=== PATIENT | male | born 1975 | race Caucasian/White ===

== ENCOUNTER 2020-03-30 17:13 | Inpatient (IN) | payer OTHER, SELFPAY ==
[~2020-03-30] VITALS: Ht 180.3 cm; Wt 72.3 kg
--- NOTE | 2020-03-30 18:04 | REPVR ---
PROCEDURE INFORMATION: Exam: XR Right Ribs with PA Chest, 3 Views Exam date and time: 03/30/2020 5:44 PM Age: 44 years old Clinical indication: Other: Right rib pain; Additional info: Pain to right ribcage TECHNIQUE: Imaging protocol: XR Right ribs 3 views with PA chest. COMPARISON: No relevant prior studies available. FINDINGS: Lungs: Opacified right hemithorax. Pleural space: Unremarkable. No pleural effusion. No pneumothorax. Heart/Mediastinum: Unremarkable. No cardiomegaly. Bones/joints: Unremarkable. IMPRESSION: 1. Opacified right hemithorax. 2. No rib abnormalities. Electronically signed by: Maxim Phillips On 03/30/2020 18:04:39 PM
[2020-03-30] MEDS ORDERED: NS 1,000 ML IV SCH (18:06)
[2020-03-30] MEDS ORDERED: IPRATROPIUM 0.5MG/ALBUTEROL 2.5MG INH SOL UD 3ML (DUONEB) NEB PRN (18:15)
[2020-03-30 18:34] LABS: ABG BASE EXCESS -4.5 (-2.0-2.0); ABG HCO3 19.2 MEQ/L (22.0-26.0); ABG PARTIAL PRESSURE CO2 32.1 mmHg (35.0-45.0); ABG PARTIAL PRESSURE O2 91.1 mmHg (75.0-100.0); ABG STANDARD HCO3 20.8 MEQ/L (22.0-26.0); ABG TOTAL CO2 20.2 MEQ/L (22.0-29.0); ABG pH (ARTERIAL) 7.395 UNITS (7.350-7.450)
[2020-03-30 18:44] LABS: BASO # 0.1 10^3/uL (0.0-0.2); BASO % 0.3 % (0.0-1.0); EOS % 0.1 % (0.0-3.0); HEMATOCRIT 46.8 % (42.0-52.0); HEMOGLOBIN 15.4 g/dl (13.5-17.5); LYMPH # 3.5 10^3/uL (1.5-5.0); LYMPH % 15.9 % (24.0-44.0); MEAN CORPUSCULAR HEMOGLOBIN 28.9 pg (27.0-33.0); MEAN CORPUSCULAR HGB CONC 32.9 g/dl (32.0-36.5); MEAN CORPUSCULAR VOLUME 87.8 fl (80.0-96.0); MONO # 1.9 10^3/uL (0.0-0.8); MONO % 8.6 % (0.0-5.0); NEUTROPHILS # 16.2 10^3/uL (1.5-8.5); NEUTROPHILS % 74.6 % (36.0-66.0); PLATELET COUNT, AUTOMATED 578 10^3/uL (150-450); RED BLOOD COUNT 5.33 10^6/uL (4.30-6.10); WHITE BLOOD COUNT 21.7 10^3/uL (4.0-10.0)
[2020-03-30 18:47] LABS: INR 1.05
[2020-03-30 18:57] LABS: ALBUMIN 3.3 GM/DL (3.2-5.2); ALT/SGPT 33 U/L (12-78); BILIRUBIN,DIRECT 0.1 MG/DL (0.0-0.2); BILIRUBIN,TOTAL 0.4 MG/DL (0.2-1.0); BLOOD UREA NITROGEN 15 MG/DL (7-18); CARBON DIOXIDE LEVEL 23 MEQ/L (21-32); CHLORIDE LEVEL 104 MEQ/L (98-107); CPK CREATINE PHOSPHOKINASE 216 U/L (39-308); CREATININE FOR GFR 0.87 MG/DL (0.70-1.30); GLOMERULAR FILTRATION RATE > 60.0 (>60); GLUCOSE, FASTING 120 MG/DL (70-100); MB/CK RELATIVE INDEX 1.39 (< OR =4); POTASSIUM SERUM 4.7 MEQ/L (3.5-5.1); SODIUM LEVEL 136 MEQ/L (136-145); TOTAL PROTEIN 7.2 GM/DL (6.4-8.2); TROPONIN I < 0.02 NG/ML (< 0.10)
[2020-03-30] MEDS ORDERED: ONDANSETRON 4MG/2ML VIAL IV ONE (19:15)
[2020-03-30] MEDS ORDERED: MORPHINE 4 MG/ML 1ML VIAL/SYRINGE (J2270) IV ONE (19:15)
[2020-03-30] MEDS ORDERED: ISOVUE-370 76% 100ML VIAL As Ordered ONE (19:31)
[2020-03-30] MEDS ORDERED: MORPHINE 4 MG/ML 1ML VIAL/SYRINGE (J2270) IV PRN (22:00)
[2020-03-30] MEDS ORDERED: MOM 30ML SUSPENSION UDC PO PRN (23:00)
[2020-03-30] MEDS ORDERED: ACETAMINOPH W/CODEINE #3 TAB UD PO PRN (23:00)
[2020-03-30 23:29] LABS: PH BODY FLUID 7.276 UNITS (NOT ESTABLISHED); SOURCE, BODY FLUID pH PLEURAL
[2020-03-30 23:56] LABS: LDH, BODY FLUID 247 U/L (NOT ESTABLISHED); SOURCE, BODY FLUID GLUCOSE PLEURAL; SOURCE, BODY FLUID LDH PLEURAL; SOURCE, BODY FLUID TOT PROTEIN PLEURAL; TOTAL PROTEIN, BODY FLUID 5.2 G/DL (NOT ESTABLISHED)
[2020-03-31 00:31] LABS: SOURCE, BODY FLUID PLEURAL
[2020-03-31 00:32] LABS: APPEARANCE, BODY FLUID TURBID (CLEAR); PLEURAL FL COLOR RED (COLORLESS)
[2020-03-31 01:00] VITALS: BP 135/83
[2020-03-31 04:00] VITALS: BP 98/57
[2020-03-31 05:31] LABS: HEMATOCRIT 40.1 % (42.0-52.0); MEAN CORPUSCULAR HEMOGLOBIN 29.1 pg (27.0-33.0); MEAN CORPUSCULAR HGB CONC 32.9 g/dl (32.0-36.5); MEAN CORPUSCULAR VOLUME 88.3 fl (80.0-96.0); RED BLOOD COUNT 4.54 10^6/uL (4.30-6.10); WHITE BLOOD COUNT 26.8 10^3/uL (4.0-10.0)
[2020-03-31 05:42] LABS: HEMOGLOBIN 13.2 g/dl (13.5-17.5); PLATELET COUNT, AUTOMATED 458 10^3/uL (150-450)
--- NOTE | 2020-03-31 06:24 | ECGEPIP ---
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
[2020-03-31 08:00] VITALS: BP 132/75
[2020-03-31 12:00] VITALS: BP 137/69
[2020-03-31] MEDS: ACETAMINOPHEN TAB 650MG DOSE (2X325MG) PO PRN ×2 (12:24→22:33)
[2020-03-31 16:00] VITALS: BP 112/58
[2020-03-31 20:00] VITALS: BP 115/65
[2020-04-01] VITALS: BP 110/71
[2020-04-01 04:00] VITALS: BP 105/64
[2020-04-01 08:00] VITALS: BP 111/73
--- NOTE | 2020-04-01 08:03 | IPNPDOC ---
Date Seen The patient was seen on 03/31/20. Progress Note SUBJECTIVE: Patient is a 44-year-old male with no reported medical history who has been admitted to the hospital due to a tension hemothorax. A chest tube was placed by Dr. Villaseñor. This is hospital day 2. Pt is alert, cooperative, and conversational. He states that he is doing well today and does not have any concerns. The nurses report no overnight events. They state that they switched his nasal cannula from 1L to 3L due to his oxygenation being at 91% O2 saturation. The only pain he reports is slight and at the site of the chest tube insertion. OBJECTIVE PHYSICAL EXAMINATION: VITAL SIGNS: Please see below. GENERAL: awake, alert, appears healthy, is in no acute distress. CARDIOVASCULAR: RRR, no murmurs, rubs, gallops. RESPIRATORY: inspiratory crackles and decreased breath sounds in right middle and lower lobes, clear, normal vesicular breath sounds in upper lung lobes bilaterally, normal vesicular breath sounds in left lower lobe. ABDOMINAL: nondistended, soft abdomen, normal bowel sounds. EXTREMITIES: no edema palpated bilaterally in lower extremities PSYCHOLOGICAL: awake, alert, cooperative LABORATORY DATA, IMAGING STUDIES, MICROBIOLOGY: Please see below. Electrocardiogram: Test Date: 2020-03-30 SINUS TACHYCARDIA POOR R WAVE PROGRESSION VOLTAGE CRITERIA FOR LVH NO PRIORS FOR COMPARISON Electronically Signed on 03-31-2020 6:24:27 [address]T [address] Don[address] Cruz. [address] chest 03/30/2020: Official report pending. Verbal findings include right tension hemothorax leading to displacement of the heart into the left half of the rib cage. Chest radiograph: 03/31/20-still shows atelectasis of the lower right lung lobe. The right upper lobe has re-expanded, the right middle lobe has partially re-expanded. Official report is pending. DVT prophylaxis ordered: SCDs ordered. Pt is possibly actively bleeding, therefore, no anti-coagulants are being used at this time. Pt has been advised to walk and nursing staff is encouraged for the same. ASSESSMENT AND PLAN: This is a 44-year-old male with no significant past medical history who presents with a right tension hemothorax. Chest tube was placed without complications by Dr. Villaseñor. Pt is full code. PROBLEMS: 1. Cardiology: Pt's vitals are stable, he is not hypovolemic, he is not curr ently tachycardic. 2. Pulmonology: Pt's chest radiograph show partial re-expansion of the right upp er and middle lobes. Due to atelectatic right lower lobe, PEP therapy, incentive spirometer, and Acapella were ordered with assistance from the respiratory team. Continue to explore etiology for hemothorax. Will monitor with follow-up CT chest. Continue serial chest radiographs. Continue to keep insertion site of chest tube, clean and dry. Continue to monitor volume of drainage from chest tube. 3. Hematology/Oncology: Continue to monitor blood count due to RBC loss in pleural fluid. Pleural fluid drained has been a total of 7.19L of pleural fluid. 4. GI: Continue bowel regimen. DISPOSITION: Continue to monitor chest tube output. Management will change after chest tube no longer drains fluid. Dr. Villaseñor: I participated in the willson components of the evaluation and agree with the content of the above note. The patient has responded well to pleural drainage and his lung is expanding. Fluid results are consistent with traumatic hemothorax but the rate of development is unusual. We will continue drainage and add pulmonary toilet maneuvers. VS, I&O, 24H, Fishbone Vital Signs/I&O Vital Signs Date Time Temp Pulse Resp B/P (MAP) Pulse Ox O2 Delivery O2 Flow Rate FiO2 03/31/20 08:00 98.7 95 20 132/75 (94) 91 Nasal Cannula 1.0 I&O- Last 24 Hours up to 6 AM 03/31/20 05:59 Intake Total 650 ml Output Total 7300 ml Balance -6650 ml Laboratory Data 24H LABS Laboratory Tests 2 03/30/20 18:00: Immature Granulocyte % (Auto) 0.5, Neutrophils (%) (Auto) 74.6H, Lymphocytes (%) (Auto) 15.9L, Monocytes (%) (Auto) 8.6H, Eosinophils (%) (Auto) 0.1, Basophils (%) (Auto) 0.3, Neutrophils # (Auto) 16.2H, Lymphocytes # (Auto) 3.5, Monocytes # (Auto) 1.9H, Eosinophils # (Auto) 0.0, Basophils # (Auto) 0.1, Nucleated Red Blood Cells % (auto) 0.0, Prothrombin Time 14.0, Prothromb Time International Ratio 1.05, Anion Gap 9, Glomerular Filtration Rate > 60.0, Calcium Level 9.0, Total Bilirubin 0.4, Direct Bilirubin 0.1, Aspartate Amino Transf (AST/SGOT) 13, Alanine Aminotransferase (ALT/SGPT) 33, Alkaline Phosphatase 92, Total Creatine Kinase 216, Creatine Kinase MB 3.0, Creatine Kinase MB Relative Index 1.39, Troponin I < 0.02, Total Protein 7.2, Albumin 3.3, Albumin/Globulin Ratio 0.8 03/30/20 18:27: Blood Gas Bicarbonate Standard 20.8L, Arterial Blood pH 7.395, Arterial Blood Partial Pressure CO2 32.1L, Arterial Blood Partial Pressure O2 91.1, Arterial Blood Total CO2 20.2L, Arterial Blood HCO3 19.2L, Arterial Blood Base Excess - 4.5L, Arterial Blood Oxygen Saturation 97.0 03/30/20 23:20: Body Fluid pH 7.276, Body Fluid pH Source PLEURAL, Body Fluid WBC (Auto) 2621H, Body Fluid RBC (Auto) 293, Body Fluid Mononuclear Cells % Auto 47.7H, Fluid Polymorphonuclear Cell % Auto 52.3H, Body Fluid Glucose Source PLEURAL, Body Fluid Glucose 52, Body Fluid Protein Source PLEURAL, Body Fluid Total Protein 5.2, Body Fluid LDH Source PLEURAL, Body Fluid Lactate Dehydrogenase 247, Pleural Fluid Source PLEURAL, Pleural Fluid Color RED, Pleural Fluid Appearance TURBID 03/31/20 04:58: Nucleated Red Blood Cells % (auto) 0.0 CBC/BMP Laboratory Tests 03/30/20 18:00 03/31/20 04:58 Microbiology Microbiology 03/30/20 Gram Stain - Final, Resulted 03/30/20 Body Fluid Culture, Resulted Pending GME ATTESTATION My faculty preceptor for this patient encounter was physically present during the encounter and was fully available. All aspects of the patient interview, examination, medical decision making process, and medical care plan development were reviewed and approved by the faculty preceptor. The faculty preceptor is aware and concurs with the plan as stated in the body of this note and will attest to such by his/her cosignature. Triston Sandoval DO Mar 31, 2020 11:56 Jaspreet Villaseñor DO, [facility] Apr 01, 2020 10:01
[2020-04-01 12:00] VITALS: BP 133/78
[2020-04-01 13:46] LABS: CREATININE BF 0.7 MG/DL (NOT ESTABLISHED); SOURCE, BODY FLUID CREATININE PLEURAL
--- NOTE | 2020-04-01 19:59 | HPE ---
DATE OF ADMISSION: 03/30/2020 HISTORY OF PRESENT ILLNESS: The patient is a 45-year-old male who presents to the emergency department with dyspnea. His dyspnea has been progressive over the past six days. He recalls struggling with a ladder six days ago. He did not fall from the ladder but was handling it in the air and strained himself to some degree. He has had no other chest injuries. He has some minor chest discomfort and is more short of breath with conversation with exertion. PAST MEDICAL HISTORY: Includes remote trauma with remote right rib fractures. He has no other past medical history. He has never had surgery. MEDICATIONS: He takes no medications on a regular basis. He uses nonsteroidal anti-inflammatory medicines [id number] from time to time for physical discomfort. ALLERGIES: He has no medication allergies that he is aware of. FAMILY HISTORY: He is not aware of illness in either of his parents though they are estranged. SOCIAL HISTORY: He smokes a pac of cigarettes per day and has done so for 20 years. He is actively smoking. He does not take alcohol on a regular basis. 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 REVIEW OF SYSTEMS: Constitutional: There are no changes in appetite or weight. HEENT: No history of impairment of vision, smell or hearing. Cardiovascular: No anginal-type chest pain, no orthopnea or paroxysmal nocturnal dyspnea. Pulmonary: There is no history of recurrent bronchitis, emphysema, or pneumonia. He has no asthma. GI: There is no history of recurring nausea, vomiting, constipation, or diarrhea. : No frequency, dysuria, or kidney stones. Endocrine: No history of diabetes or thyroid disease. Hematologic: No history of easy bruising rule out bleeding. He has never received blood transfusions. Neuro: No history of stroke or seizure. Musculoskeletal: He has no significant joint disease or motor weakness. PHYSICAL EXAMINATION: He is awake, alert and oriented. His affect and motor are appropriate. Nutrition and hygiene are good. Vital signs: Temperature 98.6, pulse rate is 129, respirations are 18, blood pressure 124/80, oxygen saturation 93% on room air. HEENT: Oral and nasal mucosa are pink. His posterior pharynx is mildly erythematous consistent with ongoing nicotine exposure. There is stridor over the trach and no adenopathy in the neck. Jugular veins are flat. Carotid upstroke brisk. Heart sounds are regular, somewhat rapid with deviation in the PMI to the left. Lungs: Breath sounds are coarse, clear over the left hemithorax, absent over the right hemithorax. There is no accessory muscle use at rest. Abdomen is soft with intact bowel sounds. There is no mass or organomegaly, no bruit over the large vessels in the abdomen. Extremities are cool. Peripheral pulses easily palpable. Nails are not clubbed. DIAGNOSTIC STUDIES: White cell count is 21, hemoglobin 15, hematocrit 46, platelet count 578,000. Arterial blood gasses showed a pH of 7.39, pCO2 32, pO2 91 on room air. Sodium is 136, potassium 4.7, chloride 104, CO2 is 23, BUN 15, creatinine 0.87, glucose 120. Bilirubin is normal. AST 13, ALT 33, alkaline phosphatase 92, troponin 0.02. Albumin 3.3. Pro time is 14, INR 1.05. His chest CT scan shows opacification of the right hemithorax with mediastinal shift to the left. IMPRESSIONS: Right hemothorax with compressive atelectasis of the right lung and resultant dyspnea. PLAN: Having reviewed the history, physical, and diagnostic studies with the patient, I proposed right thoracostomy. We will proceed with placement of thoracostomy tube and removal of pleural fluid. Thereafter the patient will be admitted to the progressive care unit for close monitoring. MORIAH
--- NOTE | 2020-04-01 20:02 | RO ---
DATE OF OPERATION: 03/30/2020 PREOPERATIVE DIAGNOSIS: Right hemothorax. POSTOPERATIVE DIAGNOSIS: Right hemothorax. PROCEDURE PERFORMED: Right tube thoracostomy. SURGEON: Jaspreet Villaseñor DO INSTRUCTOR [employer]OL[employer] TAXI: ANESTHESIA: PROCEDURE NOTE: The patient was seen and the procedure was explained to the patient as were all of the possible complications pertaining thereto. A written and informed consent were obtained and placed on the chart. The patient was placed in a seated upright position. Inner space between ribs 6 and 7 on the anterior axillary line was prepped with ChloraPrep, draped in a sterile fashion. A 25-gauge needle was used to raise the skin wheal with 1% lidocaine. Thereafter, a 17-gauge introducer needle was placed in through the skin and into the right pleural space. Free return of pleural fluid was appreciated. A vascular-tipped guidewire was advanced. Thereafter, a small incision was made adjacent to the guidewire and a 14 [place] chest tube placed over the guidewire and into the pleural space. The tube was connected to a Pleur-evac evacuation system and 5.7 liters of bloody fluid was returned. A sample was sent to the lab for evaluation. The tube was sewn in place. A sterile dressing was applied. The patient tolerated the procedure well, suffered no apparent complications. A post-procedural chest x-ray is pending. [facility]
--- NOTE | 2020-04-01 20:04 | DSES ---
DATE OF ADMISSION: 03/30/2020 DATE OF DISCHARGE: 04/01/2020 DISCHARGE DIAGNOSIS: Tension hydrothorax. HISTORY: The patient is a 44-year-old gentleman who presented to the emergency department with progressive shortness of breath and right-sided chest pain. He was wrestling with an extension ladder on Tuesday of the week prior to this admission, when he felt pain in his right side. The pain did not preclude him from continuing work; however, on he began to experience some shortness of breath, which progressed over time, and when the pain was intolerable and the shortness of breath progressed, he presented to the emergency department on the evening of 03/30/2020. PAST MEDICAL HISTORY: None. MEDICATIONS: [id number] Tylenol and Motrin. ALLERGIES: None. SOCIAL HISTORY: Smoker of 20 years. He smokes an average of a pack per day. He does not take alcohol. He has a supportive family. Remaining details of the history are outlined in the dictated history and physical. PHYSICAL EXAMINATION ON ADMISSION: He is awake, alert, and oriented. Affect and mood are appropriate. Nutrition and hygiene are good. Oral and nasal mucosa are pink. Neck is supple. No meningismus. Heart sounds are regular with point of maximal impulse (PMI) deviated to the left. Breath sounds were coarse, clear on the left. There were no breath sounds in the right hemithorax. Chest is otherwise symmetric and moves symmetrically. Abdomen is soft. Extremities show no significant edema. Pulse is reasonably palpable. Nails show some clubbing change. DIAGNOSTIC STUDIES: On admission his white cell count was 21.7. On March 31 his white count was 26.8. On admission his hemoglobin was 15.4. On March 31 his hemoglobin was 13.2. On admission his platelet count was 578,000. On March 31 his platelet count was 458,000. His electrolytes were sodium 136, potassium 4.7, chloride 104, CO2 of 23, BUN 15, creatinine 0.87, glucose 120. His liver enzymes were normal. Albumin 3.3. Arterial blood gas on admission shows a pH 7.39, pCO2 of 32, pO2 of 91. Coagulation studies were normal. Pleural fluid studies showed a pH of 7.27, white cell count 2600, red cells 293, mononuclear cells 47, polymorphonuclear cells 52%. Glucose 52, protein 5.2, LDH 247. Chest imaging on admission showed a tension right hydrothorax with significant deviation of the mediastinum and some compression of the left lung. Subsequent chest x-rays showed improvement and re-expansion of the right lung. HOSPITAL COURSE: The patient was seen in the emergency department, and having reviewed his findings, consent was obtained, and right tube thoracostomy was performed. The chest tube drained copious fluid, all total over 6 liters of serosanguineous fluid drained into the Pleur-evac. The patient felt immediate relief. He was treated to the progressive care unit for close monitoring. On the first hospital day, his chest x-ray was noted to be improved with persistent atelectasis of the right lower lobe. Lung expansion therapy was then applied, and on 04/01/2020 his chest x-ray looked much improved. We obtained a CT image of the chest. The report is at this point pending. I reviewed the images. There is minimal air outside the right lung, some persistent atelectasis in the right base, minimal residual pleural fluid. Some ground-glass opacities are appreciated on the left. Given successful re-expansion of the chest, the thoracostomy tube was removed. A sterile dressing was applied, and the patient was discharged. He was encouraged to use [id number]-[id number] medications if needed for pain. He required none while he was in the hospital. Followup will be arranged for him with our office and repeat chest x-ray in about 2 weeks' time. He was counseled regarding smoking cessation. We will continue to follow the abnormal x-ray at his followup visit. MORIAH
[2020-04-02 08:40] LABS: BILIRUBIN,TOTAL BF 0.7 MG/DL (NOT ESTABLISHED); SOURCE, BODY FLUID TOT BILIRU PLEURAL
--- NOTE | 2020-04-07 12:49 | REP ---
PORTABLE CHEST X-RAY: SINGLE VIEW HISTORY: Hemothorax. COMPARISON: 03/30/2020. FINDINGS: Monitoring electrodes are seen. A right pleural drainage catheter is seen in place at the right lung base. There is a small hydropneumothorax noted on the right. Most of the air and the small amount of fluid in the right pleural space is noted at the base. There is partial collapse and consolidation in the right lower lobe and upper lobe distribution adjacent to the pleural fissure. Aeration is slightly improved from the 03/30/2020 study. There is plate-like atelectasis in the left base today. IMPRESSION: Hydropneumothorax persists on the right despite pleural drainage catheter placement. Incomplete expansion of the right lung. MTDD
--- NOTE | 2020-04-07 12:50 | REP ---
PORTABLE CHEST X-RAY: SINGLE VIEW HISTORY: Hemothorax. COMPARISON: Comparison study March 31, 2020. FINDINGS: The right pleural drainage catheter is again noted in place at the right base. On this frontal view of the chest, the catheter may be kinked at the skin entry site laterally. There is increased pleural fluid and decreased pleural air in the right chest. Bibasilar atelectatic changes are noted, right greater than left. Heart size is unchanged. IMPRESSION: Question pleural drainage catheter kinking at the skin entry site laterally. Increased right pleural fluid and decreased amount of right pleural air. Bibasilar atelectatic changes. MTDD
[2020-04-14] MEDS ORDERED: DILA2TAB6 PO (15:22)
[2020-04-25] MEDS ORDERED: KEYT1INJ IV (09:54)
[2020-04-30] MEDS ORDERED: DILA2TAB6 PO (12:31)
== END 2020-04-01 13:50 | disposition home or self-care (01) | DRG 135 ==
LOC: M ED 17:13 → M ED INP 22:56 → ENRESERV 23:24 → M PCU 03-31 00:55
PROVIDERS: ADMIT Internal Medicine Pulmonary Disease; ATTEND Internal Medicine Pulmonary Disease
PROC: 0W9930Z Drainage of Right Pleural Cavity with Drainage Device, Percutaneous Approach (ICD-10-PCS; principal; 2020-03-30)
DX: S27.1XXA Traumatic hemothorax, initial encounter (principal); J98.11 Atelectasis; F17.210 Nicotine dependence, cigarettes, uncomplicated; X50.0XXA Overexertion from strenuous movement or load, initial encounter; Y99.0 Civilian activity done for income or pay; Y92.89 Other specified places as the place of occurrence of the external cause; Z91.030 Bee allergy status; Y93.89 Activity, other specified

== ENCOUNTER → 2020-04-08 | Outpatient (CLI) | payer OTHER, SELFPAY ==
[~2020-04-08] MED LIST: ACET-683 PO; ACET325C5 PO; APAP325T4 PO; AUGM875T28 PO; AZIT-12 PO; DILA2TAB6 PO; GNP80CHW PO; KEYT1INJ IV; METO1TAB7 PO; MIRA3350 PO; MULTCAP PO; NAPR220C14 PO; NYST10006 TOP; OXYC-404 PO; OXYC-517 PO
--- NOTE | 2020-04-11 09:15 | REP ---
CHEST XRAY: 04/08/20 CLINICAL: Follow-up pleural effusion. TECHNIQUE: PA and lateral. COMPARISON: 04/01/20. FINDINGS: Increasing opacities involving the right hemithorax consistent with enlarging hydropneumothorax and underlying air space disease. Small trapped fluid at the right apex is also appreciated. The left hemithorax is clear. Visualized portions of the cardiac silhouette and mediastinum appear normal. Skeletal structures are intact. IMPRESSION: Increasing right sided pleuroparenchymal changes consistent with increasing hydropneumothorax and underlying air space disease. MTDD
== END ==
LOC: M RAD 09:53
PROVIDERS: ATTEND Internal Medicine Pulmonary Disease
DX: J90 Pleural effusion, not elsewhere classified (principal)

== ENCOUNTER → 2020-04-14 | Outpatient (CLI) | payer OTHER, SELFPAY ==
[~2020-04-14] MED LIST changes: +ISOVUE-370 76% 100ML VIAL As Ordered ONE; +PROHANCE 279.3MG/ML 15ML VIAL As Ordered ONE
--- NOTE | 2020-04-14 16:45 | REP ---
INDICATION: PLEURAL EFFUSION, NOT ELSEWHERE CLASSIFIED COMPARISON: 04/08/2020 TECHNIQUE: PA and lateral. FINDINGS: Increasing near complete opacification of the right hemithorax consistent with large pleural effusion left hemithorax appears relatively clear. No obvious cardiomegaly. IMPRESSION: Near complete opacification of the right hemithorax consistent with large pleural effusion increased from prior examination. <Electronically signed by Arsalan Gifford > 04/14/20 [id number]
== END ==
LOC: M RAD 16:03
PROVIDERS: ATTEND Internal Medicine Pulmonary Disease
DX: J90 Pleural effusion, not elsewhere classified (principal)

== ENCOUNTER 2020-04-15 08:34 | Inpatient (IN) | payer OTHER, SELFPAY ==
[2020-04-15] VITALS (27 sets, daily range): BP systolic 104–133; BP diastolic 55–84; O2SAT 84–99
[~2020-04-15] VITALS: Ht 180.3 cm; Wt 71.8 kg
[~2020-04-15 08:34] MED LIST changes: -ACET-683 PO; -ACET325C5 PO; -APAP325T4 PO; -AUGM875T28 PO; -AZIT-12 PO; -GNP80CHW PO; -ISOVUE-370 76% 100ML VIAL As Ordered ONE; -KEYT1INJ IV; -METO1TAB7 PO; -MIRA3350 PO; -MULTCAP PO; -NAPR220C14 PO; -NYST10006 TOP; -OXYC-404 PO; -OXYC-517 PO; -PROHANCE 279.3MG/ML 15ML VIAL As Ordered ONE
[2020-04-15] MEDS ORDERED: KCL 20MEQ IN D5/NS 1000ML 1,000 ML IV SCH (08:36)
[2020-04-15] MEDS ORDERED: BISACODYL 10 MG SUPP PR PRN (08:45)
[2020-04-15] MEDS ORDERED: ceFAZolin SOD 2 GM in IV 1 EA IV ONE (08:45)
[2020-04-15] MEDS ORDERED: PERCOCET 5MG/325MG TAB PO PRN ×2 (08:45)
[2020-04-15] MEDS ORDERED: NORCO, ANEXSIA 5/325MG TABLET (HYDROcodone/ACETAMINOPHEN) PO PRN (08:45)
[2020-04-15] MEDS ORDERED: ONDANSETRON 4MG/2ML VIAL IV PRN (08:45)
[2020-04-15] MEDS ORDERED: ACETAMINOPHEN TAB 650MG DOSE (2X325MG) PO PRN (08:45)
[2020-04-15] MEDS ORDERED: LEVALBUTEROL 1.25 MG/0.5 ML CONCENTRATE NEB NEB PRN (08:45)
[2020-04-15] MEDS: MOM 30ML SUSPENSION UDC PO SCH ×2 (09:00→12:55)
[2020-04-15] MEDS ORDERED: MIDAZOLAM INJ 2MG/2ML VIAL (J2250 PER 1MG) As Ordered ONE (09:32)
[2020-04-15] MEDS ORDERED: flumazeniL 0.5 MG/5 ML VIAL As Ordered ONE (09:32)
[2020-04-15] MEDS ORDERED: LIDOCAINE 1% MDV 20ML VIAL As Ordered ONE (09:32)
[2020-04-15 10:12] LABS: ABG BASE EXCESS -0.3 (-2.0-2.0); ABG HCO3 22.9 MEQ/L (22.0-26.0); ABG O2 SATURATION 94.8 % (95.0-99.0); ABG PARTIAL PRESSURE CO2 32.7 mmHg (35.0-45.0); ABG PARTIAL PRESSURE O2 69.5 mmHg (75.0-100.0); ABG STANDARD HCO3 24.2 MEQ/L (22.0-26.0); ABG TOTAL CO2 23.9 MEQ/L (22.0-29.0); ABG pH (ARTERIAL) 7.464 UNITS (7.350-7.450)
[2020-04-15] MEDS ORDERED: ACET325C5 PO (11:02)
[2020-04-15] MEDS ORDERED: MIRA3350 PO (11:02)
--- NOTE | 2020-04-15 11:07 | REPVR ---
PROCEDURE INFORMATION: Exam: XR Chest, 1 View Exam date and time: 04/15/2020 11:01 AM Age: 44 years old Clinical indication: Device placement; Chest tube TECHNIQUE: Imaging protocol: XR of the chest Views: 1 view. COMPARISON: 1. CT Chest without contrast 04/01/2020 10:18 AM 2. [place] - Chest, 2 view PA, Lat 04/14/2020 4:46:57 PM FINDINGS: Tubes, catheters and devices: A right chest tube has been placed. Lungs: The newly aerated right lung demonstrates multifocal airspace disease. The left lung is relatively clear. Pleural space: The previous right pleural effusion has decreased in size, now moderate to large and partially loculated laterally. The left costophrenic angle is sharp. No pneumothorax is identified. Heart/Mediastinum: Unremarkable. No cardiomegaly. Bones/joints: Unremarkable. IMPRESSION: Right chest tube placed since 1 day prior, with decreased size of right pleural effusion, now moderate to large and partially loculated laterally, with multifocal airspace disease in the right lung. Electronically signed by: Chente Iraheta On 04/15/2020 11:07:08 AM
[2020-04-15] MEDS: HEPARIN SOD (PORCINE) 5000UNITS/ML 1ML VIAL/SYRINGE SC SCH ×2 (11:30→21:09)
[2020-04-15] MEDS: KETOROLAC 30 MG/ML 1ML VIAL IV SCH ×2 (11:31→17:15)
[2020-04-15 12:14] LABS: SOURCE, BODY FLUID pH PLEURAL
[2020-04-15 12:35] LABS: SOURCE, BODY FLUID PLEURAL
[2020-04-15 12:36] LABS: APPEARANCE, BODY FLUID TURBID (CLEAR); PLEURAL FL COLOR RED (COLORLESS)
[2020-04-15] MEDS: DOCUSATE SODIUM 100 MG CAP PO SCH ×2 (12:56→21:09)
[2020-04-15] MEDS: PANTOPRAZOLE 40MG TAB (PROTONIX) PO SCH (12:56)
--- NOTE | 2020-04-15 13:00 | HPE ---
DATE OF ADMISSION: 04/15/2020 Patient is seen at the request of Dr. Schneider of oncology. ADMITTING DIAGNOSIS: Patient is a 44-year-old white male who on January 28 was admitted with a large pleural effusion, which was found to be hemothorax. It was drained with a chest tube catheter over the course of his admission of 7 liters. He had an antecedent history of being up a ladder and stretching, and was thought to be a traumatic hemothorax; however, cytology and cell block came back with adenocarcinoma. It has further been characterized as 90% PDL1 positivity but no other positive markers, including EGFR and ALK. There is no KRAS mutation, and negative for ROS1 rearrangement. Staining was consistent with metastatic lung cancer. TTF-1 and CK7 were evaluated. I do not see where it is reported. He was discharged and was seen by oncology yesterday. Over the course of the last few days he has become more short of breath, such that he cannot lie flat. He does complain of having a fever once with a temperature of 101. He is breaking out in sweats. He also has some vague chills but not rigor. He complains of chest pain in the anterior-inferior portion of his chest when he takes a deep breath and coughs. There is no dysphagia, and so until yesterday he was eating all right. There has been a slight cough but without sputum production. MEDICAL HISTORY: Prior to beginning of March he had no past medical illnesses. ALLERGIES: None. HOME MEDICATIONS: Only include Dilaudid 2 mg four times a day as needed for pain, MiraLax for constipation, and Tylenol 325 as needed for pain. HABITS: Smokes one pack per day of Marlboros. Only drinks occasionally. No illicit drugs. TRAVEL HISTORY: His father was in the [employer], and he has been to the [facility] and [place] in his younger days. EXPOSURES: No exposures to tuberculosis. Has three dogs at home, albanian higginbotham and pit bull mixes. No cats or birds. OCCUPATIONAL HISTORY: Works in [employer]. He denies having a lot of exposure to dust or asbestos. 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 SOCIAL HISTORY: He has a and three children. FAMILY HISTORY: No cancer in the family. REVIEW OF SYSTEMS: CONSTITUTIONAL: See history of present illness (HPI). Denies weight loss. On discharge he weighed 72.3 kg on April 01, and today he weighs 74.1 kg. EYES: Without diplopia. Without amaurosis fugax. Without prior jaundice. Does not wear glasses. NOSE: Without epistaxis. MOUTH: Has upper dentures. RESPIRATORY: See HPI. CARDIAC: Without prior myocardial infarctions, leg edema, or intermittent claudication. Does have the above orthopnea relative to a large pleural effusion. GASTROINTESTINAL: Without nausea, vomiting, diarrhea, constipation, melena, hematochezia, hematemesis, or abdominal pain. GENITOURINARY; Without dysuria or hematuria. History of renal stones. ENDOCRINE: Without diabetes or thyroid disease. NEUROLOGIC: Without paresthesias, paralyses, or prior seizures. PSYCHIATRIC: Without pathological anxieties, depression, or psychoses. INVESTIGATIONS: His hematology shows white count of 18.0 with a hemoglobin and hematocrit of 10.7 and 33.5. It is down from a hemoglobin and hematocrit of 13.2 and 40.1 on March 31. Platelet count is 751. Differential shows 71% neutrophils, 18% lymphocytes, 7% monocytes. There are no immature forms of toxic granulations. His electrolytes yesterday were normal except for a marginal low sodium of 134. BUN and creatinine are 7 and 0.62. Glucose of 90 with a calcium of 9.1 and an albumin of 2.9. AST and ALT are normal with a total bilirubin of 0.3. TSH was 1.9, within normal limits. PT/INR are 14.0 and 1.05, respectively. His chest x-ray shows a tension hydrothorax with a left shift with complete opacification of the right side. The left costophrenic angle is sharp. IMPRESSION: 1. Adenocarcinoma, metastatic with presumed primary from lung. 2. Recurrent pleural effusion. 3. Tension hydrothorax. 4. Shortness of breath. 5. History of tobacco abuse. 6. Anemia secondary to blood loss from pleural effusion. PLAN AND DISCUSSION: As this is now recurrent within 10 days, I will place a PleurX catheter. I am a bit concerned about his history of fever and sweats. Before committing to a PleurX catheter, I will place a needle into the fluid. If it is pus, I will change from a PleurX catheter to a chest tube. It was hemorrhagic last time. I expect that this could be hemorrhagic this time. He has become more anemic since his discharge. He does not need transfusion at this point in time. As his tumor shows a 90% PDL1 positivity, hopefully he will respond to immunotherapy, i.e., Keytruda, plus or minus chemotherapy. The newest recommendation for this situation is can use immunotherapy as a single agent. I will certainly leave that to the oncologists. During his hospitalization, I will also obtain staging studies, including an MRI of the brain and a bone scan. He will be scheduled for a PET scan after discharge. MTDD
--- NOTE | 2020-04-15 13:04 | RO ---
DATE OF OPERATION: 04/15/2020 PREOPERATIVE DIAGNOSIS: Recurrent malignant pleural effusion. POSTOPERATIVE DIAGNOSIS: Recurrent malignant pleural effusion. SURGEON: Lance Boland MD DESIGN ENGINEERING TECHNICIAN: PROCEDURE: Insertion of right PleurX tunneled catheter. ANESTHESIA: DESCRIPTION OF PROCEDURE: Under satisfactory moderate sedate achieved with 4 mg of Versed the patient was prepped and draped in usual sterile fashion. Entry and exit sites were marked. These were then infiltrated with 1% Lidocaine along with proposed tunnel site. The pleural effusion was found with explorer needle which was found to be bloody. Wire was placed. Incisions were made at the entry and exit sites. Tunnel was created with tunneler after spreading the subcutaneous tissue with hemostat. PleurX catheter was pulled from the exit site to the entry site and positioned appropriately. Tract was then dilated over the wire and peel-away introducer was placed. The PleurX catheter was then placed without difficulty. Peel-away introducer was removed. The patient was drained of 2 liters of bloody fluid which was sent for all the requisite chemistries, cultures, hematologies and cytologies. Entry site was closed with running 4-0 Monocryl subcuticular suture and catheter was secured to the abdominal wall with 2-0 silk suture. The patient tolerated the procedure well. Chest x-ray is pending. [facility]
[2020-04-15 13:41] LABS: AMYLASE, BODY FLUID 15 U/L (NOT ESTABLISHED); CHOLESTEROL, BODY FLUID 126 MG/DL (NOT ESTABLISHED); LDH, BODY FLUID 1562 U/L (NOT ESTABLISHED); SOURCE, BODY FLUID ALBUMIN PLEURAL; SOURCE, BODY FLUID AMYLASE PLEURAL; SOURCE, BODY FLUID CHOL PLEURAL; SOURCE, BODY FLUID GLUCOSE PLEURAL; SOURCE, BODY FLUID LDH PLEURAL; SOURCE, BODY FLUID TOT PROTEIN PLEURAL; SOURCE, BODY FLUID TRIG PLEURAL; TRIGLYCERIDE, BODY FLUID 109 MG/DL (NOT ESTABLISHED)
[2020-04-15] MEDS: LEVALBUTEROL 1.25 MG/0.5 ML CONCENTRATE NEB NEB SCH ×2 (14:31→19:34)
--- NOTE | 2020-04-15 18:36 | CR.PDOC ---
General Date of Consultation: Apr 15, 2020 Referring Provider: Lance Boland M.D. Attending Physician: Lance Boland M.D. Consultation REASON FOR CONSULTATION: Evaluation of adenocarcinoma complicated by malignant pleural effusion. IDENTIFICATION AND CHIEF COMPLAINTS: Felipe Harrell is a very pleasant 44 year old gentleman with recently diagnosed adenocarcinoma, presumably but not definitively of lung primary, noted to have high PD-L1 expression, who is seen at the request of Lance Boland MD of Thoracic Surgery,for the purpose of expediting systemic antineoplastic therapy. The patient reports "I have pain in my right shoulder and my right rib cage; it's about a 7 out of 10 in intensity. Also, I think that the fluid around my lung is re-accumulating because I'm having less trouble breathing since Dr. Boland drained the fluid today and put in the drainage catheter." HISTORY OF PRESENT ILLNESS: The patient is a 44-year-old male who presented to the emergency department at [facility] with dyspnea and right sided rib cage pain on March 30, 2020. His dyspnea had been progressive over the priorsix days. He recalls struggling with a ladder six days prior to admission, and had thought that while handling it in the air he strained himself to some degree. In addition, he developed shortness of breath with conversation and with exertion, prompting presentation to the Emergency Department. He was found to have a large right pleural effusion, and underwent thoracentesis during his hospital admission, under the care of the Pulmonary Medicine practice. Cytology documented adenocarcinoma in a hemorrhagic effusion, and tumor analysis at [facility] reported no actionable mutations in cellular signal transduction molecules; however PD-L1 expression for Pembrolizumab was > 90%. The patient was therefore referred to Medical Oncology. He has not yet undergone staging studies. He was seen as an outpatient in Medical Oncology Clinic on April 14, 2020, at which time he reported pain in his right shoulder, rated 7 out of 10 intensity, constant in nature, and non-radiating, as well as pain and tenderness in the right anterior rib cage at the level of approximately T6. He also reports a constant generalized headache of 3 days duration, not worsened by either cough or sneeze. In addition, he reported some degree of dyspnea, although oxygen saturation at that time was 100% on room air. The patient's case was discussed with Dr. Boland on April 14, 2020, and Dr. Boland kindly agreed to evaluation the patient earlier today. Chest radiogram, however, showed evidence of a tension hemothorax once again, and Dr. Boland admitted Mr. Harrell, and performed repeat thoracentesis with placement of a PleurX catheter. The patient reports feeling much better following today's procedure. His overall Karnofsky performance status is estimated at 70% at this time. ALLERGIES: no known medication allergies CURRENT MEDICATIONS: Medications (Trade) Dose Ordered Sig/Angela Route PRN Reason Acetaminophen (Tylenol Tab) 650 mg Q6HP PRN PO T > 101.5 or MALIK Acetaminophen/ Hydrocodone Bitart ([place], [place] 5/325) 1 tab Q3H PRN PO MILD PAIN (PS 1-4) Bisacodyl (Dulcolax Suppository) 10 mg Q4HP PRN [place] CONSTIPATION Docusate Sodium (Colace) 100 mg BID PO Heparin Sodium (Porcine) (Heparin) 5,000 units Q12H SC Home Med (Med Rec Complete!) ASDIRECTED XX Ketorolac Tromethamine (ToRADol) 30 mg Q6H IV Levalbuterol HCl (Xopenex Neb) 1.25 mg Q2HP PRN NEB WHEEZING Levalbuterol HCl (Xopenex Neb) 1.25 mg RQ6H NEB Magnesium Hydroxide (Milk Of Magnesia) 30 ml DAILY PO Ondansetron HCl (ZOFRAN INJection) 4 mg Q4HP PRN IV NAUSEA Oxycodone/ Acetaminophen (Percocet 5mg/ 325mg Tablet) 1 tab Q4H PRN PO MODERATE PAIN (PS 5-7) Oxycodone/ Acetaminophen (Percocet 5mg/ 325mg Tablet) 2 tab Q4H PRN PO SEVERE PAIN (PS 8-10) Pantoprazole Sodium (Protonix) 40 mg DAILY PO Potassium Chloride/Dextrose/ Sod Cl 1,000 ml @ 75 mls/hr [id number] IV PAST MEDICAL HISTORY: The patient has adenocarcinoma of the lung, with a maligant right pleural effusion as noted. There is a remote history of trauma with remote right rib fractures. He has no other past medical history. He has never had surgery. FAMILY HISTORY: The patient's father at age 45 from motor vehicle trauma The patient's mother is alive at age 63. He has a brother from whom he is estr anged, and is unaware of the brother's medical history SOCIAL HISTORY: Tobacco: He smokes a pack of cigarettes per day and has done so for 20 years. He is actively smoking; he was advised to attempt to discontinue at this encounter. Alcohol: He does not take alcohol on a regular basis. Illicit Drugs: None. 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 REVIEW OF SYSTEMS: Constitutional: There are no changes in appetite or weight. HEENT: No history of impairment of vision, smell or hearing. Cardiovascular: No anginal-type chest pain, no orthopnea or paroxysmal nocturnal dyspnea. As noted he does report exertional dyspnea and musculoskeletal type chest pain Pulmonary: There is no history of recurrent bronchitis, emphysema, or pneumonia; no cough at this time. He has no asthma. He does report exertional dyspnea GI: There is no history of recurring nausea, vomiting, constipation, or diarrhea. : No frequency, dysuria, or kidney stones. Endocrine: No history of diabetes or thyroid disease. Hematologic: No history of easy bruising rule out bleeding. He has never received blood transfusions. Neuro: No history of stroke or seizure. The patient does report headache as noted Musculoskeletal: He has no significant joint disease or motor weakness. PHYSICAL EXAMINATION: The patient is a thin, well developed, well nourished gentleman, awake, alert and oriented. His affect and motor are appropriate. Nutrition and hygiene are good. Vital Signs Date Time Temp Pulse Resp B/P (MAP) Pulse Ox O2 Delivery O2 Flow Rate FiO2 04/15/20 09:58 98.3 113 18 133/84 (100) 94 Room Air 04/15/20 10:20 4.0 HEENT: Normocephalic, atraumatic; PERRLA, EOMI; Oral and nasal mucosa are pink. His posterior pharynx is mildly erythematous consistent with ongoing nicotine exposure. Neck: Jugular veins are flat. Carotid upstroke brisk. No thyromegaly, supple Cardiac: Heart sounds are regular, tachycardic; S1, S2, no gallop, rub, nor murmur noted. Lungs: Breath sounds are coarse, clear over the left hemithorax, decreased in the lower 2/3 of the right hemithorax. There is no accessory muscle use at rest but he is tachypneic at this time. There is dullness in the right lower lung field on percussion Abdomen: soft with active bowel sounds. There is no mass or organomegaly, no bruit over the large vessels in the abdomen. Extremities: without cyanosis or edema; however, this is mild clubbing present. Peripheral pulses easily palpable. DIAGNOSTIC STUDIES: From hospital admission in early March,: White cell count was 21,000 per microliter, hemoglobin 15 gm/dL, hematocrit 46%, platelet count 578,000. Arterial blood gasses showed a pH of 7.39, pCO2 32, pO2 91 on room air. Sodium was 136, potassium 4.7, chloride 104, CO2 is 23, BUN 15, creatinine 0.87, glucose 120. Bilirubin is normal. AST 13, ALT 33, alkaline phosphatase 92, troponin 0.02. Albumin 3.3. Pro time is 14, INR 1.05. In hospital, chest CT scan showed opacification of the right hemithorax with mediastinal shift to the left. Cytology identified adenocarcinoma; PD-L1 expression (for Kaytruda) > 90%. IMPRESSION: Adenocarcinoma of the lung, complicated by right hemothorax with compressive atelectasis of the right lung and resultant dyspnea, as well as right sided chest pain suggestive of bone involvement by lung cancer, either by extension or by metastases. The patient has Stage IV disease by virtue of the malignant pleural effusion, but he does require staging for optimal treatment planning. He may benefit from palliative external beam radiation therapy, given the severity of his pain at this time. In view of the very high expression of PD-L1, he would be very likely to respond favorably to Pembrolizumab, with, or without, cytotoxic anti-neoplastic therapy. Single agent Pembrolizumab is a Category 1 treatment recommendation for patients with adenocarcinoma of the lung, Stage IV, with PD-L1 expression, and given his symptomatic state, initiating therapy using Pembrolizumab as soon as feasible after staging may result in a fairly prompt, and durable, response, even without Carboplatin-based chemotherapy doublet. These treatment options were reviewed with the patient and his , and it was noted that Pembrolizumab, either as a single agent, or in combination with a Carboplatin-based doublet, is a Category 1 treatment recommendation in the NCCN guidelines for Stage IV adenocarcinoma of the lung with PD-L1 expression, and no other actionable mutations. PLAN: The patient's case was again discussed with Lance Boland MD of Thoracic Surgery. In order to expedite therapy, a discussion was undertaken with the patient and his regarding the potential benefits and toxicities of Pembrolizumab as a single agent. The patient signed consent for Pembrolizumab, and treatment orders were written. It is hoped that the patient can begin therapy promptly following hospital discharge. If single agent Pembrolizumab fails to result in an improvement in disease status, then cytotoxic anti- neoplastic therapy would be added, most likely using a Carboplatin-based doublet. The Pathology Department will be contacted in an effort to expedite reporting of the TTF-1 expression in the tumor cells, in order to confirm a diagnosis of lung primary. Outpatient PET/CT will also be important in staging the patient, and helpful to determine if this is, indeed, a lung cancer primary, as suspected. The patient should follow up in Medical Oncology, ideally to start Pembrolizumab, on April 18, 2020. Vital Signs/I&O Vital Signs Date Time Temp Pulse Resp B/P (MAP) Pulse Ox O2 Delivery O2 Flow Rate FiO2 04/15/20 15:36 99.6 114 20 104/55 (71) 90 Nasal Cannula 2.0 Laboratory Data Labs 24H Laboratory Tests 2 04/15/20 10:03: Blood Gas Bicarbonate Standard 24.2, Arterial Blood pH 7.464H, Arterial Blood Partial Pressure CO2 32.7L, Arterial Blood Partial Pressure O2 69.5L, Arterial Blood Total CO2 23.9, Arterial Blood HCO3 22.9, Arterial Blood Base Excess -0.3, Arterial Blood Oxygen Saturation 94.8L 04/15/20 11:03: Lactate Dehydrogenase 170 04/15/20 11:15: Body Fluid pH 7.100, Body Fluid pH Source PLEURAL, Body Fluid WBC (Auto) 4148H, Body Fluid RBC (Auto) 2328, Body Fluid Mononuclear Cells % Auto 38.9H, Fluid Polymorphonuclear Cell % Auto 61.1H, Body Fluid Glucose Source PLEURAL, Body Fluid Glucose < 1, Body Fluid Protein Source PLEURAL, Body Fluid Total Protein 6.0, Body Fluid Albumin Source PLEURAL, Body Fluid Albumin 2.2, Body Fluid LDH Source PLEURAL, Body Fluid Lactate Dehydrogenase 1562, Body Fluid Amylase Source PLEURAL, Body Fluid Amylase 15, Body Fluid Cholesterol 126, Body Fluid Cholesterol Source PLEURAL, Body Fluid Triglyceride Source PLEURAL, Body Fluid Triglycerides 109, Pleural Fluid Source PLEURAL, Pleural Fluid Color RED, Pleural Fluid Appearance TURBID Microbiology Microbiology 04/15/20 Acid Fast Stain, Received Pending 04/15/20 Mycobacterial Culture, Received Pending 04/15/20 Fungal Smear, Received Pending 04/15/20 Fungal Culture, Received Pending 04/15/20 Gram Stain - Final, Resulted 04/15/20 Anaerobic Culture, Resulted Pending 04/15/20 Body Fluid Culture, Received Pending Allergies Coded Allergies: bee venom protein (honey bee) (Verified Allergy, Intermediate, anaphlaytic, 03/30/20) Home Medications Scheduled Polyethylene Glycol 3350 (Miralax) 119 Gm Powder, 17 GM PO DAILY, (Reported) Scheduled PRN Acetaminophen (Tylenol) 325 Mg Capsule, 650 MG PO Q6H PRN for PAIN, (Reported) Hydromorphone HCl (Dilaudid) 2 Mg Tablet, 2 MG PO QIDP PRN for pain for 30 Days, #60 Take 1 to 2 tablets po q 6 hours prn pain from lung cancer ROSEY LLOYD MD Apr 15, 2020 18:10
[2020-04-16] VITALS (20 sets, daily range): BP systolic 97–128; BP diastolic 56–73; O2SAT 83–100
[2020-04-16] MEDS: KETOROLAC 30 MG/ML 1ML VIAL IV SCH ×5 (00:14→23:42)
[2020-04-16] MEDS: LEVALBUTEROL 1.25 MG/0.5 ML CONCENTRATE NEB NEB SCH ×4 (01:43→18:12)
[2020-04-16 05:26] LABS: BASO % 0.3 % (0.0-1.0); EOS # 0.1 10^3/uL (0.0-0.5); EOS % 0.7 % (0.0-3.0); HEMATOCRIT 29.3 % (42.0-52.0); HEMOGLOBIN 9.5 g/dl (13.5-17.5); LYMPH # 2.3 10^3/uL (1.5-5.0); LYMPH % 18.7 % (24.0-44.0); MEAN CORPUSCULAR HEMOGLOBIN 27.9 pg (27.0-33.0); MEAN CORPUSCULAR HGB CONC 32.4 g/dl (32.0-36.5); MEAN CORPUSCULAR VOLUME 86.2 fl (80.0-96.0); MONO # 1.2 10^3/uL (0.0-0.8); MONO % 9.7 % (0.0-5.0); NEUTROPHILS # 8.6 10^3/uL (1.5-8.5); NEUTROPHILS % 70.2 % (36.0-66.0); PLATELET COUNT, AUTOMATED 604 10^3/uL (150-450); WHITE BLOOD COUNT 12.2 10^3/uL (4.0-10.0)
[2020-04-16 06:01] LABS: BLOOD UREA NITROGEN 12 MG/DL (7-18); CALCIUM LEVEL 7.9 MG/DL (8.5-10.1); CARBON DIOXIDE LEVEL 27 MEQ/L (21-32); CHLORIDE LEVEL 100 MEQ/L (98-107); CREATININE FOR GFR 0.64 MG/DL (0.70-1.30); GLOMERULAR FILTRATION RATE > 60.0 (>60); GLUCOSE, FASTING 104 MG/DL (70-100); POTASSIUM SERUM 4.6 MEQ/L (3.5-5.1); SODIUM LEVEL 134 MEQ/L (136-145)
[2020-04-16 06:16] LABS: ABG BASE EXCESS 1.2 (-2.0-2.0); ABG HCO3 24.9 MEQ/L (22.0-26.0); ABG O2 SATURATION 87.3 % (95.0-99.0); ABG PARTIAL PRESSURE CO2 35.8 mmHg (35.0-45.0); ABG PARTIAL PRESSURE O2 51.9 mmHg (75.0-100.0); ABG STANDARD HCO3 25.4 MEQ/L (22.0-26.0)
[2020-04-16] MEDS: MOM 30ML SUSPENSION UDC PO SCH (09:00)
[2020-04-16] MEDS: DOCUSATE SODIUM 100 MG CAP PO SCH ×2 (09:00→21:00)
[2020-04-16] MEDS: PANTOPRAZOLE 40MG TAB (PROTONIX) PO SCH (09:42)
[2020-04-16] MEDS: HEPARIN SOD (PORCINE) 5000UNITS/ML 1ML VIAL/SYRINGE SC SCH ×2 (09:43→21:20)
--- NOTE | 2020-04-16 10:56 | REP ---
INDICATION: pleuarl effusion COMPARISON: 04/14/2020, 04/08/2020 TECHNIQUE: PA and lateral. FINDINGS: Right chest tube with its tip extending towards the right apex is in stable position compared to portable examination dated 04/15/2020. Right-sided pleural effusion is progressively decreasing compared with 04/14/2020 although partially loculated components are suspected. Underlying areas of ill-defined parenchymal disease are essentially unchanged and nonspecific. The left hemithorax is relatively clear and stable. Visualized portions of the cardiac silhouette are normal. Skeletal structures are intact. IMPRESSION: 1. Progressively decreasing right pleural effusion as compared to 04/14/2020. Chest tube in stable position. 2. Right-sided ill-defined parenchymal disease similar to prior examination. <Electronically signed by Arsalan Gifford > 04/16/20 [id number]
[2020-04-16] MEDS ORDERED: PROHANCE 279.3MG/ML 15ML VIAL ONE (14:14)
--- NOTE | 2020-04-16 15:09 | REPVR ---
PROCEDURE INFORMATION: Exam: MR Head Without and With Contrast Exam date and time: 04/16/2020 2:51 PM Age: 44 years old Clinical indication: Other: ? Metastasis, from lung primary TECHNIQUE: Imaging protocol: MR of the head without and with intravenous contrast. Contrast material: PROHANCE; Contrast volume: 15 ml; Contrast route: INTRAVENOUS (IV); COMPARISON: No relevant prior studies available. FINDINGS: Brain: No acute infarct identified on the diffusion-weighted imaging. No significant white matter disease. No enhancing lesions identified on the postcontrast imaging. Cerebral ventricles: Normal. No ventriculomegaly. Bones/joints: Unremarkable. Paranasal sinuses: Retention cyst or polyp in the right maxillary sinus. Mastoid air cells: Normal as visualized. No mastoid effusion. Orbits: Unremarkable. Soft tissues: Unremarkable. IMPRESSION: No evidence of metastatic disease. Electronically signed by: Raven Spears On 04/16/2020 15:08:59 PM
[2020-04-17] VITALS: BP 106/61
[2020-04-17] MEDS: LEVALBUTEROL 1.25 MG/0.5 ML CONCENTRATE NEB NEB SCH ×3 (01:54→14:00)
[2020-04-17 04:00] VITALS: BP 127/64
[2020-04-17] MEDS: KETOROLAC 30 MG/ML 1ML VIAL IV SCH ×2 (05:32→12:26)
[2020-04-17 05:38] LABS: BASO % 0.2 % (0.0-1.0); EOS # 0.2 10^3/uL (0.0-0.5); EOS % 1.8 % (0.0-3.0); HEMATOCRIT 26.8 % (42.0-52.0); HEMOGLOBIN 8.7 g/dl (13.5-17.5); LYMPH # 2.1 10^3/uL (1.5-5.0); LYMPH % 23.2 % (24.0-44.0); MEAN CORPUSCULAR HEMOGLOBIN 27.8 pg (27.0-33.0); MEAN CORPUSCULAR HGB CONC 32.5 g/dl (32.0-36.5); MEAN CORPUSCULAR VOLUME 85.6 fl (80.0-96.0); MONO # 0.9 10^3/uL (0.0-0.8); MONO % 9.5 % (0.0-5.0); NEUTROPHILS # 5.8 10^3/uL (1.5-8.5); PLATELET COUNT, AUTOMATED 608 10^3/uL (150-450); RED BLOOD COUNT 3.13 10^6/uL (4.30-6.10)
[2020-04-17 05:55] LABS: BLOOD UREA NITROGEN 8 MG/DL (7-18); CALCIUM LEVEL 8.3 MG/DL (8.5-10.1); CARBON DIOXIDE LEVEL 29 MEQ/L (21-32); CHLORIDE LEVEL 102 MEQ/L (98-107); CREATININE FOR GFR 0.56 MG/DL (0.70-1.30); GLOMERULAR FILTRATION RATE > 60.0 (>60); GLUCOSE, FASTING 95 MG/DL (70-100); POTASSIUM SERUM 4.4 MEQ/L (3.5-5.1); SODIUM LEVEL 134 MEQ/L (136-145)
[2020-04-17] MEDS ORDERED: ISOVUE-370 76% 100ML VIAL ONE (07:54)
[2020-04-17 08:00] VITALS: BP 113/66
[2020-04-17] MEDS: MOM 30ML SUSPENSION UDC PO SCH (09:00)
[2020-04-17] MEDS: DOCUSATE SODIUM 100 MG CAP PO SCH (09:00)
[2020-04-17] MEDS: PANTOPRAZOLE 40MG TAB (PROTONIX) PO SCH (09:55)
[2020-04-17] MEDS: HEPARIN SOD (PORCINE) 5000UNITS/ML 1ML VIAL/SYRINGE SC SCH (09:55)
--- NOTE | 2020-04-17 10:05 | REPVR ---
PROCEDURE INFORMATION: Exam: CT Chest With Contrast Exam date and time: 04/17/2020 9:27 AM Age: 44 years old Clinical indication: Other: Lung mass? ; Additional info: Underlying lung mass? TECHNIQUE: Imaging protocol: Computed tomography of the chest with intravenous contrast. 3D rendering (Not supervised by radiologist): MIP and/or 3D reconstructed images were created by the technologist. Radiation optimization: All CT scans at this facility use at least one of these dose optimization techniques: automated exposure control; mA and/or kV adjustment per patient size (includes targeted exams where dose is matched to clinical indication); or iterative reconstruction. Contrast material: ISOVUE 370; Contrast volume: 75 ml; Contrast route: INTRAVENOUS (IV); COMPARISON: CT Chest without contrast 04/01/2020 10:18 AM FINDINGS: Tubes, catheters and devices: The previous right lateral 6th intercostal space pleural drain has been removed. Interval placement of a lateral right extending into the loculated right pleural effusion which has increased in size. The tube extends cranially in the posterior collection to the level of the posterior 5th rib. A catheter side port is in the parietal subpleural space (series 202, image 80). Thyroid: The partially imaged bilateral thyroid lobes are unremarkable. Lungs: Increased right lung partial atelectasis. Ground-glass opacity left upper lobe anterior and posterior segments, superior segment of lingula. Pleural space: See "Tubes, catheters and devices" finding. Heart: Norm. No pericardial effusion. Aorta: Unremarkable. No aortic aneurysm. Lymph nodes: Right pulmonary hilar lymph node measuring 8 mm short axis. Left pulmonary hilar lymph nodes, largest measuring 8 mm short axis. Subcarinal lymph node measuring 13.8 mm short axis. Gallbladder and bile ducts: The gallbladder is partially contracted. Bones/joints: No acute abnormality. No acute fracture. Soft tissues: Unremarkable. IMPRESSION: 1. Interval significant increase in right sided loculated pleural effusion/empyema. Consider assessment of pleural drain function. 2. Increased right lung partial atelectasis. 3. Ground-glass opacity left upper lobe/lingula. Pneumonitis is difficult to exclude. Clinical correlation is recommended. Electronically signed by: Ej Schwartz On 04/17/2020 10:05:38 AM
--- NOTE | 2020-04-17 10:09 | REPVR ---
PROCEDURE INFORMATION: Exam: XR Chest, 2 Views Exam date and time: 04/17/2020 6:00 AM Age: 44 years old Clinical indication: Condition or disease; Other: Pleural effusion; Additional info: Pleuarl effusion TECHNIQUE: Imaging protocol: XR of the chest Views: Frontal and lateral upright views. COMPARISON: CR - Chest, 2 view PA, Lat 04/16/2020 10:38:48 AM FINDINGS: Lungs: Increased right lung partial atelectasis. The pulmonary vasculature is normal. The left lung is radiographically clear (please see CT report of the same day). Pleural space: Stable right chest pleural drain position. Significant interval increase in peripherally loculated right pleural effusion, now large. Heart/Mediastinum: The heart is normal in size and contour. Bones/joints: Stable. IMPRESSION: 1. Significant interval increase in peripherally loculated right pleural effusion, now large. 2. Increased right lung partial atelectasis. Electronically signed by: Ej Schwartz On 04/17/2020 10:09:41 AM
[2020-04-17 12:00] VITALS: BP 108/67
--- NOTE | 2020-04-17 14:35 | IPN ---
DATE: 04/16/2020 SUBJECTIVE: Mr. Harrell is in good spirits today. He is breathing well. He is feeling much better then he did when he first came in prior to his drainage. He was drained of 900 cc from his PleurX catheter today and chest x-ray afterwards showed improvement in his pleural effusion from yesterday. His vital signs showed T-max of 99.2 with a heart rate that ranges between 85 and 111 with sinus rhythm, respiratory rate of 18 to 20 without the use of accessory muscles, who is 91 to 94% saturating on room air. Blood pressure ranges between 97/57 to 107/60. His intake and output for past 24 hours has been recorded at 1360 in and 2050 out with a negative 690 cc. He was drained of 2050 cc of fluid from the PleurX catheter yesterday and 900 today. Weight today is 72.5 kg, 74.1 kg yesterday. PHYSICAL EXAMINATION: He has scattered rhonchi throughout with E to A egophony and bronchophony on the right mid lung field. Percussion is dull at the base on the right side, full throughout the diaphragm on the left. Cardiac examination without murmurs, clicks, gallops or rubs. I cannot feel his PMI. S1, S2 normal. Abdomen is soft, nontender. Bowel sounds are positive. There is no hepatomegaly. No costovertebral angle (CVA) tenderness. Extremities show no pretibial edema, no calf tenderness. No differential swelling of the upper extremities. Skin is warm, dry and perfuse without cyanosis or mottling including that of nailbeds and knees. Neck is supple without jugular venous distention. There is no subcutaneous emphysema . Trachea is midline. Mouth shows mucous membranes pink and moist. Lips and commissures without thrush. Eyes shows pupils equal and reactive. Extraocular movements are intact. Sclera nonicteric. Neuro shows cranial nerves II-XII intact with gross motor and gross sensation intact. Gait is not tested. Psychiatric: Awake, alert oriented x3 with approximately mood and affect and conversational. His white count today is 12.2 with hemoglobin and hematocrit of 9.5 and 29.3. Platelet count is 604 with a differential that shows 70% neutrophils, 18% lymphocytes and 9% monocytes. There are no immature forms and no toxic granulations. Chemistries show marginally low sodium 134 with a BUN and creatinine of 12 and 0.64. Glucose of 104 and calcium of 7.9 His pleural fluid has come back with a pH of 7.1 with a LDH of 1562 with a serum LDH of 170. Glucose is less than 1 with a total protein of 6.0. He has 4148 white cells, 38% which are mononuclear and lymphocytes and 61 are PMNs. Pathology came back with a few highly atypical cells and positive for malignancy. Microbiology shows many white cells and red cells, but no organisms. Cultures are pending. All in all this looks like a malignant pleural effusion with viable malignant cells, metabolizing glucose. His chest x-ray has improved today with some small residual pleural effusion in the right lower hemithorax. The chest x-ray was taken after drainage and my physical examination was taken before drainage. There is a lot of post expansion pulmonary edema and atelectasis in the right lower hemithorax. I do not see the costophrenic angle on the right. There also looks to be a loculation at the apex. PleurX catheter is in good place and the lateral chest x-ray shows some fluid at the base of the hemithorax on the right. IMPRESSOIN: 1. Linear pleural effusion. 2. 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 3. Recurrent pleural effusion. 4. Tension hydrothorax resolved. 5. Shortness of breath 6. History of tobacco abuse. 7. Anemia secondary to blood loss from pleural effusion. PLAN: He is going to undergo an MRI of his brain today. I am concern the appearance of the x-ray. I do not think I need to do a TPA pleurolysis. Will plan to send him home tomorrow. His tumor shows a 90% PDL1 expression. The tumor markers including CK7 and TTF-1 which were supposed to have been drawn, have not been reported yet. I will repeat a chest CT tomorrow to see if there are any other underlying masses that can be seen to definitely point us in the direction of primary being from the lung. MORIAH
--- NOTE | 2020-04-18 11:20 | DS ---
DATE OF ADMISSION: 04/15/2020 DATE OF DISCHARGE: 04/17/2020 DISCHARGE DIAGNOSES: 1. Malignant pleural effusion. 2. Metastatic adenocarcinoma, lung. 3. Tension hydrothorax. 4. Shortness of breath. 5. History of tobacco abuse. 6. Anemia secondary to blood loss and pleural effusion. HOSPITAL COURSE: Patient is a 44-year-old white male who on January 28 was admitted for a large pleural effusion, which was found to be hemothorax. Subsequently was found to be malignant, consistent with adenocarcinoma from the lung. TTF-1 and CK7 were positive. They are not, however, documented in the medical record. The tumor was also EGFR ALK, and ROS1 negative. It did show 90% PDL-1 positivity. The pleural effusion had reaccumulated, and a PleurX catheter was then placed, as it had accumulated over a period of less than 2 weeks. Initially 1000 mL were removed, and over the subsequent 2 days 900 and 650 mL were removed. Chest x-ray on hospital day #1 after drainage showed the effusion to be for the most part resolved; however, the chest x-ray on hospital day #2 prior to drainage showed the pleural fluid reaccumulating. This was then drained. He is being discharged today on his home medications, which include: - atenolol 600 mg every 6 hours as needed for pain - Dilaudid 2 mg every 6 hours as needed for pain - MiraLax 17 grams by mouth daily He will see me in followup in 10 days with a chest x-ray. He will also be seen by oncology tomorrow. Plans are to treat him with single-agent Keytruda. His discharge hemoglobin and hematocrit are 8.7 and 26.8 with a platelet count of 608. Discharge electrolytes are essentially normal with a BUN and creatinine of 8 and 0.56. Calcium is 8.3. MTDD
[2020-04-25] MEDS ORDERED: KEYT1INJ IV (09:54)
[2020-04-30] MEDS ORDERED: DILA2TAB6 PO (12:31)
== END 2020-04-17 15:57 | disposition home or self-care (01) | DRG 136 ==
LOC: M PCU 08:34
PROVIDERS: ADMIT Thoracic Surgery (Cardiothoracic Vascular Surgery); ATTEND Thoracic Surgery (Cardiothoracic Vascular Surgery)
PROC: 0W9900Z Drainage of Right Pleural Cavity with Drainage Device, Open Approach (ICD-10-PCS; principal; 2020-04-15)
DX: C34.90 Malignant neoplasm of unspecified part of unspecified bronchus or lung (principal); J91.0 Malignant pleural effusion; F17.210 Nicotine dependence, cigarettes, uncomplicated; D50.0 Iron deficiency anemia secondary to blood loss (chronic); J98.11 Atelectasis; K59.00 Constipation, unspecified; J94.8 Other specified pleural conditions; Z91.030 Bee allergy status; Z79.899 Other long term (current) drug therapy

== ENCOUNTER → 2020-04-28 | Outpatient (CLI) | payer OTHER, SELFPAY ==
[~2020-04-28] MED LIST changes: +ACET-683 PO; +ACET325C5 PO; +APAP325T4 PO; +AUGM875T28 PO; +AZIT-12 PO; +GNP80CHW PO; +KEYT1INJ IV; +METO1TAB7 PO; +MIRA3350 PO; +MULTCAP PO; +NAPR220C14 PO; +NYST10006 TOP; +OXYC-404 PO; +OXYC-517 PO
--- NOTE | 2020-04-28 09:51 | REPPI ---
INDICATION: C34.90 MALIGNANT NEOPLASM OF UNSP PART OF BRONCHUS OR LUNG. COMPARISON: Comparison chest x-ray April 17, 2020. TECHNIQUE: Two views.. FINDINGS: There is a PleurX catheter noted again in position unchanged posteriorly at the superior portion of the right hemithorax. There is a large pleural opacity consistent with a loculated pleural effusion present despite the PleurX catheter. This has increased in size since the April 17, 2020 prior study. The left lung is clear. The left pleural angle is sharp. There is soft tissue opacity again noted in the paratracheal region and some loculated pleural thickening is seen at the apex on the right. These are unchanged. Is IMPRESSION: Increasing pleural opacity opacifying much of the right hemithorax despite the presence of a PleurX catheter.. <Electronically signed by Cecil Little > 04/28/20 0948
== END ==
LOC: M PLAIMG 09:12
PROVIDERS: ATTEND Thoracic Surgery (Cardiothoracic Vascular Surgery)
DX: C34.90 Malignant neoplasm of unspecified part of unspecified bronchus or lung (principal); J91.0 Malignant pleural effusion

== ENCOUNTER → 2020-04-29 | Outpatient (CLI) | payer OTHER, SELFPAY ==
--- NOTE | 2020-04-29 08:32 | REPPI ---
INDICATION: J94.2 HEMOTHORAX. COMPARISON: Comparison chest x-ray April 28, 2020. TECHNIQUE: Two views.. FINDINGS: A Czyear-A-Tvyk catheter is again seen in place on the right. There is improvement noted in the loculated right pleural effusion compared with yesterday's radiograph. There is still considerable pleural thickening in the apex and along the right lateral chest wall. In some improvement in aeration is achieved on the right. The left lung remains clear. IMPRESSION: Some improvement in the aeration on the right with decrease in the amount of loculated pleural fluid.. <Electronically signed by Cecil Little > 04/29/20 0846
== END ==
LOC: M PLAIMG 07:55
PROVIDERS: ATTEND Thoracic Surgery (Cardiothoracic Vascular Surgery)
DX: J94.2 Hemothorax (principal); J90 Pleural effusion, not elsewhere classified

== ENCOUNTER → 2020-05-01 | Outpatient (CLI) | payer OTHER, SELFPAY ==
--- NOTE | 2020-05-01 08:40 | REPPI ---
INDICATION: J91.0 MALIGNANT PLEURAL EFFUSION. COMPARISON: Comparison chest x-ray April 29, 2020. TECHNIQUE: Two views.. FINDINGS: There is a right-sided PleurX catheter again noted in place. Extensive pleural thickening is seen along the right lateral and apical regions of the chest. There is volume loss the right hemithorax as before. Increased parenchymal markings are seen in the right base. Left lung is clear. Findings are unchanged from the April 29, 2020 study. IMPRESSION: Negative chest x-ray. Extensive pleural thickening on the right with volume loss right hemithorax. Right pleural drainage occurred, PleurX catheter in place. No change from April 29, 2020. <Electronically signed by Cecil Little > 05/01/20 0814
== END ==
LOC: M PLAIMG 07:52
PROVIDERS: ATTEND Thoracic Surgery (Cardiothoracic Vascular Surgery)
DX: J90 Pleural effusion, not elsewhere classified (principal)

== ENCOUNTER → 2020-05-05 | Outpatient (CLI) | payer OTHER ==
[~2020-05-05] MED LIST changes: -ACET-683 PO; -APAP325T4 PO; -AUGM875T28 PO; -AZIT-12 PO; -GNP80CHW PO; -METO1TAB7 PO; -MULTCAP PO; -NAPR220C14 PO; -NYST10006 TOP; -OXYC-404 PO; -OXYC-517 PO
--- NOTE | 2020-05-05 17:16 | REP ---
INDICATION: STAGING LUNG CANCER C34.90. History of malignant right pleural effusion. Status post PleurX catheter drainage. COMPARISON: Comparison chest x-ray May 01, 2020. Comparison chest CT study April 17, 2020. TECHNIQUE: Forty-nine minutes following the intravenous injection of a 8.80 mCi dose of F-18 FDG, three-dimensional PET scintigraphy is acquired from the skull base to the proximal thighs. Triplanar noncontrast CT scanning is acquired through the same anatomic range for attenuation correction, and image registration with scan parameters optimized to minimize radiation exposure to the patient. PET scintigraphy and CT datasets were fused and displayed on a workstation with multiplanar and projection display capability. FINDINGS: Head and neck soft tissues are unremarkable. There is symmetric physiologic uptake in the tonsillar soft tissues. There is extensive slightly nodular appearing hypermetabolic uptake encasing the right lung noted in the pleural space. Maximum standard uptake value in this hypermetabolic pleural pattern of increased uptake ranges to 9.37 from 5.78. There is hypermetabolic uptake along the PleurX catheter. There is hypermetabolic mediastinal lymph node uptake in the precarinal lymph node measuring maximum standard uptake value of 6.35. No other abnormal hypermetabolic uptake is seen in the mediastinum. And there is a small area of hypermetabolic uptake in the right superior hilus maximum standard uptake value of 3.32. No other abnormal hypermetabolic uptake is seen in the chest. In the abdomen and pelvis there is normal hepatic, splenic, gastrointestinal, and genitourinary FDG accumulation. Normal adrenal glands are seen. No abnormal hypermetabolic uptake is seen in the abdomen or pelvis. No abnormal skeletal focus is seen. IMPRESSION: A hypermetabolic pleural encasement pattern is seen throughout the right thorax and along the course of the PleurX catheter on the right. Hypermetabolic uptake is also noted in a precarinal lymph node and an equivocal area of hypermetabolic uptake is seen in the right superior hilar region. No other abnormal hypermetabolic uptake is seen. <Electronically signed by Cecil Little > 05/05/20 [id number]
== END ==
LOC: M PLARAD 09:10
PROVIDERS: ATTEND Internal Medicine Hematology
DX: C34.90 Malignant neoplasm of unspecified part of unspecified bronchus or lung (principal)

== ENCOUNTER 2020-05-15 09:15 | Emergency (ER) | payer OTHER ==
[~2020-05-15] VITALS: Ht 180.3 cm; Wt 74.4 kg
[~2020-05-15 09:15] MED LIST changes: -ACET-683 PO; -APAP325T4 PO; -GNP80CHW PO; -METO1TAB7 PO; -MULTCAP PO; -NAPR220C14 PO
[2020-05-15] MEDS ORDERED: NAPR220C14 PO (09:38)
[2020-05-15] MEDS ORDERED: APAP325T4 PO (09:38)
[2020-05-15 11:00] VITALS: BP 120/75
--- NOTE | 2020-05-15 14:30 | ECGEPIP ---
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
[2020-05-16] MEDS ORDERED: METO1TAB7 PO (19:01)
[2020-05-16] MEDS ORDERED: GNP80CHW PO (21:03)
[2020-05-16] MEDS ORDERED: MULTCAP PO (21:03)
[2020-05-16] MEDS ORDERED: ACET-683 PO (21:03)
--- NOTE | 2020-05-19 10:41 | ECHO ---
DATE OF PROCEDURE: 05/15/2020 Age: 44 Gender: Male Height: 71 inches Weight: 163 pounds Body surface area: 1.93 m2 PATIENT LOCATION: Inpatient in the emergency room. REFERRING PHYSICIAN: Donnell Cruz MD INDICATION: Pericardial effusion. MEASUREMENTS: 2D Measurements: RV 3.7 cm LV 5.0 cm Septum 1.0 cm Posterior wall 1.0 cm Aortic Root 3.2 cm LA 3.6 cm LVEF 65-70% Doppler Measurements: AV 1.06 msec LVOT 1.05 msec LVOT diameter 1.8 cm MV-E 84, A 104, E/A ratio 0.8 E prime medial 6.5, A prime medial 9.9, E prime lateral 16 Average E/E prime ratio 7.5/PCWP 11.2 mmHg PV 0.9 msec Pulmonary artery acceleration time 129 msec RVSP 24 mmHg IVC 1.6 cm COMMENTS: Sinus tachycardia without intraventricular conduction disturbance. M-mode and two-dimensional echocardiography was performed with pulse, continuous wave, color flow, and tissue Doppler studies. Normal left ventricular size, wall thickness, and normal to hyperkinetic wall motion. Normal left atrial size with current grade 1 left ventricular (LV) diastolic dysfunction, but normal estimated mean left atrial pressure. Normal right heart chamber sizes and motion with normal pulmonary arterial pressure. Normal inferior vena cava (IVC) size and collapse against an elevated central venous pressure. Normal aortic dimensions. Normal appearing and functioning valvular structures. No apparent intracardiac mass. Miniscule pericardial effusion without sign of cardiac compression (normal posterior wall motion against a constrictive process). At least small sized left pleural effusion. A preliminary report of this study has been relayed directly to Dr. Cruz once the study was completed in the emergency room. MORIAH
== END 2020-05-15 11:03 | disposition home or self-care (01) ==
LOC: M ED 09:15
DX: J90 Pleural effusion, not elsewhere classified (principal); C34.90 Malignant neoplasm of unspecified part of unspecified bronchus or lung; R00.0 Tachycardia, unspecified; Z79.899 Other long term (current) drug therapy; Z91.030 Bee allergy status; Z87.891 Personal history of nicotine dependence

== ENCOUNTER → 2020-05-15 | Outpatient (CLI) | payer OTHER ==
[~2020-05-15] MED LIST changes: +ACET-683 PO; +APAP325T4 PO; +GNP80CHW PO; +METO1TAB7 PO; +MULTCAP PO; +NAPR220C14 PO
--- NOTE | 2020-05-15 08:28 | REPPI ---
INDICATION: MALIGNANT PLEURAL EFFUSION COMPARISON: 05/01/2020 TECHNIQUE: PA and lateral. FINDINGS: Moderate to large partially loculated right pleural effusion and underlying right-sided parenchymal changes may be slightly increased as compared to prior examination. The right-sided chest tube is in stable position. No cardiomegaly. Left hemithorax appears clear. Skeletal structures are intact. IMPRESSION: Partially loculated moderate to large right pleural effusion and associated parenchymal opacities may be slightly increased from prior examination. <Electronically signed by Arsalan Gifford > 05/15/20 0829
== END ==
LOC: M PLAIMG 08:03
PROVIDERS: ATTEND Thoracic Surgery (Cardiothoracic Vascular Surgery)
DX: C34.90 Malignant neoplasm of unspecified part of unspecified bronchus or lung (principal); J91.0 Malignant pleural effusion

== ENCOUNTER 2020-05-16 18:14 | Inpatient (IN) | payer OTHER ==
[~2020-05-16] VITALS: Ht 180.3 cm; Wt 72.5 kg
[2020-05-16] VITALS (20 sets, daily range): BP systolic 78–95; BP diastolic 48–55
[~2020-05-16 18:14] MED LIST changes: +APAP325T4 PO; +NAPR220C14 PO
[2020-05-16] MEDS ORDERED: METO1TAB7 PO (19:01)
[2020-05-16 19:04] LABS: BASO # 0.1 10^3/uL (0.0-0.2); BASO % 0.3 % (0.0-1.0); HEMATOCRIT 21.9 % (42.0-52.0); LYMPH # 2.6 10^3/uL (1.5-5.0); LYMPH % 5.7 % (24.0-44.0); MEAN CORPUSCULAR HGB CONC 30.1 g/dl (32.0-36.5); MEAN CORPUSCULAR VOLUME 79.6 fl (80.0-96.0); MONO # 3.3 10^3/uL (0.0-0.8); MONO % 7.1 % (0.0-5.0); NEUTROPHILS # 38.7 10^3/uL (1.5-8.5); NEUTROPHILS % 84.5 % (36.0-66.0); PLATELET COUNT, AUTOMATED 736 10^3/uL (150-450); RED BLOOD COUNT 2.75 10^6/uL (4.30-6.10)
[2020-05-16 19:13] LABS: INR 0.99; PROTHROMBIN TIME 13.3 SECONDS (12.5-14.3)
[2020-05-16 19:14] LABS: PARTIAL THROMBOPLASTIN TIME 27.7 SECONDS (24.2-38.5)
[2020-05-16 19:17] LABS: HEMOGLOBIN 6.6 g/dl (13.5-17.5); WHITE BLOOD COUNT 45.8 10^3/uL (4.0-10.0)
[2020-05-16 19:33] LABS: ALBUMIN 2.8 GM/DL (3.2-5.2); ALT/SGPT 18 U/L (12-78); AMYLASE 22 U/L (25-115); BILIRUBIN,DIRECT < 0.1 MG/DL (0.0-0.2); BILIRUBIN,TOTAL 0.3 MG/DL (0.2-1.0); BLOOD UREA NITROGEN 10 MG/DL (7-18); CALCIUM LEVEL 8.2 MG/DL (8.5-10.1); CARBON DIOXIDE LEVEL 25 MEQ/L (21-32); CHLORIDE LEVEL 102 MEQ/L (98-107); CK-MB VALUE MASS < 1.0 NG/ML (<3.6); CPK CREATINE PHOSPHOKINASE 33 U/L (39-308); CREATININE FOR GFR 0.89 MG/DL (0.70-1.30); GLOMERULAR FILTRATION RATE > 60.0 (>60); GLUCOSE, FASTING 106 MG/DL (70-100); MB/CK RELATIVE INDEX 3.03 (< OR =4); POTASSIUM SERUM 4.1 MEQ/L (3.5-5.1); SODIUM LEVEL 132 MEQ/L (136-145); TOTAL PROTEIN 6.8 GM/DL (6.4-8.2); TROPONIN I < 0.02 NG/ML (< 0.10)
[2020-05-16] MEDS ORDERED: PIPERACILLIN/TAZOBACTAM SOD 3.375 GM in D5W MINI-BAG PLUS 50 ML IV ONE (20:00)
[2020-05-16] MEDS ORDERED: NS 1,000 ML IV ONE (20:00)
--- NOTE | 2020-05-16 20:04 | REP ---
INDICATION: SEPSIS/SHOCK COMPARISON: 05/15/2020 TECHNIQUE: Portable AP view of the chest FINDINGS: Partially loculated moderate to large right pleural effusion with associated parenchymal opacities appears increased from prior examination. Right chest tube in stable position. Left hemithorax is relatively clear. No cardiomegaly. Skeletal structures intact. IMPRESSION: Moderate to large right pleural effusion and parenchymal opacities appear increased. <Electronically signed by Arsalan Gifford > 05/16/202000
[2020-05-16] MEDS ORDERED: ISOVUE-370 76% 100ML VIAL As Ordered ONE (20:06)
[2020-05-16] MEDS: DOCUSATE SODIUM 100 MG CAP PO SCH (21:00)
[2020-05-16] MEDS ORDERED: MULTCAP PO (21:03)
[2020-05-16] MEDS ORDERED: GNP80CHW PO (21:03)
[2020-05-16] MEDS ORDERED: ACET-683 PO (21:03)
--- NOTE | 2020-05-16 21:24 | REPVR ---
PROCEDURE INFORMATION: Exam: CT Angiography Chest With Contrast Exam date and time: 05/16/2020 8:25 PM Age: 44 years old Clinical indication: Shortness of breath; Additional info: SOB, febrile TECHNIQUE: Imaging protocol: Computed tomographic angiography of the chest with intravenous contrast. 3D rendering (Not supervised by radiologist): MIP and/or 3D reconstructed images were created by the technologist. Radiation optimization: All CT scans at this facility use at least one of these dose optimization techniques: automated exposure control; mA and/or kV adjustment per patient size (includes targeted exams where dose is matched to clinical indication); or iterative reconstruction. Contrast material: ISOVUE 370; Contrast volume: 75 ml; Contrast route: INTRAVENOUS (IV); COMPARISON: CT Chest with contrast 04/17/2020 9:30 AM FINDINGS: Pulmonary arteries: Normal. No pulmonary emboli. Aorta: Unremarkable. No aortic aneurysm. No aortic dissection. Lungs: Atelectasis at the right lung base. Pleural space: There is heterogenous lesion in the right apex measuring 4.8 by 4.9 cm, likely loculated pleural effusion. A right-sided chest tube is seen. Moderate-sized right pleural effusion. Heart: Unremarkable. No cardiomegaly. No pericardial effusion. Lymph nodes: Unremarkable. No enlarged lymph nodes. Bones/joints: Unremarkable. No acute fracture. Soft tissues: Unremarkable. IMPRESSION: 1. No pulmonary embolism. 2. Moderate-sized right pleural effusion with atelectasis at the right lung base. Right-sided chest tube with its tip in the right apical region. Electronically signed by: Heriberto Baird On 05/16/2020 21:23:50 PM
[2020-05-16] MEDS ORDERED: ACETAMINOPHEN TAB 650MG DOSE (2X325MG) PO ONE (21:30)
[2020-05-16] MEDS ORDERED: HYDROMORPHONE HCL 0.5 MG/ 0.5 ML SYRINGE (J1170 PER 1) IV PRN (21:30)
[2020-05-16] MEDS ORDERED: ONDANSETRON 4MG/2ML VIAL IV ONE (21:30)
--- NOTE | 2020-05-16 21:46 | ECGEPIP ---
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
[2020-05-16] MEDS ORDERED: NS 2,230 ML in IV 1 EA IV ONE (22:00)
[2020-05-16] MEDS ORDERED: VANCOMYCIN HCL 1,500 MG in D5W 250 ML IV ONE (22:00)
[2020-05-16] MEDS ORDERED: VANCOMYCIN HCL 750 MG, VIAL MATE ADAPTER 1 EACH in D5W 250 ML IV ONE ×2 (22:00→23:00)
[2020-05-16] MEDS ORDERED: LEVALBUTEROL 1.25 MG/0.5 ML CONCENTRATE NEB NEB PRN (22:45)
[2020-05-16] MEDS ORDERED: ACETAMINOPHEN TAB 650MG DOSE (2X325MG) PO PRN (22:45)
[2020-05-16] MEDS ORDERED: ONDANSETRON 4MG/2ML VIAL IV PRN (22:45)
[2020-05-16] MEDS ORDERED: BISACODYL 10 MG SUPP PR PRN (22:45)
[2020-05-16] MEDS ORDERED: MIDAZOLAM INJ 2MG/2ML VIAL (J2250 PER 1MG) As Ordered ONE ×2 (22:59→23:51)
[2020-05-16] MEDS ORDERED: flumazeniL 0.5 MG/5 ML VIAL As Ordered ONE (22:59)
[2020-05-16] MEDS ORDERED: LIDOCAINE 1% MDV 20ML VIAL As Ordered ONE ×3 (23:00→23:54)
--- NOTE | 2020-05-16 23:06 | HPEPDOC ---
[facility] Medical History & Physical Date of Admission May 16, 2020 Date of Service: May 16, 2020 Attending Physician: LUCAS DURAN MD History and Physical CHIEF COMPLAINT: Weakness, right-sided chest pain. HISTORY OF PRESENT ILLNESS: Patient is a 44-year-old male, recent diagnosis of adenocarcinoma of the lung started on single therapy with Keytruda, patient is status post recurrent right- sided pleural effusion and pleurex catheter placement. Patient follows with thoracic surgery. Patient was recently seen in the office and started on metoprolol for tachycardia. Patient reports earlier on the day of presentation, he took the medication in approximately 20 minutes thereafter began feeling extremely weak and lethargic. Reported that his heart at that time was racing a did experience some mild chest pain. Patient contacted the office of thoracic surgery who indicated the patient needed to present to the emergency department for further evaluation and management. Unfortunately, patient was in [place] working and was unable to secure a ride back home to the hospital until just earlier this evening. In the emergency department, patient was found to be febrile, tachycardic and hypotensive. EBC shows a WBC of 45.8, Lactic 1.9H/H of 6.6/21.9, MCV of 79.6 with an RDW of 15.2. Thrombocytosis of 736. Sodium of 132, potassium 4.1. Bilirubin, AST ALT and alkaline phosphatase within normal limits. Slight hypoalbuminemia of 2.8. Clean UA. PH of 7.49, pCO2 of 26.8. CT demonstrated a recurrent right-sided pleural effusion. The patient was started on sepsis protocol including broad-spectrum antibiotics and aggressive IV hydration. He was consented for blood and transfusion of pRBCs initiated. Thoracic surgery was consulted through the emergency department is agreeable to see the patient this evening for epidural removal and placement of a chest tube. Hospitalist team was contacted to admit the patient to the ICU for management of his sepsis and his anemia. PAST MEDICAL HISTORY: Remote history of fractures, secondary to trauma Adenocarcinoma, metastatic lung primary Recurrent pleural effusion, likely malignant Tension hydrothorax History of nicotine dependence PAST SURGICAL HISTORY: Catheter placement SOCIAL HISTORY: Patient is and lives at home locally with his and daughter He smokes one pack of cigarettes per day and has done so for the last 20 years. He denies any alcohol use on a regular basis. Patient works in [employer]. FAMILY HISTORY: Father: at age 45, MVC Mother, 63, unaware of medical history Brother, estranged, unaware of medical history ALLERGIES: Bee venom REVIEW OF SYSTEMS: CONSTITUTIONAL: Reports subjective fevers and chills beginning earlier this morning at approximately 0900, about 20 minutes after he took his first dose of metoprolol. Denies any history of night sweats or fatigue. Ports that his appetite remains ample though, he has not had anything to eat his breakfast this morning. Denies any significant changes in weight. HEENT: Reports being slightly "lightheaded" no headaches, changes in vision/eye pain, earache or ear fullness, rhinorrhea, nasal congestion, sore throat or difficulty swallowing. CARDIOVASCULAR: Right-sided chest pain at the site of his catheter earlier in the day, resolved with pain medication in the ED. Also reports that his heart was racing quite quickly day. Denies any pleurisy, or substernal chest pain. Denies any palpitations. RESPIRATORY: Reports experiencing shortness of breath at baseline, stable throat today. Does not have shortness of breath at baseline. Denies orthopnea or par oxysmal nocturnal dyspnea. GASTROINTESTINAL: Denies nausea or vomiting, abdominal pain or distention, changes in bowel habits including black tarry stools or hematochezia. GENITOURINARY: Denies any difficulty urinating, no hematuria, dysuria. SKIN: Denies any new or changing skin lesions, no history of rashes. MUSCULOSKELETAL: Denies any muscle or joint aches and pains NEUROLOGICAL: As mentioned above, patient reports an episode of generalized weakness following administration of metoprolol, continued weakness on presentation. PSYCHIATRIC: Patient is understandably anxious regarding his medical condition HOME MEDICATIONS: Please see below. PHYSICAL EXAMINATION: VITAL SIGNS: Temperature 101 temp orally, pulse of 116, respiratory rate of 20, blood pressure of 94/52 (66), oxygen saturation 100% on 2 L via nasal cannula. GENERAL APPEARANCE: Patient is interviewed and examined once he arrived in the ICU. Patient was found to be resting on the hospital stretcher. He did appear pale, diaphoretic. He was alert and oriented, able to answer questions regarding his medical history events leading to his hospitalization. HEENT: No scleral icterus, conjunctival pallor, Trachea midline without evidence of JVD CARDIOVASCULAR: Tachycardic, normal S1 and S2 without appreciable murmur. LUNGS: Fair air movement, lung sounds diminished bases bilaterally, right greater than the left. R-sided Pleurex catheter, covered in clean dressing. No conversational dyspnea. ABDOMEN: Soft, nontender, nondistended EXTREMITIES: No lower extremity edema bilaterally, no calf pain/tenderness NEUROLOGICAL: Alert and oriented, no dysarthria or dysphasia. Sensorium is grossly intact. PSYCHIATRIC: Mood and affect are appropriate given current medical condition LABORATORY DATA: See below. IMAGING: EKG (05/16/20): Sinus tachycardia, right ventricular conduction delay Chest x-ray (05/16/20): Moderate to large right sided pleural effusion and parenchymal opacities appear increased. CT angiogram chest (05/16/20): No pulmonary embolism, moderate size right pleural effusion with atelectasis at the right lung base. A right-sided chest tube with its tip in the right apical region. MICROBIOLOGY: Blood cultures (05/16/20): Pending BLOOD BANK: Blood type: B+, antibody screen negative. ASSESSMENT: Patient is a 44-year-old male, recent diagnosis of adenocarcinoma of the lung started on single therapy with Keytruda, patient is status post recurrent right- sided pleural effusion and pleurex catheter placement. Patient follows with thoracic surgery. Patient was recently seen in the office and started on metoprolol for tachycardia. Patient reports earlier on the day of presentation, he took the medication in approximately 20 minutes thereafter began feeling extremely weak and lethargic. Reported that his heart at that time was racing a did experience some mild chest pain. Patient contacted the office of thoracic surgery who indicated the patient needed to present to the emergency department for further evaluation and management. Initial workup indicate sepsis in the setting of significant anemia and right-sided pleural effusion. The patient was started on sepsis protocol including broad-spectrum antibiotics and aggressive IV hydration. Thoracic surgery was consulted through the emergency department is agreeable to see the patient this evening for epidural removal and placement of a chest tube. Patient to be admitted to the ICU for continuing treatment of his sepsis, suspected source of his indwelling Pleurx catheter. PLAN: Sepsis 2/2 empyema -febrile, tachycardic, hypotensive, WBC of 45.8 with neutrophil predominance. Maintaining saturation with 2L NC. Complicated by patient's significant normocytic anemia. -ICU admission, telemetry, remote pulse oximietry. Oxygen titration. -ST. CROIX II Score of 15, 25% est. nonoperative mortality. -Dr. Boland to remove pleurex catheter and place a chest tube. Fluid analysis. -Broad spectrum antibiotic therapy, Vanc/Zosyn. BC pending. -Aggressive IVF hydration, appropriately started in ED, monitor BP and lactic. Significant normocytic anemia. -H/H of 6.6/21.9. Unknown source at this time. -Possible malignant hemothorax, unlikely hemolytic 2/2 to Keytruda, Bili WNL and last infusion ~3 weeks ago. -Denies S/S of GI bleed, will check stool for occult blood. -Type/Screen, Transfuse 3 units pRBCs, monitor H/H -Pleurex catheter removal and chest tube placement as above. -Iron studies Adenocarcinoma, Lung Primary -Single agent treatment with Keytruda -Consider case discussion with oncology. DVT PROPHYLAXIS: Heparin SC, Q12H DISPOSITION: Anticipate >2 night stay Vital Signs Vital Signs Date Time Temp Pulse Resp B/P (MAP) Pulse Ox O2 Delivery O2 Flow Rate FiO2 05/16/20 22:37 118 18 99 Nasal Cannula 2.0 05/16/20 22:36 94/52 (66) 05/16/20 22:36 101.0 Laboratory Data Labs 24H Laboratory Tests 2 05/16/20 18:51: Immature Granulocyte % (Auto) 2.4, Neutrophils (%) (Auto) 84.5H, Lymphocytes (%) (Auto) 5.7L, Monocytes (%) (Auto) 7.1H, Eosinophils (%) (Auto) 0.0, Basophils (%) (Auto) 0.3, Neutrophils # (Auto) 38.7H, Lymphocytes # (Auto) 2.6, Monocytes # (Auto) 3.3H, Eosinophils # (Auto) 0.0, Basophils # (Auto) 0.1, Nucleated Red Blood Cells % (auto) 0.0, Prothrombin Time 13.3, Prothromb Time International Ratio 0.99, Activated Partial Thromboplast Time 27.7, Anion Gap 5L, Glomerular Filtration Rate > 60.0, Lactic Acid Level 1.9, Calcium Level 8.2L, Total Bilirubin 0.3, Direct Bilirubin < 0.1, Aspartate Amino Transf (AST/SGOT) 12, Alanine Aminotransferase (ALT/SGPT) 18, Alkaline Phosphatase 106, Total Creatine Kinase 33L, Creatine Kinase MB < 1.0, Creatine Kinase MB Relative Index 3.03, Troponin I < 0.02, C-Reactive Protein, Quantitative 4.70H, Total Protein 6.8, Albumin 2.8L, Albumin/Globulin Ratio 0.7, Amylase Level 22L, Coronavirus (COVID- 19)(PCR) NEGATIVE 05/16/20 20:27: POC pH (Misc Panel) 7.492H, POC Base Excess (Misc Panel) -3.0L, POC Saturated Percent O2 (Misc) 98, POC pO2 (Misc Panel) 88.0, POC pCO2 (Misc Panel) 26.8L, POC HCO3 (Misc Panel) 20.5L, POC Total CO2 (Misc Panel) 21.0L 05/16/20 21:03: Urine Color YELLOW, Urine Appearance CLEAR, Urine pH 6.0, Urine Specific [place] 1.018, Urine Protein NEGATIVE, Urine Glucose (UA) NEGATIVE, Urine Ketones NEGATIVE, Urine Blood NEGATIVE, Urine Nitrite NEGATIVE, Urine Bilirubin N EGATIVE, Urine Urobilinogen 0.2, Urine Leukocyte Esterase NEGATIVE, Urine WBC (Auto) 0, Urine RBC (Auto) 0, Urine Hyaline Casts (Auto) 0, Urine Bacteria (Auto) NEGATIVE, Urine Squamous Epithelial Cells 0, Urine Sperm (Auto) CBC/BMP Laboratory Tests 05/16/20 18:51 Microbiology Microbiology 05/16/20 Blood Culture, Received Pending 05/16/20 Blood Culture, Received Pending Home Medications Scheduled Metoprolol Succinate (Metoprolol Succinate) 50 Mg Tab.er.24h, 25 MG PO BID patient states takes 25mg bid due to light headedness Multivitamin (Multivitamins) 1 Each Capsule, 1 CAP PO DAILY Pembrolizumab (Keytruda) 100 Mg/4 Ml Vial, 200 MG IV Q3WK Polyethylene Glycol 3350 (Miralax) 119 Gm Powder, 17 GM PO DAILY Simethicone (Gas Relief 80) 80 Mg Tab.chew, 160 MG PO DAILY Scheduled PRN Acetaminophen (Acetaminophen) 500 Mg Tablet, 1,000 MG PO Q6H PRN for PAIN / FEVER Hydromorphone HCl (Dilaudid) 2 Mg Tablet, 2 MG PO QIDP PRN for pain Take 1 to 2 tablets po q 6 hours prn pain from lung cancer Allergies Coded Allergies: bee venom protein (honey bee) (Verified Allergy, Intermediate, anaphlaytic, 03/30/20) A-FIB/CHADSVASC A-FIB History Current/History of A-Fib/PAF?: No GME ATTESTATION GME ATTESTATION My faculty preceptor for this patient encounter was physically present during the encounter and was fully available. All aspects of the patient interview, examination, medical decision making process, and medical care plan development were reviewed and approved by the faculty preceptor. The faculty preceptor is aware and concurs with the plan as stated in the body of this note and will attest to such by his/her cosignature. ATTENDING NOTE TIME OF SERVICE 1045PM Mr. Harrell is a 44 yr old w a hx of PDL1+, TTF-1 + & CK7 + metastatic lung adenocarcinoma with malignant pleural effusion who will be admitted for management of sepsis 2/2 empyema and acute anemia. Plan: f/u w / f/u hg post transfusion, iron studies and stool occult / c/w abx and IVF Rest per 's H&P GOMEZ HOFF DO May 16, 2020 23:06 LUCAS DURAN MD May 17, 2020 03:59
[2020-05-16 23:08] LABS: FERRITIN 44 NG/ML (26-388); IRON (FE) 9 UG/DL (65-175); LDH LACTATE DEHYDROGENASE 180 U/L (87-241); PERCENT SATURATION 2.1 % (19.7-50.0); TOTAL IRON BINDING CAPACITY 432 UG/DL (250-450)
[2020-05-17] VITALS (51 sets, daily range): BP systolic 79–155; BP diastolic 50–80
[2020-05-17 00:35] LABS: PH BODY FLUID 7.389 UNITS (NOT ESTABLISHED); SOURCE, BODY FLUID pH PLEURAL
[2020-05-17 00:36] LABS: ABG BASE EXCESS -2.5 (-2.0-2.0); ABG O2 SATURATION 53.4 % (95.0-99.0); ABG PARTIAL PRESSURE CO2 43.1 mmHg (35.0-45.0); ABG STANDARD HCO3 21.8 MEQ/L (22.0-26.0); ABG TOTAL CO2 24.4 MEQ/L (22.0-29.0); ABG pH (ARTERIAL) 7.346 UNITS (7.350-7.450)
[2020-05-17 00:38] LABS: ABG PARTIAL PRESSURE O2 29.6 mmHg (75.0-100.0)
[2020-05-17 01:01] LABS: APPEARANCE, BODY FLUID CLOUDY (CLEAR); PLEURAL FL COLOR RED (COLORLESS); SOURCE, BODY FLUID PLEURAL
[2020-05-17] MEDS: KCL 20MEQ IN D5/NS 1000ML 1,000 ML IV SCH ×2 (01:17→11:59)
[2020-05-17] MEDS: KETOROLAC 30 MG/ML 1ML VIAL IV SCH ×5 (01:18→22:23)
[2020-05-17 01:21] LABS: VITAMIN B12 LEVEL 1436 PG/ML
[2020-05-17] MEDS ORDERED: MIDAZOLAM INJ 2MG/2ML VIAL (J2250 PER 1MG) IV STA ×2 (01:32)
--- NOTE | 2020-05-17 01:37 | REPVR ---
PROCEDURE INFORMATION: Exam: XR Chest, 1 View Exam date and time: 05/17/2020 12:45 AM Age: 44 years old Clinical indication: Post chest tube TECHNIQUE: Imaging protocol: XR of the chest Views: 1 view. COMPARISON: 1. CR PORTABLE CHEST X-RAY 05/16/2020 7:[address] ANGIO CHEST 05/16/2020 8:21:04 PM FINDINGS: Tubes, catheters and devices: There are 2 right-sided chest tubes in place. Lungs: There are persistent airspace opacities in the right lung. There is volume loss in the right hemithorax. Pleural space: There is a moderate loculated right pleural effusion that has decreased in size compared to the prior chest x-ray on 05/16/2020 and there is probable gas in the right pleural space. Heart/Mediastinum: Unremarkable. No cardiomegaly. Bones/joints: Unremarkable. IMPRESSION: 1. Moderate loculated right pleural effusion that has decreased in size compared to the prior chest x-ray on 05/16/2020 and there is probable gas in the right pleural space with 2 right-sided chest tubes in place. 2. Persistent airspace opacities in the right lung, which may represent atelectasis and/or consolidation. Electronically signed by: David Monsivais On 05/17/2020 01:37:26 AM
[2020-05-17] MEDS: LEVALBUTEROL 1.25 MG/0.5 ML CONCENTRATE NEB NEB SCH ×4 (01:43→19:33)
[2020-05-17 01:45] LABS: URIC ACID 5.8 MG/DL (3.5-7.2)
[2020-05-17] MEDS ORDERED: MIDAZOLAM INJ 2MG/2ML VIAL (J2250 PER 1MG) IV ONE (01:45)
[2020-05-17] MEDS ORDERED: LIDOCAINE 1% MDV 20ML VIAL SC ONE (01:45)
[2020-05-17] MEDS: PIPERACILLIN/TAZOBACTAM SOD 4.5 GM in D5W MINI-BAG PLUS 50 ML IV SCH ×4 (02:09→20:15)
[2020-05-17 02:26] LABS: AMYLASE, BODY FLUID 34 U/L (NOT ESTABLISHED); CHOLESTEROL, BODY FLUID < 50 MG/DL (NOT ESTABLISHED); LDH, BODY FLUID 1328 U/L (NOT ESTABLISHED); SOURCE, BODY FLUID ALBUMIN PLEURAL; SOURCE, BODY FLUID AMYLASE PLEURAL; SOURCE, BODY FLUID CHOL PLEURAL; SOURCE, BODY FLUID GLUCOSE PLEURAL; SOURCE, BODY FLUID LDH PLEURAL; SOURCE, BODY FLUID TOT PROTEIN PLEURAL; SOURCE, BODY FLUID TRIG PLEURAL; TOTAL PROTEIN, BODY FLUID 3.1 G/DL (NOT ESTABLISHED); TRIGLYCERIDE, BODY FLUID 33 MG/DL (NOT ESTABLISHED)
[2020-05-17 02:43] LABS: HEMATOCRIT 25.7 % (42.0-52.0); HEMOGLOBIN 7.7 g/dl (13.5-17.5)
[2020-05-17] MEDS: VANCOMYCIN HCL 1,000 MG, VIAL MATE ADAPTER 1 EACH in D5W 250 ML IV SCH ×3 (03:42→18:48)
[2020-05-17] MEDS ORDERED: NS 1,000 ML IV SCH (04:00)
[2020-05-17 05:53] LABS: ABG BASE EXCESS -2.7 (-2.0-2.0); ABG HCO3 21.6 MEQ/L (22.0-26.0); ABG O2 SATURATION 99.4 % (95.0-99.0); ABG PARTIAL PRESSURE CO2 35.4 mmHg (35.0-45.0); ABG PARTIAL PRESSURE O2 133.5 mmHg (75.0-100.0); ABG STANDARD HCO3 22.2 MEQ/L (22.0-26.0); ABG TOTAL CO2 22.7 MEQ/L (22.0-29.0); ABG pH (ARTERIAL) 7.404 UNITS (7.350-7.450)
[2020-05-17 06:02] LABS: BASO # 0.1 10^3/uL (0.0-0.2); BASO % 0.2 % (0.0-1.0); EOS # 0.2 10^3/uL (0.0-0.5); EOS % 0.7 % (0.0-3.0); HEMATOCRIT 25.1 % (42.0-52.0); HEMOGLOBIN 7.8 g/dl (13.5-17.5); LYMPH # 2.4 10^3/uL (1.5-5.0); LYMPH % 9.1 % (24.0-44.0); MEAN CORPUSCULAR HEMOGLOBIN 25.7 pg (27.0-33.0); MEAN CORPUSCULAR HGB CONC 31.1 g/dl (32.0-36.5); MEAN CORPUSCULAR VOLUME 82.6 fl (80.0-96.0); MONO # 2.5 10^3/uL (0.0-0.8); MONO % 9.3 % (0.0-5.0); NEUTROPHILS # 21.1 10^3/uL (1.5-8.5); PLATELET COUNT, AUTOMATED 545 10^3/uL (150-450); RED BLOOD COUNT 3.04 10^6/uL (4.30-6.10); WHITE BLOOD COUNT 26.3 10^3/uL (4.0-10.0)
[2020-05-17 06:13] LABS: BLOOD UREA NITROGEN 11 MG/DL (7-18); CARBON DIOXIDE LEVEL 25 MEQ/L (21-32); CHLORIDE LEVEL 107 MEQ/L (98-107); CREATININE FOR GFR 0.76 MG/DL (0.70-1.30); GLOMERULAR FILTRATION RATE > 60.0 (>60); GLUCOSE, FASTING 98 MG/DL (70-100); POTASSIUM SERUM 3.9 MEQ/L (3.5-5.1); SODIUM LEVEL 137 MEQ/L (136-145)
[2020-05-17 06:14] LABS: CALCIUM LEVEL 7.6 MG/DL (8.5-10.1)
--- NOTE | 2020-05-17 08:20 | REP ---
INDICATION: empyema COMPARISON: 05/16/2020 TECHNIQUE: PA and lateral. FINDINGS: Two right-sided chest tubes are now identified and the exam now demonstrates hydropneumothorax with air-fluid level and presumed decreased pleural fluid compared with prior examination. There is a residual stable loculated collection at the right apex which may represent a separate collection. Significant underlying right-sided pulmonary parenchymal opacities remain present. Left hemithorax is relatively clear. Visualized cardiac silhouette is normal. IMPRESSION: 1. Second right-sided chest tube placed with right-sided hydropneumothorax demonstrating air-fluid level and presumed decreased fluid. 2. Possible separate stable loculated right apical collection. 3. Right-sided airspace disease unchanged. <Electronically signed by Arsalan Gifford > 05/17/20 0842
[2020-05-17] MEDS: PANTOPRAZOLE 40MG TAB (PROTONIX) PO SCH (08:38)
[2020-05-17] MEDS: PERCOCET 5MG/325MG TAB PO PRN ×2 (08:38→20:16)
[2020-05-17] MEDS: DOCUSATE SODIUM 100 MG CAP PO SCH ×2 (08:38→20:16)
[2020-05-17] MEDS: MOM 30ML SUSPENSION UDC PO SCH (09:00)
[2020-05-17] MEDS: HEPARIN SOD (PORCINE) 5000UNITS/ML 1ML VIAL/SYRINGE SC SCH ×2 (09:25→20:16)
--- NOTE | 2020-05-17 11:51 | IPNPDOC ---
Text Note Date of Service The patient was seen on 05/17/20. NOTE SUBJECTIVE: Patient had a chest tube placed after admission last night on the right with drainage of pleural effusion. He also has a pleurx cath in place. He is feeling better this morning with less SOB and less chest pain. PHYSICAL EXAMINATION: VITAL SIGNS: As below GENERAL APPEARANCE: Sitting up in chair, appears comfortable HEENT: No scleral icterus, conjunctival pallor, Trachea midline without evidence NECK : No JVD, no lymphadenopathy, no thyromegaly. CARDIOVASCULAR: Normal rate, regular, normal S1 and S2 without appreciable murmur. LUNGS: Fair air movement, lung sounds diminished bases bilaterally, right greater than the left. R-sided Pleurex catheter, covered in clean dressing. No conversational dyspnea. ABDOMEN: Soft, nontender, nondistended, Bowl sounds normal EXTREMITIES: No lower extremity edema bilaterally, no calf pain/tenderness NEUROLOGICAL: Alert and oriented, no dysarthria or dysphasia. Sensorium is grossly intact. PSYCHIATRIC: Mood and affect are appropriate given current medical condition LABORATORY AND RADIOLOGICAL DATA: Reviewed. See below. ASSESSMENT AND PLAN: Patient is a 44-year-old male, recent diagnosis of metastatic adenocarcinoma of the lung started on single therapy with Keytruda, h/o recurrent right-sided pleural effusion and pleurex catheter placement. Patient follows with thoracic surgery. Patient was recently seen in the office and started on metoprolol for tachycardia. Patient reports earlier on the day of presentation, he took the medication in approximately 20 minutes thereafter began feeling extremely weak and lethargic. Reported that his heart at that time was racing a did experience some mild chest pain. Patient contacted the office of thoracic surgery who indicated the patient needed to present to the emergency department for further evaluation and management. Initial workup indicate sepsis in the setting of significant anemia and right-sided pleural effusion. The patient was started on sepsis protocol including broad-spectrum antibiotics and aggressive IV hydration. Thoracic surgery was consulted through the emergency department is agreeable to see the patient for placement of a chest tube. Patient to be admitted to the ICU for continuing treatment of his sepsis, suspected source of his indwelling Pleurx catheter. Sepsis due to Empyema ? pleurex catheter as primary source It seems like there is a loculated effusion with the pleurx in place and an empyema Dr. Boland placed a chest tube , plerx cath remains in place into the loculated effusion for now. Fluid analysis. Vanc/Zosyn. pending. IVF. Right sided Empyema ? from infected pleurx catheter. 1 chest tube and a pleurx cath in place. Vanco and zosyn Normocytic anemia. H/H of 6.6/21.9. Unknown source at this time. iron studies, B12 and folate possibly anemia of chronic disease. STAGE IV Adenocarcinoma, Lung with malignant right effusion and hemothorax Single agent treatment with Keytruda started in mar 2020. PET shows the whole lung in encased in the cancer. follow oncology upon discharge DVT PROPHYLAXIS: Heparin SC, Q12H VS,Fishbone, I+O VS, Fishbone, I+O Laboratory Tests 05/16/20 18:51 05/17/20 02:36 05/17/20 05:27 Vital Signs Date Time Temp Pulse Resp B/P (MAP) Pulse Ox O2 Delivery O2 Flow Rate FiO2 05/17/20 06:30 106 102/58 (73) 99 Nasal Cannula 2.0 05/17/20 06:00 98.6 22 I&O- Last 24 Hours up to 6 AM 05/17/20 06:00 Intake Total 3435 ml Output Total 2490 ml Balance 945 ml IDALIA WALKER MD May 17, 2020 08:03
[2020-05-17] MEDS: NYSTATIN 100,000 UNITS/GM TOPICAL PWD 15 GM TOP SCH (22:23)
[2020-05-18] VITALS (12 sets, daily range): BP systolic 96–116; BP diastolic 59–77
[2020-05-18] MEDS: LEVALBUTEROL 1.25 MG/0.5 ML CONCENTRATE NEB NEB SCH ×4 (01:36→19:58)
[2020-05-18] MEDS: PIPERACILLIN/TAZOBACTAM SOD 4.5 GM in D5W MINI-BAG PLUS 50 ML IV SCH ×4 (02:53→19:49)
[2020-05-18] MEDS: VANCOMYCIN HCL 1,000 MG, VIAL MATE ADAPTER 1 EACH in D5W 250 ML IV SCH ×3 (03:03→18:00)
[2020-05-18] MEDS: PERCOCET 5MG/325MG TAB PO PRN ×4 (03:03→22:33)
[2020-05-18] MEDS: KETOROLAC 30 MG/ML 1ML VIAL IV SCH ×4 (04:58→22:33)
[2020-05-18 05:57] LABS: BASO % 0.1 % (0.0-1.0); EOS # 0.6 10^3/uL (0.0-0.5); EOS % 2.7 % (0.0-3.0); HEMATOCRIT 24.8 % (42.0-52.0); HEMOGLOBIN 7.5 g/dl (13.5-17.5); LYMPH # 2.1 10^3/uL (1.5-5.0); LYMPH % 10.1 % (24.0-44.0); MEAN CORPUSCULAR HEMOGLOBIN 25.5 pg (27.0-33.0); MEAN CORPUSCULAR HGB CONC 30.2 g/dl (32.0-36.5); MEAN CORPUSCULAR VOLUME 84.4 fl (80.0-96.0); MONO # 0.9 10^3/uL (0.0-0.8); MONO % 4.4 % (0.0-5.0); NEUTROPHILS # 16.9 10^3/uL (1.5-8.5); NEUTROPHILS % 82.3 % (36.0-66.0); PLATELET COUNT, AUTOMATED 573 10^3/uL (150-450); RED BLOOD COUNT 2.94 10^6/uL (4.30-6.10); WHITE BLOOD COUNT 20.5 10^3/uL (4.0-10.0)
[2020-05-18 06:19] LABS: BLOOD UREA NITROGEN 7 MG/DL (7-18); CALCIUM LEVEL 7.7 MG/DL (8.5-10.1); CARBON DIOXIDE LEVEL 26 MEQ/L (21-32); CHLORIDE LEVEL 107 MEQ/L (98-107); CREATININE FOR GFR 0.73 MG/DL (0.70-1.30); GLOMERULAR FILTRATION RATE > 60.0 (>60); GLUCOSE, FASTING 137 MG/DL (70-100); POTASSIUM SERUM 3.6 MEQ/L (3.5-5.1); SODIUM LEVEL 137 MEQ/L (136-145)
[2020-05-18] MEDS: MOM 30ML SUSPENSION UDC PO SCH (08:00)
--- NOTE | 2020-05-18 08:13 | REP ---
INDICATION: empyema COMPARISON: 05/17/2020, 05/16/2020 TECHNIQUE: PA and lateral. FINDINGS: Two right-sided chest tubes in stable position. Right-sided pleuroparenchymal changes including partially loculated pleural effusion and diffuse pulmonary infiltrates are again noted and relatively unchanged. The previously noted air-fluid level in the mid pleural cavity has decreased. The left hemithorax is clear. IMPRESSION: With the exception of the decreased air-fluid level in the right hemithorax, right-sided pleuroparenchymal changes including multiloculated effusion and infiltrates remain essentially unchanged. <Electronically signed by Arsalan Gifford > 05/18/20 0802
[2020-05-18] MEDS: NYSTATIN 100,000 UNITS/GM TOPICAL PWD 15 GM TOP SCH ×2 (08:24→19:49)
[2020-05-18] MEDS: HEPARIN SOD (PORCINE) 5000UNITS/ML 1ML VIAL/SYRINGE SC SCH ×2 (08:24→19:48)
[2020-05-18] MEDS: PANTOPRAZOLE 40MG TAB (PROTONIX) PO SCH (08:24)
[2020-05-18] MEDS: DOCUSATE SODIUM 100 MG CAP PO SCH ×2 (08:24→19:48)
[2020-05-18] MEDS: NORCO, ANEXSIA 5/325MG TABLET (HYDROcodone/ACETAMINOPHEN) PO PRN ×2 (08:58→14:14)
--- NOTE | 2020-05-18 09:01 | REP ---
INDICATION: status of pleural effusion COMPARISON: 05/16/2020 TECHNIQUE: Axial noncontrast images from the thoracic inlet to the upper abdomen with coronal and sagittal reformations. This CT examination was performed using the following dose reduction techniques: Automated exposure control, adjustment of mA and/or kv according to the patient's size, and use of iterative reconstruction technique. FINDINGS: Current examination now demonstrates a 2nd chest tube within the pleural collection along the right lateral chest wall which is decreased as compared to prior CT examination. A rounded loculated collection in the right apex appears unchanged in size and may be completely separate from the larger collection. Underlying right-sided parenchymal opacities and consolidations are relatively unchanged. Left hemithorax is relatively well aerated although very subtle early alveolar infiltrates in the right upper lobe and trace post dural basilar pleural reaction are identified. Reactive mediastinal and hilar adenopathy remains relatively stable. Thoracic aorta, pulmonary vasculature, and heart/pericardium appear normal. Musculoskeletal structures are intact. IMPRESSION: 1. Right-sided pleural collection is decreased from prior examination. 2. Separate loculated collection at the right apex remains unchanged. 3. Underlying right-sided infiltrate/atelectasis and consolidation along with reactive adenopathy again noted and relatively status quo. 4. Very subtle airspace disease to the left upper lobe and miniscule left posterior basilar pleural reaction. <Electronically signed by Arsalan Gifford > 05/18/20 0851
[2020-05-18] MEDS ORDERED: ALTEPLASE 2MG/2ML VIAL XX ONE (10:00)
--- NOTE | 2020-05-18 10:48 | IPNPDOC ---
Text Note Date of Service The patient was seen on 05/18/20. NOTE SUBJECTIVE: No acute events overnight. No complaints this morning except for right chest pain. CXR shows decrease in air fluid level on the right but the loculated effusion and infiltrates remain unchanged. After the CXR some fluid was drained from the pleurx catheter which is in his loculated effusion. PHYSICAL EXAMINATION: VITAL SIGNS: As below GENERAL APPEARANCE: Sitting up in chair, appears comfortable HEENT: No scleral icterus, conjunctival pallor, Trachea midline without evidence NECK : No JVD, no lymphadenopathy, no thyromegaly. CARDIOVASCULAR: Normal rate, regular, normal S1 and S2 without appreciable murmur. LUNGS: Fair air movement, lung sounds diminished bases bilaterally, right greater than the left. R-sided chest tubes covered in dressing. No conver sational dyspnea. ABDOMEN: Soft, nontender, nondistended, Bowel sounds normal EXTREMITIES: No lower extremity edema bilaterally, no calf pain/tenderness NEUROLOGICAL: Alert and oriented, no dysarthria or dysphasia. Sensorium is grossly intact. PSYCHIATRIC: Mood and affect are appropriate given current medical condition LABORATORY AND RADIOLOGICAL DATA: Reviewed. See below. ASSESSMENT AND PLAN: Patient is a 44-year-old male, recent diagnosis of metastatic adenocarcinoma of the lung started on single therapy with Keytruda, h/o recurrent right-sided pleural effusion and pleurex catheter placement. Patient follows with thoracic surgery. Patient was recently seen in the office and started on metoprolol for tachycardia. Patient reports earlier on the day of presentation, he took the medication in approximately 20 minutes thereafter began feeling extremely weak and lethargic. Reported that his heart at that time was racing a did experience some mild chest pain. Patient contacted the office of thoracic surgery who indicated the patient needed to present to the emergency department for further evaluation and management. Initial workup indicate sepsis in the setting of significant anemia and right-sided pleural effusion. The patient was started on sepsis protocol including broad-spectrum antibiotics and aggressive IV hydration. Patient to be admitted to the ICU for continuing treatment of his sepsis, suspected source of his indwelling Pleurx catheter. Sepsis due to Empyema Pleurx catheter as primary source Dr. Boland placed 1 chest tubes . Patient now has 1 chest tube (new) and a Pleurx cath. Vanc/Zosyn. BC negative till date. Fluid culture pending. Right sided Empyema Possibly from infected pleurx catheter. Vanco and zosyn Normocytic anemia. H/H of 6.6/21.9. Unknown source at this time. iron studies, B12 and folate possibly anemia of chronic disease. STAGE IV Adenocarcinoma, Lung with malignant right effusion and hemothorax Single agent treatment with Keytruda started in mar 2020. follow oncology upon discharge DVT PROPHYLAXIS: Heparin SC, Q12H VS,Fishbone, I+O VS, Fishbone, I+O Laboratory Tests 05/18/20 05:36 Vital Signs Date Time Temp Pulse Resp B/P (MAP) Pulse Ox O2 Delivery O2 Flow Rate FiO2 05/18/20 08:00 106 18 110/67 (81) 95 Room Air 05/18/20 04:00 2.0 05/18/20 04:00 98.9 I&O- Last 24 Hours up to 6 AM 05/18/20 06:00 Intake Total 4000 ml Output Total 3500 ml Balance 500 ml IDALIA WALKER MD May 18, 2020 08:29
[2020-05-19] VITALS: BP 110/70
[2020-05-19] MEDS: LEVALBUTEROL 1.25 MG/0.5 ML CONCENTRATE NEB NEB SCH ×4 (01:40→19:35)
[2020-05-19] MEDS: PIPERACILLIN/TAZOBACTAM SOD 4.5 GM in D5W MINI-BAG PLUS 50 ML IV SCH ×4 (02:49→21:03)
[2020-05-19] MEDS: VANCOMYCIN HCL 1,000 MG, VIAL MATE ADAPTER 1 EACH in D5W 250 ML IV SCH ×3 (02:49→18:11)
[2020-05-19 04:00] VITALS: BP 118/76
[2020-05-19] MEDS: KETOROLAC 30 MG/ML 1ML VIAL IV SCH ×4 (05:10→23:59)
[2020-05-19 05:45] LABS: BASO % 0.2 % (0.0-1.0); EOS # 0.6 10^3/uL (0.0-0.5); EOS % 3.5 % (0.0-3.0); HEMATOCRIT 25.4 % (42.0-52.0); HEMOGLOBIN 7.6 g/dl (13.5-17.5); LYMPH # 1.7 10^3/uL (1.5-5.0); LYMPH % 9.9 % (24.0-44.0); MEAN CORPUSCULAR HEMOGLOBIN 24.8 pg (27.0-33.0); MEAN CORPUSCULAR HGB CONC 29.9 g/dl (32.0-36.5); MONO # 0.8 10^3/uL (0.0-0.8); MONO % 4.9 % (0.0-5.0); NEUTROPHILS # 13.8 10^3/uL (1.5-8.5); PLATELET COUNT, AUTOMATED 609 10^3/uL (150-450); RED BLOOD COUNT 3.06 10^6/uL (4.30-6.10); WHITE BLOOD COUNT 17.1 10^3/uL (4.0-10.0)
[2020-05-19 06:10] LABS: BLOOD UREA NITROGEN 5 MG/DL (7-18); CALCIUM LEVEL 8.1 MG/DL (8.5-10.1); CARBON DIOXIDE LEVEL 25 MEQ/L (21-32); CHLORIDE LEVEL 107 MEQ/L (98-107); CREATININE FOR GFR 0.81 MG/DL (0.70-1.30); GLOMERULAR FILTRATION RATE > 60.0 (>60); GLUCOSE, FASTING 94 MG/DL (70-100); POTASSIUM SERUM 4.3 MEQ/L (3.5-5.1); SODIUM LEVEL 138 MEQ/L (136-145)
[2020-05-19] MEDS ORDERED: SLF 3 ML SYR IV PRN (06:30)
[2020-05-19 08:00] VITALS: BP 117/77
--- NOTE | 2020-05-19 08:55 | REP ---
INDICATION: empyema COMPARISON: 05/18/2020 TECHNIQUE: PA and lateral. FINDINGS: Two right-sided chest tubes in stable position. Right-sided hydropneumothorax with decreased fluid volume is suggested. Rounded right apical collection is unchanged. Underlying right-sided parenchymal opacities appear relatively unchanged. Left hemithorax is well aerated and without focal consolidation, pneumothorax or obvious effusion. Skeletal structures are intact. IMPRESSION: 1. Right hydropneumothorax with decreased fluid volume suggested. 2. Stable right apical collection. 3. Right-sided parenchymal opacities essentially unchanged. <Electronically signed by Arsalan Gifford > 05/19/20 [id number]
[2020-05-19] MEDS: MOM 30ML SUSPENSION UDC PO SCH (09:00)
[2020-05-19] MEDS: HEPARIN SOD (PORCINE) 5000UNITS/ML 1ML VIAL/SYRINGE SC SCH ×2 (09:08→21:35)
[2020-05-19] MEDS: NYSTATIN 100,000 UNITS/GM TOPICAL PWD 15 GM TOP SCH ×2 (09:08→21:36)
[2020-05-19] MEDS: PANTOPRAZOLE 40MG TAB (PROTONIX) PO SCH (09:08)
[2020-05-19] MEDS: DOCUSATE SODIUM 100 MG CAP PO SCH ×2 (09:08→21:00)
[2020-05-19 10:12] LABS: FOLATE 17.7 NG/ML
--- NOTE | 2020-05-19 10:49 | CR ---
DATE OF CONSULTATION: 05/16/2020 Patient seen at the request of the emergency room and the hospitalist service for fever, chills, sweats, and a pleural effusion. HISTORY OF PRESENT ILLNESS: Patient is a 44-year-old white male who on January 28 was admitted with a large pleural effusion, which was thought to be hemothorax. It was drained with a chest tube catheter over a course of a few days of 7 liters. The cytology, however, came back malignant with adenocarcinoma with a 90% PD-L1 positivity. It was also TTF-1 positive. There was no overt lung lesion seen, but it was assumed that because of the marker pattern this was metastatic adenocarcinoma from the lung. He eventually had a PleurX catheter placed, which has been draining every day. I saw him yesterday in the office, 05/15/2020, where he was found to be slightly tachycardic with a heart rate of around 120 but with a regular rhythm. He was evaluated in the emergency room, where an EKG showed a sinus tachycardia, and echocardiogram did not show a pericardial effusion. He was therefore discharged from the emergency room (ER) and went back to work. He works in [employer]. Today he went to [place] to go to work, and this morning he felt fever, chills, sweats, and severe weakness. He called our office, and we advised him to go to the emergency room in [place]; however, he came back here and presented to the emergency room tonight. He has not had much of a cough and no sputum production. His fever was 102 in the emergency room. He complains of shortness of breath secondary to pain from his chest wall tumor. It should be noted that his PET scan done on 05/05/2020 shows his chest wall completely encased in tumor with hypermetabolic activity throughout the chest wall. Again, no specific lung lesion is found. MEDICAL HISTORY: Prior to March, no past medical illnesses. ALLERGIES: None. HOME MEDICATIONS: - Tylenol 500 mg every 6 hours as needed for pain - Dilaudid 2 mg every 6 hours as needed for pain from his lung cancer - metoprolol 25 mg by mouth twice a day - multivitamin one every day - Keytruda every 21 days given at the cancer intravenous (IV) HABITS: Smokes one pack per day of Marlboros. Drinks occasionally. No illicit drugs. TRAVEL HISTORY: His father worked in the [employer], and he has been to the [facility] and [place] is his younger days. EXPOSURES: No exposures to tuberculosis. He has three dogs at home, a Jordanian higginbotham and pit bull mixes. No cats or birds. OCCUPATIONAL HISTORY: Works in [employer]. Denies having a lot of exposure to dust or asbestos. 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 SOCIAL HISTORY: He has a and three children. FAMILY HISTORY: There is no cancer in the family. REVIEW OF SYSTEMS: CONSTITUTIONAL: See history of present illness (HPI). Denies weight loss. EYES: Without diplopia, without amaurosis fugax, without prior jaundice. Does to wear glasses. NOSE: Without epistaxis. MOUTH: Has upper dentures. RESPIRATORY: See HPI. CARDIAC: Without primary myocardial infarctions, leg edema, intermittent claudication. Without orthopnea or paroxysmal nocturnal dyspnea. GASTROINTESTINAL: Without nausea, vomiting, diarrhea, constipation. No hematochezia, hematemesis, or abdominal pain. GENITOURINARY: Without dysuria or hematuria. He does have a history of renal stones. ENDOCRINE: Without diabetes. Without thyroid disease. NEUROLOGIC: Without paresthesias, paralysis, or prior seizures. PSYCHIATRIC: Without pathological anxieties, depression, or psychoses. PHYSICAL EXAMINATION: A well-developed, well-nourished white male in moderate respiratory distress. He is able to speak in full sentences. VITAL SIGNS: Show a temperature of 101.0 with a heart rate 116 in a sinus rhythm, respiratory rate of 20 without the use of accessory muscles, who is 100% saturated on 2 liters nasal cannula, and his blood pressure is 94/52. HEAD: Normocephalic. EYES: Pupils equal, round, and reactive to light. Extraocular movements intact. Sclerae anicteric. NOSE: Without deformity. MOUTH: Mucous membranes pink and moist. Lips and commissures without lesions. No thrush. He has upper dentures in place. NECK: Supple. There is no jugular venous distention. No subcutaneous emphysema. Trachea is midline. There is no lymphadenopathy. He has 2+ carotid upstrokes without bruits. There is no thyromegaly. CARDIAC: Shows regular tachycardia without murmurs, clicks, gallops, or rubs. I cannot feel his point of maximal impulse (PMI). S1 and S2 are normal. LUNGS: Show decreased breath sounds on the right side with a dull percussion note in the mid lung field and lower lung field on the right side. ABDOMEN: Soft, nontender. Bowel sounds are positive. There is no hepatomegaly. No costovertebral angle (CVA) tenderness. EXTREMITIES: Show no pretibial edema. No calf tenderness. No differential swelling of the upper extremities. SKIN: Warm, dry, and perfused without cyanosis or mottling, including that of the nailbeds and knees. NEUROLOGIC: Shows II-XII intact. Normal gross motor, gross sensation intact. Gait is not tested. PSYCHIATRIC: Shows him to be awake, alert, and oriented times three with appropriate mood and affect and conversational. INVESTIGATIONS: His white count today is 45.8 thousand with a hemoglobin and hematocrit of 6.6 and 21.9. This is compared to his white count on 05/06/2020 of 16.1 with a hemoglobin and hematocrit of 8.4 and 26.8. Platelet count is 736 and differential shows 84% neutrophils, 5% lymphocytes, 7% monocytes. There are no immature forms or toxic granulations. His electrolytes are essentially normal with a BUN and creatinine of 12 and 0.64, glucose 104 and a calcium 7.9. PT/INR are 13.3 and 99, respectively, with a PTT of 27 seconds. Liver functions on 04/14/2020 show a normal AST and ALT of 16 and 32, respectively. His albumin was 2.9. TSH is 1.94, within normal limits. He is COVID negative today. His blood gases show a pH of 7.46, a pCO2 of 32, a pO2 of 69 with a base excess of - 0.3. His lactate is 1.9. IMPRESSION: 1. 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 2. Pleural effusion. 3. Sepsis picture with fever, chills, sweats, and severe leukocytosis. 4. Possible empyema. 5. Possible pneumonia. 6. Severe anemia. 7. History of tobacco abuse. PLAN AND DISCUSSION: He was originally found to have a hemothorax in his January admission, and we attributed his anemia at that time to blood loss from his pleural fluid. This is a marked change, and I really cannot explain his hemoglobin and hematocrit at this point in time. My suspicion is he may have bled into his pleural space and/or has an empyema. Because of his severe septic picture, I will place a chest tube to completely drain the fluid. I do not think this represents tumor lysis syndrome, as he is only on Keytruda, and he does not have the renal insufficiency, hypocalcemia, or hypophosphatemia. Uric acid has not been measured, and I will order that. He has already been started on antibiotics, consisting of vancomycin and Zosyn. Blood cultures have been drawn, and I will send the pleural fluid over for culture additionally. I am hoping this is an empyema, as it would be a mechanical fix rather than an underlying pneumonia. There is no evidence that he has neurologic sepsis, as there is no neurologic symptomatology, and there is no abdominal symptomatology. His urinalysis today shows a negative leukocyte esterase and negative white cells. I do not think this represents a urinary tract infection (UTI). MORIAH
--- NOTE | 2020-05-19 10:50 | RO ---
DATE OF OPERATION: 05/16/2020 PREOPERATIVE DIAGNOSIS: Empyema versus malignant pleural effusion. POSTOPERATIVE DIAGNOSIS: Empyema versus malignant pleural effusion. SURGEON: Dr. Lance Boland PROCEDURE: Insertion of a right lateral chest tube. FINDINGS: Chest tube finally delivered 500 mL of cloudy fluid. The first incision was made in and around the 6th intercostal space. Very little fluid was obtained when entering the chest. Therefore, the incision was changed to a higher interspace, and a #24 chest tube was placed with production of fluid. The first incision was closed with running 4-0 Monocryl subcuticular suture. PROCEDURE DESCRIPTION: Under satisfactory moderate sedation achieved with 6 mg of Versed, patient was prepped and draped in the usual sterile fashion. The first incision in and around the 6th intercostal space was made, and a tunnel was created into the chest. While I could get into the chest, there was very little, if any fluid when I got into the chest. Therefore, I went one level higher, made an incision, and tunneled it into the chest again. A #24 chest tube was placed with the above results. Specimens were sent for the requisite studies including bacteriology, cytologies, hematologies, and chemistries. The chest tube was secured to the chest wall with a #2 Tevdek suture. Specimens were collected. The first incision was closed with a running 4-0 Monocryl subcuticular suture and covered with Dermabond. Patient tolerated the procedure well. A chest x-ray is pending. [facility]
--- NOTE | 2020-05-19 10:51 | IPN ---
DATE: 05/17/2020 This is Mr. Harrell's first hospital day after drainage of what we think is going to be an empyema. He is doing much better today. His pain is well controlled, and he is breathing all right. His laboratories have improved markedly. See below. His vital signs show a maximum temperature now of 100.1 since midnight last night. His heart rate is now down into the low 100s, 104-111. His respiratory rate is 18-20 without the use of accessory muscles, and he is 95%-100% saturated on 2 liters nasal cannula. His blood pressure is now ranging between 94/59 to 155/77. His intake and output since 12 o'clock has been recorded as 1885 in and 2715 out, for a negativity of 830 mL. He has put out 590 mL from the chest tube. His weight today is 71.6 kg, which is the same as yesterday. PHYSICAL EXAMINATION: His right lung shows E-to-A egophony in the right lower hemithorax. He has dull percussion note in the right lower hemithorax. Left lung shows normal vesicular sound without wheezes, rhonchi, or rales. Percussion note is full to the diaphragm on the left. Cardiac exam is without murmur, clicks, gallops, or rubs. I cannot feel his point of maximal impulse (PMI). S1 and S2 are normal. Abdomen is soft, nontender. Bowel sounds are positive. There is no hepatomegaly, no costovertebral angle (CVA) tenderness. Extremities show no pretibial edema. No calf tenderness. No differential swelling of the upper extremities. Skin is warm, dry, and perfused without cyanosis or mottling, including that of the nailbeds and knees. Neck is supple. There is no jugular venous distention. No subcutaneous emphysema. Trachea is midline. Mouth shows the mucous membranes to be pink and moist. Lips and commissures without lesions. No thrush. Eyes show his pupils to be equal and reactive. Extraocular muscles intact. Sclerae anicteric. Neurologic shows II-XII intact. Normal gross motor, gross sensation intact. Gait is not tested. His white count today is down to 26.3 from 45.8 on admission yesterday. Hemoglobin and hematocrit are 7.8 and 25.1, up from 6.6 and 21.9 after a transfusion of 2 units. Platelet count is 545, down from 736. Differential shows 80% neutrophils, 9% lymphocytes, and 9% monocytes. There are no immature forms. No toxic granulations. His chemistry shows normal electrolytes with a BUN and creatinine of 11 and 0.76, a calcium of 7.6 with a corresponding albumin yesterday of 2.8. Glucose is 98. His pleural fluid has been returned with a pH of 7.38 with a glucose less than 1, LDH of 1328. He has 33,548 white cells, which 96% are neutrophils and 3% are mononuclears. This looks to be an exudative hypoglycemic pleural effusion, consistent with a parapneumonic effusion or an empyema. His chest x-ray today still shows an air/fluid level in the right hemithorax. It is markedly improved over yesterday's admission chest x-ray. I am not sure if the lung is fully expanded to the chest wall. I will keep him on 40 cm of suction. Lateral chest x-ray shows the chest tube and the PleurX catheter in good position. PleurX catheter is traversing what looks to be like an anterior fluid level, and I will drain that. His microbiology is yet to be reported back. I have made a call, and it should be back in the next 5 minutes regarding his Gram stain. He continues on vancomycin and Zosyn. IMPRESSION: 1. Sepsis. 2. Probably empyema. 3. Possible underlying pneumonia. 4. Metastatic lung adenocarcinoma to the pleura and chest wall. 5. Sinus tachycardia, improved. 6. Prior tobacco abuse. 7. Anemia, right now of unknown origin. PLAN AND DISCUSSION: I am gratified that his white count has markedly come down, both with the drainage and with the antibiotics. The pleural fluid looks as if it is neutrophilic, hypoglycemic, and exudative, consistent with an empyema or least a parapneumonic effusion. I am awaiting the Gram stain report from microbiology. He is on the appropriate antibiotics. He still has an anterior fluid level on the chest x-ray today, and I will try and drain that with his PleurX catheter. I will continue to follow chest x-rays. I may very well send him down for a CT scan in the next 24-48 hours without contrast. I had initially entertained this might also have been a tumor necrosis syndrome, but it does not at all fit the pattern for that. Furthermore, he is only on Keytruda and not on any cytotoxic chemotherapy. MTDD
--- NOTE | 2020-05-19 10:54 | IPN ---
DATE: 05/18/2020 SUBJECTIVE: Mr. Harrell is feeling fairly well today. His pain is well controlled and he is breathing well. I did obtain a CT scan on him today as his chest x-ray looked worse today and it looks as though he has a loculated collection at the apex. His vital signs show a maximum temperature of 98.8 with a heart rate that ranges now between 96 and 104 in sinus rhythm, respiratory rate of constant 18 who is 98% saturated now on room air, and his blood pressure is ranging between 115/77 to 110/67. His intake and output over the past 24hours has been recorded as 4695 in and 5120 out for a negativity of 425 mL. He has put out 945 mL in the chest tube and there is no air leak. His weight today is 73 kg compared to 73.8 kg yesterday. PHYSICAL EXAMINATION: On physical examination, his lungs have slightly diminished breath sounds at the right base with partial egophony of the right base. He has a dull percussion note further at the right base. Left side shows normal vesicular sounds without wheezes, rhonchi or rales. Percussion is full to the diaphragm on the left. Cardiac exam is without murmurs, clicks, gallops or rubs. I cannot feel his point of maximum impulse (PMI). S1 and S2 are normal. Abdomen is soft, nontender; bowel sounds are positive. There is no hepatomegaly and no CVA tenderness. Extremities show no pretibial edema, no calf tenderness, no differential swelling of the upper extremities. Skin is warm, dry and perfused without cyanosis or mottling including that of nailbeds and knees. Neck is supple. There is no jugular venous distention, no subcutaneous emphysema. Trachea is midline. Mouth shows his mucous membranes to be pink and moist. Lips, gums, tongue show no thrush. Eyes show pupils to be equal and reactive. Extraocular motions are intact. Sclerae nonicteric. Neurologically shows cranial nerves II-XII intact with gross motor, gross sensation intact. Gait is not tested. Psychiatric shows him to be awake, alert and oriented x3 with appropriate mood and affect, and conversational. His white count to day is down to 20.5 with hemoglobin and hematocrit of 7.5 and 24.8, down from 7.8 and 25.1 yesterday. Platelet count is 573 and differential shows 68% neutrophils, 10% lymphocytes and 4% monocytes. There are no mature forms of toxic granulations. His electrolytes are normal. The BUN and creatinine are 7 and 0.73 with a glucose of 136 and a calcium of 7.7. His blood gases yesterday showed a pH of 7.40 with a pCO2 of 35 and a pO2 of 133, and a base excess of -2.7. Microbiology showed a moderate amount of white cells on the Gram stain but no organisms. Cultures are pending. Blood culture showed no growth at 24 hours. His chest x-ray today shows increasing opacity in the right hemithorax. Chest tube looks to be in good place as is the PleurX catheter. He PleurX catheter was treated yesterday for a minimal amount. Today's CT scan is as noted above and still shows a loculated collection at the apex and a further collection along the chest tube tract. I suspect his lung is completely encased in tumor and is not expanding to the chest wall. His lower lobe shows diffuse consolidation on the right side. There is infiltrative process in the upper lobe additionally. IMPRESSION: 1. Stage IV adenocarcinoma, 90% PD-L positivity with primary thought to be lung. 2. Empyema. 3. Underlying pneumonia. 4. Anemia, still unexplained. 5. Sepsis, resolving. PLAN AND DISCUSSION: I will to a TPA pleurolysis to see if I can break up the rest of the loculations via the chest tube. I have ordered a stool for blood. The anemia could be a potential leftover from his hemothorax three weeks ago when he was first admitted. He has now been transfused two units of blood. He continues on vancomycin and Zosyn. We have no positive cultures yet to narrow our antibiotic coverage. MTDD
[2020-05-19] MEDS: PERCOCET 5MG/325MG TAB PO PRN ×3 (10:55→21:34)
[2020-05-19 12:06] VITALS: BP 118/67
--- NOTE | 2020-05-19 13:06 | IPNPDOC ---
Text Note Date of Service The patient was seen on 05/19/20. NOTE SUBJECTIVE: No acute events overnight. No complaints this morning except for right chest pain. Denies any SOB. He had TPA through his chest tube yesterday. CXR with reduced Right hydropneumothorax , has stable apical loculated effusion with unchanged right sided parenchymal opacities. PHYSICAL EXAMINATION: VITAL SIGNS: As below GENERAL APPEARANCE: Sitting up in chair, appears comfortable HEENT: No scleral icterus, conjunctival pallor, Trachea midline without evidence NECK : No JVD, no lymphadenopathy, no thyromegaly. CARDIOVASCULAR: Normal rate, regular, normal S1 and S2 without appreciable murmur. LUNGS: Fair air movement, lung sounds diminished bases bilaterally, right greater than the left. R-sided chest tubes covered in dressing. No conversational dyspnea. ABDOMEN: Soft, nontender, nondistended, Bowel sounds normal EXTREMITIES: No lower extremity edema bilaterally, no calf pain/tenderness NEUROLOGICAL: Alert and oriented, no dysarthria or dysphasia. Sensorium is grossly intact. PSYCHIATRIC: Mood and affect are appropriate given current medical condition LABORATORY AND RADIOLOGICAL DATA: Reviewed. See below. ASSESSMENT AND PLAN: Patient is a 44-year-old male, recent diagnosis of metastatic adenocarcinoma of the lung started on single therapy with Keytruda, h/o recurrent right-sided pleural effusion and pleurex catheter placement. Patient follows with thoracic surgery. Patient was recently seen in the office and started on metoprolol for tachycardia. Patient reports earlier on the day of presentation, he took the medication in approximately 20 minutes thereafter began feeling extremely weak and lethargic. Reported that his heart at that time was racing a did experience some mild chest pain. Patient contacted the office of thoracic surgery who indicated the patient needed to present to the emergency department for further evaluation and management. Initial workup indicate sepsis in the setting of significant anemia and right-sided pleural effusion. The patient was started on sepsis protocol including broad-spectrum antibiotics and aggressive IV hydration. Patient to be admitted to the ICU for continuing treatment of his sepsis, suspected source of his indwelling Pleurx catheter. Sepsis due to Empyema Pleurx catheter may be the primary source Dr. Boland placed 1 chest tubes . Patient now has 1 chest tube (new) and a Pleurx cath. Vanc/Zosyn. BC negative till date. Fluid culture no growth in areobic and anareobic. Right sided Empyema Possibly from infected pleurx catheter. Vanco and zosyn Normocytic anemia. H/H of 6.6/21.9. Unknown source at this time. iron studies, B12 and folate not low. possibly anemia of chronic disease. STAGE IV Adenocarcinoma, Lung with malignant right effusion and hemothorax Single agent treatment with Keytruda started in mar 2020. follow oncology upon discharge DVT PROPHYLAXIS: Heparin SC, Q12H VS,Fishbone, I+O VS, Fishbone, I+O Laboratory Tests 05/19/20 05:31 Vital Signs Date Time Temp Pulse Resp B/P (MAP) Pulse Ox O2 Delivery O2 Flow Rate FiO2 05/19/20 11:25 16 05/19/20 08:00 98.6 121 117/77 (90) 96 Room Air 05/18/20 18:32 2.0 I&O- Last 24 Hours up to 6 AM 05/19/20 07:00 Intake Total 5200 ml Output Total 5835 ml Balance -635 ml IDALIA WALKER MD May 19, 2020 13:06
[2020-05-19] MEDS: SLF 3 ML SYR IV SCH ×2 (14:58→21:35)
[2020-05-19 16:00] VITALS: BP 108/68
[2020-05-19 20:00] VITALS: BP 119/72
[2020-05-20] VITALS (7 sets, daily range): BP systolic 103–130; BP diastolic 66–85
[2020-05-20] MEDS: LEVALBUTEROL 1.25 MG/0.5 ML CONCENTRATE NEB NEB SCH ×4 (01:07→19:03)
[2020-05-20] MEDS: VANCOMYCIN HCL 1,000 MG, VIAL MATE ADAPTER 1 EACH in D5W 250 ML IV SCH (03:30)
[2020-05-20] MEDS: PERCOCET 5MG/325MG TAB PO PRN ×4 (03:30→21:53)
[2020-05-20] MEDS: PIPERACILLIN/TAZOBACTAM SOD 4.5 GM in D5W MINI-BAG PLUS 50 ML IV SCH ×2 (04:50→09:04)
[2020-05-20 05:01] LABS: BASO # 0.1 10^3/uL (0.0-0.2); BASO % 0.5 % (0.0-1.0); EOS # 0.5 10^3/uL (0.0-0.5); EOS % 3.5 % (0.0-3.0); HEMATOCRIT 23.8 % (42.0-52.0); HEMOGLOBIN 7.5 g/dl (13.5-17.5); LYMPH # 2.1 10^3/uL (1.5-5.0); LYMPH % 15.4 % (24.0-44.0); MEAN CORPUSCULAR HEMOGLOBIN 25.5 pg (27.0-33.0); MEAN CORPUSCULAR HGB CONC 31.5 g/dl (32.0-36.5); MONO # 1.1 10^3/uL (0.0-0.8); MONO % 8.2 % (0.0-5.0); NEUTROPHILS % 72.1 % (36.0-66.0); PLATELET COUNT, AUTOMATED 685 10^3/uL (150-450); RED BLOOD COUNT 2.94 10^6/uL (4.30-6.10); WHITE BLOOD COUNT 13.9 10^3/uL (4.0-10.0)
[2020-05-20 05:20] LABS: BLOOD UREA NITROGEN 6 MG/DL (7-18); CALCIUM LEVEL 8.3 MG/DL (8.5-10.1); CARBON DIOXIDE LEVEL 24 MEQ/L (21-32); CHLORIDE LEVEL 108 MEQ/L (98-107); CREATININE FOR GFR 0.96 MG/DL (0.70-1.30); GLOMERULAR FILTRATION RATE > 60.0 (>60); GLUCOSE, FASTING 101 MG/DL (70-100); POTASSIUM SERUM 4.1 MEQ/L (3.5-5.1); SODIUM LEVEL 139 MEQ/L (136-145)
[2020-05-20] MEDS: SLF 3 ML SYR IV SCH ×3 (05:33→20:22)
[2020-05-20] MEDS: KETOROLAC 30 MG/ML 1ML VIAL IV SCH ×4 (05:33→23:57)
--- NOTE | 2020-05-20 07:32 | IPN ---
DATE: 05/19/2020 SUBJECTIVE: Mr. Harrell had an uneventful 24 hours. The TPA pleurolysis resulted in 1100 mL of pleural fluid. He still has an air fluid level on chest x-ray and the lung has not expanded, the chest wall being encased in tumor. He is breathing well and was able to ambulate to x-ray without difficulty. His vital signs show a T-max of 99.3 with a heart rate that ranges between 121 and 109, sinus rhythm, respiratory rate of 16-18 without any accessory muscles. He was 96% saturated on room air and his blood pressure is ranging between 110/70 to 118/75. Intake and output for the past 24 hours is recorded as 5260 in and 5865 out for a negativity of 600 mL. He has put out 1100 mL from the chest tube and 4700 mL of urine. I have discontinued his IV. His weight today is 70 kilos, he measured 73 kilos yesterday. PHYSICAL EXAMINATION: LUNGS: His lungs still show decreased breath sounds in the right lower hemithorax with a dull percussion note. He has E to A egophony in the right lower hemithorax. Left side shows normal vesicular sounds without wheezes, rhonchi or rales. Percussion was full to diaphragm on the left. Cardiac exam is without murmurs, clicks, gallops or rubs. I cannot feel his point of maximum impulse (PMI). S1 and S2 are normal. Abdomen is soft, nontender; bowel sounds are positive. There is no hepatomegaly and no CVA tenderness. Extremities show no pretibial edema, no calf tenderness, no differential swelling of the upper extremities. Skin is warm, dry and perfused without cyanosis or mottling including that of nailbeds and knees. Neck is supple. There is no jugular venous distention, no subcutaneous emphysema. Trachea is midline. Mouth shows his mucous membranes to be pink and moist. Lips, gums, tongue show no thrush. Eyes show pupils to be equal and reactive. Extraocular motions are intact. Sclerae nonicteric. Neurologically shows cranial nerves II-XII intact with gross motor, gross sensation intact. Gait is not tested. Psychiatric shows him to be awake, alert and oriented x3 with appropriate mood and affect, and conversational. LABORATORY DATA: His white today is 17.1 with a hemoglobin and hematocrit of 7.6 and 25.4, slightly improved from 7.5 and 24.8 yesterday. Platelet count is 609,000. Differential showed 81% neutrophils, 9% lymphocytes and 5% monocytes. No mature forms of toxic granulations. Chemistries today showed normal electrolytes with BUN and creatinine of 5 and 0.81, a glucose of 94 and a calcium of 8 .1. There are no blood gases on him today. His chest x-ray today shows an air fluid level as noted above. The lung is still not expanding to the chest wall being encased in tumor. There is an infiltrative process in the right middle and lower lobes. ASSESSMENT: 1. 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 2. Empyema. 3. Underlying pneumonia. 4. Anemia. 5. Sepsis, resolving. PLAN/DISCUSSION: I do think that the empyema came from his underlying pneumonia rather than from the PleurX catheter. The lung is not coming back to the chest wall and he is always going to have a fluid level. The question in mind is to whether to remove the PleurX catheter and replace it or just to remove the chest tube and continue the PleurX catheter. I think that the pneumonia became before the empyema and I am reticent to remove the PleurX catheter at this point in time if we need to replace it. He is on appropriate antibiotics for his pneumonia. Pleural cultures have come back negative although on chemistries and cell count they were highly neutrophilic. Final pathology is pending. All of his blood cultures were negative. There is no growth aerobically or anaerobically. I will therefore probably discontinue his chest tube tomorrow and then will return to draining his PleurX with bottles. MORIAH
--- NOTE | 2020-05-20 08:15 | REP ---
INDICATION: empyema COMPARISON: 05/19/2020 TECHNIQUE: PA and lateral. FINDINGS: Two right-sided chest tubes are in stable position. Right hydropneumothorax and underlying pleuroparenchymal changes remain essentially stable. Left hemithorax is relatively well aerated and clear. Visualized portions of the cardiac silhouette and mediastinum are within normal limits and stable. Skeletal structures are intact. IMPRESSION: No significant change from prior examination. <Electronically signed by Arsalan Gifford > 05/20/20 [id number]
[2020-05-20] MEDS: MOM 30ML SUSPENSION UDC PO SCH (09:00)
[2020-05-20] MEDS: HEPARIN SOD (PORCINE) 5000UNITS/ML 1ML VIAL/SYRINGE SC SCH ×2 (09:00→20:22)
[2020-05-20] MEDS: NYSTATIN 100,000 UNITS/GM TOPICAL PWD 15 GM TOP SCH ×2 (09:00→20:23)
[2020-05-20] MEDS: DOCUSATE SODIUM 100 MG CAP PO SCH ×2 (09:00→20:22)
[2020-05-20] MEDS: PANTOPRAZOLE 40MG TAB (PROTONIX) PO SCH (09:03)
--- NOTE | 2020-05-20 11:41 | IPNPDOC ---
Text Note Date of Service The patient was seen on 05/20/20. NOTE Subjective: Patient stated that he feels better today. Patient denied fever, chills, nausea, vomiting, diarrhea or dysuria Objective: GENERAL APPEARANCE: NAD HEENT: no scleral icterus, no JVD, EOMI CARDIOVASCULAR: S1S2 LUNGS: R-sided chest tubes covered in dressing. Mild bilateral rhonchi ABDOMEN: soft & not tender w palpitation MUSCULOSKELETAL: no cyanosis, no swelling INTEGUMENT: no generalized palor NEUROLOGICAL: cranial nerve function from 2-12 intact intact, follows commands, speech not dysarthric A/P Patient is a 44-year-old male with past medical history of metastatic adenocarcinoma of the lung started on single therapy with Keytruda, h/o recurrent right-sided pleural effusion and Pleurx catheter placement. Patient was admitted with sepsis in the setting of significant anemia and right-sided pleural effusion. The patient was started on sepsis protocol including broad- spectrum antibiotics and aggressive IV hydration Sepsis due to Empyema/ pneumonia Most likely due to postobstructive pneumonia secondary to lung malignancy cvc Dr. Boland removed chest tube today Discontinue Vanc/Zosyn. BC negative till date. Started ceftriaxone and azithromycin. Leukocytosis improved Fluid culture no growth in aerobic and anaerobic. Right sided Empyema Most likely combined secondary to malignancy and infection Drained with chest tube. Normocytic anemia. possibly anemia of chronic disease secondary to advanced malignancy Hemoglobin stable STAGE IV Adenocarcinoma, Lung with malignant right effusion and hemothorax Single agent treatment with Keytruda started in mar 2020. follow oncology upon discharge DVT PROPHYLAXIS: Heparin SC, Q12H VS,Fishbone, I+O VS, Fishbone, I+O Laboratory Tests 05/20/20 04:35 Vital Signs Date Time Temp Pulse Resp B/P (MAP) Pulse Ox O2 Delivery O2 Flow Rate FiO2 05/20/20 10:00 19 05/20/20 09:03 Room Air 05/20/20 04:00 97.3 88 103/66 (78) 94 05/18/20 18:32 2.0 I&O- Last 24 Hours up to 6 AM 05/20/20 05:59 Intake Total 2990 ml Output Total 5295 ml Balance -2305 ml PORTER AYERS DO May 20, 2020 11:41
[2020-05-20] MEDS ORDERED: AZITHROMYCIN 250MG TABLET PO ONE (11:45)
[2020-05-20] MEDS ORDERED: cefTRIAXone SOD 2 GM in D5W MINI-BAG PLUS 50 ML IV SCH (13:00)
[2020-05-21 00:01] VITALS: BP 120/74
[2020-05-21] MEDS: LEVALBUTEROL 1.25 MG/0.5 ML CONCENTRATE NEB NEB SCH ×2 (01:17→07:05)
[2020-05-21 04:00] VITALS: BP 124/82
[2020-05-21] MEDS: PERCOCET 5MG/325MG TAB PO PRN (04:01)
[2020-05-21 06:06] LABS: BASO # 0.1 10^3/uL (0.0-0.2); BASO % 0.6 % (0.0-1.0); EOS # 0.6 10^3/uL (0.0-0.5); EOS % 5.2 % (0.0-3.0); HEMATOCRIT 25.1 % (42.0-52.0); HEMOGLOBIN 7.5 g/dl (13.5-17.5); LYMPH # 2.1 10^3/uL (1.5-5.0); LYMPH % 17.5 % (24.0-44.0); MEAN CORPUSCULAR HEMOGLOBIN 24.1 pg (27.0-33.0); MEAN CORPUSCULAR HGB CONC 29.9 g/dl (32.0-36.5); MEAN CORPUSCULAR VOLUME 80.7 fl (80.0-96.0); MONO # 1.2 10^3/uL (0.0-0.8); MONO % 9.8 % (0.0-5.0); NEUTROPHILS % 66.6 % (36.0-66.0); PLATELET COUNT, AUTOMATED 709 10^3/uL (150-450); RED BLOOD COUNT 3.11 10^6/uL (4.30-6.10); WHITE BLOOD COUNT 12.1 10^3/uL (4.0-10.0)
[2020-05-21] MEDS: KETOROLAC 30 MG/ML 1ML VIAL IV SCH (06:23)
[2020-05-21] MEDS: SLF 3 ML SYR IV SCH (06:23)
[2020-05-21 06:38] LABS: CALCIUM LEVEL 8.3 MG/DL (8.5-10.1); CREATININE FOR GFR 1.69 MG/DL (0.70-1.30); GLOMERULAR FILTRATION RATE 47.6 (>60); POTASSIUM SERUM 4.4 MEQ/L (3.5-5.1)
[2020-05-21 08:07] VITALS: BP 121/78
[2020-05-21] MEDS: DOCUSATE SODIUM 100 MG CAP PO SCH (08:28)
[2020-05-21] MEDS: MOM 30ML SUSPENSION UDC PO SCH (08:28)
[2020-05-21] MEDS: NYSTATIN 100,000 UNITS/GM TOPICAL PWD 15 GM TOP SCH (08:29)
[2020-05-21] MEDS: HEPARIN SOD (PORCINE) 5000UNITS/ML 1ML VIAL/SYRINGE SC SCH (08:29)
--- NOTE | 2020-05-21 08:37 | REP ---
INDICATION: empyema COMPARISON: 05/20/2020 TECHNIQUE: PA and lateral. FINDINGS: Current examination demonstrates a single right-sided chest tube (previous examination demonstrated to chest tubes). Underlying right-sided pleuroparenchymal changes including moderate hydropneumothorax and parenchymal infiltrates as well as a suspected stable loculated collection at the right apex all remain unchanged. Left hemithorax is clear. IMPRESSION: 1. Single chest tube now identified in the right hemithorax. 2. Stable examination. <Electronically signed by Arsalan Gifford > 05/21/20 0865
[2020-05-21 08:40] VITALS: BP 121/78
[2020-05-21 08:55] VITALS: BP 122/72
[2020-05-21] MEDS ORDERED: PANTOPRAZOLE 20 MG TAB PO SCH (09:00)
[2020-05-21] MEDS ORDERED: AZITHROMYCIN 250MG TABLET PO SCH (09:00)
[2020-05-21 09:40] VITALS: BP 125/77
[2020-05-21] MEDS ORDERED: AZIT-12 PO (10:29)
[2020-05-21] MEDS ORDERED: NYST10006 TOP (10:29)
[2020-05-21] MEDS ORDERED: AUGM875T28 PO (10:29)
--- NOTE | 2020-05-21 11:37 | IPN ---
DATE: 05/20/2020 Mr. Harrell has had a fairly comfortable night. He still has some pain at the chest tube site. All in all, he is in good spirits. He would like to go home fairly soon. His vital signs showed T-max of 98.9 with a heart rate that ranges between 82 and 104 in sinus rhythm, respiratory rate of 16-20 without the use of accessory muscles, who is 94% to 97% saturated on room air. His blood pressure is ranging between 130/85 to 103/66. His intake and output over the past 24 hours has been recorded as 3360 in and 5035 out, for negativity of 1675 cc. He has taken in 2250 cc in p.o. intake and 1110 cc IV. He has put out 4400 cc in urine and his chest tube has put out 635 and there was no air leak. Weight today is 73.3 kg as compared to 70 kg yesterday. PHYSICAL EXAMINATION: Respiratory: His lungs sound more clear today, although he still has dull percussion at the very base of the right lower hemithorax with some faint E:A egophony, but much better than it has been. Breath sounds are slightly decreased in the left lower hemithorax. The left side shows normal vesicular sounds. Cardiac: Without murmurs, clicks, gallops, or rubs. I cannot feel his PMI. S1, S2 are normal. Abdomen: Soft, nontender, bowel sounds are positive. There is no hepatomegaly and no CVA tenderness. Extremities: No pretibial edema, no calf tenderness, no differential swelling of the upper extremities. Skin: Warm, dry, and perfuse without cyanosis or mottling including that of the nail beds and knees. Neck: The neck is supple. There is no jugular venous distention, no subcutaneous emphysema. Trachea is midline. HEENT: Mouth shows mucous membranes to be pink and moist, lips and commissures with no thrush. Eyes show his pupils to be equal and reactive, extraocular muscles intact, sclerae nonicteric. Neuro: Neurological shows II-XII intact with motor gross, gross sensation intact. Gait is not tested. Psych: Psychiatric shows him to be awake, alert, and oriented x3 with appropriate mood and affect and conversational. LABORATORY DATA: White count today is down to 13.9 with hemoglobin and hematocrit of 7.5 and 23.8. This is essentially unchanged from yesterday. Platelet count is 685. His differential shows 72% neutrophils, 15% leukocytes, and 8% monocytes. There are no immature forms or toxic granulations. His electrolytes are essentially normal with a BUN and creatinine of 6 and 0.96, glucose 101, and calcium 8.3. There is no new microbiology on him with negative aerobic and anaerobic growth in the pleural fluid. Blood cultures are no growth, additionally. Pathology cell block shows atypical cells, suspicious for malignancy, which we already know that he has exhibited before. Cytology is also suspicious for malignancy. IMAGING STUDIES: His chest x-ray today still shows an air-fluid level. The lung is still encased and not expanded to the chest wall on the right. He is always going to have fluid secondary to lung not expanding to the chest wall and being encased in tumor. Chest tube and PleurX catheter are in good place. IMPRESSION: 1. Metastatic adenocarcinoma stage IV to the pleura and to the parietal and visceral pleura. 2. Entrapped lung, right side. 3. Sepsis, resolved. 4. Right lower lobe pneumonia. 5. Anemia. 6. Empyema and/or parapneumonic effusion. PLAN AND DISCUSSION: I will remove his chest tube today. We will start training him with his PleurX catheter. I am going to assign his parapneumonic effusion to his underlying pneumonia and consolidation rather than the PleurX catheter. We will follow his PleurX catheter carefully as an outpatient and if it exhibits signs of infection, I will have to remove it and replace it. I see no reason why he cannot go home tomorrow to continue using his PleurX catheter and bottles each day. He should be sent home on appropriate oral antibiotics. He is presently on Vancomycin and Zosyn, although he had no cultures to guide us. MORIAH
[2020-05-21 11:41] LABS: HEMATOCRIT 29.2 % (42.0-52.0); HEMOGLOBIN 9.1 g/dl (13.5-17.5)
--- NOTE | 2020-05-21 11:44 | RO ---
DATE OF OPERATION: 05/18/2020 PREOPERATIVE DIAGNOSIS: Loculated pleural effusion. POSTOPERATIVE DIAGNOSIS: Loculated pleural effusion. SURGEON: Lance Boland MD PER ASSESSMENT NURSE: PROCEDURE: Tissue plasminogen activator pleural lysis. ANESTHESIA: PROCEDURE IN DETAIL: The patient's chest tube was disconnected from the Pleur- evac and clamped and prepped and draped in the usual sterile fashion. Then, 6 mg of tPA in 100 cc of normal saline was then instilled in the chest tube. The chest tube was closed and the patient was then turned from [id number] in order to distribute the tPA. The chest tube will be unclamped in four hours. The patient tolerated the procedure well. MORIAH
--- NOTE | 2020-05-21 16:35 | DS.PDOC ---
Discharge Summary General Date of Admission May 16, 2020 at 22:37 Date of Discharge 05/21/20 Discharge Summary PROCEDURES PERFORMED DURING STAY: [None]. ADMITTING DIAGNOSES: Sepsis due to Empyema/ pneumonia Right sided Empyema Normocytic anemia. STAGE IV Adenocarcinoma, Lung with malignant right effusion and hemothorax DISCHARGE DIAGNOSES: Sepsis due to Empyema/ pneumonia Right sided Empyema Normocytic anemia. STAGE IV Adenocarcinoma, Lung with malignant right effusion and hemothorax COMPLICATIONS/CHIEF COMPLAINT: Sepsis. HISTORY OF PRESENT ILLNESS: Patient is a 44-year-old male with past medical history of metastatic adenocarcinoma of the lung started on single therapy with Keytruda, h/o recurrent right-sided pleural effusion and Pleurx catheter placement. Patient was admitted with sepsis in the setting of significant anemia and right-sided pleural effusion. The patient was started on sepsis protocol including broad-spectrum antibiotics and aggressive IV hydration HOSPITAL COURSE: During hospital stay following issue addressed Sepsis due to Empyema/ pneumonia Most likely due to postobstructive pneumonia secondary to lung malignancy cvc Dr. Boland removed chest tube on 05/20/20 Patient received antibiotic therapy Fluid culture no growth in aerobic and anaerobic. Right sided Empyema Most likely combined secondary to malignancy and infection Drained with chest tube. Normocytic anemia. possibly anemia of chronic disease secondary to advanced malignancy Hemoglobin stable STAGE IV Adenocarcinoma, Lung with malignant right effusion and hemothorax Single agent treatment with Keytruda started in mar 2020. follow oncology upon discharge DISCHARGE MEDICATIONS: Please see below. ALLERGIES: Please see below. PHYSICAL EXAMINATION ON DISCHARGE: VITAL SIGNS: Please see below. GENERAL APPEARANCE: NAD HEENT: no scleral icterus, no JVD, EOMI CARDIOVASCULAR: S1S2 LUNGS: Mild bilateral rhonchi ABDOMEN: soft & not tender w palpitation MUSCULOSKELETAL: no cyanosis, no swelling INTEGUMENT: no generalized palor NEUROLOGICAL: cranial nerve function from 2-12 intact intact, follows commands, speech not dysarthric LABORATORY DATA: Please see below. IMAGING: [facility] NAME: RITO NESS DATE OF : 1975 BUSINESS NUMBER: [id number] AGE: 44 SEX: M REPORT #: [id number] ROOM: ED TECHNOLOGIST: [facility] [place] DOCTOR: MADISON BRADFORD DO Ordered for Date&Time: 05/16/201949 cc: [~ rep ct ivnm] Service Date&Time: 05/16/202024 This report is in Signed status. Interpretation performed by [facility]. Thank you for having your radiology procedures performed at [facility] RADIOLOGY REPORT Date&Time printed: [~ rep prt dt last] [~ rep prt tm last] Page [address] of [address] [id number] RADIOLOGY REPORT This report is in Signed status. Interpretation performed by [facility]. Thank you for having your radiology procedures performed at [facility] RADIOLOGY REPORT Date&Time printed: [~ rep prt dt last] [~ rep prt tm last] Page 1 of 1 PROCEDURE INFORMATION: Exam: CT Angiography Chest With Contrast Exam date and time: 05/16/2020 8:25 PM Age: 44 years old Clinical indication: Shortness of breath; Additional info: SOB, febrile TECHNIQUE: Imaging protocol: Computed tomographic angiography of the chest with intravenous contrast. 3D rendering (Not supervised by radiologist): MIP and/or 3D reconstructed images were created by the technologist. Radiation optimization: All CT scans at this facility use at least one of these dose optimization techniques: automated exposure control; mA and/or kV adjustment per patient size (includes targeted exams where dose is matched to clinical indication); or iterative reconstruction. Contrast material: ISOVUE 370; Contrast volume: 75 ml; Contrast route: INTRAVENOUS (IV); COMPARISON: CT Chest with contrast 04/17/2020 9:30 AM FINDINGS: Pulmonary arteries: Normal. No pulmonary emboli. Aorta: Unremarkable. No aortic aneurysm. No aortic dissection. Lungs: Atelectasis at the right lung base. Pleural space: There is heterogenous lesion in the right apex measuring 4.8 by 4.9 cm, likely loculated pleural effusion. A right-sided chest tube is seen. Moderate-sized right pleural effusion. Heart: Unremarkable. No cardiomegaly. No pericardial effusion. Lymph nodes: Unremarkable. No enlarged lymph nodes. Bones/joints: Unremarkable. No acute fracture. Soft tissues: Unremarkable. IMPRESSION: 1. No pulmonary embolism. 2. Moderate-sized right pleural effusion with atelectasis at the right lung base. Right-sided chest tube with its tip in the right apical region. Electronically signed by: Heriberto Baird On 05/16/2020 21:23:50 PM DD: HERIBERTO Victor RAI DO 05/16/202024 DT: VR 05/16/202122 DS: AZRA 05/16/202122 [~ rep ct labl] PROGNOSIS: Poor ACTIVITY: [As tolerated]. DIET: Regular DISPOSITION: 01 Home, Self-Care. ITEMS TO FOLLOWUP ON ON OUTPATIENT: With oncologist. DISCHARGE CONDITION: [Stable]. TIME SPENT ON DISCHARGE: Greater than 40 minutes. Vital Signs/I&Os Vital Signs Date Time Temp Pulse Resp B/P (MAP) Pulse Ox O2 Delivery O2 Flow Rate FiO2 05/21/20 09:40 97.2 86 18 125/77 96 Room Air 05/18/20 18:32 2.0 I&O- Last 24 Hours up to 6 AM 05/21/20 06:00 Intake Total 1415 ml Output Total 1450 ml Balance -35 ml Laboratory Data Labs 24H Laboratory Tests 2 05/21/20 05:42: Immature Granulocyte % (Auto) 0.3, Neutrophils (%) (Auto) 66.6H, Lymphocytes (%) (Auto) 17.5L, Monocytes (%) (Auto) 9.8H, Eosinophils (%) (Auto) 5.2H, Basophils (%) (Auto) 0.6, Neutrophils # (Auto) 8.0, Lymphocytes # (Auto) 2.1, Monocytes # (Auto) 1.2H, Eosinophils # (Auto) 0.6H, Basophils # (Auto) 0.1, Nucleated Red Blood Cells % (auto) 0.0, Anion Gap 7L, Glomerular Filtration Rate 47.6L, Calcium Level 8.3L CBC/BMP Laboratory Tests 05/21/20 05:42 05/21/20 10:48 Microbiology Microbiology 05/17/20 Acid Fast Stain, Received Pending 05/17/20 Mycobacterial Culture, Received Pending 05/17/20 Fungal Smear, Received Pending 05/17/20 Fungal Culture, Received Pending 05/17/20 Gram Stain - Final, Complete 05/17/20 Anaerobic Culture - Final, Complete 05/17/20 Body Fluid Culture - Final, Complete 05/16/20 Blood Culture - Preliminary, Resulted No Growth after 72 hours. All specime... 05/16/20 Blood Culture - Preliminary, Resulted No Growth after 72 hours. All specime... Discharge Medications Scheduled Amoxicillin/Potassium Clav (Augmentin 875-125 Tablet) 1 Each Tablet, 1 TAB PO BID Azithromycin (Azithromycin) 250 Mg Tablet, 500 MG PO DAILY Metoprolol Succinate (Metoprolol Succinate) 50 Mg Tab.er.24h, 25 MG PO BID, (Reported) patient states takes 25mg bid due to light headedness Multivitamin (Multivitamins) 1 Each Capsule, 1 CAP PO DAILY, (Reported) Nystatin (Nystop) 60 Gm Powder, 0 DOSE TOP BID Pembrolizumab (Keytruda) 100 Mg/4 Ml Vial, 200 MG IV Q3WK Polyethylene Glycol 3350 (Miralax) 119 Gm Powder, 17 GM PO DAILY, (Reported) Simethicone (Gas Relief 80) 80 Mg Tab.chew, 160 MG PO DAILY, (Reported) Scheduled PRN Acetaminophen (Acetaminophen) 500 Mg Tablet, 1,000 MG PO Q6H PRN for PAIN / FEVER, (Reported) Hydromorphone HCl (Dilaudid) 2 Mg Tablet, 2 MG PO QIDP PRN for pain Take 1 to 2 tablets po q 6 hours prn pain from lung cancer Allergies Coded Allergies: bee venom protein (honey bee) (Verified Allergy, Intermediate, anaphlaytic, 03/30/20) PORTER AYERS DO May 21, 2020 16:35
[2020-05-27] MEDS ORDERED: OXYC-404 PO ×2 (13:30→13:34)
== END 2020-05-21 13:36 | disposition home or self-care (01) | DRG 720 ==
LOC: M ED 18:14 → M ED INP 22:37 → M ICU 23:05 → M PCU 05-20 16:39
PROVIDERS: ADMIT Internal Medicine; ATTEND Internal Medicine
PROC: 0W9930Z Drainage of Right Pleural Cavity with Drainage Device, Percutaneous Approach (ICD-10-PCS; principal; 2020-05-16)
PROC: 3E0L3GC Introduction of Other Therapeutic Substance into Pleural Cavity, Percutaneous Approach (ICD-10-PCS; 2020-05-18)
DX: A41.9 Sepsis, unspecified organism (principal); J86.9 Pyothorax without fistula; J91.0 Malignant pleural effusion; J18.9 Pneumonia, unspecified organism; C34.91 Malignant neoplasm of unspecified part of right bronchus or lung; D64.9 Anemia, unspecified; C78.2 Secondary malignant neoplasm of pleura; F17.210 Nicotine dependence, cigarettes, uncomplicated; Z79.899 Other long term (current) drug therapy; Z91.030 Bee allergy status; Z20.828 Contact with and (suspected) exposure to other viral communicable diseases

== ENCOUNTER → 2020-05-29 | Outpatient (CLI) | payer MEDICAID, OTHER ==
[~2020-05-29] MED LIST changes: +ACET-683 PO; +AUGM875T28 PO; +AZIT-12 PO; +GNP80CHW PO; +METO1TAB7 PO; +MULTCAP PO; +NYST10006 TOP; +OXYC-404 PO; +OXYC-517 PO
--- NOTE | 2020-05-29 08:45 | REPPI ---
INDICATION: J91.0 C34.90 MALIGNANT PLEURAL EFFUSIOM COMPARISON: 05/21/2020 TECHNIQUE: PA and lateral. FINDINGS: Right-sided pleuroparenchymal changes including moderate partially loculated hydropneumothorax with underlying airspace disease and stable right apical pleural cap again noted. Right-sided chest tube is unchanged in position. The left hemithorax is clear. IMPRESSION: Right-sided pleuroparenchymal changes including moderate loculated right hydropneumothorax again noted which are similar to prior examination. <Electronically signed by Arsalan Gifford > 05/29/20 0841
== END ==
LOC: M PLAIMG 08:08
PROVIDERS: ATTEND Thoracic Surgery (Cardiothoracic Vascular Surgery)
DX: C34.90 Malignant neoplasm of unspecified part of unspecified bronchus or lung (principal); J91.0 Malignant pleural effusion; J94.8 Other specified pleural conditions

== ENCOUNTER → 2020-06-12 | Outpatient (CLI) | payer MEDICAID ==
[~2020-06-12] MED LIST changes: +MORP30TASA PO; +MULT-40 PO
--- NOTE | 2020-06-12 08:55 | REPPI ---
INDICATION: MALIGNANT PLEURAL EFFUSION. COMPARISON: Comparison chest x-ray May 29, 2020. TECHNIQUE: Two views.. FINDINGS: There is a right-sided PleurX drainage catheter in place. Considerable pleural thickening persists along the lateral and superior aspect of the right lung which is partially collapsed. Interstitial lung disease is seen in the remaining aerated lung parenchyma. There is a small air bubble in the pleural space on the right. This has decreased in volume although the pleural thickening is about the same when compared with the May 29, 2020 study. Left lung remains clear. Heart is not enlarged. No bony abnormality is seen. IMPRESSION: PleurX catheter in place on the right with moderate amount of residual pleural thickening and/or fluid. Volume loss right hemithorax the interstitial changes as before.. <Electronically signed by Cecil Little > 06/12/20 0899
== END ==
LOC: M PLAIMG 08:08
PROVIDERS: ATTEND Thoracic Surgery (Cardiothoracic Vascular Surgery)
DX: J90 Pleural effusion, not elsewhere classified (principal)

== ENCOUNTER 2020-06-23 10:37 | Inpatient (IN) | payer MEDICAID ==
[~2020-06-23] VITALS: Ht 177.8 cm; Wt 67.6 kg
[~2020-06-23 10:37] MED LIST changes: -MULT-40 PO
[2020-06-23 11:59] LABS: BASO # 0.1 10^3/uL (0.0-0.2); BASO % 0.5 % (0.0-1.0); EOS # 0.2 10^3/uL (0.0-0.5); EOS % 1.1 % (0.0-3.0); HEMATOCRIT 33.5 % (42.0-52.0); HEMOGLOBIN 9.9 g/dl (13.5-17.5); LYMPH # 2.6 10^3/uL (1.5-5.0); MEAN CORPUSCULAR HEMOGLOBIN 21.9 pg (27.0-33.0); MEAN CORPUSCULAR HGB CONC 29.6 g/dl (32.0-36.5); MEAN CORPUSCULAR VOLUME 74.1 fl (80.0-96.0); MONO # 1.2 10^3/uL (0.0-0.8); MONO % 7.3 % (0.0-5.0); NEUTROPHILS # 12.2 10^3/uL (1.5-8.5); NEUTROPHILS % 74.5 % (36.0-66.0); PLATELET COUNT, AUTOMATED 459 10^3/uL (150-450); RED BLOOD COUNT 4.52 10^6/uL (4.30-6.10); WHITE BLOOD COUNT 16.3 10^3/uL (4.0-10.0)
[2020-06-23 12:16] LABS: INR 1.12; PROTHROMBIN TIME 14.6 SECONDS (12.5-14.3)
--- NOTE | 2020-06-23 12:18 | REP ---
INDICATION: pain R/O DVT COMPARISON: None. TECHNIQUE: Linda scale and color Doppler evaluation in the bilateral lower extremities using linear high frequency transducer. FINDINGS: Right lower extremity demonstrates focal area of nonocclusive thrombus in the proximal saphenous vein. Left lower extremity demonstrates focal occlusive thrombus in the left popliteal vein. IMPRESSION: Focal areas of occlusive and nonocclusive thrombus as noted above. <Electronically signed by Arsalan Gifford > 06/23/20 [id number]
[2020-06-23 12:28] LABS: ERYTHROCYTE SEDIMENTATION RATE 67 mm/hr (0-15)
[2020-06-23] MEDS ORDERED: NS 500 ML IV ONE (12:45)
[2020-06-23 13:01] LABS: ALBUMIN 2.7 GM/DL (3.2-5.2); ALT/SGPT 20 U/L (12-78); BILIRUBIN,DIRECT 0.1 MG/DL (0.0-0.2); BILIRUBIN,TOTAL 0.3 MG/DL (0.2-1.0); BLOOD UREA NITROGEN 8 MG/DL (7-18); C REACTIVE PROTEIN QUANTITATIV 8.64 MG/DL (0.00-0.30); CALCIUM LEVEL 8.7 MG/DL (8.5-10.1); CARBON DIOXIDE LEVEL 24 MEQ/L (21-32); CHLORIDE LEVEL 98 MEQ/L (98-107); CK-MB VALUE MASS < 1.0 NG/ML (<3.6); CPK CREATINE PHOSPHOKINASE 27 U/L (39-308); CREATININE FOR GFR 0.73 MG/DL (0.70-1.30); GLOMERULAR FILTRATION RATE > 60.0 (>60); GLUCOSE, FASTING 100 MG/DL (70-100); MAGNESIUM LEVEL 2.2 MG/DL (1.8-2.4); POTASSIUM SERUM 4.4 MEQ/L (3.5-5.1); SODIUM LEVEL 131 MEQ/L (136-145); TOTAL PROTEIN 7.5 GM/DL (6.4-8.2); TROPONIN I < 0.02 NG/ML (< 0.10)
[2020-06-23] MEDS ORDERED: ISOVUE-370 76% 100ML VIAL As Ordered ONE (13:08)
--- NOTE | 2020-06-23 13:48 | REP ---
INDICATION: leg pain, sob, lung ca r/o PE COMPARISON: None. TECHNIQUE: Axial contrast enhanced images from the thoracic inlet to the upper abdomen using pulmonary embolus technique with multiplanar re-formations. 75 ml Isovue 370 intravenous contrast material administered without complication. This CT examination was performed using the following dose reduction techniques: Automated exposure control, adjustment of mA and/or kv according to the patient's size, and use of iterative reconstruction technique. FINDINGS: Satisfactory enhancement of the pulmonary vasculature is achieved and no filling defects are identified to suggest pulmonary embolus. Diffuse mediastinal and bilateral hilar adenopathy along with significant right-sided pleuroparenchymal changes including loculated apical pleural fluid, moderate right basilar pleural effusion with single chest tube in place, and ill-defined areas of parenchymal consolidation and/or mass again identified and essentially unchanged. Right hemithorax demonstrates new 8 mm subpleural nodule in the deep posterolateral sulcus (image 98) and few scattered smaller noncalcified nodules up to 6 mm. IMPRESSION: 1. No pulmonary embolus identified. 2. Right-sided pleuroparenchymal changes as described above including pleural effusions, parenchymal disease, and mediastinal/bilateral hilar adenopathy. 3. Small new 8 mm right basilar nodule. <Electronically signed by Arsalan Gifford > 06/23/20 2303
[2020-06-23] MEDS ORDERED: HYDROMORPHONE HCL 0.5 MG/ 0.5 ML SYRINGE (J1170 PER 1) IV ONE (14:15)
[2020-06-23] MEDS ORDERED: MULT-40 PO (14:53)
--- NOTE | 2020-06-23 15:06 | HPEPDOC ---
[facility] Medical History & Physical Date of Admission Jun 23, 2020 Date of Service: Jun 23, 2020 History and Physical CHIEF COMPLAINT: Bilateral Leg Pain HISTORY OF PRESENT ILLNESS: 44 yo M hx of adenocarcinoma of the lung on keytruda [id number], history of recurrent right sided pleural effusion with pleurex placement presenting with 3 day history of bilateral leg pain. On the left side, both located on calves. On the left leg this pain is localized higher up. No radiation, about 7/10 pain, non-progressive. 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 He notes he normally drains 50-100 cc of fluid, but yesterday drained almost 250 cc. Fluid color varies between serosanguinous and serous but never looks like pus. Endorses subjective fevers, last on , denies chills, nausea, vomiting, diarrhea, cough, dysuria or abdominal pain. No sick contacts. Of note, patient was recently admitted in Apr for sepsis 2/2 empyema and treated with ABX and chest tube drainage. In the ED, patient with CT scan showing 8mm lung nodule on right base, loculated apical pleural fluid, hilar and mediastinal lymphadenopathy. US bilateral legs showing superficial and DVTs, on the right this was in the superficial saphenous, and on the left this was in the popliteal vein. Furthermore, patient found to be febrile to 100.9F, hypoxic to 82% without O2 (not recorded), as well as tachycardic to 115s, with leukocytosis of 16.3 in the ED PMHx: Stage 4 adenocarcinoma of the lung PSHx: pleurex catheter placement Medications: Keytruda Allergies: NKDA Family history: none as per patient. No family hx of cancer Social: Ex smoker 1 PPD for 20 years. Denies alcohol or drug usage. 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 PHYSICAL EXAMINATION: GENERAL APPEARANCE: alert and oriented. In no acute distress HEENT: MARITZA. EOMI CARDIOVASCULAR: HS 1+ 2 present, no added sounds. Tachycardic LUNGS: Clear to asucultation bilaterally. No wheezing/crackles. Right pleurex drain in place ABDOMEN: soft, non-distended, non-tender to palpation. BS + MUSCULOSKELETAL: FROM EXTREMITIES: No pitting edema NEUROLOGICAL: No obvious CN abnormalities. No focal neurological deficits LABORATORY DATA: See below. IMAGING: CT chest: 1. No pulmonary embolus identified. 2. Right-sided pleuroparenchymal changes as described above including pleural effusions, parenchymal disease, and mediastinal/bilateral hilar adenopathy. 3. Small new 8 mm right basilar nodule. US lower extremities : 1) Right lower extremity demonstrates focal area of nonocclusive thrombus in the proximal saphenous vein. 2) Left lower extremity demonstrates focal occlusive thrombus in the left popliteal vein. MICROBIOLOGY: Please see below. Assessment/Plan: 44 yo M hx of stage 4 adenocarcinoma of the lung on keytruda [id number], history of recurrent right sided pleural effusion with pleurex placement presenting with 3 day history of bilateral leg pain. In the ED diagnosed to have superficial venous thrombosis and DVTs in his legs as well as a loculated pleural fluid in apex and 8mm nodule in right lung base. Patient found to be tachycardic, hypoxic, febrile and with leukocytosis in ED. Patient admitted for treatment of DVTs and to rule out sepsis. #Rule out Sepsis -In ED, Tmax 100.9F, tachycardic to 115s, hypoxic to 82% without O2 (not recorded) and with leukocytosis of 16.3 -Source likely pleurex drain vs loculated apical pleural fluid -Blood cultures, UA, Strict I/Os ordered. -RVP and COVID test ordered -ABX vanc and zosyn ordered -S/P 500 ml fluid bolus. Currently on NS 100 ml/hr x 2 bags -Dr. Boland consulted. Will see patient tomorrow re: ruling out infected pleurex drain #Bilateral DVT -As per US findings. -Provoked DVT given hx of cancer -Hem onc Dr. Carmona consulted: -Start heparin drip and transition to eliquis on discharge #Respiratory failure -in the setting of lung cancer, ?sepsis -Saturating 82% on RA while in ED, but not recorded -Dr. Carmona recommending starting steroids to rule out pneumonitis. He will see patient tomorrow #Hx of Tachycardia -Unclear origin -As per patient, PCP started metoprolol 50 qhs in late April this year. Continue #Adenocarcinoma of the lung -As per previous note, stage 4 -As per 11/[address] Carmona, patient had PET scan done May 05 showing chest wall completely encased in tumor. ?mesothelioma -S/P 2 doses Keytruda as of 05/29 -Follows with Dr. Billings in clinic. As Dr. Billings is off for the week, Dr. Carmona consulted instead #Microcytic anemia -On last admission, this was normocytic -Hb currently 9.9, higher than last admission (baseline at last admission was around 7) -on 04/2020, folate, b12 WNL> Iron low at 11 with low normal ferritin levels (75). Avoid iron supplementation at this time due to likely active infection Diet: Regular DVT PPX: Heparin Drip Dispo: Home Case discussed with Dr. Godfrey Alvarado MD Hospitalist Resident Vital Signs Vital Signs Date Time Temp Pulse Resp B/P (MAP) Pulse Ox O2 Delivery O2 Flow Rate FiO2 06/23/20 14:19 18 95 Nasal Cannula 4.0 06/23/20 14:15 117 111/65 (80) 06/23/20 12:44 100.9 Laboratory Data Labs 24H Laboratory Tests 2 06/23/20 11:21: Prothrombin Time 14.6H, Prothromb Time International Ratio 1.12, Activated Partial Thromboplast Time 31.0, Anion Gap 9, Glomerular Filtration Rate > 60.0, Lactic Acid Level 1.3, Calcium Level 8.7, Magnesium Level 2.2, Total Bilirubin 0.3, Direct Bilirubin 0.1, Aspartate Amino Transf (AST/SGOT) 20, Alanine Aminotransferase (ALT/SGPT) 20, Alkaline Phosphatase 136H, Total Creatine Kinase 27L, Creatine Kinase MB < 1.0, Creatine Kinase MB Relative Index 3.70, Troponin I < 0.02, C-Reactive Protein, Quantitative 8.64H, Total Protein 7.5, Albumin 2.7L, Albumin/Globulin Ratio 0.6 06/23/20 11:44: Immature Granulocyte % (Auto) 0.6, Neutrophils (%) (Auto) 74.5H, Lymphocytes (%) (Auto) 16.0L, Monocytes (%) (Auto) 7.3H, Eosinophils (%) (Auto) 1.1, Basophils (%) (Auto) 0.5, Neutrophils # (Auto) 12.2H, Lymphocytes # (Auto) 2.6, Monocytes # (Auto) 1.2H, Eosinophils # (Auto) 0.2, Basophils # (Auto) 0.1, Nucleated Red Blood Cells % (auto) 0.0, Erythrocyte Sedimentation Rate 67H CBC/BMP Laboratory Tests 06/23/20 11:21 06/23/20 11:44 Home Medications Scheduled Metoprolol Succinate (Metoprolol Succinate) 50 Mg Tab.er.24h, 50 MG PO QHS Multivitamin (Multivitamins) 1 Each Tablet, 1 TAB PO DAILY Pembrolizumab (Keytruda) 100 Mg/4 Ml Vial, 200 MG IV Q3WK Scheduled PRN Morphine Sulfate (Morphine Sulfate ER) 30 Mg Tablet.er, 30 MG PO BIDP PRN for pain Polyethylene Glycol 3350 (Miralax) 119 Gm Powder, 17 GM PO DAILY PRN for CONSTIPATION Allergies Coded Allergies: bee venom protein (honey bee) (Verified Allergy, Intermediate, anaphlaytic, 03/30/20) A-FIB/CHADSVASC A-FIB History Current/History of A-Fib/PAF?: No GME ATTESTATION GME ATTESTATION My faculty preceptor for this patient encounter was physically present during the encounter and was fully available. All aspects of the patient interview, examination, medical decision making process, and medical care plan development were reviewed and approved by the faculty preceptor. The faculty preceptor is aware and concurs with the plan as stated in the body of this note and will attest to such by his/her cosignature. ATTENDING NOTE IJosefina, have independently examined this patient and performed my own physical exam, as well as reviewed the documentation and edited where necessary. I have discussed in detail with the resident / student the findings and plan of treatment as documented by the resident / student and edited their note. I agree with their findings and treatment plan and have edited their documentation. I will continue to follow the patient during this hospital stay. ANANYA ALVARADO M.D.,PGY-2 Jun 23, 2020 15:06 RAYMUNDO TEJEDA MD Jun 24, 2020 19:29
[2020-06-23] MEDS ORDERED: MOM 30ML SUSPENSION UDC PO PRN (15:15)
[2020-06-23] MEDS ORDERED: MAALOX 30 ML SUSP *UDC PO PRN (15:15)
[2020-06-23] MEDS: PIPERACILLIN/TAZOBACTAM SOD 4.5 GM in D5W MINI-BAG PLUS 50 ML IV SCH ×2 (15:30→21:37)
[2020-06-23] MEDS: NS 1,000 ML IV SCH (15:30)
[2020-06-23] MEDS: methylPREDNISolone 125MG 2ML VIAL IV SCH ×2 (16:30→21:36)
[2020-06-23] MEDS: VANCOMYCIN HCL 1,000 MG, VIAL MATE ADAPTER 1 EACH in D5W 250 ML IV SCH (16:30)
[2020-06-23] MEDS ORDERED: HEPARIN SOD (PORCINE) 5000UNITS/ML 1ML VIAL/SYRINGE IV ONE (16:45)
[2020-06-23] MEDS ORDERED: MIRALAX *UNIT DOSE* 17GM PACKET PO PRN (16:45)
[2020-06-23] MEDS: HEPARIN DRIP 25,000 UNITS in IV 1 EA IV SCH (18:29)
[2020-06-23] MEDS: MORPHINE 30 MG SA TAB PO PRN (19:06)
[2020-06-23] MEDS ORDERED: predniSONE 20 MG TAB PO SCH (21:00)
[2020-06-23 21:25] VITALS: BP 116/72
[2020-06-23] MEDS: DOCUSATE SODIUM 100MG CAPSULE PO SCH (21:37)
[2020-06-23] MEDS: METOPROLOL SUCC (TopROL XL) 50MG **XL** TAB PO SCH (21:37)
[2020-06-24] VITALS: BP 102/68
[2020-06-24] MEDS: ACETAMINOPHEN TAB 650MG DOSE (2X325MG) PO PRN (00:05)
[2020-06-24 01:15] LABS: INR 1.12; PROTHROMBIN TIME 14.6 SECONDS (12.5-14.3)
[2020-06-24 01:17] LABS: PARTIAL THROMBOPLASTIN TIME 37.3 SECONDS (24.2-38.5)
[2020-06-24] MEDS: HEPARIN SOD (PORCINE) 5000UNITS/ML 1ML VIAL/SYRINGE IV PRN ×2 (01:37→10:17)
[2020-06-24] MEDS: NS 1,000 ML IV SCH (03:02)
[2020-06-24] MEDS: PIPERACILLIN/TAZOBACTAM SOD 4.5 GM in D5W MINI-BAG PLUS 50 ML IV SCH ×4 (03:47→21:30)
[2020-06-24 04:00] VITALS: BP 94/60
[2020-06-24] MEDS: methylPREDNISolone 125MG 2ML VIAL IV SCH ×3 (04:51→21:30)
[2020-06-24] MEDS: VANCOMYCIN HCL 1,000 MG, VIAL MATE ADAPTER 1 EACH in D5W 250 ML IV SCH ×2 (04:51→16:51)
--- NOTE | 2020-06-24 06:38 | ECGEPIP ---
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
--- NOTE | 2020-06-24 07:46 | REP ---
INDICATION: Interval comparison COMPARISON: 06/12/2020 TECHNIQUE: Portable AP view of the chest FINDINGS: Right-sided chest tube in stable position. Moderate to large partially loculated right pleural effusion and underlying right-sided pulmonary opacities are essentially unchanged. Left hemithorax is clear. Visualized portions of the mediastinum and cardiac silhouette are grossly normal/stable. IMPRESSION: No significant change from prior examination. <Electronically signed by Arsalan Gifford > 06/24/20 [id number]
[2020-06-24 08:00] VITALS: BP 106/68
--- NOTE | 2020-06-24 08:02 | CR.PDOC ---
General Date of Consultation: Jun 24, 2020 Consultation REASON FOR CONSULTATION/CHIEF COMPLAINT: new DVT . HISTORY OF PRESENT ILLNESS: [This is a 44 year old man. He has a known history of adenocarcinoma PDL positive . He has a recurrent right pleural effusion he has a pleurex catheter and he has been draining at home. He is now admitted with leg pain. Venous Doppler studies show right leg saphenous vein thrombus and a left leg popliteal vein occlusive thrombus. Reportedly he had a low O2 saturation. CAT scan confirmed his right side pleural effusion and consolidation and showed no pulmonary embolus. He had a temp 100.9. ALLERGIES: Please see below. HOME MEDICATIONS: Please see below. PAST MEDICAL HISTORY: 1. .lung cancer 2. . malignant pleural effusion PAST SURGICAL HISTORY: 1. placement of pleurex catheter 2. FAMILY HISTORY: Father: Mother: Siblings: Children: Hereditary Diseases: Unexpected deaths due to medical reasons: SOCIAL HISTORY: Marital status and/or living arrangements: Children: Employment: [ Tobacco use:[positive smoking history ] ETOH: Illicit drug use: IV drug use: Other relevant social factors: REVIEW OF SYSTEMS: CONSTITUTIONAL: [ complained about leg pain ]. HEENT: denies . CARDIOVASCULAR: [denies heart problems ]. RESPIRATORY: .known lung cancer malignanat pleural effusion . He has been drain 50-ml to 250 ml daily GENITOURINARY: . MUSCULOSKELETAL: . GASTROINTESTINAL: . SKIN: . NEUROLOGICAL: . PSYCHIATRIC: . ENDOCRINE: . HEMATOLOGIC/LYMPHATIC: . ALLERGIC/IMMUNOLOGIC: . PHYSICAL EXAMINATION: VITAL SIGNS: Please see below. GENERAL APPEARANCE: [awake and alert ]. HEENT: .normal RESPIRATORY: .no wheezing no rhonchi catheter in place right side CARDIOVASCULAR: [regular rhythm ]. ABDOMEN: . EXTREMITIES: . NEUROLOGICAL: . PSYCHIATRIC: . LABORATORY DATA: Please see below. ASSESSMENT/PLAN: 1. .saphenous vein thrombus right leg 2. popliteal DVT left leg . 3. Fever with abnormal Chest Xray We suggested heparin to start . get directions from his loan specialist regarding management of his right side effusion agree with culture and antibiotics. At the time of my exam he had a good oxygen saturation on room air. Start to wean off steroids. At the time of discharge Eliquis would be acceptable for anticoagulation or subcutaneous Lovenox. Vital Signs/I&O Vital Signs Date Time Temp Pulse Resp B/P (MAP) Pulse Ox O2 Delivery O2 Flow Rate FiO2 06/24/20 04:00 95.4 88 18 94/60 (71) 95 Nasal Cannula 2.0 I&O- Last 24 Hours up to 6 AM 06/24/20 06:00 Intake Total 1395 ml Output Total 1850 ml Balance -455 ml Laboratory Data Labs 24H Laboratory Tests 2 06/23/20 11:21: Prothrombin Time 14.6H, Prothromb Time International Ratio 1.12, Activated Partial Thromboplast Time 31.0, Anion Gap 9, Glomerular Filtration Rate > 60.0, Lactic Acid Level 1.3, Calcium Level 8.7, Magnesium Level 2.2, Total Bilirubin 0.3, Direct Bilirubin 0.1, Aspartate Amino Transf (AST/SGOT) 20, Alanine Aminotransferase (ALT/SGPT) 20, Alkaline Phosphatase 136H, Total Creatine Kinase 27L, Creatine Kinase MB < 1.0, Creatine Kinase MB Relative Index 3.70, Troponin I < 0.02, C-Reactive Protein, Quantitative 8.64H, Total Protein 7.5, Albumin 2.7L, Albumin/Globulin Ratio 0.6 06/23/20 11:44: Immature Granulocyte % (Auto) 0.6, Neutrophils (%) (Auto) 74.5H, Lymphocytes (%) (Auto) 16.0L, Monocytes (%) (Auto) 7.3H, Eosinophils (%) (Auto) 1.1, Basophils (%) (Auto) 0.5, Neutrophils # (Auto) 12.2H, Lymphocytes # (Auto) 2.6, Monocytes # (Auto) 1.2H, Eosinophils # (Auto) 0.2, Basophils # (Auto) 0.1, Nucleated Red Blood Cells % (auto) 0.0, Erythrocyte Sedimentation Rate 67H 06/23/20 15:26: Urine Color YELLOW, Urine Appearance CLEAR, Urine pH 6.0, Urine Specific [place] 1.035, Urine Protein NEGATIVE, Urine Glucose (UA) NEGATIVE, Urine Ketones NEGATIVE, Urine Blood NEGATIVE, Urine Nitrite NEGATIVE, Urine Bilirubin NEGATIVE, Urine Urobilinogen 0.2, Urine Leukocyte Esterase NEGATIVE, Urine WBC (Auto) 0, Urine RBC (Auto) 0, Urine Hyaline Casts (Auto) 0, Urine Bacteria (Aut o) NEGATIVE, Urine Squamous Epithelial Cells 0, Urine Sperm (Auto) 06/23/20 16:41: Coronavirus (COVID-19)(PCR) NEGATIVE 06/24/20 00:37: Prothrombin Time 14.6H, Prothromb Time International Ratio 1.12, Activated Partial Thromboplast Time 37.3 CBC/BMP Laboratory Tests 06/23/20 11:21 06/23/20 11:44 Microbiology Microbiology 06/23/20 Blood Culture, Received Pending 06/23/20 Blood Culture, Received Pending Allergies Coded Allergies: bee venom protein (honey bee) (Verified Allergy, Intermediate, anaphlaytic, 03/30/20) Home Medications Scheduled Metoprolol Succinate (Metoprolol Succinate) 50 Mg Tab.er.24h, 50 MG PO QHS, (Reported) Multivitamin (Multivitamins) 1 Each Tablet, 1 TAB PO DAILY, (Reported) Pembrolizumab (Keytruda) 100 Mg/4 Ml Vial, 200 MG IV Q3WK for 21 Days, #14 Scheduled PRN Morphine Sulfate (Morphine Sulfate ER) 30 Mg Tablet.er, 30 MG PO BIDP PRN for pain for 30 Days, #60 Polyethylene Glycol 3350 (Miralax) 119 Gm Powder, 17 GM PO DAILY PRN for CONSTIPATION, (Reported) BRADLEY AGUILAR MD Jun 24, 2020 08:02
[2020-06-24 08:43] LABS: BASO % 0.2 % (0.0-1.0); HEMATOCRIT 30.7 % (42.0-52.0); HEMOGLOBIN 8.8 g/dl (13.5-17.5); LYMPH # 1.4 10^3/uL (1.5-5.0); LYMPH % 9.8 % (24.0-44.0); MEAN CORPUSCULAR HEMOGLOBIN 21.5 pg (27.0-33.0); MEAN CORPUSCULAR HGB CONC 28.7 g/dl (32.0-36.5); MEAN CORPUSCULAR VOLUME 75.1 fl (80.0-96.0); MONO # 0.2 10^3/uL (0.0-0.8); MONO % 1.2 % (0.0-5.0); NEUTROPHILS % 88.2 % (36.0-66.0); PLATELET COUNT, AUTOMATED 531 10^3/uL (150-450); RED BLOOD COUNT 4.09 10^6/uL (4.30-6.10); WHITE BLOOD COUNT 14.7 10^3/uL (4.0-10.0)
[2020-06-24 09:09] LABS: ALBUMIN 2.4 GM/DL (3.2-5.2); ALT/SGPT 25 U/L (12-78); BILIRUBIN,TOTAL 0.3 MG/DL (0.2-1.0); BLOOD UREA NITROGEN 11 MG/DL (7-18); CALCIUM LEVEL 8.5 MG/DL (8.5-10.1); CARBON DIOXIDE LEVEL 25 MEQ/L (21-32); CHLORIDE LEVEL 101 MEQ/L (98-107); GLOMERULAR FILTRATION RATE > 60.0 (>60); GLUCOSE, FASTING 162 MG/DL (70-100); POTASSIUM SERUM 3.7 MEQ/L (3.5-5.1); SODIUM LEVEL 135 MEQ/L (136-145); TOTAL PROTEIN 7.7 GM/DL (6.4-8.2)
[2020-06-24 09:19] LABS: PARTIAL THROMBOPLASTIN TIME 41.1 SECONDS (24.2-38.5)
[2020-06-24 09:36] LABS: INR 1.18; PROTHROMBIN TIME 15.3 SECONDS (12.5-14.3)
[2020-06-24] MEDS: DOCUSATE SODIUM 100MG CAPSULE PO SCH ×2 (09:41→21:30)
[2020-06-24] MEDS: MORPHINE 30 MG SA TAB PO PRN (09:42)
[2020-06-24] MEDS: HEPARIN DRIP 25,000 UNITS in IV 1 EA IV SCH (10:18)
[2020-06-24 10:45] LABS: LDH LACTATE DEHYDROGENASE 158 U/L (87-241)
[2020-06-24 11:23] LABS: PH BODY FLUID 7.273 UNITS (NOT ESTABLISHED); SOURCE, BODY FLUID pH PLEURAL
[2020-06-24 11:38] LABS: APPEARANCE, BODY FLUID CLOUDY (CLEAR); PLEURAL FL COLOR RED (COLORLESS); SOURCE, BODY FLUID PLEURAL
[2020-06-24 12:00] VITALS: BP 118/66
[2020-06-24 12:07] LABS: AMYLASE, BODY FLUID 22 U/L (NOT ESTABLISHED); CHOLESTEROL, BODY FLUID 60 MG/DL (NOT ESTABLISHED); LDH, BODY FLUID 1548 U/L (NOT ESTABLISHED); SOURCE, BODY FLUID ALBUMIN PLEURAL; SOURCE, BODY FLUID AMYLASE PLEURAL; SOURCE, BODY FLUID CHOL PLEURAL; SOURCE, BODY FLUID GLUCOSE PLEURAL; SOURCE, BODY FLUID LDH PLEURAL; SOURCE, BODY FLUID TOT PROTEIN PLEURAL; SOURCE, BODY FLUID TRIG PLEURAL; TOTAL PROTEIN, BODY FLUID 4.3 G/DL (NOT ESTABLISHED); TRIGLYCERIDE, BODY FLUID 42 MG/DL (NOT ESTABLISHED)
--- NOTE | 2020-06-24 13:04 | IPNPDOC ---
Date Seen The patient was seen on 06/24/20. Progress Note SUBJECTIVE: No acute complaints. Pleural fluid studies sent, GS and cultures sent. WBC slightly improved. Afebrile overnight. OBJECTIVE: PHYSICAL EXAMINATION GENERAL APPEARANCE: alert and oriented. In no acute distress HEENT: MARITZA. EOMI CARDIOVASCULAR: HS 1+ 2 present, no added sounds. Tachycardic LUNGS: Clear to auscultation bilaterally. No wheezing/crackles. Right pleurex drain in place ABDOMEN: soft, non-distended, non-tender to palpation. BS + MUSCULOSKELETAL: FROM EXTREMITIES: No pitting edema NEUROLOGICAL: No obvious CN abnormalities. No focal neurological deficits LABORATORY DATA: See below. MICROBIOLOGY: Pleural fluid studies sent for GS and culture BCx pending IMAGING: CXR 06/24/20: No significant change from prior examination. CT chest: 1. No pulmonary embolus identified. 2. Right-sided pleuroparenchymal changes as described above including pleural effusions, parenchymal disease, and mediastinal/bilateral hilar adenopathy. 3. Small new 8 mm right basilar nodule. US lower extremities : 1) Right lower extremity demonstrates focal area of nonocclusive thrombus in the proximal saphenous vein. 2) Left lower extremity demonstrates focal occlusive thrombus in the left popliteal vein. MICROBIOLOGY: Please see below. Assessment/Plan: 44 yo M hx of stage 4 adenocarcinoma of the lung on keytruda [id number], history of recurrent right sided pleural effusion with pleurex placement presenting with 3 day history of bilateral leg pain. In the ED diagnosed to have superficial venous thrombosis and DVTs in his legs as well as a loculated pleural fluid in apex and 8mm nodule in right lung base. Patient found to be tachycardic, hypoxic, febrile and with leukocytosis in ED. Patient admitted for treatment of DVTs and to rule out sepsis. #Fever r/o 2/2 to empyema with PleureX cath, Sepsis -Afebrile overnight, tachycardia, mild hypotension, resolved hypoxia -CXR above -Pleural fluid sent today for analysis -BCx pending -CT surgery (Dr. Boland)to follow up results -C/w vanc and zosyn for now -Daily CBC, tylenol #Bilateral DVT, provoked DVT given hx of cancer -Hem onc Dr. Carmona consulted -C/w heparin gtt for now as PleurX may need to come out if empyema -Can transition to eliquis on discharge #Hx of Tachycardia, with sepsis above -Unclear origin -As per patient, PCP started metoprolol 50 qhs in late April this year. Continue -Monitor for worsening s/s of sepsis #Adenocarcinoma of the lung, Stage 4 -As per 05/[address] Carmona, patient had PET scan done May 05 showing chest wall completely encased in tumor. ?mesothelioma -S/P 2 doses Keytruda as of 05/29 -Follows with Dr. Billings in clinic. As Dr. Billings is off for the week, Dr. Carmona consulted instead #Microcytic anemia -On last admission, this was normocytic -Hb currently 9.9, higher than last admission (baseline at last admission was around 7) -on 04/2020, folate, b12 WNL> Iron low at 11 with low normal ferritin levels (75). Avoid iron supplementation at this time due to likely active infection #DVT PPX Heparin Drip DISPOSITION: F/u recommendations of Dr. Boland. Plan is discharge home when medically improved. VS, I&O, 24H[facility] Vital Signs/I&O Vital Signs Date Time Temp Pulse Resp B/P (MAP) Pulse Ox O2 Delivery O2 Flow Rate FiO2 06/24/20 09:42 20 06/24/20 08:09 97.5 06/24/20 08:00 92 106/68 (81) 92 Nasal Cannula 2.0 I&O- Last 24 Hours up to 6 AM 06/24/20 06:00 Intake Total 1395 ml Output Total 1850 ml Balance -455 ml Laboratory Data 24H LABS Laboratory Tests 2 06/23/20 15:26: Urine Color YELLOW, Urine Appearance CLEAR, Urine pH 6.0, Urine Specific [place] 1.035, Urine Protein NEGATIVE, Urine Glucose (UA) NEGATIVE, Urine Ketones NEGATIVE, Urine Blood NEGATIVE, Urine Nitrite NEGATIVE, Urine Bilirubin NEGATIVE, Urine Urobilinogen 0.2, Urine Leukocyte Esterase NEGATIVE, Urine WBC (Auto) 0, Urine RBC (Auto) 0, Urine Hyaline Casts (Auto) 0, Urine Bacteria (Auto) NEGATIVE, Urine Squamous Epithelial Cells 0, Urine Sperm (Auto) 06/23/20 16:41: Coronavirus (COVID-19)(PCR) NEGATIVE 06/24/20 00:37: Prothrombin Time 14.6H, Prothromb Time International Ratio 1.12, Activated Partial Thromboplast Time 37.3 06/24/20 07:54: Prothrombin Time 15.3H, Prothromb Time International Ratio 1.18, Activated Partial Thromboplast Time 41.1H, Immature Granulocyte % (Auto) 0.6, Neutrophils (%) (Auto) 88.2H, Lymphocytes (%) (Auto) 9.8L, Monocytes (%) (Auto) 1.2, Eosinophils (%) (Auto) 0.0, Basophils (%) (Auto) 0.2, Neutrophils # (Auto) 13.0H, Lymphocytes # (Auto) 1.4L, Monocytes # (Auto) 0.2, Eosinophils # (Auto) 0.0, Basophils # (Auto) 0.0, Nucleated Red Blood Cells % (auto) 0.0, Anion Gap 9, Glomerular Filtration Rate > 60.0, Calcium Level 8.5, Magnesium Level 2.3, Total Bilirubin 0.3, Aspartate Amino Transf (AST/SGOT) 21, Alanine Aminotransferase (ALT/SGPT) 25, Alkaline Phosphatase 139H, Lactate Dehydrogenase 158, Total Protein 7.7, Albumin 2.4L, Albumin/Globulin Ratio 0.5 06/24/20 10:35: Body Fluid pH 7.273, Body Fluid pH Source PLEURAL, Body Fluid WBC (Auto) [id number], Body Fluid RBC (Auto) 100, Body Fluid Mononuclear Cells % Auto 24.6H, Fluid Polymorphonuclear Cell % Auto 75.4H, Body Fluid Glucose Source PLEURAL, Body Fluid Glucose 19, Body Fluid Protein Source PLEURAL, Body Fluid Total Protein 4.3, Body Fluid Albumin Source PLEURAL, Body Fluid Albumin 1.6, Body Fluid LDH Source PLEURAL, Body Fluid Lactate Dehydrogenase 1548, Body Fluid Amylase Source PLEURAL, Body Fluid Amylase 22, Body Fluid Cholesterol 60, Body Fluid Cholesterol Source PLEURAL, Body Fluid Triglyceride Source PLEURAL, Body Fluid Triglycerides 42, Pleural Fluid Source PLEURAL, Pleural Fluid Color RED, Pleural Fluid Appearance CLOUDY CBC/BMP Laboratory Tests 06/24/20 07:54 Microbiology Microbiology 06/24/20 Acid Fast Stain, Received Pending 06/24/20 Mycobacterial Culture, Received Pending 06/24/20 Fungal Smear, Received Pending 06/24/20 Fungal Culture, Received Pending 06/24/20 Gram Stain, Received Pending 06/24/20 Anaerobic Culture, Received Pending 06/24/20 Body Fluid Culture, Received Pending 06/23/20 Blood Culture, Received Pending 06/23/20 Blood Culture, Received Pending Current Medications Current Medications Medications (Trade) Dose Ordered Sig/Angela Route PRN Reason Start Time Stop Time Status Last Admin Dose Admin Acetaminophen (Tylenol Tab) 650 mg Q4H PRN PO PAIN OR FEVER 06/23/20 15:15 06/24/20 00:05 Al Hydrox/Mg Hydrox/Simethicone (Mylanta) 30 ml DAILY PRN PO DYSPEPSIA 06/23/20 15:15 Docusate Sodium (Colace) 100 mg BID PO 06/23/20 21:00 06/24/20 09:41 Heparin Sodium (Porcine) (Heparin) ASDIRECTED PRN IV SEE LABEL COMMENTS 06/23/20 16:45 06/24/20 10:17 Heparin Sodium (Porcine) 36813 units/IV Miscellaneous Supplies 250 ml @ 10 mls/hr Q24H IV 06/23/20 16:36 06/24/20 10:18 Home Med (Med Rec Complete!) ASDIRECTED XX 06/23/20 15:00 06/23/20 14:56 DC Magnesium Hydroxide (Milk Of Magnesia) 30 ml DAILY PRN PO CONSTIPATION 06/23/20 15:15 Methylprednisolone (SOLUmedrol) 125 mg Q6H IV 06/23/20 16:30 06/24/20 09:41 Metoprolol Succinate (TopROL XL) 50 mg QHS PO 06/23/20 21:00 06/23/20 21:37 Morphine Sulfate (Ms Contin) 30 mg BIDP PRN PO pain 06/23/20 16:45 06/24/20 09:42 Non-Formulary Medication (Heparin Iv Rate Change Documentation ml/ Hr) ASDIRECTED XX 06/23/20 16:45 06/28/20 16:44 06/24/20 10:19 Piperacillin Sod/ Tazobactam Sod 4.5 gm/Dextrose 50 ml @ 50 mls/hr Q6H IV 06/23/20 15:30 06/24/20 09:41 Polyethylene Glycol (Miralax) 1 pkt DAILY PRN PO CONSTIPATION 06/23/20 16:45 Prednisone (Deltasone) 20 mg BID PO 06/23/20 21:00 06/23/20 16:59 DC Sodium Chloride 1,000 ml @ 100 mls/hr Q10H IV 06/23/20 15:30 06/24/20 11:29 DC 06/24/20 03:02 Vancomycin HCl 1000 mg/IV Miscellaneous Supplies 1 each/ Dextrose 270 ml @ 270 mls/hr Q12H IV 06/23/20 16:30 06/24/20 04:51 Allergies Coded Allergies: bee venom protein (honey bee) (Verified Allergy, Intermediate, anaphlaytic, 03/30/20) Lulu Caceres MD Jun 24, 2020 13:04
[2020-06-24] MEDS ORDERED: LIDOCAINE 1% MDV 20ML VIAL As Ordered ONE ×2 (13:57→14:18)
[2020-06-24] MEDS: D5W/0.9% SODIUM CHLORIDE 1,000 ML IV SCH (14:00)
[2020-06-24] MEDS ORDERED: MIDAZOLAM INJ 2MG/2ML VIAL (J2250 PER 1MG) As Ordered ONE (14:17)
[2020-06-24] MEDS ORDERED: KETOROLAC 30 MG/ML 1ML VIAL As Ordered ONE (14:27)
[2020-06-24 16:00] VITALS: BP 111/65
--- NOTE | 2020-06-24 17:06 | CR ---
CONSULTATION DATE: 06/24/2020 Patient seen at the request of the hospitalist service by Dr. Caceres for fever and leukocytosis with an indwelling PleurX catheter. HISTORY OF PRESENT ILLNESS: Patient is a 44-year-old white male who in early January was admitted with a large pleural effusion, which was found to be hemothorax. It was drained with a chest tube catheter and over the course of admission drained 7 liters. He had an antecedent history of being up a ladder and stretching, and it was thought to be a traumatic hemothorax; however, cytology and cell block came back with adenocarcinoma. On further characterizing, having a 90% PD-L1 positive, but no other positive markers, including epidermal growth factor receptor (EGFR) and anaplastic large-cell lymphoma kinase (ALK). There is no KRAS mutation, and he is negative for ROS1 rearrangement with a TTF-1 being positive. His pleural effusion accumulated, and a PleurX catheter was placed. He was again admitted in late April, where he was found to have tachycardia but no pericardial effusion. The next day after being seen in the emergency room, he felt quite faint and fatigued and had developed fever, chills, and sweats. At that time he did not have a cough or sputum production, but his fever was 102 in the emergency room. He was thought to have a pneumonia and was placed on antibiotics, Zosyn. His PleurX catheter was drained and was found to have a predominance of neutrophils. He never experienced chest pain. Over the course of his hospital stay then, he got better, and his white count diminished to 12,000. Starting this past Tuesday, 3 days prior to admission, he started to develop heaviness and pain in his legs with his left leg more painful than his right leg. He did not notice any swelling. When the pain become so severe, he sought attention in the emergency room, where he was found to have bilateral deep venous thromboses (DVTs). No pulmonary embolism was seen. A DVT on the left was found to be present in the popliteal vein and on the right was found to be in the saphenous vein. His white count, as noted below, was elevated. His chest CT did not show any change in his pleural effusion, as his lung is trapped. This morning we drained him of 100 mL of cloudy fluid, and it has come back positive from the lab with gram-positive cocci in pairs, chains, and clusters with moderate white cells. His fluid analysis has been returned with a pH of 7.27, WBC 16,700, 75% of which are neutrophils, and 24% are monocytes on lymphocytes. Glucose is 19 with an LDH of 1548. it therefore looks like an acidotic neutrophilic hypoglycemic exudative pleural effusion, consistent with infection/empyema. PAST MEDICAL HISTORY: Prior to March no past medical illnesses. ALLERGIES: None. HOME MEDICATIONS: - metoprolol 50 mg every night - morphine sulfate ER 30 mg by mouth twice a day as needed for pain - multivitamin one daily - Keytruda 200 mg intravenous (IV) every 3 weeks with his last dose being this past Tuesday. HABITS: Smoked one pack per day of Marlboros, now quit. Alcohol: Drinks only occasionally. No illicit drugs. TRAVEL HISTORY: His father was in the [employer], and he has been to the [facility] and [place] in his younger days. EXPOSURES: No exposure to tuberculosis. He has three dogs at home, a turkish higginbotham and pit bull mixes. No cats or birds. OCCUPATIONAL HISTORY: He works in [employer] but denies having a lot of exposure to dust or asbestos. 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 SOCIAL HISTORY: He is with a and three children. FAMILY HISTORY: No cancer in the family. REVIEW OF SYSTEMS: CONSTITUTIONAL: See history of present illness (HPI). EYES: Without diplopia. Without amaurosis fugax. Without prior jaundice. Does not wear glasses. NOSE: Without epistaxis. MOUTH: Has upper dentures. RESPIRATORY: See history of present illness (HPI). CARDIAC: Without prior myocardial infarctions or intermittent claudication. Without paroxysmal nocturnal dyspnea or orthopnea. GASTROINTESTINAL: Without nausea, vomiting, diarrhea, constipation, melena, hematochezia, hematemesis, or abdominal pain. GENITOURINARY: Without dysuria or hematuria. No history of renal stones. ENDOCRINE: Without diabetes or thyroid disease. NEUROLOGIC: Without paresthesias, paralysis, or prior seizures. Without neck pain. PSYCHIATRIC: Without pathologic anxiety, depression, or psychosis. INVESTIGATIONS: His white count was 16.3 in the emergency room yesterday and 14.7 today. Hemoglobin and hematocrit are 8.8 and 30.7, down from 9.9 and 33.5 yesterday. Platelet count is 531, and his differential shows 82% neutrophils, 95 lymphocytes, and 1% monocytes. There are no immature forms. No toxic granulations. Chemistries show essentially normal electrolytes with a BUN and creatinine of 11 and 0.8, a glucose of 162, and a calcium of 8.5 with an albumin of 2.4. AST and ALT are normal. PT/INR of 15.3 and 1.18, respectively. His pleural fluid results are discussed above. His chest x-ray is unchanged with an opacity on the lateral right hemithorax. Chest CT is discussed above. IMPRESSION: 1. Bilateral deep venous thromboses (DVTs) secondary to hypercoagulability secondary to metastatic adenocarcinoma. 2. Probable empyema with indwelling PleurX catheter. 3. Right lung entrapment. 4. Anemia. 5. Metastatic adenocarcinoma, stage IV, to the pleura and to both parietal and visceral surfaces. PLAN AND DISCUSSION: It will be incumbent now to remove his PleurX catheter now that we have overwhelming evidence that he has an empyema. The question is going to be what to do with the remainder of the fluid that is already there. He will probably need a pigtail catheter, which we will arrange under ultrasonic control. [facility] MEDICAL CENTERLorin
[2020-06-24 20:00] VITALS: BP 102/56
[2020-06-24] MEDS: METOPROLOL SUCC (TopROL XL) 50MG **XL** TAB PO SCH (21:30)
[2020-06-25] VITALS (8 sets, daily range): BP systolic 108–131; BP diastolic 58–74
[2020-06-25] MEDS: HEPARIN SOD (PORCINE) 5000UNITS/ML 1ML VIAL/SYRINGE IV PRN (01:29)
[2020-06-25] MEDS: PIPERACILLIN/TAZOBACTAM SOD 4.5 GM in D5W MINI-BAG PLUS 50 ML IV SCH ×4 (03:30→21:20)
[2020-06-25] MEDS: VANCOMYCIN HCL 1,000 MG, VIAL MATE ADAPTER 1 EACH in D5W 250 ML IV SCH ×2 (04:40→17:38)
[2020-06-25] MEDS: D5W/0.9% SODIUM CHLORIDE 1,000 ML IV SCH (04:41)
[2020-06-25] MEDS: HEPARIN DRIP 25,000 UNITS in IV 1 EA IV SCH ×2 (04:42→16:42)
[2020-06-25] MEDS: KETOROLAC 30 MG/ML 1ML VIAL IV PRN (04:49)
[2020-06-25 07:42] LABS: HEMATOCRIT 26.3 % (42.0-52.0); HEMOGLOBIN 7.9 g/dl (13.5-17.5); MEAN CORPUSCULAR HEMOGLOBIN 22.4 pg (27.0-33.0); MEAN CORPUSCULAR VOLUME 74.7 fl (80.0-96.0); PLATELET COUNT, AUTOMATED 535 10^3/uL (150-450); RED BLOOD COUNT 3.52 10^6/uL (4.30-6.10); WHITE BLOOD COUNT 28.3 10^3/uL (4.0-10.0)
--- NOTE | 2020-06-25 08:03 | REP ---
INDICATION: pleural effusion, empyema COMPARISON: 06/24/2020 TECHNIQUE: PA and lateral. FINDINGS: Chest tube has been removed. Right-sided pleuroparenchymal changes including hydropneumothorax, chronic stable right apical fluid collection, and mid to lower lobe airspace disease remain relatively similar to prior examination. Left hemithorax is well aerated and clear. No evidence for cardiomegaly. IMPRESSION: Chest tube removed. Right-sided pleuroparenchymal changes again noted and without significant change. <Electronically signed by Arsalan Gifford > 06/25/20 0754
[2020-06-25] MEDS: methylPREDNISolone 125MG 2ML VIAL IV SCH (08:10)
[2020-06-25] MEDS: DOCUSATE SODIUM 100MG CAPSULE PO SCH ×2 (08:10→20:02)
[2020-06-25] MEDS: ACETAMINOPHEN TAB 650MG DOSE (2X325MG) PO PRN (08:11)
[2020-06-25 08:32] LABS: ALBUMIN 2.2 GM/DL (3.2-5.2); ALT/SGPT 176 U/L (12-78); BILIRUBIN,TOTAL 0.2 MG/DL (0.2-1.0); BLOOD UREA NITROGEN 10 MG/DL (7-18); CALCIUM LEVEL 8.1 MG/DL (8.5-10.1); CARBON DIOXIDE LEVEL 25 MEQ/L (21-32); CHLORIDE LEVEL 108 MEQ/L (98-107); GLOMERULAR FILTRATION RATE > 60.0 (>60); GLUCOSE, FASTING 138 MG/DL (70-100); SODIUM LEVEL 140 MEQ/L (136-145); TOTAL PROTEIN 6.4 GM/DL (6.4-8.2)
[2020-06-25] MEDS: MORPHINE 30 MG SA TAB PO PRN ×2 (09:40→19:46)
--- NOTE | 2020-06-25 14:23 | IPNPDOC ---
Date Seen The patient was seen on 06/25/20. Progress Note SUBJECTIVE: No acute complaints overnight. Right PleurX cath removed 06/24/20. WBC much increased to 28.3, H/H dropped. GS showed gram + cocci in pairs, chains and clusters. Pleural fluid cx pending. Going for pigtail catheter placement today, Afebrile overnight. OBJECTIVE: PHYSICAL EXAMINATION: VS: Please see below GENERAL APPEARANCE: alert and oriented. In no acute distress HEENT: MARITZA. EOMI CARDIOVASCULAR: HS 1+ 2 present, no added sounds. Tachycardic LUNGS: Clear to auscultation bilaterally. No wheezing/crackles. Area where right pleurX drain was appears clean, nonsuppurative ABDOMEN: soft, non-distended, non-tender to palpation. BS + MUSCULOSKELETAL: FROM EXTREMITIES: No pitting edema NEUROLOGICAL: No obvious CN abnormalities. No focal neurological deficits LABORATORY DATA: See below. MICROBIOLOGY: Pleural fluid GS: Gram + cocci in pairs, clusters, chains Pleural fluid Cx pending BCx: NG at 24 hrs IMAGING: CXR 06/25/20: Chest tube removed. Right-sided pleuroparenchymal changes again noted and without significant change. CXR 06/24/20: No significant change from prior examination. CT chest: 1. No pulmonary embolus identified. 2. Right-sided pleuroparenchymal changes as described above including pleural effusions, parenchymal disease, and mediastinal/bilateral hilar adenopathy. 3. Small new 8 mm right basilar nodule. US lower extremities : 1) Right lower extremity demonstrates focal area of nonocclusive thrombus in the proximal saphenous vein. 2) Left lower extremity demonstrates focal occlusive thrombus in the left popliteal vein. MICROBIOLOGY: Please see below. Assessment/Plan: 44 yo M hx of stage 4 adenocarcinoma of the lung on keytruda [id number], history of recurrent right sided pleural effusion with pleurex placement presenting with 3 day history of bilateral leg pain. In the ED diagnosed to have superficial venous thrombosis and DVTs in his legs as well as a loculated pleural fluid in apex and 8mm nodule in right lung base. Patient found to be tachycardic, hypoxic, febrile and with leukocytosis in ED. Patient admitted for treatment of DVTs and to rule out sepsis. #Right lung empyema, sepsis s/p removal of right PleurX catheter -Afebrile overnight, tachycardia resolved only today -WBC much increased to 28K without worsening s/s of infection- likely steroid induced -CXR above -Pleural fluid GS: Gram pos chains, clusters and pairs; cx pending -BCx NG -Pigtail catheter being placed today -CT surgery (Dr. Boland) following and will f/u repeat CXR tomorrow. Will decide on whether a TPA pleurolysis is needed. -C/w vanc and zosyn for now -Daily CBC #Leukocytosis likely steroid induced -Per heme/onc wished to continue for additional 1 day, stopping today -F/u CBC daily #Microcytic anemia -H/H dropping daily, likely dilutional -On last admission, this was normocytic -Hb currently 9.9, higher than last admission (baseline at last admission was around 7) -O 04/2020, folate, b12 WNL> Iron low at 11 with low normal ferritin levels (75). Avoid iron supplementation at this time due to likely active infection -Will order occult blood as patient is on heparin gtt, stopped fluids -F/u CBC #Bilateral DVT, provoked given hx of cancer -Hem onc Dr. Carmona consulted -C/w heparin gtt for PleurX catheter placement -Can transition to eliquis when patient requires no more invasive procedures #Hx of Tachycardia, with sepsis above -Unclear origin -As per patient, PCP started metoprolol 50 qhs in late April this year. Continue -Monitor for worsening s/s of sepsis #Adenocarcinoma of the lung, Stage 4 -As per 05/[address] Carmona, patient had PET scan done May 05 showing chest wall completely encased in tumor. ?mesothelioma -S/P 2 doses Keytruda as of 05/29 -Follows with Dr. Billings in clinic. As Dr. Billings is off for the week, Dr. Carmona consulted instead #DVT PPX Heparin Drip DISPOSITION: F/u recommendations of Dr. Boland. Plan is discharge home when medically improved. VS, I&O, 24H, Fishbone Vital Signs/I&O Vital Signs Date Time Temp Pulse Resp B/P (MAP) Pulse Ox O2 Delivery O2 Flow Rate FiO2 06/25/20 12:00 97.7 69 18 111/70 (84) 95 Nasal Cannula 2.0 I&O- Last 24 Hours up to 6 AM0 06/25/20 06:00 Intake Total 2565 ml Output Total 2350 ml Balance 215 ml Laboratory Data 24H LABS Laboratory Tests 2 06/24/20 16:17: Activated Partial Thromboplast Time 28.9 06/24/20 18:53: Methicillin-Resist S.aureus DNA PCR NOT DETECTED 06/24/20 23:51: Activated Partial Thromboplast Time 37.1 06/25/20 07:24: Activated Partial Thromboplast Time 57.2H, Nucleated Red Blood Cells % (auto) 0.0, Anion Gap 7L, Glomerular Filtration Rate > 60.0, Calcium Level 8.1L, Total Bilirubin 0.2, Aspartate Amino Transf (AST/SGOT) 154H, Alanine Aminotransferase (ALT/SGPT) 176H, Alkaline Phosphatase 132H, Total Protein 6.4, Albumin 2.2L, Albumin/Globulin Ratio 0.5 CBC/BMP Laboratory Tests 06/25/20 07:24 Microbiology Microbiology 06/24/20 Respiratory Virus Panel (PCR) (NOLAN) - Final, Complete 06/24/20 Acid Fast Stain, Received Pending 06/24/20 Mycobacterial Culture, Received Pending 06/24/20 Fungal Smear, Received Pending 06/24/20 Fungal Culture, Received Pending 06/24/20 Gram Stain - Final, Resulted 06/24/20 Anaerobic Culture, Resulted Pending 06/24/20 Body Fluid Culture, Received Pending 06/23/20 Blood Culture - Preliminary, Resulted No growth after 24 hours . All specim... 06/23/20 Blood Culture - Preliminary, Resulted No growth after 24 hours . All specim... Current Medications Current Medications Medications (Trade) Dose Ordered Sig/Angela Route PRN Reason Start Time Stop Time Status Last Admin Dose Admin Acetaminophen (Tylenol Tab) 650 mg Q4H PRN PO PAIN OR FEVER 06/23/20 15:15 06/25/20 08:11 Al Hydrox/Mg Hydrox/Simethicone (Mylanta) 30 ml DAILY PRN PO DYSPEPSIA 06/23/20 15:15 Dextrose/Sodium Chloride 1,000 ml @ 75 mls/hr [id number] IV 06/24/20 13:09 06/25/20 04:41 Docusate Sodium (Colace) 100 mg BID PO 06/23/20 21:00 06/25/20 08:10 Heparin Sodium (Porcine) (Heparin) ASDIRECTED PRN IV SEE LABEL COMMENTS 06/23/20 16:45 06/25/20 01:29 Heparin Sodium (Porcine) 81862 units/IV Miscellaneous Supplies 250 ml @ 10 mls/hr Q24H IV 06/23/20 16:36 06/25/20 04:42 Home Med (Med Rec Complete!) ASDIRECTED XX 06/23/20 15:00 06/23/20 14:56 DC Ketorolac Tromethamine (ToRADol) 30 mg Q6HP PRN IV PAIN / FEVER 06/24/20 14:45 06/29/20 14:44 06/25/20 04:49 Magnesium Hydroxide (Milk Of Magnesia) 30 ml DAILY PRN PO CONSTIPATION 06/23/20 15:15 Methylprednisolone (SOLUmedrol) 60 mg BID IV 06/24/20 21:00 06/25/20 08:10 Methylprednisolone (SOLUmedrol) 125 mg Q6H IV 06/23/20 16:30 06/24/20 13:04 DC 06/24/20 09:41 Metoprolol Succinate (TopROL XL) 50 mg QHS PO 06/23/20 21:00 06/24/20 21:30 Morphine Sulfate (Ms Contin) 30 mg BIDP PRN PO pain 06/23/20 16:45 06/25/20 09:40 Non-Formulary Medication (Heparin Iv Rate Change Documentation ml/ Hr) ASDIRECTED XX 06/23/20 16:45 06/28/20 16:44 06/25/20 01:30 Piperacillin Sod/ Tazobactam Sod 4.5 gm/Dextrose 50 ml @ 50 mls/hr Q6H IV 06/23/20 15:30 06/25/20 09:37 Polyethylene Glycol (Miralax) 1 pkt DAILY PRN PO CONSTIPATION 06/23/20 16:45 Prednisone (Deltasone) 20 mg BID PO 06/23/20 21:00 06/23/20 16:59 DC Sodium Chloride 1,000 ml @ 100 mls/hr Q10H IV 06/23/20 15:30 06/24/20 11:29 DC 06/24/20 03:02 Vancomycin HCl 1000 mg/IV Miscellaneous Supplies 1 each/ Dextrose 270 ml @ 270 mls/hr Q12H IV 06/23/20 16:30 06/25/20 04:40 Allergies Coded Allergies: bee venom protein (honey bee) (Verified Allergy, Intermediate, anaphlaytic, 03/30/20) Lulu Caceres MD Jun 25, 2020 14:23
--- NOTE | 2020-06-25 15:04 | REP ---
INDICATION: POST THORA. Left pleural drainage catheter placement. COMPARISON: Pre placement film from 7:42 a.m. on 06/25/2020. TECHNIQUE: Two views.. FINDINGS: A percutaneously placed pigtail catheter is noted in the right posterior pleural space. There is some adjacent pleural air and moderate residual pleural thickening persists. The amount of overall pleural disease is similar although there is more air compared to the earlier film. There is no evidence of complication. Left lung remains clear. There is soft tissue fullness in the right chest wall laterally. IMPRESSION: Pigtail catheter in good position in the right posterolateral pleural space with some adjacent pleural air. Soft tissue swelling right lateral chest wall unchanged from the film earlier today. No evidence of complication... <Electronically signed by Cecil Little > 06/25/20 1500
[2020-06-25] MEDS ORDERED: ALTEPLASE 2MG/2ML VIAL XX ONE (15:30)
--- NOTE | 2020-06-25 15:54 | RO ---
OPERATIVE NOTE DATE OF OPERATION: 06/24/2020 PREOPERATIVE DIAGNOSIS: Infected PleurX catheter. POSTOPERATIVE DIAGNOSIS: Infected PleurX catheter. SURGEON: Dr. Boland PROCEDURE: Removal of PleurX catheter. Patient's dressing was taken, and catheter set was prepped and draped in the usual sterile fashion. I gave a steady pull on the catheter, and to my surprise it pulled out without having to make an incision. Bleeding was controlled by using direct pressure, as the patient recently came off heparin. Patient tolerated the procedure well.
--- NOTE | 2020-06-25 19:27 | IPNPDOC ---
Date Seen The patient was seen on 06/25/20. Progress Note SUBJECTIVE: Patient is a 44 year old man lung cancer SVT and DVT legs aware of removal of pleurex catheter and placement of chest tube 'falling hemoglobin OBJECTIVE PHYSICAL EXAMINATION: VITAL SIGNS: Please see below. GENERAL: [awake nad alert HEENT: CARDIOVASCULAR: . RESPIRATORY: . new chets tube in place ABDOMINAL: EXTREMITIES: NEUROLOGICAL: PSYCHOLOGICAL: LABORATORY DATA, IMAGING STUDIES, MICROBIOLOGY: Please see below. Echocardiogram: . DVT prophylaxis ordered?: ASSESSMENT AND PLAN: This is a -year-old [RACE] [GENDER] with . PROBLEMS: 1. : .lung cancer 2. : .SVT/DVT legs 3. : .falling hemoglobin DISPOSITION: .serial monitor CBC give Iron therapy VS, I&O, 24H, Fishbone Vital Signs/I&O Vital Signs Date Time Temp Pulse Resp B/P (MAP) Pulse Ox O2 Delivery O2 Flow Rate FiO2 06/25/20 16:00 97.7 95 22 118/71 (87) 94 Nasal Cannula 2.0 I&O- Last 24 Hours up to 6 AM 06/25/20 06:00 Intake Total 2565 ml Output Total 2350 ml Balance 215 ml Laboratory Data 24H LABS Laboratory Tests 2 06/24/20 23:51: Activated Partial Thromboplast Time 37.1 06/25/20 07:24: Activated Partial Thromboplast Time 57.2H, Nucleated Red Blood Cells % (auto) 0.0, Anion Gap 7L, Glomerular Filtration Rate > 60.0, Calcium Level 8.1L, Total Bilirubin 0.2, Aspartate Amino Transf (AST/SGOT) 154H, Alanine Aminotransferase (ALT/SGPT) 176H, Alkaline Phosphatase 132H, Total Protein 6.4, Albumin 2.2L, Albumin/Globulin Ratio 0.5 CBC/BMP Laboratory Tests 06/25/20 07:24 Microbiology Microbiology 06/24/20 Respiratory Virus Panel (PCR) (NOLAN) - Final, Complete 06/24/20 Acid Fast Stain, Received Pending 06/24/20 Mycobacterial Culture, Received Pending 06/24/20 Fungal Smear, Received Pending 06/24/20 Fungal Culture, Received Pending 06/24/20 Gram Stain - Final, Resulted 06/24/20 Anaerobic Culture, Resulted Pending 06/24/20 Body Fluid Culture, Received Pending 06/23/20 Blood Culture - Preliminary, Resulted No Growth after 48 hours. All Specime... 06/23/20 Blood Culture - Preliminary, Resulted No Growth after 48 hours. All Specime... BRADLEY AGUILAR MD Jun 25, 2020 19:27
[2020-06-25] MEDS: METOPROLOL SUCC (TopROL XL) 50MG **XL** TAB PO SCH (20:02)
[2020-06-25] MEDS ORDERED: FERRIC CARBOXYMALTOSE INJ 750 MG in NS 250 ML IV ONE (21:00)
[2020-06-26] VITALS: BP 92/50
[2020-06-26] MEDS: HEPARIN SOD (PORCINE) 5000UNITS/ML 1ML VIAL/SYRINGE IV PRN ×2 (01:41→10:50)
[2020-06-26] MEDS: PIPERACILLIN/TAZOBACTAM SOD 4.5 GM in D5W MINI-BAG PLUS 50 ML IV SCH (03:59)
[2020-06-26 04:00] VITALS: BP 104/64
[2020-06-26] MEDS: KETOROLAC 30 MG/ML 1ML VIAL IV PRN ×2 (04:06→14:23)
[2020-06-26] MEDS: VANCOMYCIN HCL 1,000 MG, VIAL MATE ADAPTER 1 EACH in D5W 250 ML IV SCH (05:14)
[2020-06-26 05:41] LABS: BASO # 0.1 10^3/uL (0.0-0.2); BASO % 0.3 % (0.0-1.0); EOS % 0.1 % (0.0-3.0); HEMATOCRIT 29.8 % (42.0-52.0); LYMPH % 17.5 % (24.0-44.0); MEAN CORPUSCULAR HEMOGLOBIN 22.4 pg (27.0-33.0); MEAN CORPUSCULAR HGB CONC 30.2 g/dl (32.0-36.5); MEAN CORPUSCULAR VOLUME 74.3 fl (80.0-96.0); MONO # 1.6 10^3/uL (0.0-0.8); MONO % 7.2 % (0.0-5.0); NEUTROPHILS # 16.8 10^3/uL (1.5-8.5); NEUTROPHILS % 73.9 % (36.0-66.0); RED BLOOD COUNT 4.01 10^6/uL (4.30-6.10); WHITE BLOOD COUNT 22.7 10^3/uL (4.0-10.0)
[2020-06-26 05:47] LABS: PLATELET COUNT, AUTOMATED 710 10^3/uL (150-450)
[2020-06-26 06:09] LABS: ALBUMIN 2.3 GM/DL (3.2-5.2); ALT/SGPT 138 U/L (12-78); BILIRUBIN,TOTAL 0.1 MG/DL (0.2-1.0); BLOOD UREA NITROGEN 9 MG/DL (7-18); CALCIUM LEVEL 7.8 MG/DL (8.5-10.1); CARBON DIOXIDE LEVEL 25 MEQ/L (21-32); CHLORIDE LEVEL 107 MEQ/L (98-107); CREATININE FOR GFR 0.71 MG/DL (0.70-1.30); FERRITIN 86 NG/ML (26-388); GLOMERULAR FILTRATION RATE > 60.0 (>60); GLUCOSE, FASTING 106 MG/DL (70-100); IRON (FE) 264 UG/DL (65-175); PERCENT SATURATION 67.3 % (19.7-50.0); POTASSIUM SERUM 3.9 MEQ/L (3.5-5.1); SODIUM LEVEL 138 MEQ/L (136-145); TOTAL IRON BINDING CAPACITY 392 UG/DL (250-450); TOTAL PROTEIN 6.3 GM/DL (6.4-8.2)
[2020-06-26] MEDS: HEPARIN DRIP 25,000 UNITS in IV 1 EA IV SCH (06:13)
[2020-06-26 07:36] VITALS: BP 112/70
--- NOTE | 2020-06-26 08:43 | REP ---
INDICATION: pleural effusion, empyema COMPARISON: 06/25/2020 TECHNIQUE: PA and lateral. FINDINGS: Pigtail catheter at the base of the right chest cavity is appreciated and there is decreased fluid in the hydropneumothorax. Underlying parenchymal opacities are again identified. Loculated right apical fluid collection appears essentially unchanged. Left hemithorax cannot exclude subtle superimposed perihilar airspace disease. No left effusion or pneumothorax. Visualized portions of the cardiac silhouette are within normal limits and stable. Skeletal structures are stable. IMPRESSION: 1. Decreased fluid in the right hydropneumothorax with underlying right-sided pleuroparenchymal changes and stable right apical fluid collection. 2. Subtle left perihilar airspace disease cannot be excluded. <Electronically signed by Arsalan Gifford > 06/26/20 0889
[2020-06-26] MEDS: DOCUSATE SODIUM 100MG CAPSULE PO SCH ×2 (09:00→20:03)
--- NOTE | 2020-06-26 11:14 | IPN ---
PROGRESS NOTE DATE: 06/25/2020 SUBJECTIVE: Mr. Harrell is feeling slightly better today. He is no complaints of shortness of breath. He has some vague leg discomfort in the left calf. There is no cough to speak of. OBJECTIVE: VITAL SIGNS: Show a T-max of 99.6 with a heart rate that ranges between 69 and 98 in a sinus rhythm, respiratory rate of 17 to 22 without the use of accessory muscles. He was 92% to 98% saturated on 2 liters nasal cannula and his blood pressure is ranging between 108/69 to 131/64. INTAKE AND OUTPUT: Over the past 24 hours has been recorded as 2885 in and 2050 out for a positivity of 835 mL. He was drained of 100 mL yesterday through his PleurX catheter and that has been sent off for cultures. He weighed 67.8 kg today compared to 66.5 kg yesterday. RESPIRATORY: He has a dull percussion note at the base of the right lower hemithorax. There is only a slight decrease in breath sounds in the right lower base. The remainder of the exam showing equal breath sounds on either side without wheezes, rhonchi, or rales. CARDIAC: Without murmurs, clicks, gallops, or rubs. I cannot feel his PMI. S1 and S2 are normal. ABDOMEN: Soft and nontender. Bowel sounds are positive. There is no hepatomegaly. No CVA tenderness. EXTREMITIES: Show no pretibial edema. There is slight calf tenderness to deep squeezing of the left calf with none on the right side. There is no differential swelling of the upper extremities. SKIN: Warm, dry, and perfused without cyanosis or mottling, including that of the nail beds and knees. NECK: Supple. There is no jugular venous distention. No subcutaneous emphysema. Trachea is midline. MOUTH: Shows the mucous membranes to be pink and moist. Lips and gums without lesions and no thrush. EYES: Show his pupils equal and reactive. Extraocular movements are intact. Sclerae nonicteric. NEUROLOGIC: Shows II through XII intact. Normal gross motor, gross sensation intact. Gait is not tested. PSYCHIATRIC: Shows him to be awake, alert, and oriented x3 with appropriate mood and affect and conversational. LABORATORY DATA: His white count today is up to 28.3 with hemoglobin and hematocrit of 7.9 and 26.3 respectively and a platelet count of 535,000. Chemistries today show essentially normal electrolytes with a BUN and creatinine of 10 and 0.7, glucose of 138, and calcium 8.1. AST and ALT are increasing to 154 and 176 respectively from 21 and 25 yesterday. Total bilirubin is 0.2. Albumin is 2.2. I discussed his pleural fluid yesterday being hypoglycemic, exudative, and acidotic consistent with an empyema. IMAGING: Chest x-ray today shows an opacity in the right lower hemithorax consistent with the fluid seen on his chest CT yesterday. At my request, x-ray has placed a pigtail catheter and it only drained 45 mL. After the pigtail catheter placement there is no change in the chest x-ray. I will therefore, undertake a TPA pleurolysis. IMPRESSION: 1. Bilateral deep thromboses secondary to hypercoagulability secondary to metastatic adenocarcinoma. 2. Probable empyema with indwelling PleurX catheter now removed. 3. Right lung entrapment. 4. Anemia. 5. Metastatic adenocarcinoma stage IV of the pleura and both parietal visceral surfaces. PLAN AND DISCUSSION: I will undertake a TPA pleurolysis today. We will continue the heparin for the time being. The goal of the TPA pleurolysis is to remove whatever fluid is left, which is infected. I have no fantasies of his lung re-expanding to the chest wall as it is entrapped in tumor. When the pigtail catheter comes out, the fluid will reaccumulate, but hopefully not infected. We will await culture.
--- NOTE | 2020-06-26 11:43 | IPNPDOC ---
Date Seen The patient was seen on 06/26/20. Progress Note SUBJECTIVE: No acute complaints overnight. Pigtail catheter placed in R lung, 690 of serosanguinous fluid in bedside chest tube container. WBC further improved, d/c vancomycin and started on nafcillin IV as pleural fluid growing MSSA. Stopped heparin gtt and started on eliquis. Afebrile overnight. OBJECTIVE: PHYSICAL EXAMINATION: VS: Please see below GENERAL APPEARANCE: alert and oriented. In no acute distress HEENT: MARITZA. EOMI CARDIOVASCULAR: HS 1+ 2 present, no added sounds. Tachycardic LUNGS: Clear to auscultation bilaterally. No wheezing/crackles. Area where right pleurX drain was appears clean, nonsuppurative. Post right lung has new pigtail catheter secured to skin, draining well, no erythema or tenderness. ABDOMEN: soft, non-distended, non-tender to palpation. BS + MUSCULOSKELETAL: FROM EXTREMITIES: No pitting edema NEUROLOGICAL: No obvious CN abnormalities. No focal neurological deficits LABORATORY DATA: See below. MICROBIOLOGY: Pleural fluid Cx : Staph aureus BCx: NG IMAGING: CXR 06/26/20: 1. Decreased fluid in the right hydropneumothorax with underlying right-sided pleuroparenchymal changes and stable right apical fluid collection. 2. Subtle left perihilar airspace disease cannot be excluded. CXR 06/25/20: Chest tube removed. Right-sided pleuroparenchymal changes again noted and without significant change. CXR 06/24/20: No significant change from prior examination. CT chest: 1. No pulmonary embolus identified. 2. Right-sided pleuroparenchymal changes as described above including pleural effusions, parenchymal disease, and mediastinal/bilateral hilar adenopathy. 3. Small new 8 mm right basilar nodule. US lower extremities : 1) Right lower extremity demonstrates focal area of nonocclusive thrombus in the proximal saphenous vein. 2) Left lower extremity demonstrates focal occlusive thrombus in the left popliteal vein. MICROBIOLOGY: Please see below. Assessment/Plan: 44 yo M hx of stage 4 adenocarcinoma of the lung on keytruda [id number], history of recurrent right sided pleural effusion with pleurex placement presenting with 3 day history of bilateral leg pain. In the ED diagnosed to have superficial venous thrombosis and DVTs in his legs as well as a loculated pleural fluid in apex and 8mm nodule in right lung base. Patient found to be tachycardic, hypoxic, febrile and with leukocytosis in ED. Patient admitted for treatment of DVTs and to rule out sepsis. #Right lung empyema 2/2 to staph aureus, sepsis s/p removal of right PleurX catheter -Afebrile overnight, WBC further improved (likely mostly steroid induced) -CXR above -Pleural fluid Cx: Staph aureus -BCx NG -Pigtail catheter in place -CT surgery (Dr. Boland) following. At this time due to improved CXR, will not need additional procedures. -D/c vancomycin and zosyn, started on IV nafcillin -Daily CBC, f/u fungal and anaerobic cx #Leukocytosis likely steroid induced- improving slowly -Stopped steroids 06/25/20 -C/w treatment above #ARETHA -H/H slightly improved today to 9.0/30.1 -On last admission, this was normocytic -Hb currently 9.9, higher than last admission (baseline at last admission was around 7) -On 04/2020, folate, b12 WNL> Iron low at 11 with low normal ferritin levels (75). -Received iron infusion 06/25/20 -Heme/onc following -F/u CBC #Bilateral DVT, provoked given hx of cancer -Hem onc Dr. Carmona consulted -Stopped heparin gtt, started on PO eliquis today #Hx of Tachycardia, with sepsis above- resolved -Unclear origin -As per patient, PCP started metoprolol 50 qhs in late April this year. Continue #Adenocarcinoma of the lung, Stage 4 -As per 05/[address] Carmona, patient had PET scan done May 05 showing chest wall completely encased in tumor. ?mesothelioma -S/P 2 doses Keytruda as of 05/29 -Follows with Dr. Billings in clinic. As Dr. Billings is off for the week, Dr. Carmona consulted instead #DVT PPX -eliquis DISPOSITION: Plan is discharge home when medically improved. VS, I&O, 24H, Fishbone Vital Signs/I&O Vital Signs Date Time Temp Pulse Resp B/P (MAP) Pulse Ox O2 Delivery O2 Flow Rate FiO2 06/26/20 07:36 98.3 88 18 112/70 (84) 92 Nasal Cannula 2.0 I&O- Last 24 Hours up to 6 AM 06/26/20 06:00 Intake Total 2294 ml Output Total 2195 ml Balance 99 ml Laboratory Data 24H LABS Laboratory Tests 2 06/25/20 22:57: Activated Partial Thromboplast Time 32.8 06/26/20 04:50: Immature Granulocyte % (Auto) 1.0, Neutrophils (%) (Auto) 73.9H, Lymphocytes (%) (Auto) 17.5L, Monocytes (%) (Auto) 7.2H, Eosinophils (%) (Auto) 0.1, Basophils (%) (Auto) 0.3, Neutrophils # (Auto) 16.8H, Lymphocytes # (Auto) 4.0, Monocytes # (Auto) 1.6H, Eosinophils # (Auto) 0.0, Basophils # (Auto) 0.1, Nucleated Red Blood Cells % (auto) 0.0, Anion Gap 6L, Glomerular Filtration Rate > 60.0, Calcium Level 7.8L, Iron Level 264H, Total Iron Binding Capacity 392, Transferrin % Saturation 67.3H, Ferritin 86, Total Bilirubin 0.1L, Aspartate Amino Transf (AST/SGOT) 58H, Alanine Aminotransferase (ALT/SGPT) 138H, Alkaline Phosphatase 119H, Total Protein 6.3L, Albumin 2.3L, Albumin/Globulin Ratio 0.6 06/26/20 08:19: Activated Partial Thromboplast Time 48.6H CBC/BMP Laboratory Tests 06/26/20 04:50 Microbiology Microbiology 06/24/20 Respiratory Virus Panel (PCR) (NOLAN) - Final, Complete 06/24/20 Acid Fast Stain, Received Pending 06/24/20 Mycobacterial Culture, Received Pending 06/24/20 Fungal Smear, Received Pending 06/24/20 Fungal Culture, Received Pending 06/24/20 Gram Stain - Final, Complete 06/24/20 Anaerobic Culture - Final, Complete 06/24/20 Body Fluid Culture - Final, Complete Staphylococcus Aureus 06/23/20 Blood Culture - Preliminary, Resulted No Growth after 48 hours. All Specime... 06/23/20 Blood Culture - Preliminary, Resulted No Growth after 48 hours. All Specime... Current Medications Current Medications Medications (Trade) Dose Ordered Sig/Angela Route PRN Reason Start Time Stop Time Status Last Admin Dose Admin Acetaminophen (Tylenol Tab) 650 mg Q4H PRN PO PAIN OR FEVER 06/23/20 15:15 06/25/20 08:11 Al Hydrox/Mg Hydrox/Simethicone (Mylanta) 30 ml DAILY PRN PO DYSPEPSIA 06/23/20 15:15 Apixaban (Eliquis) 5 mg BID PO 06/26/20 21:00 UNV Dextrose/Sodium Chloride 1,000 ml @ 75 mls/hr [id number] IV 06/24/20 13:09 06/25/20 14:36 DC 06/25/20 04:41 Docusate Sodium (Colace) 100 mg BID PO 06/23/20 21:00 06/25/20 20:02 Heparin Sodium (Porcine) (Heparin) ASDIRECTED PRN IV SEE LABEL COMMENTS 06/23/20 16:45 06/26/20 11:23 DC 06/26/20 10:50 Heparin Sodium (Porcine) 11322 units/IV Miscellaneous Supplies 250 ml @ 0 mls/hr Q0M IV 06/23/20 16:36 06/26/20 11:23 DC 06/26/20 06:13 Home Med (Med Rec Complete!) ASDIRECTED XX 06/23/20 15:00 06/23/20 14:56 DC Ketorolac Tromethamine (ToRADol) 30 mg Q6HP PRN IV PAIN / FEVER 06/24/20 14:45 06/29/20 14:44 06/26/20 04:06 Magnesium Hydroxide (Milk Of Magnesia) 30 ml DAILY PRN PO CONSTIPATION 06/23/20 15:15 Methylprednisolone (SOLUmedrol) 60 mg BID IV 06/24/20 21:00 06/25/20 14:32 DC 06/25/20 08:10 Methylprednisolone (SOLUmedrol) 125 mg Q6H IV 06/23/20 16:30 06/24/20 13:04 DC 06/24/20 09:41 Metoprolol Succinate (TopROL XL) 50 mg QHS PO 06/23/20 21:00 06/25/20 20:02 Morphine Sulfate (Ms Contin) 30 mg BIDP PRN PO pain 06/23/20 16:45 06/25/20 19:46 Nafcillin Sodium 2 gm/Dextrose 50 ml @ 50 mls/hr Q6H IV 06/26/20 11:30 UNV Non-Formulary Medication (Heparin Iv Rate Change Documentation ml/ Hr) ASDIRECTED XX 06/23/20 16:45 06/26/20 11:23 DC 06/26/20 10:50 Piperacillin Sod/ Tazobactam Sod 4.5 gm/Dextrose 50 ml @ 50 mls/hr Q6H IV 06/23/20 15:30 06/26/20 07:45 DC 06/26/20 03:59 Polyethylene Glycol (Miralax) 1 pkt DAILY PRN PO CONSTIPATION 06/23/20 16:45 Prednisone (Deltasone) 20 mg BID PO 06/23/20 21:00 06/23/20 16:59 DC Sodium Chloride 1,000 ml @ 100 mls/hr Q10H IV 06/23/20 15:30 06/24/20 11:29 DC 06/24/20 03:02 Vancomycin HCl 1000 mg/IV Miscellaneous Supplies 1 each/ Dextrose 270 ml @ 270 mls/hr Q12H IV 06/23/20 16:30 06/26/20 11:23 DC 06/26/20 05:14 Allergies Coded Allergies: bee venom protein (honey bee) (Verified Allergy, Intermediate, an aphlaytic, 03/30/20) Lulu Caceres MD Jun 26, 2020 11:43
[2020-06-26 11:44] VITALS: BP 110/67
[2020-06-26] MEDS: APIXABAN 5 MG TAB (ELIQUIS) PO SCH ×2 (11:57→20:03)
[2020-06-26] MEDS: NAFCILLIN SOD 2 GM in D5W MINI-BAG PLUS 50 ML IV SCH ×2 (13:00→18:11)
[2020-06-26] MEDS: MORPHINE 30 MG SA TAB PO PRN (14:23)
[2020-06-26 15:55] VITALS: BP 120/74
--- NOTE | 2020-06-26 16:47 | IPN ---
PROGRESS NOTE DATE: 06/26/2020 SUBJECTIVE: Mr. Harrell has had 500 mL out his chest tube after tPA pleurolysis. His chest x-ray shows the fluid to be evacuated from the pleura, except for a loculated portion at the upper portion of right hemithorax. He, of course, is wanting to go home. OBJECTIVE: VITAL SIGNS: Show a T-max of 100.9 with a heart rate that ranges between 88 and 105 in a sinus rhythm, respiratory rate that is constant 18 who is 92% to 94% saturated now on room air, and his blood pressure is ranging between 92/50 to 120/74 INTAKE AND OUTPUT: Over the past 24 hours has been recorded as 2244 in and 1595 out for a positivity of 649 mL. He put out 500 mL in the chest tube. His weight today is 67.8 kg today, which is the same as yesterday. RESPIRATORY: He has decreased breath sounds on the right side, but I hear no wheezes, rhonchi, or rales. The left lung shows normal vesicular sounds with percussion notes full to the diaphragm. CARDIAC: Without murmurs, clicks, gallops, or rubs. I cannot feel his PMI. S1 and S2 are normal. ABDOMEN: Soft and nontender. Bowel sounds are positive. There is no hepatomegaly. No CVA tenderness. EXTREMITIES: Show no pretibial edema. No calf tenderness. No differential swelling of the upper extremities. SKIN: Warm, dry, and perfused without cyanosis or mottling, including that of the nail beds and knees. NECK: Supple. There is no jugular venous distention. No subcutaneous emphysema. Trachea is midline. MOUTH: Shows the mucous membranes to be pink and moist. Lips and gums without lesions and no thrush. EYES: Show his pupils equal and reactive. Extraocular movements are intact. Sclerae nonicteric. NEUROLOGIC: Shows II through XII intact. Normal gross motor, gross sensation intact. Gait is not tested. PSYCHIATRIC: Shows him to be awake, alert, and oriented x3 with appropriate mood and affect and conversational. PROCEDURE SITE: Inspection of his wound today from his PleurX catheter removal shows hopefully what is granulation tissue at the exit site. However, down by the entry site there is a hard mass. Correlating that with the CT, it looks like the tumor has eroded through the chest wall to the muscle and subcutaneous tissue. LABORATORY DATA: His white count is down to 22.7 today from 28.3 yesterday. Hemoglobin and hematocrit of 9.0 and 29.8 up from 7.9 and 26.3 yesterday. He has not been transfused. Platelet count is 710,000. Differential shows 73% neutrophils,17% lymphocytes, and 7% monocytes. There are no immature forms and no toxic granulations. His electrolytes are normal with a BUN and creatinine of 9 and 0.71, calcium of 7.8 with a corresponding albumin of 2.3. Glucose is 106. His AST and ALT are slightly improved to 58 and 138 respectively down from 154 and 176 respectively. His PTT is 48.6 seconds and he continues on heparin. Microbiology is now growing Staph aureus in a heavy growth from the pleural fluid. It is sensitive to everything except penicillin G and erythromycin. It is sensitive to oxacillin. IMAGING: As noted above, his chest x-ray shows the fluid cleared from the right hemithorax with the lung entrapped and a space between the chest wall and the entrapped lung. There is still a fluid collection at the right apex in the cubital of the right hemithorax. I have gone over this chest CT with Dr. Little and he has pointed out the 3 cm mass outside the chest along what looks to be the PleurX tract as it enters the chest. Otherwise, there are no new changes. IMPRESSION: 1. Metastatic adenocarcinoma stage IV to the pleura and now to the chest wall. 2. Bilateral deep venous thrombosis secondary to hypercoagulability secondary to metastatic adenocarcinoma. 3. Empyema with indwelling PleurX catheter now removed. 4. Right lung entrapment. 5. Anemia, improving. PLAN AND DISCUSSION: We can certainly now deescalate his antibiotics to oxacillin or nafcillin to cover his Staph aureus. I would give one of these two IV for the next 24-48 hours and then, convert him over to p.o. antibiotics. We can also stop his heparin and start him on a 10a inhibitor for his bilateral DVTs. Eventually the pigtail catheter will have to come out and the fluid will reaccumulate between the entrapped lung and the chest wall. The reason for prolonging his IV antibiotics is to clear the pleura so that when the fluid does return, it will hopefully not become re-infected. MORIAH
[2020-06-26 20:00] VITALS: BP 106/61
[2020-06-26] MEDS: METOPROLOL SUCC (TopROL XL) 50MG **XL** TAB PO SCH (20:03)
[2020-06-27] VITALS (7 sets, daily range): BP systolic 108–125; BP diastolic 63–77
[2020-06-27] MEDS: NAFCILLIN SOD 2 GM in D5W MINI-BAG PLUS 50 ML IV SCH ×4 (00:53→17:13)
[2020-06-27] MEDS: KETOROLAC 30 MG/ML 1ML VIAL IV PRN ×2 (03:10→17:13)
[2020-06-27 05:21] LABS: HEMATOCRIT 28.7 % (42.0-52.0); HEMOGLOBIN 8.3 g/dl (13.5-17.5); MEAN CORPUSCULAR HEMOGLOBIN 21.5 pg (27.0-33.0); MEAN CORPUSCULAR HGB CONC 28.9 g/dl (32.0-36.5); MEAN CORPUSCULAR VOLUME 74.4 fl (80.0-96.0); PLATELET COUNT, AUTOMATED 705 10^3/uL (150-450); RED BLOOD COUNT 3.86 10^6/uL (4.30-6.10)
[2020-06-27 06:02] LABS: ALBUMIN 2.1 GM/DL (3.2-5.2); ALT/SGPT 84 U/L (12-78); BILIRUBIN,TOTAL 0.2 MG/DL (0.2-1.0); BLOOD UREA NITROGEN 9 MG/DL (7-18); CARBON DIOXIDE LEVEL 27 MEQ/L (21-32); CHLORIDE LEVEL 109 MEQ/L (98-107); CREATININE FOR GFR 0.62 MG/DL (0.70-1.30); GLOMERULAR FILTRATION RATE > 60.0 (>60); GLUCOSE, FASTING 99 MG/DL (70-100); POTASSIUM SERUM 3.4 MEQ/L (3.5-5.1); SODIUM LEVEL 139 MEQ/L (136-145); TOTAL PROTEIN 6.3 GM/DL (6.4-8.2)
[2020-06-27] MEDS ORDERED: POTASSIUM CHLORIDE 10 MEQ SR TABLET PO ONE (08:00)
[2020-06-27] MEDS: APIXABAN 5 MG TAB (ELIQUIS) PO SCH ×2 (08:07→20:42)
[2020-06-27] MEDS: MORPHINE 30 MG SA TAB PO PRN (08:09)
[2020-06-27] MEDS: DOCUSATE SODIUM 100MG CAPSULE PO SCH ×2 (08:09→20:42)
--- NOTE | 2020-06-27 08:37 | REP ---
INDICATION: pleural effusion, empyema COMPARISON: 06/26/2020 TECHNIQUE: PA and lateral. FINDINGS: Pigtail catheter is again identified at the right base. While the pleuroparenchymal changes appear relatively stable, the air-fluid level within the right pleural cavity appears elevated suggesting possible reaccumulation of fluid. Left hemithorax is relatively stable and without effusion. IMPRESSION: 1. Air-fluid level in the right pleural cavity appears slightly elevated as compared to prior examination suggesting the possibility of fluid reaccumulation. 2. Remainder of the examination is unchanged. <Electronically signed by Arsalan Gifford > 06/27/20 0833
--- NOTE | 2020-06-27 10:47 | IPNPDOC ---
Date Seen The patient was seen on 06/27/20. Progress Note SUBJECTIVE: Repeat CXR: poss fluid reaccumulation. Pigtail catheter placed in R lung, 835 mL of serosanguinous fluid in bedside chest tube container. WBC further improved, on nafcillin IV. Afebrile overnight. No acute complaints overnight. OBJECTIVE: PHYSICAL EXAMINATION: VS: Please see below GENERAL APPEARANCE: alert and oriented. In no acute distress HEENT: MARITZA. EOMI CARDIOVASCULAR: HS 1+ 2 present, no added sounds. Tachycardic LUNGS: Clear to auscultation bilaterally. No wheezing/crackles. Area where right pleurX drain was appears slightly suppurative, serosanguinous drainage. Post right lung has new pigtail catheter secured to skin, draining well, no erythema or tenderness. ABDOMEN: soft, non-distended, non-tender to palpation. BS + MUSCULOSKELETAL: FROM EXTREMITIES: No pitting edema NEUROLOGICAL: No obvious CN abnormalities. No focal neurological deficits LABORATORY DATA: See below. MICROBIOLOGY: Pleural fluid aerobic Cx : Staph aureus Pleural fluid anaerobic cx: NG Pleural fluid fungal studies: pending BCx: NG IMAGING: CXR 06/27/20: 1. Air-fluid level in the right pleural cavity appears slightly elevated as compared to prior examination suggesting the possibility of fluid reaccumulation. 2. Remainder of the examination is unchanged. CXR 06/26/20: 1. Decreased fluid in the right hydropneumothorax with underlying right-sided pleuroparenchymal changes and stable right apical fluid collection. 2. Subtle left perihilar airspace disease cannot be excluded. CXR 06/25/20: Chest tube removed. Right-sided pleuroparenchymal changes again noted and without significant change. CXR 06/24/20: No significant change from prior examination. CT chest: 1. No pulmonary embolus identified. 2. Right-sided pleuroparenchymal changes as described above including pleural effusions, parenchymal disease, and mediastinal/bilateral hilar adenopathy. 3. Small new 8 mm right basilar nodule. US lower extremities : 1) Right lower extremity demonstrates focal area of nonocclusive thrombus in the proximal saphenous vein. 2) Left lower extremity demonstrates focal occlusive thrombus in the left popliteal vein. MICROBIOLOGY: Please see below. Assessment/Plan: 44 yo M hx of stage 4 adenocarcinoma of the lung on keytruda [id number], history of recurrent right sided pleural effusion with pleurex placement presenting with 3 day history of bilateral leg pain. In the ED diagnosed to have superficial venous thrombosis and DVTs in his legs as well as a loculated pleural fluid in apex and 8mm nodule in right lung base. Patient found to be tachycardic, hypoxic, febrile and with leukocytosis in ED. Patient admitted for treatment of DVTs and to rule out sepsis. #Right lung empyema 2/2 to MSSA s/p removal of right PleurX catheter. Resolved sepsis -Afebrile overnight, WBC improved to 14K -CXR above -Pleural fluid Cx: MSSA -See micro above -Pigtail catheter in place, plan is to likely take that out prior to discharge. CT surgery (Dr. Boland) consulted, f/u recommendations -C/w IV nafcillin (Day 2) -Daily CBC, f/u fungal and anaerobic cx #Leukocytosis likely steroid induced- improving slowly -Stopped steroids 06/25/20 -C/w treatment above #ARETHA -H/H 8.3/28.7 -On last admission, this was normocytic -On 04/2020, folate, b12 WNL> Iron low at 11 with low normal ferritin levels (75). -Received iron infusion 06/25/20 -Heme/onc following -F/u CBC #Bilateral DVT, provoked given hx of cancer -Hem onc Dr. Carmona consulted -C/w PO eliquis #Hx of Tachycardia, with sepsis resolved -Unclear origin -As per patient, PCP started metoprolol 50 qhs in late April this year. Continue #Adenocarcinoma of the lung, Stage 4 -As per 05/[address] Carmona, patient had PET scan done May 05 showing chest wall completely encased in tumor. ?mesothelioma -S/P 2 doses Keytruda as of 05/29 -Follows with Dr. Billings in clinic. As Dr. Billings is off for the week, Dr. Carmona consulted instead #DVT PPX -eliquis DISPOSITION: F/u CT surgery recommendations, plan is discharge home when medically improved. VS, I&O, 24H, Fishbone Vital Signs/I&O Vital Signs Date Time Temp Pulse Resp B/P (MAP) Pulse Ox O2 Delivery O2 Flow Rate FiO2 06/27/20 08:09 16 06/27/20 08:00 97.6 84 113/72 (86) 96 Room Air 06/26/20 11:44 I&O- Last 24 Hours up to 6 AM 06/27/20 06:00 Intake Total 1888 ml Output Total 2235 ml Balance -347 ml Laboratory Data 24H LABS Laboratory Tests 2 06/27/20 04:41: Nucleated Red Blood Cells % (auto) 0.0, Anion Gap 3L, Glomerular Filtration Rate > 60.0, Calcium Level 8.0L, Total Bilirubin 0.2#, Aspartate Amino Transf (AST/SGOT) 17, Alanine Aminotransferase (ALT/SGPT) 84H, Alkaline Phosphatase 99, Total Protein 6.3L, Albumin 2.1L, Albumin/Globulin Ratio 0.5 CBC/BMP Laboratory Tests 06/27/20 04:41 Microbiology Microbiology 06/24/20 Respiratory Virus Panel (PCR) (NOLAN) - Final, Complete 06/24/20 Acid Fast Stain, Received Pending 06/24/20 Mycobacterial Culture, Received Pending 06/24/20 Fungal Smear, Received Pending 06/24/20 Fungal Culture, Received Pending 06/24/20 Gram Stain - Final, Complete 06/24/20 Anaerobic Culture - Final, Complete 06/24/20 Body Fluid Culture - Final, Complete Staphylococcus Aureus 06/23/20 Blood Culture - Preliminary, Resulted No Growth after 72 hours. All specime... 06/23/20 Blood Culture - Preliminary, Resulted No Growth after 72 hours. All specime... Current Medications Current Medications Medications (Trade) Dose Ordered Sig/Angela Route PRN Reason Start Time Stop Time Status Last Admin Dose Admin Acetaminophen (Tylenol Tab) 650 mg Q4H PRN PO PAIN OR FEVER 06/23/20 15:15 06/25/20 08:11 Al Hydrox/Mg Hydrox/Simethicone (Mylanta) 30 ml DAILY PRN PO DYSPEPSIA 06/23/20 15:15 Apixaban (Eliquis) 5 mg BID PO 06/26/20 09:00 06/27/20 08:07 Dextrose/Sodium Chloride 1,000 ml @ 75 mls/hr [id number] IV 06/24/20 13:09 06/25/20 14:36 DC 06/25/20 04:41 Docusate Sodium (Colace) 100 mg BID PO 06/23/20 21:00 06/27/20 08:09 Heparin Sodium (Porcine) (Heparin) ASDIRECTED PRN IV SEE LABEL COMMENTS 06/23/20 16:45 06/26/20 11:23 DC 06/26/20 10:50 Heparin Sodium (Porcine) 51959 units/IV Miscellaneous Supplies 250 ml @ 0 mls/hr Q0M IV 06/23/20 16:36 06/26/20 11:23 DC 06/26/20 06:13 Home Med (Med Rec Complete!) ASDIRECTED XX 06/23/20 15:00 06/23/20 14:56 DC Ketorolac Tromethamine (ToRADol) 30 mg Q6HP PRN IV PAIN / FEVER 06/24/20 14:45 06/29/20 14:44 06/27/20 03:10 Magnesium Hydroxide (Milk Of Magnesia) 30 ml DAILY PRN PO CONSTIPATION 06/23/20 15:15 Methylprednisolone (SOLUmedrol) 60 mg BID IV 06/24/20 21:00 06/25/20 14:32 DC 06/25/20 08:10 Methylprednisolone (SOLUmedrol) 125 mg Q6H IV 06/23/20 16:30 06/24/20 13:04 DC 06/24/20 09:41 Metoprolol Succinate (TopROL XL) 50 mg QHS PO 06/23/20 21:00 06/26/20 20:03 Morphine Sulfate (Ms Contin) 30 mg BIDP PRN PO pain 06/23/20 16:45 06/27/20 08:09 Nafcillin Sodium 2 gm/Dextrose 50 ml @ 50 mls/hr Q6H IV 06/26/20 12:00 06/27/20 06:13 Non-Formulary Medication (Heparin Iv Rate Change Documentation ml/ Hr) ASDIRECTED XX 06/23/20 16:45 06/26/20 11:23 DC 06/26/20 10:50 Piperacillin Sod/ Tazobactam Sod 4.5 gm/Dextrose 50 ml @ 50 mls/hr Q6H IV 06/23/20 15:30 06/26/20 07:45 DC 06/26/20 03:59 Polyethylene Glycol (Miralax) 1 pkt DAILY PRN PO CONSTIPATION 06/23/20 16:45 Prednisone (Deltasone) 20 mg BID PO 06/23/20 21:00 06/23/20 16:59 DC Sodium Chloride 1,000 ml @ 100 mls/hr Q10H IV 06/23/20 15:30 06/24/20 11:29 DC 06/24/20 03:02 Vancomycin HCl 1000 mg/IV Miscellaneous Supplies 1 each/ Dextrose 270 ml @ 270 mls/hr Q12H IV 06/23/20 16:30 06/26/20 11:23 DC 06/26/20 05:14 Allergies Coded Allergies: bee venom protein (honey bee) (Verified Allergy, Intermediate, anaphlaytic, 03/30/20) Lulu Caceres MD Jun 27, 2020 10:47
--- NOTE | 2020-06-27 15:49 | IPN ---
PROGRESS NOTE DATE: 06/27/2020 Mr. Harrell is a bit despondent about having to spend time in the hospital. Physiologically, however, he is doing much better. He has drained a considerable amount out the chest catheter, and I am at this point compelled to keep it in. His vital signs show a maximum temperature of 98.8 with a heart rate that ranges between 75-96 in a sinus rhythm, respiratory rate of 16-18 without the use of accessory muscles, who is 93%-96% saturated on room air, and his blood pressure is ranging between 125/76 to 108/77. His intake and output for the past 24 hours has been recorded as 1938 in and 3125 out for a negative of nearly 1200 mL. He has put out 725 mL from the chest tube and 2400 mL in urine. He weighs 67.6 kg today and 67.8 kg yesterday. PHYSICAL EXAMINATION: He still has decreased breath sounds in the right lower hemithorax with a dull percussion note in the right lower hemithorax. I hear no wheezes, rhonchi, or rales. Percussion note is full to the diaphragm on the left, and he has normal vesicular sounds on the left. Inspection of his wounds show what is probably tumor, which is now eroding from both incisions sites, where the PleurX catheter was placed. It is noted that he had tumor outside the chest wall into the external thoracic muscles and subcutaneously. Cardiac exam is without murmurs, clicks, gallops, or rubs. I cannot feel his point of maximal impulse (PMI). S1 and S2 are normal. Abdomen is soft and nontender. Bowel sounds are positive. There is no hepatomegaly. No costovertebral angle (CVA) tenderness. Extremities show no pretibial edema, and slight calf tenderness to deep palpation on the left and none on the right. No differential swelling of the upper extremities. Skin is warm, dry, and perfused without cyanosis or mottling, including that of the nailbeds and knee. Neck is supple. There is no jugular venous distention. No subcutaneous emphysema. Trachea is midline. Mouth shows the mucous membranes to be pink and moist. Lips and commissures without lesions. No thrush. Eyes show his pupils to be equal and reactive. Extraocular motions are intact. Sclerae anicteric. Neurologic shows II-XII intact. Normal gross motor, gross sensation intact. Gait is not tested. His white count today is down to 14.0 from 28.3 two days ago. Hemoglobin and hematocrit are 8.3 and 28.7, essentially unchanged from yesterday with a platelet count of 705 and stable. His electrolytes show a potassium of 3.4. BUN and creatinine are 9 and 0.62. Calcium 8.0 with an albumin of 2.1. AST and ALT are vastly improved to 17 and 84, respectively, from a high of 154 and 176 two days ago. He is no longer on heparin but rather on Eliquis. His chest x-ray today shows some reaccumulation of fluid anteriorly with an air-fluid level. This is not surprising. I expect the fluid to reaccumulate, again hopefully only fill the space between the chest wall and the entrapped lung. IMPRESSION: 1. Metastatic adenocarcinoma, stage IV to the pleura and now to the chest wall and eroding to the skin. 2. Bilateral deep venous thromboses secondary to hypercoagulability secondary to metastatic adenocarcinoma. 3. Empyema with indwelling PleurX catheter, now removed. 4. Right lung entrapment. 5. Anemia. PLAN AND DISCUSSION: I am gratified that his leukocytosis is now resolving. He is now on nafcillin, as he is growing Staphylococcus aureus sensitive to oxacillin but resistant to penicillin G. I will continue his pigtail catheter for the present. Hopefully I will be able to remove it tomorrow and send him home, in fact, tomorrow. I am concerned about the eroding tumor, and he may need radiation therapy to control that. We will ask Dr. Gotti of radiation therapy to see him as an outpatient for consideration of such. I expect that he will be able to be discharged on oral antibiotics tomorrow.
[2020-06-27] MEDS: METOPROLOL SUCC (TopROL XL) 50MG **XL** TAB PO SCH (20:42)
[2020-06-28] VITALS: BP 122/77
[2020-06-28] MEDS: KETOROLAC 30 MG/ML 1ML VIAL IV PRN ×2 (00:02→09:03)
[2020-06-28] MEDS: NAFCILLIN SOD 2 GM in D5W MINI-BAG PLUS 50 ML IV SCH ×3 (00:02→12:00)
[2020-06-28 04:00] VITALS: BP 121/74
[2020-06-28 05:36] LABS: HEMATOCRIT 29.5 % (42.0-52.0); HEMOGLOBIN 8.5 g/dl (13.5-17.5); MEAN CORPUSCULAR HEMOGLOBIN 21.8 pg (27.0-33.0); MEAN CORPUSCULAR HGB CONC 28.8 g/dl (32.0-36.5); MEAN CORPUSCULAR VOLUME 75.6 fl (80.0-96.0); PLATELET COUNT, AUTOMATED 786 10^3/uL (150-450); WHITE BLOOD COUNT 15.5 10^3/uL (4.0-10.0)
[2020-06-28 06:04] LABS: ALBUMIN 2.2 GM/DL (3.2-5.2); ALT/SGPT 57 U/L (12-78); BILIRUBIN,TOTAL 0.2 MG/DL (0.2-1.0); BLOOD UREA NITROGEN 7 MG/DL (7-18); CALCIUM LEVEL 7.9 MG/DL (8.5-10.1); CARBON DIOXIDE LEVEL 26 MEQ/L (21-32); CHLORIDE LEVEL 108 MEQ/L (98-107); CREATININE FOR GFR 0.63 MG/DL (0.70-1.30); GLOMERULAR FILTRATION RATE > 60.0 (>60); GLUCOSE, FASTING 91 MG/DL (70-100); POTASSIUM SERUM 3.8 MEQ/L (3.5-5.1); SODIUM LEVEL 139 MEQ/L (136-145); TOTAL PROTEIN 6.3 GM/DL (6.4-8.2)
[2020-06-28] MEDS ORDERED: ELIQ5TAB PO (07:46)
[2020-06-28] MEDS ORDERED: ACET1TAB55 PO (07:46)
--- NOTE | 2020-06-28 08:01 | REP ---
INDICATION: pleural effusion, empyema COMPARISON: 06/27/2020 at 7:52 a.m. TECHNIQUE: PA and lateral. FINDINGS: Right-sided chest tube in stable position. Moderate partially loculated hydropneumothorax along with lower lobe airspace disease unchanged. Left hemithorax is clear. IMPRESSION: Right hydropneumothorax and airspace disease unchanged. No new acute process appreciated. <Electronically signed by Arsalan Gifford > 06/28/20 [id number]
[2020-06-28] MEDS: APIXABAN 5 MG TAB (ELIQUIS) PO SCH (09:02)
[2020-06-28] MEDS: DOCUSATE SODIUM 100MG CAPSULE PO SCH (09:03)
[2020-06-28] MEDS ORDERED: CLEO150C PO (09:26)
[2020-06-28] MEDS ORDERED: PROB250C PO (09:27)
--- NOTE | 2020-06-28 11:06 | DS.PDOC ---
Discharge Summary General Date of Admission Jun 23, 2020 at 15:10 Date of Discharge 06/28/20 Attending Physician: Lulu Caceres MD Discharge Summary HISTORY OF PRESENT ILLNESS: 44 yo M hx of adenocarcinoma of the lung on keytruda [id number], history of recurrent right sided pleural effusion with pleurex placement presenting with 3 day history of bilateral leg pain. On the left side, both located on calves. On the left leg this pain is localized higher up. No radiation, about 7/10 pain, non-progressive. 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 He notes he normally drains 50-100 cc of fluid, but yesterday drained almost 250 cc. Fluid color varies between serosanguinous and serous but never looks like pus. Endorses subjective fevers, last on gi, denies chills, nausea, vomiting, diarrhea, cough, dysuria or abdominal pain. No sick contacts. Of note, patient was recently admitted in Nov for sepsis 2/2 empyema and treated with ABX and chest tube drainage. In the ED, patient with CT scan showing 8mm lung nodule on right base, loculated apical pleural fluid, hilar and mediastinal lymphadenopathy. US bilateral legs showing superficial and DVTs, on the right this was in the superficial saphenous, and on the left this was in the popliteal vein. Furthermore, patient found to be febrile to 100.9F, hypoxic to 82% without O2 (not recorded), as well as tachycardic to 115s, with leukocytosis of 16.3 in the ED HOSPITAL COURSE: Patient was diagnosed with Right lung empyema 2/2 to MSSA and removal of right PleurX catheter took place by CT surgery. Pigtail catheter was placed after to help facilitate drainage of fluid of right lung. Fungal pleural studies were also done but did not return back before discharge. Sepsis gradually improved with initiation of vancomycin and later continued treatment with nafcillin. Initially patient was continued on heparin gtt while chest catheters were being removed and placed again. He was later transitioned to PO eliquis for continued treatment of bilateral DVT, provoked 2/2 to hx of cancer. Heme/oncology did see patient while inpatient and suggested iron infusion and f/u with their clinic after discharge. All other chronic issues remained stable. On 06/28/20 CT surgery removed pigtail catheter and patient was transitioned to PO clindamycin, probiotic on discharge. He remained on RA, had no acute complaints at discharge. PMHx: Stage 4 adenocarcinoma of the lung PSHx: pleurex catheter placement Allergies: NKDA Family history: none as per patient. No family hx of cancer Social: Ex smoker 1 PPD for 20 years. Denies alcohol or drug usage. 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 DISCHARGE MEDICATIONS: Please see below. PHYSICAL EXAMINATION: VS: Please see below GENERAL APPEARANCE: alert and oriented. In no acute distress HEENT: [place]. EOMI CARDIOVASCULAR: HS 1+ 2 present, no added sounds. Tachycardic LUNGS: Clear to auscultation bilaterally. No wheezing/crackles. Area where right pleurX drain was appears suppurative, serosanguinous drainage. Area where right lung has new pigtail catheter skin incision, slightly suppurative. No increased erythema or tenderness. ABDOMEN: soft, non-distended, non-tender to palpation. BS + MUSCULOSKELETAL: FROM EXTREMITIES: No pitting edema NEUROLOGICAL: No obvious CN abnormalities. No focal neurological deficits LABORATORY DATA: See below. MICROBIOLOGY: Pleural fluid aerobic Cx : Staph aureus Pleural fluid anaerobic cx: NG Pleural fluid fungal studies: pending BCx: NG IMAGING: CXR 06/27/20: 1. Air-fluid level in the right pleural cavity appears slightly elevated as compared to prior examination suggesting the possibility of fluid reaccumulation. 2. Remainder of the examination is unchanged. CXR 06/26/20: 1. Decreased fluid in the right hydropneumothorax with underlying right-sided pleuroparenchymal changes and stable right apical fluid collection. 2. Subtle left perihilar airspace disease cannot be excluded. CXR 06/25/20: Chest tube removed. Right-sided pleuroparenchymal changes again noted and without significant change. CXR 06/24/20: No significant change from prior examination. CT chest: 1. No pulmonary embolus identified. 2. Right-sided pleuroparenchymal changes as described above including pleural effusions, parenchymal disease, and mediastinal/bilateral hilar adenopathy. 3. Small new 8 mm right basilar nodule. US lower extremities : 1) Right lower extremity demonstrates focal area of nonocclusive thrombus in the proximal saphenous vein. 2) Left lower extremity demonstrates focal occlusive thrombus in the left p opliteal vein. MICROBIOLOGY: Please see below. Assessment: 44 yo M hx of stage 4 adenocarcinoma of the lung on keytruda [id number], history of recurrent right sided pleural effusion with pleurex place ment presenting with 3 day history of bilateral leg pain. In the ED diagnosed to have superficial venous thrombosis and DVTs in his legs as well as a loculated pleural fluid in apex and 8mm nodule in right lung base. Patient found to be tachycardic, hypoxic, febrile and with leukocytosis in ED. Patient admitted for treatment of DVTs and to rule out sepsis. PLAN: #Right lung empyema 07/29 to MSSA s/p removal of right PleurX catheter. Resolved sepsis -Afebrile overnight, WBC 15.5, saturating well on RA -CXR above -Pleural fluid Cx: MSSA -Other micro, see above -Pigtail catheter d/rand on 06/28/20 -Completed 3 days of IV nafcillin, to be discharged with Po clindamycin, probiotics x 10 days -Fungal studies can be f/u by CT surgery on appointment #ARETHA -H/H 8.11/22 -On last admission, this was normocytic -On 04/2020, folate, b12 WNL> Iron low at 11 with low normal ferritin levels (75). -S/p iron infusion 06/25/20 -Started on PO ferrous sulfate BID -Heme/onc following #Bilateral DVT, provoked given hx of cancer -Hem/onc to follow up as o/p -C/w PO eliquis #Hx of Tachycardia, with sepsis resolved -Unclear origin, stable -C/w home BB #Adenocarcinoma of the lung, Stage 4 -As per 05/[address] Carmona, patient had PET scan done May 05 showing chest wall completely encased in tumor. ?mesothelioma -S/P 2 doses Keytruda as of 05/29 -Follows with Dr. Billings in clinic. #DVT PPX -eliquis Resolved issues: #Hypokalemia, acute DISPOSITION: Discharge home today with f/u with both heme/onc and CT surgery.= TIME SPENT ON DISCHARGE: Greater than 30 minutes. Vital Signs/I&Os Vital Signs Date Time Temp Pulse Resp B/P (MAP) Pulse Ox O2 Delivery O2 Flow Rate FiO2 06/28/20 04:00 96.7 80 18 121/74 (90) 97 Room Air 06/26/20 11:44 I&O- Last 24 Hours up to 6 AM 06/28/20 06:00 Intake Total 2650 ml Output Total 1985 ml Balance 665 ml Laboratory Data Labs 24H Laboratory Tests 2 06/28/20 04:40: Nucleated Red Blood Cells % (auto) 0.0, Anion Gap 5L, Glomerular Filtration Rate > 60.0, Calcium Level 7.9L, Total Bilirubin 0.2, Aspartate Amino Transf (AST/SGOT) 13, Alanine Aminotransferase (ALT/SGPT) 57, Alkaline Phosphatase 89, Total Protein 6.3L, Albumin 2.2L, Albumin/Globulin Ratio 0.5 CBC/BMP Laboratory Tests 06/28/20 04:40 Microbiology Microbiology 06/24/20 Respiratory Virus Panel (PCR) ([facility]) - Final, Complete 06/24/20 Acid Fast Stain, Received Pending 06/24/20 Mycobacterial Culture, Received Pending 06/24/20 Fungal Smear, Received Pending 06/24/20 Fungal Culture, Received Pending 06/24/20 Gram Stain - Final, Complete 06/24/20 Anaerobic Culture - Final, Complete 06/24/20 Body Fluid Culture - Final, Complete Staphylococcus Aureus 06/23/20 Blood Culture - Preliminary, Resulted No Growth after 72 hours. All specime... 06/23/20 Blood Culture - Preliminary, Resulted No Growth after 72 hours. All specime... Discharge Medications Scheduled Apixaban (Eliquis) 5 Mg Tablet, 5 MG PO BID Clindamycin Hcl (Cleocin HCl) 150 Mg Capsule, 150 MG PO QID Metoprolol Succinate (Metoprolol Succinate) 50 Mg Tab.er.24h, 50 MG PO QHS, (Reported) Multivitamin (Multivitamins) 1 Each Tablet, 1 TAB PO DAILY, (Reported) Pembrolizumab (Keytruda) 100 Mg/4 Ml Vial, 200 MG IV Q3WK Saccharomyces Boulardii (Probiotic) 250 Mg Capsule, 250 MG PO BIDWM Scheduled PRN Acetaminophen (Acetaminophen) 325 Mg Tablet, 650 MG PO Q6HP PRN for PAIN OR FEVER Morphine Sulfate (Morphine Sulfate ER) 30 Mg Tablet.er, 30 MG PO BIDP PRN for pain Polyethylene Glycol 3350 (Miralax) 119 Gm Powder, 17 GM PO DAILY PRN for CONSTIPATION, (Reported) Allergies Coded Allergies: bee venom protein (honey bee) (Verified Allergy, Intermediate, anaphlaytic, 03/30/20) Lulu Caceres MD Jun 28, 2020 11:06
[2020-06-28] MEDS ORDERED: FERR325T3 PO (11:17)
[2020-06-28 12:00] VITALS: BP 133/82
--- NOTE | 2020-06-28 12:37 | IPN ---
PROGRESS NOTE DATE: 06/28/2020 SUBJECTIVE: Mr. Harrell's chest tube output is considerably down and his chest x-ray is unchanged from yesterday. He has been afebrile and therefore, I have no objection to him leaving. I have removed his pigtail catheter. OBJECTIVE: VITAL SIGNS: Show a T-max of 97.8 with a heart rate that ranges between 78 and 80 in sinus rhythm. Respiratory rate of 18 to 20 without the use of accessory muscles. He was 96% to 97% saturated on room air and his blood pressure is ranging between 122/77 to 121/74. INTAKE AND OUTPUT: Over the past 24 hours has been recorded as 2100 in and 1930 out for a posteriorly of 170 mL. He has put out 138 mL in the chest tube. There is no air leak. RESPIRATORY: He still has decreased breath sounds on the right side with a dull percussion note at the base. Left side shows normal vesicular sounds. I do see what I think is tumor growing through the chest wall into the incision sites where the PleurX catheter was. CARDIAC: Without murmurs, clicks, gallops, or rubs. I cannot feel his PMI. S1 and S2 are normal. ABDOMEN: Soft and nontender. Bowel sounds are positive. There is no hepatomegaly. No CVA tenderness. EXTREMITIES: Show no pretibial edema. No calf tenderness. No differential swelling of the upper extremities. SKIN: Warm, dry, and perfused without cyanosis or mottling, including that of the nail beds and knees. NECK: Supple. There is no jugular venous distention. No subcutaneous emphysema. Trachea is midline. MOUTH: Shows the mucous membranes to be pink and moist. Lips and gums without lesions and no thrush. EYES: Show his pupils equal and reactive. Extraocular movements are intact. Sclerae nonicteric. NEUROLOGIC: Shows II through XII intact. Normal gross motor, gross sensation intact. Gait is not tested. PSYCHIATRIC: Shows his to be awake, alert, and oriented x3 with appropriate mood and affect and conversational. LABORATORY DATA: His white count today is 15.5 slightly up from 14.0 yesterday. Hemoglobin and hematocrit are 8.5 and 29.5 respectively with a platelet count of 786,000. His electrolytes are essentially normal with a BUN and creatinine of 7 and 0.63 with a calcium of 7.9 and an albumin of 2.2. AST and ALT are normal. IMAGING: His chest x-ray is unchanged from yesterday. He still has an air fluid level anteriorly and there is a bit of an air fluid level posteriorly on the lateral film with the PleurX catheter is. There is still the small collection of the of the right chest. PLAN AND DISCUSSION: I have discussed with Dr. Caceres of the hospitalist service and I have no objection to him being discharged today. He will come back to see me in 7-10 days. I will obtain a radiation/oncology consult when he comes back to see me to potentially radiate the chest wall where the tumor is starting to erode through the skin. This will be palliative in nature. I have indicated to him that he should call the office should he become short of breath or start to have fever, chills, or sweats. We will send him home for p.o. antibiotics for 10 days.
[2020-06-30] MEDS ORDERED: MORP20SO PO (16:47)
[2020-06-30] MEDS ORDERED: MORP1TAB19 PO (16:47)
[2020-06-30] MEDS ORDERED: MORP20SO3 PO (17:51)
--- NOTE | 2020-07-01 08:36 | REP ---
INDICATION: pig tail to pleur-evac, . COMPARISON: None. TECHNIQUE: The procedure was performed under the personal supervision of Dr. Little. The risks and benefits of the procedure were explained to the patient and informed consent was obtained. The right pleural effusion was localized using ultrasound guidance. The skin was prepped and draped in a sterile fashion. 1% lidocaine was used as a local anesthetic. Using ultrasound guidance a 10 [place] Skater APDL catheter was inserted using trocar technique. 45 cc of low viscosity red colored fluid was withdrawn. The catheter was affixed to the skin and a sterile dressing was applied. The catheter was connected to a pleur-evac. The patient tolerated the procedure well and there were no immediate complications. FINDINGS: None IMPRESSION: Ultrasound-guided right thoracentesis with pigtail catheter placement. 45 cc of low viscosity, red colored fluid was withdrawn. <Electronically signed by Josh Burch > 06/25/20 [id number] <Electronically signed by Cecil Little > 07/01/20 [id number]
== END 2020-06-28 13:55 | disposition home or self-care (01) | DRG 721 ==
LOC: M ED 10:37 → M ED INP 15:10 → M PCU 21:15
PROVIDERS: ADMIT Family Medicine; ATTEND Internal Medicine
PROC: 0WP9X0Z Removal of Drainage Device from Right Pleural Cavity, External Approach (ICD-10-PCS; principal; 2020-06-24)
PROC: 0W993ZZ Drainage of Right Pleural Cavity, Percutaneous Approach (ICD-10-PCS; 2020-06-25)
DX: T85.79XA Infection and inflammatory reaction due to other internal prosthetic devices, implants and grafts, initial encounter (principal); J86.9 Pyothorax without fistula; A41.9 Sepsis, unspecified organism; I82.432 Acute embolism and thrombosis of left popliteal vein; I82.811 Embolism and thrombosis of superficial veins of right lower extremity; C34.90 Malignant neoplasm of unspecified part of unspecified bronchus or lung; Z87.891 Personal history of nicotine dependence; D50.9 Iron deficiency anemia, unspecified; E87.6 Hypokalemia; Z79.899 Other long term (current) drug therapy; Z91.030 Bee allergy status; Y84.8 Other medical procedures as the cause of abnormal reaction of the patient, or of later complication, without mention of misadventure at the time of the procedure

== ENCOUNTER → 2020-07-03 | Outpatient (CLI) | payer OTHER ==
[~2020-07-03] MED LIST changes: +ACET1TAB55 PO; +CLEO150C PO; +ELIQ5TAB PO; +FERR325T3 PO; +MORP15TA2 PO; +MORP1TAB19 PO; +MORP20SO PO; +MORP20SO3 PO; +MULT-40 PO; +PROB250C PO
--- NOTE | 2020-07-03 08:23 | REPPI ---
INDICATION: MALIGNAT NEOPLASM OF UNSP BRONCHUS OR LUNG AND PLEURAL EFFUS COMPARISON: 06/28/2020 TECHNIQUE: PA and lateral. FINDINGS: Continued moderate right hydropneumothorax with air-fluid level similar to prior examination. Previously noted right basilar chest tube has been removed. Left hemithorax is clear. No cardiomegaly. IMPRESSION: Moderate to large right hydropneumothorax essentially unchanged. <Electronically signed by Arsalan Gifford > 07/03/20 [id number]
== END ==
LOC: M PLAIMG 08:06
PROVIDERS: ATTEND Thoracic Surgery (Cardiothoracic Vascular Surgery)
DX: C34.90 Malignant neoplasm of unspecified part of unspecified bronchus or lung (principal); J91.0 Malignant pleural effusion

== ENCOUNTER → 2020-07-10 | Outpatient (CLI) | payer OTHER ==
--- NOTE | 2020-07-10 10:41 | RADONC.CN ---
Radiation Oncology Hx/Consult Radiation Oncology Consult Date of Service: Jul 10, 2020 Pt Identifier Felipe Harrell is a 44 year old male former smoker with a [id number] (effusion/pleural involvement) NSCLC of the right hemithorax. He has been undergoing keytruda monotherapy and is seen today for consideration of palliative RT to tumor seeded along the tract of prior chest tube. Diagnosis/Treatment History Oncologic History Patient was admitted in January 2020 with a large right sided effusion which was drained a revealed hemothorax. Cytology on this specimen from 03/30/20 revealed adenocarcinoma with 90% PDL1 expression. He had a pleurex catheter placed due to reaccumulation, he was admitted in April 2020 with pneumonia and recovered. He was diagnosed with DVT in May 2020 and started on apixaban. He had his pleurex removed on 06/24/20 due to empyema concerns. At the time of removal he was noted to have tumor present in the skin and subcutaneous tissues along the course of the chest tube. This is best seen on his CT angio chest from 06/23/20. He is now s/p 3 doses of keytruda last on 07/08/20 (first on 05/05/20). Interval History Felipe is here alone. He is back to work. Has REYES which is manageable. No pain to speak of. Thinks that the cutaneous lesions along the right chest are decreasing in size. These are only painful if touched. His appetite and energy levels are good. Wearing a fitbit, exercising. Leg pain from DVTs resolved. No fevers, chills, CP. He has been having some pale yellow drainage from the chest tube site persistent. Past Medical History: None Past Surgical History: As above Family History: No family history of cancer Social History: 15 pack year former smoker Drinks occasionally Allergies / Meds Allergies: Coded Allergies: bee venom protein (honey bee) (Verified Allergy, Intermediate, anaphlaytic, 03/30/20) Home Meds Active Scripts Morphine Sulfate (Morphine Sulfate) 100 Mg/5 Ml Solution, 7.5 MG PO 6XD PRN for PAIN LEVEL 3-5 MDD 30 mg for 15 Days, #60 TAB 0 Refills Use 1/2 tab of 15 mg po Q4 hrs as needed Prov:MICHAEL JADE MD 06/30/20 Ferrous Sulfate (Ferrous Sulfate) 325 Mg Tablet.dr, 1 TAB PO BID for 30 Days, #60 TAB Prov:Lulu Caceres MD 06/28/20 Saccharomyces Boulardii (Probiotic) 250 Mg Capsule, 250 MG PO BIDWM for 14 Days, #28 CAP Prov:Lulu Caceres MD 06/28/20 Acetaminophen (Acetaminophen) 325 Mg Tablet, 650 MG PO Q6HP PRN for PAIN OR FEVER for 7 Days, #56 TAB Prov:Lulu Caceres MD 06/28/20 Apixaban (Eliquis) 5 Mg Tablet, 5 MG PO BID for 30 Days, #60 TAB Prov:Lulu Caceres MD 06/28/20 Morphine Sulfate (Morphine Sulfate ER) 30 Mg Tablet.er, 30 MG PO BIDP PRN for pain MDD 2 Tablet(s) for 30 Days, #60 TAB Prov:MICHAEL JADE MD 06/10/20 Pembrolizumab (Keytruda) 100 Mg/4 Ml Vial, 200 MG IV Q3WK for 21 Days, #14 VIAL 3 Refills Prov:MICHAEL JADE MD 04/25/20 Reported Medications Multivitamin (Multivitamins) 1 Each Tablet, 1 TAB PO DAILY, TAB 06/23/20 Metoprolol Succinate (Metoprolol Succinate) 50 Mg Tab.er.24h, 50 MG PO QHS 05/16/20 Polyethylene Glycol 3350 (Miralax) 119 Gm Powder, 17 GM PO DAILY PRN for CONST IPATION 04/15/20 Discontinued Scripts Clindamycin Hcl (Cleocin HCl) 150 Mg Capsule, 150 MG PO QID for 10 Days, #40 CAP Prov:Lulu Caceres MD 06/28/20 Morphine Sulfate (Morphine Sulfate) 20 Mg/5 Ml Solution, 5 MG PO Q4H PRN for PAIN MDD 30 MG for 5 Days, #38 ML Prov:MICHAEL JADE MD 06/30/20 Review of Systems Constitutional: Denies: Chills, Fever, Night Sweats Eyes: Denies: Pain, Vision change HEENT: Denies: Head Aches, Dysphagia, Sore Throat Skin: Denies: Rash, Lesions, Bruising Pulmonary: Reports: Dyspnea; Denies: Cough, Pleuritic Chest Pain, Other Symptoms Cardiovascular: Denies: Chest Pain, Palpitations, Edema Gastrointestinal: Denies: Nausea, Vomiting, Abdominal Pain, Diarrhea Genitourinary: Denies: Dysuria, Frequency, Incontinence Hematologic: Denies: Bruising, Petecchia, Enlarged Lymph Nodes Neurological: Denies: Weakness, Numbness, Incoordination Psych: Reports: Mood Normal; Denies: Memory Issues, Thoughts of Self Harm Vital Signs Ht 71" Wt 153 lb BMI 21 P 107 RR 16 BP 110/76 O2 99% Pain 0 Fatigue 0 General Exam: Positive: Alert, Cooperative, No Acute Distress Eye Exam: Positive: PERRLA, EOMI ENT EXAM: Positive: Mucous membr. moist/pink, Pharynx Normal Neck Exam: Negative: Thyromegaly, Lymphadenopathy Chest Exam: Negative: Normal air movement (Audible air movement BL, diminished on right, no rales or rhonchi), Rales, Rhonchi, Wheezing Heart Exam: Positive: Rate Normal, Regular Rhythm Abdomen Exam: Positive: Soft; Negative: Tenderness, Mass Extremity Exam: Negative: Edema, Tenderness Skin Exam: Positive: Nl turgor and temperature Neuro Exam: Positive: Normal Gait, Normal Speech, Cranial Nerves 3-12 NL Psych Exam: Positive: Mental status NL, Mood NL, Memory Intact Other Physical Findings On exam of the right chest wall there is a dressing of the tube insertion site on the inferior anterolateral right chest, there is scant drainage on the bandage, yellow colored no blood or pus. There is palpable tumor present in the tube insertion extending posteriorly along its prior tunnelled course. There are 2 cutaneous deposits that are nodular and violaceous and tender to touch posterior and superior to the tube insertion site, there is no ulceration but these nodules are very close to the skin surface. Diagnostic and Laboratory Diagnostic Review Radiologic images, relevant labs and pathology reports were personally reviewed and discussed with Mr. Harrell. Assessment and Plan Impression Mr. Harrell is a 44 year old male with a history of [id number] (effusion/pleural involvement) NSCLC of the right hemithorax. He has been undergoing keytruda monotherapy and is seen today for consideration of palliative RT to tumor seeded along the tract of prior chest tube. Stage NSCLC right lung stage FLORES [id number] with extensive pleural involvement Performance Status ECOG 0 Plan We had an extensive discussion with Mr. Harrell regarding the diagnosis at hand and available therapeutic options. He has metastatic deposits along the site of prior chest tube, there is continued drainage from the insertion site now 2 weeks post removal, this suggests a fistulous tract, not surprising given that tumor is palpable in the insertion. I explained that this is unlikely to heal spontaneously and fully without controlling the tumor there. Radiation offers that chance, but it is possible that the fistulous drainage will persist even if we obtain control over the lesions. He does seem to be having a positive response to the keytruda, as he asserts the cutaneous nodules on the right chest wall are smaller and have not broken through the skin. We discussed that he would most probably benefit from radiation to the right chest wall. I recommend a palliative dose of 30 Gy in 10 fractions using 3D planning, photons, and a bolus to increase skin dose. He would tolerate this well with only anticipated side effect mild skin reaction which will be self limited. This dose is unlikely to compromise his skin and otherwise healthy tissues from healing once tumor is eradicated. I do not see utility in targeting other pleural deposits of tumor except in the consolidative setting, if there is focal persistence after an otherwise excellent radiographic response to keytruda. We discussed the logistics of receiving radiation therapy in detail including the need for a 1-time planning session. After discussing the risks, benefits and alternatives to radiation therapy, Mr. Harrell was amenable to pursuing radiotherapy. All questions were answered to the patient's satisfaction. We instructed the patient that if there were any questions,concerns or changes in clinical status in the interim to contact us. Recommendations Palliative RT to chest tube site tumor deposits 30 Gy in 10 fractions Simulation in the coming days DARLENE BEAR MD Jul 10, 2020 09:53
== END ==
LOC: M ONCR 07:52
PROVIDERS: ATTEND General Practice
DX: C34.91 Malignant neoplasm of unspecified part of right bronchus or lung (principal)

== ENCOUNTER → 2020-07-24 | Outpatient (CLI) | payer OTHER ==
--- NOTE | 2020-07-24 09:20 | REPPI ---
INDICATION: PLEURAL EFFUSION/MALIGNANT NEOPLASM OF UNSP BRONCHUS OR LUNG COMPARISON: 07/03/2020 TECHNIQUE: PA and lateral. FINDINGS: Right-sided pleuroparenchymal changes including moderate hydropneumothorax with air-fluid level essentially unchanged. Left hemithorax is relatively clear. Visualized portions of the mediastinum and cardiac silhouette are normal. Skeletal structures are intact. IMPRESSION: Right-sided hydropneumothorax and pleuroparenchymal changes essentially stable. <Electronically signed by Arsalan Gifford > 07/24/20 0916
== END ==
LOC: M PLAIMG 08:12
PROVIDERS: ATTEND Thoracic Surgery (Cardiothoracic Vascular Surgery)
DX: J94.8 Other specified pleural conditions (principal); C34.90 Malignant neoplasm of unspecified part of unspecified bronchus or lung; J91.0 Malignant pleural effusion

== ENCOUNTER 2020-07-25 08:30 | Outpatient (RCR) | payer OTHER | END 2020-07-27 | LOC: M ONCR 08:30 | PROVIDERS: ATTEND General Practice | DX: C34.11 Malignant neoplasm of upper lobe, right bronchus or lung (principal) ==

== ENCOUNTER 2020-08-01 08:30 | Outpatient (RCR) | payer OTHER ==
[2020-08-01] MEDS ORDERED: MORP15TA2 PO (13:26)
[2020-08-08] MEDS ORDERED: MORP30TASA PO ×2 (13:54→14:07)
== END 2020-08-24 ==
LOC: M ONCR 08:30
PROVIDERS: ATTEND General Practice
DX: C34.11 Malignant neoplasm of upper lobe, right bronchus or lung (principal)

== ENCOUNTER → 2020-08-29 | Outpatient (CLI) | payer OTHER, MEDICAID ==
[~2020-08-29] MED LIST changes: +ISOVUE-370 76% 100ML VIAL As Ordered ONE
--- NOTE | 2020-08-29 13:53 | REP ---
INDICATION: LUNG CA, SOB, CHEST PAIN COMPARISON: 07/11/2020, 06/23/2020 TECHNIQUE: Axial contrast enhanced images from the thoracic inlet to the upper abdomen with coronal and sagittal reformations using 75 ml Isovue 370 intravenous contrast material. This CT examination was performed using the following dose reduction techniques: Automated exposure control, adjustment of mA and/or kv according to the patient's size, and use of iterative reconstruction technique. FINDINGS: Cyst/loculated pleural fluid at the right apex again identified and measuring approximately 5.1 cm diameter. Right-sided pleuroparenchymal changes including presumed chronic scarring as well as elements of pleural thickening are again identified. Small pleural effusion, right lower lobe atelectasis, and linear atelectatic changes emanating from the tobi are identified but relatively improved as compared with prior examinations. Small new area of platelike atelectasis at the lingula identified on current examination. Mediastinal, prevascular and hilar adenopathy again noted. Underlying chronic emphysematous changes again noted. Tracheobronchial tree is relatively patent. Mediastinum demonstrates normal thoracic aorta, pulmonary vasculature and heart/pericardium. Osseous structures are intact and without acute focal abnormality. Limited upper abdomen demonstrates normal bilateral adrenal glands. IMPRESSION: 1. Right-sided pleuroparenchymal changes as described above along with chronic emphysematous changes are again noted. 2. Right pleural effusion and elements of atelectasis appear improved as compared with prior examinations. Residual cystic area at the right apex remains stable and may represent loculated pleural fluid. 3. New area of atelectasis at the lingula. 4. Mediastinal/hilar adenopathy similar to prior examination. <Electronically signed by Arsalan Gifford > 08/29/20 [id number]
== END ==
LOC: M RAD 13:08
PROVIDERS: ATTEND Specialist
DX: C34.90 Malignant neoplasm of unspecified part of unspecified bronchus or lung (principal)
CPT/HCPCS: 71260; Q9967

== ENCOUNTER → 2020-11-11 | Outpatient (CLI) | payer OTHER, MEDICAID ==
[~2020-11-11] MED LIST changes: -ISOVUE-370 76% 100ML VIAL As Ordered ONE
--- NOTE | 2020-11-11 13:16 | RADONC ---
Radiation Oncology Hx/FUP Radiation Oncology Hx/FUP Date of Service: November 11, 2020 Pt Identifier Felipe Harrell is a 45 year old male current smoker with stage FLORES [id number] (effusion/pleural involvement) NSCLC of the right hemithorax. He remains on keytruda monotherapy during which he underwent palliative RT to tumor seeded along the tract of prior chest tube 30 Gy in 10 fractions completed 08/01/20. He is seen today for routine follow up. Diagnosis/Treatment History Oncologic History Patient was admitted in January 2020 with a large right sided effusion which was drained a revealed hemothorax. Cytology on this specimen from 03/30/20 revealed adenocarcinoma with 90% PDL1 expression. He had a pleurex catheter placed due to reaccumulation, he was admitted in April 2020 with pneumonia and recovered. He was diagnosed with DVT in May 2020 and started on apixaban. He had his pleurex removed on 06/24/20 due to empyema concerns. At the time of removal he was noted to have tumor present in the skin and subcutaneous tissues along the course of the chest tube. This is best seen on his CT angio chest from 06/23/20. He is on keytruda from 05/05/20. 07/21/20-08/01/20 30 Gy in 10 fractions to his chest tube tract with seeded tumor along its course. Tract closed by the end of RT. 08/29/20 CT chest stable pleural collections in the RUL and RLL. Interval History Mj reports he is feeling well. Gaining weight. Fully active, working full days without difficulty. Has minimal SOB and REYES. He has no concerns at the site of RT. No drainage from the prior fistula. No pain in the chest. Does have some right leg pain which he attributes to sitting in his work van. Current Therapy Keytruda monotherapy Stage NSCLC stage FLORES [id number] Social History: Current 1/2 ppd smoker Does not drink Allergies / Meds Allergies: Coded Allergies: bee venom protein (honey bee) (Verified Allergy, Intermediate, anaphlaytic, 03/30/20) Home Meds Active Scripts Ferrous Sulfate (Ferrous Sulfate) 325 Mg Tablet., 1 TAB PO BID for 30 Days, #60 TAB Prov:Lulu Caceres MD 06/28/20 Saccharomyces Boulardii (Probiotic) 250 Mg Capsule, 250 MG PO BIDWM for 14 Days, #28 CAP Prov:Lulu Caceres MD 06/28/20 Apixaban (Eliquis) 5 Mg Tablet, 5 MG PO BID for 30 Days, #60 TAB Prov:Lulu Caceres MD 06/28/20 Pembrolizumab (Keytruda) 100 Mg/4 Ml Vial, 200 MG IV Q3WK for 21 Days, #14 VIAL 3 Refills Prov:MICHAEL BILLINGS MD 04/25/20 Reported Medications Multivitamin (Multivitamins) 1 Each Tablet, 1 TAB PO DAILY, TAB 06/23/20 Metoprolol Succinate (Metoprolol Succinate) 50 Mg Tab.er.24h, 50 MG PO QHS 05/16/20 Polyethylene Glycol 3350 (Miralax) 119 Gm Powder, 17 GM PO DAILY PRN for CONSTIPATION 04/15/20 Review of Systems Review of Systems Constitutional: Denies: Chills, Fever, Fatigue, Weight Loss Eyes: Denies: Pain HEENT: Denies: Head Aches Skin: Denies: Rash, Lesions Pulmonary: Denies: Dyspnea, Cough Cardiovascular: Denies: Chest Pain Gastrointestinal: Denies: Abdominal Pain Endocrine: Denies: Cold Intolerance Musculoskeletal: Denies: Neck pain, Back pain Neurological: Denies: Weakness, Numbness Psych: Reports: Mood Normal Physical Examination Vital Signs Ht 70" Wt 154 lbs T 97.8 P 83 RR 18 BP 115/78 O2 98% Pain 0 Fatigue 1 General Exam: Positive: Alert, Cooperative, No Acute Distress Eye Exam: Positive: PERRLA, EOMI ENT EXAM: Positive: Atraumatic Neck Exam: Positive: Supple Chest Exam: Positive: Clear to auscultation, Normal air movement, Diminished (RUL), Other (At the site of prior chest tube right lateral chest there is a healed scar without drainage where the tract was previously. There is mild palpable grade 1 fibrosis in the sub-cutaneous tissues encompassing the RT fi eld. There is associated mild hyperpigmentation over the RT field as well. No tenderness to palpation, no discernible masses. ) Heart Exam: Positive: Rate Normal, Regular Rhythm Abdomen Exam: Positive: Soft Extremity Exam: Negative: Edema Skin Exam: Positive: Nl turgor and temperature Neuro Exam: Positive: Normal Gait, Normal Speech, Cranial Nerves 3-12 NL Psych Exam: Positive: Mental status NL Diagnostic and Laboratory Diagnostic Review Radiologic images, relevant labs and pathology reports were personally reviewed and discussed with Mr. Harrell. Assessment and Plan Impression Assessment Mr. Harrell is a 45 year old male current smoker with a history of stage FLORES [id number] (effusion/pleural involvement) NSCLC of the right hemithorax. He remains on keytruda monotherapy during which he underwent palliative RT to tumor seeded along the tract of prior chest tube 30 Gy in 10 fractions completed 08/01/20. He is seen today for routine follow up. He is doing well. There is no drainage or residual mass associated with the chest tube tract. He has no functional limitations or severe side effects of RT (grade 1 fibrosis and hyperpigmentation are present). I reviewed his August [address] chest and the remainder of disease is stable. I do not think there are any indications for additional radiation at this time. Dr. Billings is following him closely with next scans planned for November 2020. Thus I can see Mj as needed. I furnished my contact information and told him to call anytime, alternatively Dr. Billings could re-refer him should any additional RT needs arise. Performance Status ECOG 0 Plan No additional RT indicated Follow up as needed Mr. Harrell was encouraged to call with questions or concerns in the interim period. Billing Statement Total time of [20] minutes was spent preparing for the visit [1], obtaining HPI [4], examining the patient [2], reviewing diagnostic tests [2], discussing management options [4], coordinating care [0], and writing this note [7]. DARLENE BEAR MD November 11, 2020 13:16
== END ==
LOC: M ONCR 11:29
PROVIDERS: ATTEND General Practice
DX: C34.11 Malignant neoplasm of upper lobe, right bronchus or lung (principal)

== ENCOUNTER → 2020-12-05 | Outpatient (CLI) | payer BC, MEDICAID ==
[~2020-12-05] MED LIST changes: +ISOVUE-370 76% 100ML VIAL As Ordered ONE
--- NOTE | 2020-12-08 03:33 | REP ---
INDICATION: NON SMALL CELL LUNG CA FOLLOW UP COMPARISON: 08/29/2020, 06/23/2020 TECHNIQUE: Axial contrast enhanced images from the thoracic inlet to the upper abdomen with 100 ml Isovue 370 intravenous contrast material followed by CT of the abdomen and pelvis. Coronal and sagittal reformations obtained. This CT examination was performed using the following dose reduction techniques: Automated exposure control, adjustment of mA and/or kv according to the patient's size, and use of iterative reconstruction technique. FINDINGS: 3.8 cm round residual loculated pleural collection (previously 5.5 cm) identified at the right apex along with small minimally decreased chronic right basilar pleural fluid with relatively chronic-appearing right-sided fibroatelectatic changes which may be slightly decreased from prior examination. Subtle area of presumed scarring also identified at the lingula which is improved as well. No new acute consolidation, obvious nodule or mass lesion is appreciated. Chronic emphysematous changes with mild bronchiectasis again noted. Few mediastinal and bilateral hilar (right greater than left) lymph nodes are again identified and minimally decreased in size. Further evaluation demonstrates normal/stable thoracic aorta, pulmonary vasculature, and heart/pericardium. Normal thyroid gland by CT evaluation noted. Surrounding musculoskeletal structures without acute osseous abnormality. IMPRESSION: 1. Loculated right apical pleural collection and right basilar pleural fluid as well as associated right-sided fibroatelectatic changes appear slightly improved when compared with 08/29/2020. Mild mediastinal/hilar adenopathy is also noted but decreased in size. 2. No new acute mediastinal or pleuroparenchymal process appreciated. <Electronically signed by Arsalan Gifford > 12/08/20 [id number]
--- NOTE | 2020-12-08 03:36 | REP ---
INDICATION: NON SMALL CELL LUNG CA FOLLOW UP. COMPARISON: None TECHNIQUE: Axial contrast-enhanced images from the lung bases to the pubic symphysis using 100 cc Isovue 370 intravenous contrast material. . This CT examination was performed using the following dose reduction techniques: Automated exposure control, adjustment of mA and/or kv according to the patient's size, and the use of iterative reconstruction technique. FINDINGS: Liver, spleen, pancreas, gallbladder, bilateral adrenal glands and kidneys are normal. The enteric system including stomach, small, and large bowel appears normal. No evidence for obstruction or acute inflammatory process. Normal terminal ileum and appendix are identified in the right lower quadrant. Pelvis demonstrates normal bladder and age-appropriate prostate/seminal vesicles. No ascites. No free air. No intraperitoneal or retroperitoneal adenopathy. Abdominal aorta and vasculature appear normal. Musculoskeletal structures are intact and without acute osseous abnormality. IMPRESSION: No acute abdominopelvic pathology appreciated. Specifically, no evidence for metastatic disease, adenopathy, or ascites. <Electronically signed by Arsalan Gifford > 12/08/20 1231
== END ==
LOC: M RAD 13:31
PROVIDERS: ATTEND Specialist
DX: C34.91 Malignant neoplasm of unspecified part of right bronchus or lung (principal)
CPT/HCPCS: 71260; 74177; Q9967

== ENCOUNTER → 2021-02-11 | Outpatient (CLI) | payer BC, OTHER ==
[~2021-02-11] MED LIST changes: +MORP1SOL5 PO; -MORP20SO3 PO; +WARF4TAB51 PO
--- NOTE | 2021-02-11 21:28 | REP ---
INDICATION: LUNG CA COMPARISON: 12/05/2020 TECHNIQUE: Axial contrast enhanced images from the thoracic inlet to the upper abdomen with coronal and sagittal reformations using 75 ml Isovue 370 intravenous contrast material. This CT examination was performed using the following dose reduction techniques: Automated exposure control, adjustment of mA and/or kv according to the patient's size, and use of iterative reconstruction technique. FINDINGS: 2.5 cm round essentially low-density collection/lesion in the right apex has gradually decreased in size and may represent small loculated pleural collection although small amount of soft tissue cannot be excluded. Right-sided pleuroparenchymal changes including pleural thickening/small effusion and scattered fibrosis/scarring remains relatively unchanged compared with 12/05/2020. Left hemithorax is relatively stable. Few small noncalcified nodules up to 3.5 mm primarily noted in the left upper lobe (series 201; images 61, 68) unchanged. Underlying bilateral chronic emphysematous changes are once again appreciated. Significant mediastinal and bilateral hilar adenopathy is again noted including subcarinal lymph nodes measuring 18 mm short axis diameter. Further evaluation of the mediastinum demonstrates normal stable thoracic aorta, pulmonary vasculature, and heart/pericardium. Mild atherosclerotic changes to the coronary arteries cannot be excluded. No cardiomegaly or pericardial effusion. Musculoskeletal structures intact and without acute osseous process. IMPRESSION: 1. Right-sided pleuroparenchymal changes along with mediastinal/bilateral hilar adenopathy and few small scattered noncalcified nodules again noted and relatively similar to prior examination as detailed above. 2. No obvious new acute process appreciated. <Electronically signed by Arsalan Gifford > 02/11/21 [id number]
== END ==
LOC: M RAD 15:54
PROVIDERS: ATTEND Specialist
DX: C34.90 Malignant neoplasm of unspecified part of unspecified bronchus or lung (principal)
CPT/HCPCS: 71260; Q9967

== ENCOUNTER → 2021-06-05 | Outpatient (CLI) | payer BC, OTHER | LOC: M RAD 13:50 | PROVIDERS: ATTEND Internal Medicine Hematology & Oncology | DX: C34.90 Malignant neoplasm of unspecified part of unspecified bronchus or lung (principal); R91.8 Other nonspecific abnormal finding of lung field | CPT/HCPCS: 71260; Q9967 ==

== ENCOUNTER → 2021-08-28 | Outpatient (CLI) | payer BC, OTHER | LOC: M RAD 07:34 | PROVIDERS: ATTEND Specialist | DX: C34.91 Malignant neoplasm of unspecified part of right bronchus or lung (principal) | CPT/HCPCS: 71260; Q9967 ==

== ENCOUNTER → 2021-09-02 | Outpatient (CLI) | payer BC, OTHER ==
[~2021-09-02] MED LIST changes: -ISOVUE-370 76% 100ML VIAL As Ordered ONE
== END ==
LOC: M SOG 08:16
PROVIDERS: ATTEND Orthopaedic Surgery Adult Reconstructive Orthopaedic Surgery
DX: M25.562 Pain in left knee (principal)

== ENCOUNTER → 2021-09-07 | Outpatient (CLI) | payer BC, OTHER ==
[~2021-09-07] MED LIST changes: +LIDOCAINE 1% MDV 20ML VIAL As Ordered ONE
[2021-09-07 10:42] VITALS: BP 133/86
== END ==
LOC: M IRPRO 09:53
PROVIDERS: ATTEND Specialist
DX: C77.3 Secondary and unspecified malignant neoplasm of axilla and upper limb lymph nodes (principal); C34.90 Malignant neoplasm of unspecified part of unspecified bronchus or lung

== ENCOUNTER → 2021-10-06 | Outpatient (CLI) | payer BC, OTHER ==
[~2021-10-06] MED LIST changes: -LIDOCAINE 1% MDV 20ML VIAL As Ordered ONE
== END ==
LOC: M ONCR 08:34
PROVIDERS: ATTEND General Practice
DX: C34.11 Malignant neoplasm of upper lobe, right bronchus or lung (principal); F17.210 Nicotine dependence, cigarettes, uncomplicated; Z92.3 Personal history of irradiation

== ENCOUNTER 2021-10-23 10:17 | Outpatient (RCR) | payer BC, OTHER | END 2021-10-24 | LOC: M ONCR 10:17 | PROVIDERS: ATTEND General Practice | DX: C34.11 Malignant neoplasm of upper lobe, right bronchus or lung (principal) | CPT/HCPCS: 77290; 77295; 77300; 77332; 77334; 77336; 77387; 77412; G0463 ==

== ENCOUNTER 2021-10-27 10:17 | Outpatient (RCR) | payer BC, OTHER ==
[2021-11-05] MEDS ORDERED: METO1TAB7 PO (15:43)
== END 2021-11-24 ==
LOC: M ONCR 10:17
PROVIDERS: ATTEND General Practice
DX: C34.11 Malignant neoplasm of upper lobe, right bronchus or lung (principal)

== ENCOUNTER → 2022-01-06 | Outpatient (CLI) | payer BC, OTHER ==
[~2022-01-06] MED LIST changes: -GNP80CHW PO; +SIME80TA PO
== END ==
LOC: M ONCR 08:18
PROVIDERS: ATTEND General Practice
DX: C34.11 Malignant neoplasm of upper lobe, right bronchus or lung (principal); M79.2 Neuralgia and neuritis, unspecified; F17.210 Nicotine dependence, cigarettes, uncomplicated; Z79.01 Long term (current) use of anticoagulants; Z79.899 Other long term (current) drug therapy; Z91.030 Bee allergy status

== ENCOUNTER → 2022-01-29 | Outpatient (CLI) | payer BC, OTHER ==
[~2022-01-29] MED LIST changes: +ISOVUE-370 76% 100ML VIAL As Ordered ONE
== END ==
LOC: M RAD 15:44
PROVIDERS: ATTEND Specialist
DX: C34.90 Malignant neoplasm of unspecified part of unspecified bronchus or lung (principal); R59.0 Localized enlarged lymph nodes
CPT/HCPCS: 71260; Q9967

== ENCOUNTER → 2022-03-22 | Outpatient (CLI) | payer BC ==
[~2022-03-22] MED LIST changes: +GASTROGRAFIN SOLUTION 30ML (Q9963) As Ordered ONE
== END ==
LOC: M RAD 15:42
PROVIDERS: ATTEND Nurse Practitioner
DX: R91.8 Other nonspecific abnormal finding of lung field (principal); R59.1 Generalized enlarged lymph nodes; R93.3 Abnormal findings on diagnostic imaging of other parts of digestive tract
CPT/HCPCS: 74177; Q9963; Q9967

== ENCOUNTER 2022-04-18 18:50 | Inpatient (IN) | payer BC ==
[~2022-04-18] VITALS: Ht 175.3 cm; Wt 80.1 kg
[~2022-04-18 18:50] MED LIST changes: +DEXA4TA PO; +FOLI1TAB11 PO; -GASTROGRAFIN SOLUTION 30ML (Q9963) As Ordered ONE; -ISOVUE-370 76% 100ML VIAL As Ordered ONE; +ONDA-84 PO; +PROC10TA5 PO
[2022-04-18] MEDS ORDERED: NS 1,000 ML IV ONE (19:15)
[2022-04-18] MEDS ORDERED: ONDANSETRON 4MG 2ML VIAL IV ONE (19:35)
[2022-04-18] MEDS: MORPHINE 4 MG/ML 1ML VIAL/SYRINGE IV PRN ×2 (20:08→21:16)
[2022-04-18 20:13] LABS: BASO # 0.1 10^3/uL (0.0-0.2); BASO % 0.2 % (0.0-1.0); HEMATOCRIT 41.4 % (42.0-52.0); HEMOGLOBIN 13.4 g/dl (13.5-17.5); LYMPH # 1.6 10^3/uL (1.5-5.0); LYMPH % 6.9 % (24.0-44.0); MEAN CORPUSCULAR HEMOGLOBIN 27.1 pg (27.0-33.0); MEAN CORPUSCULAR HGB CONC 32.4 g/dl (32.0-36.5); MEAN CORPUSCULAR VOLUME 83.8 fl (80.0-96.0); MONO % 8.4 % (2.0-8.0); NEUTROPHILS # 19.5 10^3/uL (1.5-8.5); NEUTROPHILS % 83.6 % (36.0-66.0); RED BLOOD COUNT 4.94 10^6/uL (4.30-6.10); WHITE BLOOD COUNT 23.3 10^3/uL (4.0-10.0)
[2022-04-18 20:24] LABS: PARTIAL THROMBOPLASTIN TIME 26.1 SECONDS (24.8-34.2)
[2022-04-18 20:50] LABS: ALBUMIN 3.4 GM/DL (3.2-5.2); BILIRUBIN,DIRECT 0.3 MG/DL (0.0-0.2); BILIRUBIN,TOTAL 0.7 MG/DL (0.2-1.0); CALCIUM LEVEL 9.7 MG/DL (8.5-10.1); CREATININE FOR GFR 1.84 MG/DL (0.70-1.30); GLOMERULAR FILTRATION RATE 42.8 (>60); POTASSIUM SERUM 4.9 MEQ/L (3.5-5.1)
[2022-04-18 20:54] LABS: CK-MB VALUE MASS < 1.0 NG/ML (<3.6); CPK CREATINE PHOSPHOKINASE 54 U/L (39-308); MB/CK RELATIVE INDEX 1.85 (< OR =4)
[2022-04-18] MEDS ORDERED: PIPERACILLIN/TAZOBACTAM SOD 4.5 GM in D5W MINI-BAG PLUS 50 ML IV ONE (21:00)
[2022-04-18] MEDS ORDERED: NS 2,420 ML in IV 1 EA IV ONE (21:00)
[2022-04-18] MEDS ORDERED: fentaNYL 100 MCG/2 ML INJECTION IV ONE (23:00)
[2022-04-18 23:29] LABS: CK-MB VALUE MASS < 1.0 NG/ML (<3.6); CPK CREATINE PHOSPHOKINASE 58 U/L (39-308); MB/CK RELATIVE INDEX 1.72 (< OR =4)
[2022-04-18] MEDS ORDERED: HOME MED LIST COMPLETE! XX SCH (23:40)
[2022-04-18] MEDS ORDERED: ALBUTEROL SULFATE 2.5 MG/0.5 ML INH NEB SOLN NEB PRN (23:55)
[2022-04-18] MEDS ORDERED: NS 1,000 ML IV SCH (23:55)
[2022-04-18] MEDS ORDERED: ONDANSETRON 4MG ORAL DISINTEGRATING TAB PO PRN (23:55)
[2022-04-18] MEDS ORDERED: HYDROMORPHONE HCL 0.5 MG/ 0.5 ML SYRINGE (J1170 PER 1) IV PRN (23:55)
[2022-04-19] VITALS (24 sets, daily range): BP systolic 81–154; BP diastolic 59–108; O2SAT 88–92
[2022-04-19] MEDS ORDERED: MORPHINE 4 MG/ML 1ML VIAL/SYRINGE IV ONE (00:15)
[2022-04-19] MEDS ORDERED: NS 1,000 ML IV ONE ×3 (00:20→00:25)
[2022-04-19 00:34] LABS: INR 1.13; PROTHROMBIN TIME 14.7 SECONDS (12.5-14.5)
[2022-04-19] MEDS ORDERED: LIDOCAINE W/EPINEPHRINE 1% 20ML VIAL As Ordered ONE (00:58)
[2022-04-19] MEDS ORDERED: MIDAZOLAM INJ 2MG/2ML VIAL (J2250 PER 1MG) IV STA ×4 (00:59→01:11)
[2022-04-19] MEDS ORDERED: LIDOCAINE 1% MDV 20ML VIAL As Ordered ONE (00:59)
[2022-04-19] MEDS ORDERED: MIDAZOLAM 5MG/ML 1ML VIAL (J2250 PER 1MG) IV SCH (01:00)
[2022-04-19] MEDS ORDERED: SODIUM BICARBONATE 8.4% INJ 50 ML SYRINGE As Ordered ONE (01:01)
[2022-04-19] MEDS ORDERED: flumazeniL 0.5 MG/5 ML VIAL As Ordered ONE (01:17)
[2022-04-19] MEDS ORDERED: BISACODYL 10 MG SUPP PR PRN (01:50)
[2022-04-19] MEDS ORDERED: ACETAMINOPHEN TAB 650MG DOSE (2X325MG) PO PRN (01:50)
[2022-04-19] MEDS: PERCOCET 5MG/325MG TAB PO PRN ×4 (02:00→21:15)
[2022-04-19 02:02] LABS: ABG BASE EXCESS -12.5 (-2.0-2.0); ABG HCO3 14.9 MEQ/L (22.0-26.0); ABG O2 SATURATION 90.4 % (95.0-99.0); ABG PARTIAL PRESSURE CO2 39.3 mmHg (35.0-45.0); ABG PARTIAL PRESSURE O2 74.5 mmHg (75.0-100.0); ABG STANDARD HCO3 14.7 MEQ/L (22.0-26.0); ABG TOTAL CO2 16.1 MEQ/L (22.0-29.0)
[2022-04-19 02:04] LABS: HEMATOCRIT 42.5 % (42.0-52.0); HEMOGLOBIN 13.2 g/dl (13.5-17.5); MEAN CORPUSCULAR HGB CONC 31.1 g/dl (32.0-36.5); MEAN CORPUSCULAR VOLUME 87.1 fl (80.0-96.0); PLATELET COUNT, AUTOMATED 313 10^3/uL (150-450); RED BLOOD COUNT 4.88 10^6/uL (4.30-6.10); WHITE BLOOD COUNT 18.9 10^3/uL (4.0-10.0)
[2022-04-19 02:04] LABS: ABG pH (ARTERIAL) 7.197 UNITS (7.350-7.450)
[2022-04-19] MEDS ORDERED: HEPARIN SOD (PORCINE) 5000UNITS/ML 1ML VIAL/SYRINGE IV ONE (02:35)
[2022-04-19] MEDS ORDERED: flumazeniL 0.5 MG/5 ML VIAL IV STA (02:42)
[2022-04-19 02:44] LABS: ALBUMIN 2.7 GM/DL (3.2-5.2); BILIRUBIN,TOTAL 0.7 MG/DL (0.2-1.0); CALCIUM LEVEL 7.6 MG/DL (8.5-10.1); CREATININE FOR GFR 1.7 MG/DL (0.70-1.30); GLOMERULAR FILTRATION RATE 46.8 (>60); TOTAL PROTEIN 6.5 GM/DL (6.4-8.2)
[2022-04-19] MEDS: HEPARIN DRIP 25,000 UNITS in IV 1 EA IV SCH ×2 (02:52→20:08)
[2022-04-19] MEDS ORDERED: FUROSEMIDE 40MG/4ML VIAL (J1940) IV ONE (03:00)
[2022-04-19 03:22] LABS: PH BODY FLUID 7.064 UNITS (NOT ESTABLISHED); SOURCE, BODY FLUID pH PERICARDIAL; SPEC. GRAVITY BODY FLUIDS 1.034 (NOT ESTABLISHED)
[2022-04-19 03:34] LABS: APPEARANCE, BODY FLUID TURBID (CLEAR); SOURCE, BODY FLUID PERICARDIAL
[2022-04-19 03:51] LABS: LDH, BODY FLUID 720 U/L (NOT ESTABLISHED); SOURCE, BODY FLUID ALBUMIN PERICARDIAL; SOURCE, BODY FLUID GLUCOSE PERICARDIAL; SOURCE, BODY FLUID LDH PERICARDIAL; SOURCE, BODY FLUID TOT PROTEIN PERICARDIAL; TOTAL PROTEIN, BODY FLUID 6.2 G/DL (NOT ESTABLISHED)
[2022-04-19] MEDS: PIPERACILLIN/TAZOBACTAM SOD 3.375 GM in D5W MINI-BAG PLUS 50 ML IV SCH ×4 (03:57→21:14)
[2022-04-19] MEDS: IPRATROPIUM 0.5MG/ALBUTEROL 2.5MG INH SOL UD 3ML (DUONEB) NEB SCH ×4 (07:27→21:27)
[2022-04-19] MEDS: DOCUSATE SODIUM 100MG CAPSULE PO SCH ×2 (08:05→20:05)
[2022-04-19] MEDS: COLCHICINE 0.6 MG TABLET PO SCH ×2 (08:05→20:05)
[2022-04-19] MEDS: PANTOPRAZOLE 40MG VIAL IV SCH (08:05)
[2022-04-19] MEDS: MOM 30ML SUSPENSION UDC PO SCH (08:11)
[2022-04-19] MEDS ORDERED: HEPARIN SOD (PORCINE) 5000UNITS/ML 1ML VIAL/SYRINGE SC SCH (09:00)
[2022-04-19 09:48] LABS: PARTIAL THROMBOPLASTIN TIME 29.3 SECONDS (24.8-34.2)
[2022-04-19 10:48] LABS: ABG BASE EXCESS -1.9 (-2.0-2.0); ABG HCO3 21.8 MEQ/L (22.0-26.0); ABG O2 SATURATION 85.6 % (95.0-99.0); ABG PARTIAL PRESSURE CO2 33.8 mmHg (35.0-45.0); ABG PARTIAL PRESSURE O2 51.2 mmHg (75.0-100.0); ABG STANDARD HCO3 22.6 MEQ/L (22.0-26.0); ABG TOTAL CO2 22.8 MEQ/L (22.0-29.0); ABG pH (ARTERIAL) 7.427 UNITS (7.350-7.450)
[2022-04-19] MEDS ORDERED: FUROSEMIDE 100MG/10ML VIAL (J1940) IV ONE (10:55)
[2022-04-19 11:35] LABS: BASO % 0.2 % (0.0-1.0); HEMATOCRIT 38.1 % (42.0-52.0); HEMOGLOBIN 12.2 g/dl (13.5-17.5); LYMPH # 2.2 10^3/uL (1.5-5.0); LYMPH % 11.3 % (24.0-44.0); MEAN CORPUSCULAR HEMOGLOBIN 27.4 pg (27.0-33.0); MEAN CORPUSCULAR VOLUME 85.4 fl (80.0-96.0); MONO % 8.6 % (2.0-8.0); NEUTROPHILS # 15.2 10^3/uL (1.5-8.5); NEUTROPHILS % 79.4 % (36.0-66.0); PLATELET COUNT, AUTOMATED 281 10^3/uL (150-450); RED BLOOD COUNT 4.46 10^6/uL (4.30-6.10); WHITE BLOOD COUNT 19.1 10^3/uL (4.0-10.0)
[2022-04-19 11:38] LABS: INR 1.23; PROTHROMBIN TIME 15.8 SECONDS (12.5-14.5)
[2022-04-19 11:40] LABS: MONO # 1.7 10^3/uL (0.0-0.8)
[2022-04-19] MEDS: HEPARIN SOD (PORCINE) 5000UNITS/ML 1ML VIAL/SYRINGE IV PRN ×2 (11:46→20:07)
[2022-04-19 12:03] LABS: ALBUMIN 2.6 GM/DL (3.2-5.2); ALT/SGPT 555 U/L (12-78); BILIRUBIN,TOTAL 0.4 MG/DL (0.2-1.0); BLOOD UREA NITROGEN 16 MG/DL (7-18); CALCIUM LEVEL 7.7 MG/DL (8.5-10.1); CARBON DIOXIDE LEVEL 22 MEQ/L (21-32); CHLORIDE LEVEL 104 MEQ/L (98-107); CHOLESTEROL LEVEL 129 MG/DL (< 200); CPK CREATINE PHOSPHOKINASE 177 U/L (39-308); CREATININE FOR GFR 0.88 MG/DL (0.70-1.30); GLOMERULAR FILTRATION RATE > 60.0 (>60); GLUCOSE, FASTING 113 MG/DL (70-100); LDH LACTATE DEHYDROGENASE 720 U/L (87-241); PHOSPHORUS LEVEL 3.2 MG/DL (2.5-4.9); POTASSIUM SERUM 4.9 MEQ/L (3.5-5.1); SODIUM LEVEL 135 MEQ/L (136-145); TOTAL PROTEIN 6.2 GM/DL (6.4-8.2); TRIGLYCERIDES LEVEL 106 MG/DL (<150)
[2022-04-19] MEDS ORDERED: SODIUM CHLORIDE NASAL 0.65% SPRAY BTL (OCEAN) PRN (13:25)
[2022-04-19] MEDS: FOLIC ACID 1MG TAB PO SCH (13:52)
[2022-04-19] MEDS: METOPROLOL SUCC *XL* 25MG TAB (TopROL *XL*) PO SCH (13:52)
[2022-04-19] MEDS ORDERED: WARFARIN SOD 2MG TAB PO SCH (17:00)
[2022-04-20] VITALS (8 sets, daily range): BP systolic 103–142; BP diastolic 70–80; O2SAT 94
[2022-04-20] MEDS: PERCOCET 5MG/325MG TAB PO PRN ×4 (01:11→15:22)
[2022-04-20] MEDS: PIPERACILLIN/TAZOBACTAM SOD 3.375 GM in D5W MINI-BAG PLUS 50 ML IV SCH ×4 (04:00→21:03)
[2022-04-20] MEDS: IPRATROPIUM 0.5MG/ALBUTEROL 2.5MG INH SOL UD 3ML (DUONEB) NEB SCH ×5 (04:30→20:13)
[2022-04-20 05:18] LABS: BASO # 0.1 10^3/uL (0.0-0.2); BASO % 0.4 % (0.0-1.0); EOS # 0.1 10^3/uL (0.0-0.5); EOS % 0.5 % (0.0-3.0); HEMATOCRIT 35.2 % (42.0-52.0); HEMOGLOBIN 11.8 g/dl (13.5-17.5); LYMPH # 1.8 10^3/uL (1.5-5.0); LYMPH % 11.3 % (24.0-44.0); MEAN CORPUSCULAR HEMOGLOBIN 27.4 pg (27.0-33.0); MEAN CORPUSCULAR HGB CONC 33.5 g/dl (32.0-36.5); MEAN CORPUSCULAR VOLUME 81.7 fl (80.0-96.0); MONO % 10.6 % (2.0-8.0); NEUTROPHILS # 12.6 10^3/uL (1.5-8.5); NEUTROPHILS % 76.8 % (36.0-66.0); PLATELET COUNT, AUTOMATED 277 10^3/uL (150-450); RED BLOOD COUNT 4.31 10^6/uL (4.30-6.10); WHITE BLOOD COUNT 16.4 10^3/uL (4.0-10.0)
[2022-04-20 05:20] LABS: MONO # 1.7 10^3/uL (0.0-0.8)
[2022-04-20 06:20] LABS: ABG HCO3 27.4 MEQ/L (22.0-26.0); ABG O2 SATURATION 93.3 % (95.0-99.0); ABG PARTIAL PRESSURE CO2 41.3 mmHg (35.0-45.0); ABG PARTIAL PRESSURE O2 70.3 mmHg (75.0-100.0); ABG TOTAL CO2 28.7 MEQ/L (22.0-29.0)
[2022-04-20] MEDS ORDERED: FUROSEMIDE 40MG/4ML VIAL (J1940) IV ONE (07:20)
[2022-04-20] MEDS: MOM 30ML SUSPENSION UDC PO SCH (09:00)
[2022-04-20] MEDS: DOCUSATE SODIUM 100MG CAPSULE PO SCH ×2 (09:00→21:00)
[2022-04-20] MEDS: PANTOPRAZOLE 40MG VIAL IV SCH (09:05)
[2022-04-20] MEDS: COLCHICINE 0.6 MG TABLET PO SCH ×2 (09:05→21:03)
[2022-04-20] MEDS: METOPROLOL SUCC *XL* 25MG TAB (TopROL *XL*) PO SCH (09:05)
[2022-04-20] MEDS: FOLIC ACID 1MG TAB PO SCH (09:06)
[2022-04-20 10:16] LABS: INR 1.11; PROTHROMBIN TIME 14.5 SECONDS (12.5-14.5)
[2022-04-20] MEDS ORDERED: LIDOCAINE 1% MDV 20ML VIAL As Ordered ONE (10:49)
[2022-04-20 11:13] LABS: ALT/SGPT 454 U/L (12-78); BLOOD UREA NITROGEN 8 MG/DL (7-18); CALCIUM LEVEL 7.9 MG/DL (8.5-10.1); CARBON DIOXIDE LEVEL 26 MEQ/L (21-32); CHLORIDE LEVEL 97 MEQ/L (98-107); CPK CREATINE PHOSPHOKINASE 109 U/L (39-308); CREATININE FOR GFR 0.56 MG/DL (0.70-1.30); GLOMERULAR FILTRATION RATE > 60.0 (>60); GLUCOSE, FASTING 103 MG/DL (70-100); LDH LACTATE DEHYDROGENASE 538 U/L (87-241); POTASSIUM SERUM 4.2 MEQ/L (3.5-5.1); SODIUM LEVEL 130 MEQ/L (136-145)
[2022-04-20 11:14] LABS: ALBUMIN 2.5 GM/DL (3.2-5.2); BILIRUBIN,TOTAL 0.3 MG/DL (0.2-1.0); CHOLESTEROL LEVEL 120 MG/DL (< 200); TOTAL PROTEIN 6.1 GM/DL (6.4-8.2); TRIGLYCERIDES LEVEL 140 MG/DL (<150)
[2022-04-20] MEDS ORDERED: LIDOCAINE 1% MDV 20ML VIAL SC ONE (11:20)
[2022-04-20] MEDS: HEPARIN SOD (PORCINE) 5000UNITS/ML 1ML VIAL/SYRINGE IV PRN (11:31)
[2022-04-20 11:57] LABS: PH BODY FLUID 7.681 UNITS (NOT ESTABLISHED); SOURCE, BODY FLUID pH PLEURAL
[2022-04-20] MEDS: KETOROLAC 30 MG/ML 1ML VIAL IV SCH ×2 (12:12→17:29)
[2022-04-20 12:20] LABS: APPEARANCE, BODY FLUID CLOUDY (CLEAR); PLEURAL FL COLOR RED (COLORLESS); SOURCE, BODY FLUID PLEURAL
[2022-04-20 12:30] LABS: AMYLASE, BODY FLUID 33 U/L (NOT ESTABLISHED); CHOLESTEROL, BODY FLUID 72 MG/DL (NOT ESTABLISHED); LDH, BODY FLUID 340 U/L (NOT ESTABLISHED); SOURCE, BODY FLUID AMYLASE PLEURAL; SOURCE, BODY FLUID CHOL PLEURAL; SOURCE, BODY FLUID GLUCOSE PLEURAL; SOURCE, BODY FLUID LDH PLEURAL; SOURCE, BODY FLUID TRIG PLEURAL; TRIGLYCERIDE, BODY FLUID 58 MG/DL (NOT ESTABLISHED)
[2022-04-20] MEDS: HEPARIN DRIP 25,000 UNITS in IV 1 EA IV SCH (12:36)
[2022-04-20 12:42] LABS: SOURCE, BODY FLUID ALBUMIN PLEURAL; SOURCE, BODY FLUID TOT PROTEIN PLEURAL; TOTAL PROTEIN, BODY FLUID 4.1 G/DL (NOT ESTABLISHED)
[2022-04-20] MEDS ORDERED: WARFARIN SOD 5MG TAB PO SCH (17:00)
[2022-04-21] VITALS: BP 120/85
[2022-04-21] MEDS: KETOROLAC 30 MG/ML 1ML VIAL IV SCH ×2 (00:15→05:07)
[2022-04-21] MEDS: HEPARIN DRIP 25,000 UNITS in IV 1 EA IV SCH (00:57)
[2022-04-21 04:00] VITALS: BP 118/76
[2022-04-21] MEDS: PIPERACILLIN/TAZOBACTAM SOD 3.375 GM in D5W MINI-BAG PLUS 50 ML IV SCH ×2 (04:35→09:14)
[2022-04-21 07:43] LABS: BASO % 0.4 % (0.0-1.0); EOS # 0.2 10^3/uL (0.0-0.5); EOS % 1.7 % (0.0-3.0); HEMATOCRIT 35.1 % (42.0-52.0); HEMOGLOBIN 11.5 g/dl (13.5-17.5); LYMPH # 1.2 10^3/uL (1.5-5.0); LYMPH % 11.3 % (24.0-44.0); MEAN CORPUSCULAR HEMOGLOBIN 27.1 pg (27.0-33.0); MEAN CORPUSCULAR HGB CONC 32.8 g/dl (32.0-36.5); MEAN CORPUSCULAR VOLUME 82.8 fl (80.0-96.0); MONO # 1.1 10^3/uL (0.0-0.8); MONO % 10.2 % (2.0-8.0); NEUTROPHILS # 8.2 10^3/uL (1.5-8.5); NEUTROPHILS % 75.8 % (36.0-66.0); PLATELET COUNT, AUTOMATED 299 10^3/uL (150-450); RED BLOOD COUNT 4.24 10^6/uL (4.30-6.10); WHITE BLOOD COUNT 10.8 10^3/uL (4.0-10.0)
[2022-04-21 07:45] VITALS: O2SAT 94
[2022-04-21] MEDS: IPRATROPIUM 0.5MG/ALBUTEROL 2.5MG INH SOL UD 3ML (DUONEB) NEB SCH ×2 (07:49→12:00)
[2022-04-21 08:00] VITALS: BP 119/75
[2022-04-21 08:02] LABS: INR 1.23; PROTHROMBIN TIME 15.8 SECONDS (12.5-14.5)
[2022-04-21 08:04] LABS: PARTIAL THROMBOPLASTIN TIME 71.1 SECONDS (24.8-34.2)
[2022-04-21] MEDS ORDERED: POTASSIUM CHLORIDE 10MEQ SR TABLET PO ONE (08:05)
[2022-04-21 08:33] LABS: ALBUMIN 2.6 GM/DL (3.2-5.2); ALT/SGPT 383 U/L (12-78); BILIRUBIN,TOTAL 0.4 MG/DL (0.2-1.0); BLOOD UREA NITROGEN 9 MG/DL (7-18); CALCIUM LEVEL 8.2 MG/DL (8.5-10.1); CARBON DIOXIDE LEVEL 30 MEQ/L (21-32); CHLORIDE LEVEL 95 MEQ/L (98-107); CHOLESTEROL LEVEL 133 MG/DL (< 200); CPK CREATINE PHOSPHOKINASE 91 U/L (39-308); CREATININE FOR GFR 0.58 MG/DL (0.70-1.30); GLOMERULAR FILTRATION RATE > 60.0 (>60); GLUCOSE, FASTING 109 MG/DL (70-100); LDH LACTATE DEHYDROGENASE 248 U/L (87-241); PHOSPHORUS LEVEL 2.2 MG/DL (2.5-4.9); POTASSIUM SERUM 3.4 MEQ/L (3.5-5.1); SODIUM LEVEL 131 MEQ/L (136-145); TOTAL PROTEIN 6.2 GM/DL (6.4-8.2); TRIGLYCERIDES LEVEL 186 MG/DL (<150)
[2022-04-21] MEDS ORDERED: METOPROLOL SUCC (TopROL XL) 50MG **XL** TAB PO SCH (09:00)
[2022-04-21] MEDS: DOCUSATE SODIUM 100MG CAPSULE PO SCH (09:00)
[2022-04-21] MEDS: MOM 30ML SUSPENSION UDC PO SCH (09:00)
[2022-04-21] MEDS: FOLIC ACID 1MG TAB PO SCH (09:13)
[2022-04-21] MEDS: PERCOCET 5MG/325MG TAB PO PRN (09:13)
[2022-04-21] MEDS: COLCHICINE 0.6 MG TABLET PO SCH (09:13)
[2022-04-21 09:14] VITALS: BP 119/75
[2022-04-21] MEDS: PANTOPRAZOLE 40MG VIAL IV SCH (09:14)
[2022-04-21] MEDS ORDERED: JANT5TAB PO (11:04)
[2022-04-21] MEDS ORDERED: PERCOCET PO (11:04)
[2022-04-21] MEDS ORDERED: COLA100C5 PO (11:04)
[2022-04-21] MEDS ORDERED: COLC0.6T47 PO (11:04)
[2022-04-21] MEDS ORDERED: FOLI1TAB11 PO (16:36)
[2022-04-21] MEDS ORDERED: DEXA4TA PO (16:36)
[2022-04-22] MEDS ORDERED: OXYC1TAB23 PO (09:52)
== END 2022-04-21 12:06 | disposition home or self-care (01) | DRG 694 ==
LOC: M ED 18:50 → M ED INP 23:53 → ENRESERV 04-19 00:09 → M ICU 04-19 00:15
PROVIDERS: ADMIT Internal Medicine; ATTEND General Practice
PROC: 0W9D30Z Drainage of Pericardial Cavity with Drainage Device, Percutaneous Approach (ICD-10-PCS; principal; 2022-04-19)
PROC: 0W9B30Z Drainage of Left Pleural Cavity with Drainage Device, Percutaneous Approach (ICD-10-PCS; 2022-04-20)
DX: C79.89 Secondary malignant neoplasm of other specified sites (principal); I31.4 Cardiac tamponade; J91.0 Malignant pleural effusion; N17.9 Acute kidney failure, unspecified; I31.31 Malignant pericardial effusion in diseases classified elsewhere; C77.2 Secondary and unspecified malignant neoplasm of intra-abdominal lymph nodes; E87.20 Acidosis, unspecified; E87.1 Hypo-osmolality and hyponatremia; C34.90 Malignant neoplasm of unspecified part of unspecified bronchus or lung; K76.1 Chronic passive congestion of liver; I51.7 Cardiomegaly; K52.89 Other specified noninfective gastroenteritis and colitis; R09.02 Hypoxemia; I10 Essential (primary) hypertension; Z79.01 Long term (current) use of anticoagulants; Z86.711 Personal history of pulmonary embolism; Z87.891 Personal history of nicotine dependence; Z86.718 Personal history of other venous thrombosis and embolism

== ENCOUNTER → 2022-05-05 | Outpatient (CLI) | payer BC ==
[~2022-05-05] MED LIST changes: +COLA100C5 PO; +COLC0.6T47 PO; +JANT5TAB PO; +OXYC1TAB23 PO; +PERCOCET PO
== END ==
LOC: M CARPUL 07:09
PROVIDERS: ATTEND Thoracic Surgery (Cardiothoracic Vascular Surgery)
DX: C34.90 Malignant neoplasm of unspecified part of unspecified bronchus or lung (principal); I31.31 Malignant pericardial effusion in diseases classified elsewhere

== ENCOUNTER → 2022-05-24 | Outpatient (CLI) | payer BC ==
[~2022-05-24] MED LIST changes: +ENOX40IN3 SC
== END ==
LOC: M LABSMTC 09:17
PROVIDERS: ATTEND Anesthesiology
DX: Z01.812 Encounter for preprocedural laboratory examination (principal); Z11.52 Encounter for screening for COVID-19

== ENCOUNTER → 2022-05-27 | Outpatient (CLI) | payer BC ==
[~2022-05-27] MED LIST changes: +LIDOCAINE 1% MDV 20ML VIAL As Ordered ONE; +MIDAZOLAM INJ 2MG/2ML VIAL (J2250 PER 1MG) As Ordered ONE; +NS 1,000 ML IV SCH; +ceFAZolin 2 GM/D5W 50 ML IV BAG As Ordered ONE; +ceFAZolin SOD 2 GM in IV 1 EA IV ONE; +diphenhydrAMINE 50MG/ML VIAL As Ordered ONE; +fentaNYL 100 MCG/2 ML INJECTION As Ordered ONE
[2022-05-27 13:30] VITALS: BP 113/82
== END ==
LOC: M IRPRO 09:59
PROVIDERS: ATTEND Specialist
DX: C34.90 Malignant neoplasm of unspecified part of unspecified bronchus or lung (principal); D50.9 Iron deficiency anemia, unspecified
CPT/HCPCS: 36561; 99152; 99153; C1769; C1788; C1894; J0690; J1200; J1642; J1644; J2250; J3010

== ENCOUNTER → 2022-06-04 | Outpatient (CLI) | payer BC ==
[~2022-06-04] MED LIST changes: -LIDOCAINE 1% MDV 20ML VIAL As Ordered ONE; -MIDAZOLAM INJ 2MG/2ML VIAL (J2250 PER 1MG) As Ordered ONE; -NS 1,000 ML IV SCH; -ceFAZolin 2 GM/D5W 50 ML IV BAG As Ordered ONE; -ceFAZolin SOD 2 GM in IV 1 EA IV ONE; -diphenhydrAMINE 50MG/ML VIAL As Ordered ONE; -fentaNYL 100 MCG/2 ML INJECTION As Ordered ONE
== END ==
LOC: M CARPUL 11:13
PROVIDERS: ATTEND Thoracic Surgery (Cardiothoracic Vascular Surgery)
DX: I31.39 Other pericardial effusion (noninflammatory) (principal)

== ENCOUNTER → 2022-06-15 | Outpatient (POV) | payer BC ==
[~2022-06-15] VITALS: Ht 177.8 cm; Wt 77.2 kg
[2022-06-15 14:15] VITALS: BP 119/91
== END ==
LOC: M IRPOV 14:06
PROVIDERS: ATTEND Radiology Diagnostic Radiology
DX: Z45.2 Encounter for adjustment and management of vascular access device (principal)

== ENCOUNTER → 2022-07-07 | Outpatient (CLI) | payer BC ==
[~2022-07-07] MED LIST changes: +GASTROGRAFIN SOLUTION 30ML As Ordered ONE; +ISOVUE-370 76% 100ML VIAL As Ordered ONE
== END ==
LOC: M RAD 07:03
PROVIDERS: ATTEND Specialist
DX: C34.91 Malignant neoplasm of unspecified part of right bronchus or lung (principal); K76.0 Fatty (change of) liver, not elsewhere classified; K76.89 Other specified diseases of liver

== ENCOUNTER 2022-09-07 08:28 | Inpatient (IN) | payer BC, OTHER ==
[~2022-09-07] VITALS: Ht 180.3 cm; Wt 78.5 kg
[~2022-09-07 08:28] MED LIST changes: -GASTROGRAFIN SOLUTION 30ML As Ordered ONE; -ISOVUE-370 76% 100ML VIAL As Ordered ONE; -OXYC-404 PO; +OXYC20TA64 PO
[2022-09-07] MEDS ORDERED: NS 1,000 ML IV ONE ×2 (09:15→12:50)
[2022-09-07] MEDS ORDERED: ONDANSETRON 4MG 2ML VIAL IV ONE (09:15)
[2022-09-07] MEDS ORDERED: SODIUM CHLORIDE 0.9% INJ 10 ML SYR IV PRN (09:15)
[2022-09-07] MEDS: MORPHINE 4 MG/ML 1ML VIAL IV PRN ×2 (09:56→15:03)
[2022-09-07 09:59] LABS: BASO # 0.1 10^3/uL (0.0-0.2); BASO % 0.2 % (0.0-1.0); EOS # 0.1 10^3/uL (0.0-0.5); EOS % 0.6 % (0.0-3.0); HEMATOCRIT 43.9 % (42.0-52.0); HEMOGLOBIN 14.5 g/dl (13.5-17.5); LYMPH # 1.3 10^3/uL (1.5-5.0); LYMPH % 6.1 % (24.0-44.0); MEAN CORPUSCULAR HEMOGLOBIN 30.1 pg (27.0-33.0); MEAN CORPUSCULAR VOLUME 91.1 fl (80.0-96.0); MONO # 0.3 10^3/uL (0.0-0.8); MONO % 1.5 % (2.0-8.0); NEUTROPHILS # 19.9 10^3/uL (1.5-8.5); NEUTROPHILS % 91.2 % (36.0-66.0); PLATELET COUNT, AUTOMATED 197 10^3/uL (150-450); RED BLOOD COUNT 4.82 10^6/uL (4.30-6.10); WHITE BLOOD COUNT 21.8 10^3/uL (4.0-10.0)
[2022-09-07 10:02] LABS: LIPASE 160 U/L (12-53)
[2022-09-07 10:12] LABS: ALBUMIN 3.4 G/DL (3.2-5.2); ALKALINE PHOSPHATASE 99 U/L (46-116); ALT/SGPT 36 U/L (7.0-40); AST/SGOT 38 U/L (<34); BILIRUBIN,DIRECT 0.3 MG/DL (<0.4); BILIRUBIN,TOTAL 0.9 MG/DL (0.3-1.2); BLOOD UREA NITROGEN 16 MG/DL (9-23); CALCIUM LEVEL 8.9 MG/DL (8.5-10.1); CARBON DIOXIDE LEVEL 24 MMOL/L (20-31); CHLORIDE LEVEL 95 MMOL/L (98-107); CREATININE FOR GFR 0.77 MG/DL (0.70-1.30); GLOMERULAR FILTRATION RATE > 60.0 (>60); GLUCOSE, FASTING 81 MG/DL (60-100); POTASSIUM SERUM 4.1 MMOL/L (3.5-5.1); SODIUM LEVEL 130 MMOL/L (136-145)
[2022-09-07 10:25] LABS: RSV AMPLIFICATION NEGATIVE (NEGATIVE)
[2022-09-07] MEDS ORDERED: ACETAMINOPHEN TAB 650MG DOSE (2X325MG) PO ONE (11:00)
[2022-09-07] MEDS ORDERED: ISOVUE-370 76% 100ML VIAL As Ordered ONE (11:23)
[2022-09-07 12:30] LABS: TOTAL PROTEIN 7.3 G/DL (5.7-8.2)
[2022-09-07] MEDS ORDERED: ATOR80TA59 PO (13:24)
[2022-09-07] MEDS ORDERED: HOME MED LIST COMPLETE! XX SCH (13:25)
[2022-09-07] MEDS ORDERED: ONDANSETRON 4MG TAB PO PRN (13:55)
[2022-09-07] MEDS ORDERED: PROCHLORPERAZINE 5MG TAB PO PRN (13:55)
[2022-09-07] MEDS ORDERED: ACETAMINOPHEN TAB 650MG DOSE (2X325MG) PO PRN (13:55)
[2022-09-07 15:45] VITALS: BP 118/78
[2022-09-07] MEDS: FLEET ENEMA PR SCH (15:56)
[2022-09-07] MEDS: PERCOCET 5MG/325MG TAB PO PRN (18:28)
[2022-09-07] MEDS ORDERED: BISACODYL 10MG SUPP PR ONE (19:35)
[2022-09-07] MEDS: APIXABAN 5 MG TAB (ELIQUIS) PO SCH (20:05)
[2022-09-07] MEDS: ATORVASTATIN 20 MG TAB PO SCH (20:05)
[2022-09-07 20:08] VITALS: BP 139/91
[2022-09-07] MEDS ORDERED: SENOKOT S TAB PO SCH (21:00)
[2022-09-08] MEDS: PERCOCET 5MG/325MG TAB PO PRN ×5 (01:58→23:32)
[2022-09-08 05:17] VITALS: BP 119/66
[2022-09-08 06:12] LABS: HEMATOCRIT 37.4 % (42.0-52.0); MEAN CORPUSCULAR HEMOGLOBIN 30.3 pg (27.0-33.0); MEAN CORPUSCULAR HGB CONC 33.2 g/dl (32.0-36.5); MEAN CORPUSCULAR VOLUME 91.4 fl (80.0-96.0); PLATELET COUNT, AUTOMATED 138 10^3/uL (150-450); RED BLOOD COUNT 4.09 10^6/uL (4.30-6.10); WHITE BLOOD COUNT 16.2 10^3/uL (4.0-10.0)
[2022-09-08 06:13] LABS: HEMOGLOBIN 12.4 g/dl (13.5-17.5)
[2022-09-08 06:44] LABS: ALBUMIN 2.6 G/DL (3.2-5.2); ALKALINE PHOSPHATASE 84 U/L (46-116); ALT/SGPT 24 U/L (7.0-40); AST/SGOT 29 U/L (<34); BILIRUBIN,TOTAL 0.8 MG/DL (0.3-1.2); BLOOD UREA NITROGEN 11 MG/DL (9-23); CALCIUM LEVEL 7.9 MG/DL (8.5-10.1); CARBON DIOXIDE LEVEL 24 MMOL/L (20-31); CHLORIDE LEVEL 101 MMOL/L (98-107); CREATININE FOR GFR 0.58 MG/DL (0.70-1.30); GLOMERULAR FILTRATION RATE > 60.0 (>60); GLUCOSE, FASTING 88 MG/DL (60-100); MAGNESIUM LEVEL 1.8 MG/DL (1.8-2.4); POTASSIUM SERUM 3.7 MMOL/L (3.5-5.1); SODIUM LEVEL 133 MMOL/L (136-145); TOTAL PROTEIN 5.9 G/DL (5.7-8.2)
[2022-09-08] MEDS: FLEET ENEMA PR SCH ×2 (09:00→21:00)
[2022-09-08] MEDS ORDERED: FLEET ENEMA PR ONE ×2 (09:45→11:00)
[2022-09-08] MEDS: APIXABAN 5 MG TAB (ELIQUIS) PO SCH ×2 (09:50→21:38)
[2022-09-08] MEDS: FOLIC ACID 1MG TAB PO SCH (09:50)
[2022-09-08] MEDS: METOPROLOL SUCC (TopROL XL) 50MG **XL** TAB PO SCH (09:50)
[2022-09-08 11:13] LABS: LIPASE 92 U/L (12-53)
[2022-09-08] MEDS: SENOKOT S TAB PO SCH ×2 (12:21→21:38)
[2022-09-08 14:00] VITALS: BP 121/68
[2022-09-08] MEDS ORDERED: MIRALAX *UNIT DOSE* 17GM PACKET PO PRN (17:25)
[2022-09-08 20:00] VITALS: BP 128/89
[2022-09-08] MEDS ORDERED: SENOKOT S TAB PO SCH (21:00)
[2022-09-08] MEDS: ATORVASTATIN 20 MG TAB PO SCH (21:37)
[2022-09-09 06:00] VITALS: BP 131/85
[2022-09-09 06:31] LABS: LIPASE 70 U/L (12-53)
[2022-09-09 06:36] LABS: BASO % 0.1 % (0.0-1.0); EOS # 0.1 10^3/uL (0.0-0.5); EOS % 1.2 % (0.0-3.0); HEMATOCRIT 36.3 % (42.0-52.0); HEMOGLOBIN 12.3 g/dl (13.5-17.5); LYMPH # 0.9 10^3/uL (1.5-5.0); LYMPH % 8.4 % (24.0-44.0); MEAN CORPUSCULAR HEMOGLOBIN 30.4 pg (27.0-33.0); MEAN CORPUSCULAR HGB CONC 33.9 g/dl (32.0-36.5); MEAN CORPUSCULAR VOLUME 89.6 fl (80.0-96.0); MONO # 1.2 10^3/uL (0.0-0.8); MONO % 10.8 % (2.0-8.0); NEUTROPHILS # 8.5 10^3/uL (1.5-8.5); PLATELET COUNT, AUTOMATED 102 10^3/uL (150-450); RED BLOOD COUNT 4.05 10^6/uL (4.30-6.10); WHITE BLOOD COUNT 10.8 10^3/uL (4.0-10.0)
[2022-09-09 06:43] LABS: ALBUMIN 2.6 G/DL (3.2-5.2); ALKALINE PHOSPHATASE 94 U/L (46-116); ALT/SGPT 47 U/L (7.0-40); AST/SGOT 56 U/L (<34); BILIRUBIN,TOTAL 0.7 MG/DL (0.3-1.2); BLOOD UREA NITROGEN 10 MG/DL (9-23); CALCIUM LEVEL 8.1 MG/DL (8.5-10.1); CARBON DIOXIDE LEVEL 25 MMOL/L (20-31); CHLORIDE LEVEL 99 MMOL/L (98-107); CREATININE FOR GFR 0.58 MG/DL (0.70-1.30); GLOMERULAR FILTRATION RATE > 60.0 (>60); GLUCOSE, FASTING 97 MG/DL (60-100); MAGNESIUM LEVEL 1.7 MG/DL (1.8-2.4); POTASSIUM SERUM 3.8 MMOL/L (3.5-5.1); SODIUM LEVEL 132 MMOL/L (136-145); TOTAL PROTEIN 6.2 G/DL (5.7-8.2)
[2022-09-09] MEDS ORDERED: MAGNESIUM OXIDE 400MG TAB (MAG-OX) PO ONE (07:55)
[2022-09-09] MEDS: FLEET ENEMA PR SCH (09:00)
[2022-09-09] MEDS: FOLIC ACID 1MG TAB PO SCH (09:09)
[2022-09-09] MEDS: APIXABAN 5 MG TAB (ELIQUIS) PO SCH (09:09)
[2022-09-09 09:10] VITALS: BP 131/85
[2022-09-09] MEDS: SENOKOT S TAB PO SCH (09:10)
[2022-09-09] MEDS: METOPROLOL SUCC (TopROL XL) 50MG **XL** TAB PO SCH (09:10)
[2022-09-09] MEDS ORDERED: SENN-52 PO (10:07)
[2022-09-09] MEDS ORDERED: MIRA1POW3 PO (10:07)
[2022-09-09] MEDS ORDERED: ACET1TAB55 PO (10:07)
[2022-09-10] MEDS ORDERED: PERCOCET PO (14:20)
== END 2022-09-09 12:50 | disposition home or self-care (01) | DRG 282 ==
LOC: M ED 08:28 → M ED INP 14:31 → ENRESERV 14:42 → M MSPAV 15:48
PROVIDERS: ADMIT Family Medicine; ATTEND Family Medicine
DX: K85.90 Acute pancreatitis without necrosis or infection, unspecified (principal); C34.90 Malignant neoplasm of unspecified part of unspecified bronchus or lung; K59.00 Constipation, unspecified; F17.210 Nicotine dependence, cigarettes, uncomplicated; Z86.718 Personal history of other venous thrombosis and embolism; Z86.73 Personal history of transient ischemic attack (TIA), and cerebral infarction without residual deficits; Z20.822 Contact with and (suspected) exposure to COVID-19; Z79.01 Long term (current) use of anticoagulants; Z79.899 Other long term (current) drug therapy; Z91.030 Bee allergy status

== ENCOUNTER 2022-09-15 08:55 | Inpatient (IN) | payer BC, OTHER ==
[~2022-09-15] VITALS: Ht 180.3 cm; Wt 75.7 kg
[~2022-09-15 08:55] MED LIST changes: +ATOR80TA59 PO; +MIRA1POW3 PO; +SENN-52 PO
[2022-09-15] MEDS ORDERED: NS 1,000 ML IV ONE (10:05)
[2022-09-15] MEDS ORDERED: MORPHINE 4 MG/ML 1ML VIAL IV ONE (10:05)
[2022-09-15] MEDS ORDERED: ONDANSETRON 4MG 2ML VIAL IV ONE (10:05)
[2022-09-15 10:53] LABS: BASO % 0.1 % (0.0-1.0); EOS # 0.5 10^3/uL (0.0-0.5); EOS % 3.4 % (0.0-3.0); HEMATOCRIT 35.7 % (42.0-52.0); HEMOGLOBIN 11.8 g/dl (13.5-17.5); LYMPH # 1.1 10^3/uL (1.5-5.0); LYMPH % 8.3 % (24.0-44.0); MEAN CORPUSCULAR HEMOGLOBIN 29.8 pg (27.0-33.0); MEAN CORPUSCULAR HGB CONC 33.1 g/dl (32.0-36.5); MEAN CORPUSCULAR VOLUME 90.2 fl (80.0-96.0); MONO % 12.8 % (2.0-8.0); NEUTROPHILS # 10.2 10^3/uL (1.5-8.5); NEUTROPHILS % 74.7 % (36.0-66.0); PLATELET COUNT, AUTOMATED 179 10^3/uL (150-450); RED BLOOD COUNT 3.96 10^6/uL (4.30-6.10); WHITE BLOOD COUNT 13.6 10^3/uL (4.0-10.0)
[2022-09-15 11:31] LABS: MONO # 1.8 10^3/uL (0.0-0.8)
[2022-09-15 11:36] LABS: ALBUMIN 2.7 G/DL (3.2-5.2); ALKALINE PHOSPHATASE 119 U/L (46-116); ALT/SGPT 75 U/L (7.0-40); AST/SGOT 51 U/L (<34); BILIRUBIN,DIRECT 0.2 MG/DL (<0.4); BILIRUBIN,TOTAL 0.5 MG/DL (0.3-1.2); BLOOD UREA NITROGEN 7 MG/DL (9-23); CALCIUM LEVEL 8.6 MG/DL (8.5-10.1); CARBON DIOXIDE LEVEL 26 MMOL/L (20-31); CHLORIDE LEVEL 97 MMOL/L (98-107); CREATININE FOR GFR 0.58 MG/DL (0.70-1.30); GLOMERULAR FILTRATION RATE > 60.0 (>60); GLUCOSE, FASTING 91 MG/DL (60-100); SODIUM LEVEL 134 MMOL/L (136-145); TOTAL PROTEIN 6.6 G/DL (5.7-8.2)
[2022-09-15 11:45] LABS: LIPASE 957 U/L (12-53)
[2022-09-15] MEDS ORDERED: FOLI1TAB11 PO (14:07)
[2022-09-15] MEDS ORDERED: METO1TAB7 PO (14:07)
[2022-09-15] MEDS ORDERED: ONDA-84 PO (14:07)
[2022-09-15] MEDS ORDERED: POLY17PO18 PO (14:07)
[2022-09-15] MEDS ORDERED: DOCU8.6T PO (14:07)
[2022-09-15] MEDS ORDERED: HOME MED LIST COMPLETE! XX SCH (14:10)
[2022-09-15] MEDS: LR 1,000 ML IV SCH ×2 (15:10→20:01)
[2022-09-15] MEDS: PANTOPRAZOLE 40MG VIAL IV SCH (16:10)
[2022-09-15 16:50] VITALS: BP 135/83
[2022-09-15] MEDS ORDERED: PROHANCE 279.3MG/ML 15ML VIAL As Ordered ONE (18:09)
[2022-09-15 20:00] VITALS: BP 131/82
[2022-09-15] MEDS: MORPHINE 4 MG/ML 1ML VIAL IV PRN (20:00)
[2022-09-15] MEDS: MIRALAX *UNIT DOSE* 17GM PACKET PO SCH (20:09)
[2022-09-15] MEDS: ATORVASTATIN 20 MG TAB PO SCH (20:10)
[2022-09-15] MEDS ORDERED: APIXABAN 5 MG TAB (ELIQUIS) PO SCH (21:00)
[2022-09-15] MEDS ORDERED: METOPROLOL SUCC (TopROL XL) 50MG **XL** TAB PO SCH (21:00)
[2022-09-15] MEDS: PIPERACILLIN/TAZOBACTAM SOD 3.375 GM in D5W MINI-BAG PLUS 50 ML IV SCH (22:29)
[2022-09-15 22:40] VITALS: BP 120/80
[2022-09-15] MEDS ORDERED: LR 1,000 ML IV ONE (22:50)
[2022-09-16] MEDS: FLUCONAZOLE 200 MG in IV 1 EA IV SCH ×2 (01:10→23:23)
[2022-09-16] MEDS ORDERED: ACETAMINOPHEN 1000MG 100ML IV BAG IV ONE (02:00)
[2022-09-16] MEDS: PIPERACILLIN/TAZOBACTAM SOD 3.375 GM in D5W MINI-BAG PLUS 50 ML IV SCH ×4 (03:03→21:30)
[2022-09-16 03:28] VITALS: BP 102/62
[2022-09-16 06:33] VITALS: BP 105/63
[2022-09-16] MEDS: GASTROGRAFIN SOLUTION 30ML PO SCH ×2 (06:34→07:03)
[2022-09-16 06:52] LABS: BASO % 0.1 % (0.0-1.0); EOS # 0.4 10^3/uL (0.0-0.5); HEMATOCRIT 33.2 % (42.0-52.0); HEMOGLOBIN 10.7 g/dl (13.5-17.5); LYMPH # 1.4 10^3/uL (1.5-5.0); LYMPH % 10.5 % (24.0-44.0); MEAN CORPUSCULAR HEMOGLOBIN 29.5 pg (27.0-33.0); MEAN CORPUSCULAR HGB CONC 32.2 g/dl (32.0-36.5); MEAN CORPUSCULAR VOLUME 91.5 fl (80.0-96.0); MONO % 12.9 % (2.0-8.0); NEUTROPHILS # 9.5 10^3/uL (1.5-8.5); PLATELET COUNT, AUTOMATED 173 10^3/uL (150-450); RED BLOOD COUNT 3.63 10^6/uL (4.30-6.10)
[2022-09-16 07:08] LABS: LIPASE 609 U/L (12-53)
[2022-09-16] MEDS: MORPHINE 4 MG/ML 1ML VIAL IV PRN ×4 (07:09→21:14)
[2022-09-16 07:10] LABS: BLOOD UREA NITROGEN 5 MG/DL (9-23); CALCIUM LEVEL 7.8 MG/DL (8.5-10.1); CARBON DIOXIDE LEVEL 27 MMOL/L (20-31); CHLORIDE LEVEL 99 MMOL/L (98-107); CREATININE FOR GFR 0.74 MG/DL (0.70-1.30); GLOMERULAR FILTRATION RATE > 60.0 (>60); GLUCOSE, FASTING 93 MG/DL (60-100); POTASSIUM SERUM 3.9 MMOL/L (3.5-5.1); SODIUM LEVEL 134 MMOL/L (136-145)
[2022-09-16 07:37] LABS: MONO # 1.7 10^3/uL (0.0-0.8)
[2022-09-16] MEDS ORDERED: ISOVUE-370 76% 100ML VIAL As Ordered ONE (07:41)
[2022-09-16 08:20] LABS: ALBUMIN 2.2 G/DL (3.2-5.2); ALKALINE PHOSPHATASE 96 U/L (46-116); ALT/SGPT 50 U/L (7.0-40); AST/SGOT 34 U/L (<34); BILIRUBIN,DIRECT 0.3 MG/DL (<0.4); BILIRUBIN,TOTAL 0.6 MG/DL (0.3-1.2); TOTAL PROTEIN 5.7 G/DL (5.7-8.2)
[2022-09-16] MEDS: FOLIC ACID 1MG TAB PO SCH (09:21)
[2022-09-16] MEDS: MIRALAX *UNIT DOSE* 17GM PACKET PO SCH ×2 (09:22→21:00)
[2022-09-16] MEDS: LR 1,000 ML IV SCH ×2 (09:22→15:29)
[2022-09-16] MEDS: ONDANSETRON 4MG 2ML VIAL IV PRN (12:47)
[2022-09-16 14:00] VITALS: BP 138/75
[2022-09-16] MEDS: PANTOPRAZOLE 40MG VIAL IV SCH (15:28)
[2022-09-16 20:55] VITALS: BP 119/84
[2022-09-16] MEDS: ATORVASTATIN 20 MG TAB PO SCH (21:29)
[2022-09-17] MEDS: MORPHINE 4 MG/ML 1ML VIAL IV PRN ×3 (02:19→20:44)
[2022-09-17] MEDS: PIPERACILLIN/TAZOBACTAM SOD 3.375 GM in D5W MINI-BAG PLUS 50 ML IV SCH ×4 (03:49→22:50)
[2022-09-17] MEDS: LR 1,000 ML IV SCH ×2 (03:51→17:21)
[2022-09-17 06:00] VITALS: BP 127/84
[2022-09-17 06:15] LABS: BASO % 0.2 % (0.0-1.0); EOS # 0.3 10^3/uL (0.0-0.5); HEMOGLOBIN 10.3 g/dl (13.5-17.5); LYMPH # 1.3 10^3/uL (1.5-5.0); MEAN CORPUSCULAR HEMOGLOBIN 29.9 pg (27.0-33.0); MEAN CORPUSCULAR HGB CONC 33.2 g/dl (32.0-36.5); MEAN CORPUSCULAR VOLUME 89.9 fl (80.0-96.0); MONO % 13.5 % (2.0-8.0); NEUTROPHILS # 9.7 10^3/uL (1.5-8.5); PLATELET COUNT, AUTOMATED 165 10^3/uL (150-450); RED BLOOD COUNT 3.45 10^6/uL (4.30-6.10); WHITE BLOOD COUNT 13.2 10^3/uL (4.0-10.0)
[2022-09-17 06:44] LABS: MONO # 1.8 10^3/uL (0.0-0.8)
[2022-09-17 06:45] LABS: BLOOD UREA NITROGEN 6 MG/DL (9-23); CALCIUM LEVEL 8.2 MG/DL (8.5-10.1); CARBON DIOXIDE LEVEL 25 MMOL/L (20-31); CHLORIDE LEVEL 97 MMOL/L (98-107); CREATININE FOR GFR 0.69 MG/DL (0.70-1.30); GLOMERULAR FILTRATION RATE > 60.0 (>60); GLUCOSE, FASTING 82 MG/DL (60-100); POTASSIUM SERUM 3.6 MMOL/L (3.5-5.1); SODIUM LEVEL 132 MMOL/L (136-145)
[2022-09-17] MEDS: FOLIC ACID 1MG TAB PO SCH (08:21)
[2022-09-17] MEDS: MIRALAX *UNIT DOSE* 17GM PACKET PO SCH ×3 (08:21→20:46)
[2022-09-17] MEDS: KETOROLAC 30 MG/ML 1ML VIAL IV SCH ×3 (10:19→22:53)
[2022-09-17] MEDS: SUCRALFATE SUSP 1GM/10ML UD PO SCH ×2 (12:18→17:21)
[2022-09-17 15:00] VITALS: BP 121/79
[2022-09-17] MEDS: PANTOPRAZOLE 40MG VIAL IV SCH (16:26)
[2022-09-17 20:18] VITALS: BP 125/77
[2022-09-17] MEDS: APIXABAN 5 MG TAB (ELIQUIS) PO SCH (22:53)
[2022-09-18] MEDS: FLUCONAZOLE 200 MG in IV 1 EA IV SCH ×2 (00:57→22:50)
[2022-09-18] MEDS: SUCRALFATE SUSP 1GM/10ML UD PO SCH ×5 (00:57→22:50)
[2022-09-18] MEDS: MORPHINE 4 MG/ML 1ML VIAL IV PRN ×3 (03:17→20:21)
[2022-09-18] MEDS: PANTOPRAZOLE 40MG VIAL IV SCH ×2 (04:15→16:56)
[2022-09-18] MEDS: KETOROLAC 30 MG/ML 1ML VIAL IV SCH ×4 (04:15→21:26)
[2022-09-18] MEDS: PIPERACILLIN/TAZOBACTAM SOD 3.375 GM in D5W MINI-BAG PLUS 50 ML IV SCH ×4 (04:16→21:25)
[2022-09-18 05:16] VITALS: BP 123/74
[2022-09-18] MEDS: LR 1,000 ML IV SCH ×2 (05:38→18:20)
[2022-09-18 05:59] LABS: BASO % 0.1 % (0.0-1.0); EOS # 0.4 10^3/uL (0.0-0.5); EOS % 4.7 % (0.0-3.0); HEMOGLOBIN 9.8 g/dl (13.5-17.5); LYMPH # 0.9 10^3/uL (1.5-5.0); LYMPH % 11.4 % (24.0-44.0); MEAN CORPUSCULAR HEMOGLOBIN 29.3 pg (27.0-33.0); MEAN CORPUSCULAR HGB CONC 32.7 g/dl (32.0-36.5); MEAN CORPUSCULAR VOLUME 89.8 fl (80.0-96.0); MONO # 1.3 10^3/uL (0.0-0.8); MONO % 15.4 % (2.0-8.0); NEUTROPHILS # 5.6 10^3/uL (1.5-8.5); PLATELET COUNT, AUTOMATED 172 10^3/uL (150-450); RED BLOOD COUNT 3.34 10^6/uL (4.30-6.10); WHITE BLOOD COUNT 8.3 10^3/uL (4.0-10.0)
[2022-09-18 06:33] LABS: BLOOD UREA NITROGEN 6 MG/DL (9-23); CALCIUM LEVEL 7.5 MG/DL (8.5-10.1); CARBON DIOXIDE LEVEL 27 MMOL/L (20-31); CHLORIDE LEVEL 102 MMOL/L (98-107); CREATININE FOR GFR 0.73 MG/DL (0.70-1.30); GLOMERULAR FILTRATION RATE > 60.0 (>60); GLUCOSE, FASTING 110 MG/DL (60-100); POTASSIUM SERUM 3.7 MMOL/L (3.5-5.1); SODIUM LEVEL 136 MMOL/L (136-145)
[2022-09-18] MEDS: MIRALAX *UNIT DOSE* 17GM PACKET PO SCH ×2 (09:00→20:51)
[2022-09-18] MEDS: FOLIC ACID 1MG TAB PO SCH (09:53)
[2022-09-18] MEDS: APIXABAN 5 MG TAB (ELIQUIS) PO SCH ×2 (09:53→20:22)
[2022-09-18] MEDS: ONDANSETRON 4MG 2ML VIAL IV PRN (12:38)
[2022-09-18 14:00] VITALS: BP 116/72
[2022-09-18 20:00] VITALS: BP 117/65
[2022-09-19] MEDS: PANTOPRAZOLE 40MG VIAL IV SCH ×2 (04:02→16:25)
[2022-09-19] MEDS: KETOROLAC 30 MG/ML 1ML VIAL IV SCH ×4 (04:02→21:54)
[2022-09-19] MEDS: PIPERACILLIN/TAZOBACTAM SOD 3.375 GM in D5W MINI-BAG PLUS 50 ML IV SCH ×4 (04:03→21:54)
[2022-09-19] MEDS: MORPHINE 4 MG/ML 1ML VIAL IV PRN ×4 (04:08→23:27)
[2022-09-19] MEDS: SUCRALFATE SUSP 1GM/10ML UD PO SCH ×4 (05:32→23:19)
[2022-09-19 06:07] VITALS: BP 139/88
[2022-09-19 06:19] LABS: BASO % 0.2 % (0.0-1.0); EOS # 0.5 10^3/uL (0.0-0.5); EOS % 6.2 % (0.0-3.0); HEMOGLOBIN 10.1 g/dl (13.5-17.5); MEAN CORPUSCULAR HEMOGLOBIN 29.3 pg (27.0-33.0); MEAN CORPUSCULAR HGB CONC 32.6 g/dl (32.0-36.5); MEAN CORPUSCULAR VOLUME 89.9 fl (80.0-96.0); MONO # 1.3 10^3/uL (0.0-0.8); MONO % 15.8 % (2.0-8.0); NEUTROPHILS # 5.4 10^3/uL (1.5-8.5); NEUTROPHILS % 65.4 % (36.0-66.0); PLATELET COUNT, AUTOMATED 213 10^3/uL (150-450); RED BLOOD COUNT 3.45 10^6/uL (4.30-6.10); WHITE BLOOD COUNT 8.2 10^3/uL (4.0-10.0)
[2022-09-19 06:51] LABS: BLOOD UREA NITROGEN < 5 MG/DL (9-23); CALCIUM LEVEL 7.5 MG/DL (8.5-10.1); CARBON DIOXIDE LEVEL 24 MMOL/L (20-31); CHLORIDE LEVEL 104 MMOL/L (98-107); CREATININE FOR GFR 0.74 MG/DL (0.70-1.30); GLOMERULAR FILTRATION RATE > 60.0 (>60); GLUCOSE, FASTING 105 MG/DL (60-100); POTASSIUM SERUM 3.5 MMOL/L (3.5-5.1); SODIUM LEVEL 138 MMOL/L (136-145)
[2022-09-19] MEDS: APIXABAN 5 MG TAB (ELIQUIS) PO SCH ×2 (08:24→20:10)
[2022-09-19] MEDS: FOLIC ACID 1MG TAB PO SCH (08:24)
[2022-09-19] MEDS: MIRALAX *UNIT DOSE* 17GM PACKET PO SCH ×2 (08:33→20:01)
[2022-09-19 09:26] LABS: LIPASE 121 U/L (12-53)
[2022-09-19] MEDS: LR 1,000 ML IV SCH ×2 (09:32→21:58)
[2022-09-19 14:00] VITALS: BP 142/90
[2022-09-19] MEDS: ONDANSETRON 4MG 2ML VIAL IV PRN (18:59)
[2022-09-19 22:00] VITALS: BP 130/83
[2022-09-19] MEDS: FLUCONAZOLE 200 MG in IV 1 EA IV SCH (23:19)
[2022-09-20] MEDS: PANTOPRAZOLE 40MG VIAL IV SCH ×2 (03:44→15:49)
[2022-09-20] MEDS: PIPERACILLIN/TAZOBACTAM SOD 3.375 GM in D5W MINI-BAG PLUS 50 ML IV SCH ×4 (03:45→23:03)
[2022-09-20] MEDS: KETOROLAC 30 MG/ML 1ML VIAL IV SCH ×4 (03:46→23:09)
[2022-09-20] MEDS: SUCRALFATE SUSP 1GM/10ML UD PO SCH ×3 (05:22→17:29)
[2022-09-20] MEDS: MORPHINE 4 MG/ML 1ML VIAL IV PRN ×2 (05:53→13:36)
[2022-09-20 06:00] VITALS: BP_SYST 141; BP_DIAS 73; BP_DIAS 83
[2022-09-20 06:58] LABS: BASO % 0.5 % (0.0-1.0); EOS # 0.5 10^3/uL (0.0-0.5); EOS % 6.6 % (0.0-3.0); LYMPH # 1.1 10^3/uL (1.5-5.0); LYMPH % 14.5 % (24.0-44.0); MEAN CORPUSCULAR HEMOGLOBIN 29.2 pg (27.0-33.0); MEAN CORPUSCULAR HGB CONC 32.3 g/dl (32.0-36.5); MEAN CORPUSCULAR VOLUME 90.6 fl (80.0-96.0); MONO # 1.1 10^3/uL (0.0-0.8); MONO % 14.8 % (2.0-8.0); NEUTROPHILS # 4.8 10^3/uL (1.5-8.5); NEUTROPHILS % 63.2 % (36.0-66.0); PLATELET COUNT, AUTOMATED 241 10^3/uL (150-450); RED BLOOD COUNT 3.42 10^6/uL (4.30-6.10); WHITE BLOOD COUNT 7.6 10^3/uL (4.0-10.0)
[2022-09-20 07:23] LABS: BLOOD UREA NITROGEN < 5 MG/DL (9-23); CALCIUM LEVEL 7.6 MG/DL (8.5-10.1); CARBON DIOXIDE LEVEL 25 MMOL/L (20-31); CHLORIDE LEVEL 105 MMOL/L (98-107); CREATININE FOR GFR 0.73 MG/DL (0.70-1.30); GLOMERULAR FILTRATION RATE > 60.0 (>60); GLUCOSE, FASTING 98 MG/DL (60-100); POTASSIUM SERUM 3.5 MMOL/L (3.5-5.1); SODIUM LEVEL 139 MMOL/L (136-145)
[2022-09-20] MEDS: MIRALAX *UNIT DOSE* 17GM PACKET PO SCH ×2 (09:00→21:00)
[2022-09-20] MEDS ORDERED: E-Z-HD 98% w/w 340GM SUSP BTL As Ordered ONE (11:00)
[2022-09-20] MEDS ORDERED: E-Z-GAS II EFFERVESCENT PACKET (SODIUM BICARB./CITRIC ACID/SIMETHICONE) As Ordered ONE (11:00)
[2022-09-20] MEDS ORDERED: E-Z-PAQUE 96% w/w SUSP 176GM BTL As Ordered ONE (11:00)
[2022-09-20] MEDS: LR 1,000 ML IV SCH (11:36)
[2022-09-20] MEDS: APIXABAN 5 MG TAB (ELIQUIS) PO SCH ×2 (13:36→20:58)
[2022-09-20] MEDS: FOLIC ACID 1MG TAB PO SCH (13:36)
[2022-09-20] MEDS: ONDANSETRON 4MG 2ML VIAL IV PRN (13:50)
[2022-09-20 14:00] VITALS: BP 149/96
[2022-09-20] MEDS: MORPHINE 2 MG/ML 1ML VIAL IV PRN (20:57)
[2022-09-20 21:30] VITALS: BP 147/96
[2022-09-21] MEDS: FLUCONAZOLE 200 MG in IV 1 EA IV SCH (00:18)
[2022-09-21] MEDS: SUCRALFATE SUSP 1GM/10ML UD PO SCH ×4 (00:22→17:21)
[2022-09-21] MEDS: LR 1,000 ML IV SCH ×2 (01:26→16:37)
[2022-09-21] MEDS: KETOROLAC 30 MG/ML 1ML VIAL IV SCH ×3 (04:00→16:42)
[2022-09-21] MEDS: PIPERACILLIN/TAZOBACTAM SOD 3.375 GM in D5W MINI-BAG PLUS 50 ML IV SCH ×2 (04:18→09:36)
[2022-09-21] MEDS: PANTOPRAZOLE 40MG VIAL IV SCH ×2 (04:18→16:34)
[2022-09-21 05:35] VITALS: BP 148/96
[2022-09-21] MEDS: MORPHINE 4 MG/ML 1ML VIAL IV PRN (05:48)
[2022-09-21 06:26] LABS: BASO % 0.5 % (0.0-1.0); EOS # 0.5 10^3/uL (0.0-0.5); EOS % 6.3 % (0.0-3.0); HEMATOCRIT 30.8 % (42.0-52.0); LYMPH # 1.2 10^3/uL (1.5-5.0); LYMPH % 14.5 % (24.0-44.0); MEAN CORPUSCULAR HEMOGLOBIN 29.2 pg (27.0-33.0); MEAN CORPUSCULAR HGB CONC 32.5 g/dl (32.0-36.5); MEAN CORPUSCULAR VOLUME 90.1 fl (80.0-96.0); MONO # 1.1 10^3/uL (0.0-0.8); NEUTROPHILS # 5.3 10^3/uL (1.5-8.5); NEUTROPHILS % 64.5 % (36.0-66.0); PLATELET COUNT, AUTOMATED 249 10^3/uL (150-450); RED BLOOD COUNT 3.42 10^6/uL (4.30-6.10); WHITE BLOOD COUNT 8.2 10^3/uL (4.0-10.0)
[2022-09-21 06:55] LABS: BLOOD UREA NITROGEN < 5 MG/DL (9-23); CALCIUM LEVEL 7.6 MG/DL (8.5-10.1); CARBON DIOXIDE LEVEL 24 MMOL/L (20-31); CHLORIDE LEVEL 104 MMOL/L (98-107); CREATININE FOR GFR 0.72 MG/DL (0.70-1.30); GLOMERULAR FILTRATION RATE > 60.0 (>60); GLUCOSE, FASTING 96 MG/DL (60-100); POTASSIUM SERUM 3.6 MMOL/L (3.5-5.1); SODIUM LEVEL 138 MMOL/L (136-145)
[2022-09-21] MEDS: MIRALAX *UNIT DOSE* 17GM PACKET PO SCH ×2 (09:00→21:00)
[2022-09-21] MEDS: FOLIC ACID 1MG TAB PO SCH (09:35)
[2022-09-21] MEDS: APIXABAN 5 MG TAB (ELIQUIS) PO SCH ×2 (09:35→21:34)
[2022-09-21 14:00] VITALS: BP 147/96
[2022-09-21] MEDS: AUGMENTIN 875 MG TAB PO SCH ×2 (14:14→21:34)
[2022-09-21] MEDS: MORPHINE 2 MG/ML 1ML VIAL IV PRN ×2 (14:22→21:34)
[2022-09-21 20:00] VITALS: BP 147/96
[2022-09-21] MEDS: FLUCONAZOLE 100 MG TAB PO SCH (21:34)
[2022-09-22] MEDS: SUCRALFATE SUSP 1GM/10ML UD PO SCH ×2 (00:08→06:32)
[2022-09-22] MEDS: KETOROLAC 30 MG/ML 1ML VIAL IV SCH ×2 (00:08→04:00)
[2022-09-22] MEDS: PANTOPRAZOLE 40MG VIAL IV SCH (04:23)
[2022-09-22] MEDS: LR 1,000 ML IV SCH ×2 (04:23→17:41)
[2022-09-22 05:52] VITALS: BP 144/85
[2022-09-22] MEDS: AUGMENTIN 875 MG TAB PO SCH ×3 (06:32→21:33)
[2022-09-22] MEDS: MORPHINE 4 MG/ML 1ML VIAL IV PRN ×2 (06:33→10:40)
[2022-09-22 07:13] LABS: BASO # 0.1 10^3/uL (0.0-0.2); BASO % 0.8 % (0.0-1.0); EOS # 0.4 10^3/uL (0.0-0.5); EOS % 5.8 % (0.0-3.0); HEMATOCRIT 32.1 % (42.0-52.0); HEMOGLOBIN 10.3 g/dl (13.5-17.5); LYMPH # 1.2 10^3/uL (1.5-5.0); LYMPH % 15.6 % (24.0-44.0); MEAN CORPUSCULAR HEMOGLOBIN 28.6 pg (27.0-33.0); MEAN CORPUSCULAR HGB CONC 32.1 g/dl (32.0-36.5); MEAN CORPUSCULAR VOLUME 89.2 fl (80.0-96.0); MONO # 1.1 10^3/uL (0.0-0.8); MONO % 13.8 % (2.0-8.0); NEUTROPHILS # 4.9 10^3/uL (1.5-8.5); NEUTROPHILS % 63.6 % (36.0-66.0); PLATELET COUNT, AUTOMATED 287 10^3/uL (150-450); WHITE BLOOD COUNT 7.6 10^3/uL (4.0-10.0)
[2022-09-22 07:40] LABS: BLOOD UREA NITROGEN < 5 MG/DL (9-23); CALCIUM LEVEL 7.8 MG/DL (8.5-10.1); CARBON DIOXIDE LEVEL 24 MMOL/L (20-31); CHLORIDE LEVEL 105 MMOL/L (98-107); CREATININE FOR GFR 0.67 MG/DL (0.70-1.30); GLOMERULAR FILTRATION RATE > 60.0 (>60); GLUCOSE, FASTING 91 MG/DL (60-100); POTASSIUM SERUM 3.6 MMOL/L (3.5-5.1); SODIUM LEVEL 137 MMOL/L (136-145)
[2022-09-22] MEDS: FOLIC ACID 1MG TAB PO SCH (08:24)
[2022-09-22] MEDS: APIXABAN 5 MG TAB (ELIQUIS) PO SCH ×2 (08:24→20:03)
[2022-09-22] MEDS: MIRALAX *UNIT DOSE* 17GM PACKET PO SCH ×2 (09:00→20:04)
[2022-09-22] MEDS ORDERED: MIRA1POW3 PO (09:33)
[2022-09-22] MEDS ORDERED: FLUC100T3 PO (09:33)
[2022-09-22] MEDS ORDERED: AMOX875T2 PO (09:33)
[2022-09-22] MEDS ORDERED: PANT40TA29 PO (09:33)
[2022-09-22] MEDS ORDERED: BACI1CAP PO (09:33)
[2022-09-22] MEDS ORDERED: SUCR1TA PO (09:33)
[2022-09-22] MEDS ORDERED: PERCOCET 5MG/325MG TAB PO ONE (10:50)
[2022-09-22] MEDS ORDERED: PERC5TAB12 PO (10:52)
[2022-09-22] MEDS: SUCRALFATE 1 GM TAB PO SCH ×3 (11:37→20:04)
[2022-09-22 14:00] VITALS: BP 138/95
[2022-09-22] MEDS: PERCOCET 5MG/325MG TAB PO PRN (19:58)
[2022-09-22 20:00] VITALS: BP 154/98
[2022-09-22] MEDS: PANTOPRAZOLE 40MG TAB (PROTONIX) PO SCH (20:03)
[2022-09-22] MEDS: FLUCONAZOLE 100 MG TAB PO SCH (20:04)
[2022-09-23] MEDS: PERCOCET 5MG/325MG TAB PO PRN ×5 (02:40→23:16)
[2022-09-23] MEDS: AUGMENTIN 875 MG TAB PO SCH ×3 (05:54→21:27)
[2022-09-23] MEDS: LR 1,000 ML IV SCH (05:58)
[2022-09-23 06:00] VITALS: BP 154/95
[2022-09-23] MEDS: PANTOPRAZOLE 40MG TAB (PROTONIX) PO SCH ×2 (08:34→21:27)
[2022-09-23] MEDS: FOLIC ACID 1MG TAB PO SCH (08:34)
[2022-09-23] MEDS: SUCRALFATE 1 GM TAB PO SCH ×4 (08:34→21:28)
[2022-09-23] MEDS: MIRALAX *UNIT DOSE* 17GM PACKET PO SCH ×2 (08:35→21:25)
[2022-09-23] MEDS: APIXABAN 5 MG TAB (ELIQUIS) PO SCH ×2 (08:35→21:27)
[2022-09-23 14:00] VITALS: BP 140/79
[2022-09-23] MEDS: FLUCONAZOLE 100 MG TAB PO SCH (21:28)
[2022-09-23 22:00] VITALS: BP 158/98
[2022-09-24] MEDS: LR 1,000 ML IV SCH ×2 (03:44→08:40)
[2022-09-24] MEDS: PERCOCET 5MG/325MG TAB PO PRN ×4 (04:16→17:07)
[2022-09-24] MEDS: AUGMENTIN 875 MG TAB PO SCH ×2 (05:02→15:18)
[2022-09-24 05:53] VITALS: BP 155/95
[2022-09-24] MEDS: SUCRALFATE 1 GM TAB PO SCH ×2 (08:40→12:50)
[2022-09-24] MEDS: PANTOPRAZOLE 40MG TAB (PROTONIX) PO SCH (08:40)
[2022-09-24] MEDS: MIRALAX *UNIT DOSE* 17GM PACKET PO SCH (08:40)
[2022-09-24] MEDS: APIXABAN 5 MG TAB (ELIQUIS) PO SCH (08:40)
[2022-09-24] MEDS: FOLIC ACID 1MG TAB PO SCH (08:40)
[2022-09-24] MEDS ORDERED: LOVE1INJ SC (10:55)
[2022-09-24 14:00] VITALS: BP 154/102
[2022-09-24 14:21] LABS: BASO # 0.1 10^3/uL (0.0-0.2); BASO % 0.7 % (0.0-1.0); EOS # 0.5 10^3/uL (0.0-0.5); EOS % 4.9 % (0.0-3.0); HEMATOCRIT 34.2 % (42.0-52.0); HEMOGLOBIN 10.9 g/dl (13.5-17.5); LYMPH # 1.2 10^3/uL (1.5-5.0); LYMPH % 12.5 % (24.0-44.0); MEAN CORPUSCULAR HEMOGLOBIN 28.6 pg (27.0-33.0); MEAN CORPUSCULAR HGB CONC 31.9 g/dl (32.0-36.5); MEAN CORPUSCULAR VOLUME 89.8 fl (80.0-96.0); MONO # 1.3 10^3/uL (0.0-0.8); MONO % 13.5 % (2.0-8.0); NEUTROPHILS # 6.6 10^3/uL (1.5-8.5); NEUTROPHILS % 68.1 % (36.0-66.0); PLATELET COUNT, AUTOMATED 339 10^3/uL (150-450); RED BLOOD COUNT 3.81 10^6/uL (4.30-6.10); WHITE BLOOD COUNT 9.7 10^3/uL (4.0-10.0)
[2022-09-24 14:49] LABS: LIPASE 362 U/L (12-53)
[2022-09-24 14:55] LABS: ALBUMIN 2.4 G/DL (3.2-5.2); ALKALINE PHOSPHATASE 88 U/L (46-116); ALT/SGPT 26 U/L (7.0-40); AST/SGOT 31 U/L (<34); BILIRUBIN,TOTAL 0.3 MG/DL (0.3-1.2); BLOOD UREA NITROGEN 7 MG/DL (9-23); CALCIUM LEVEL 8.4 MG/DL (8.5-10.1); CARBON DIOXIDE LEVEL 25 MMOL/L (20-31); CHLORIDE LEVEL 102 MMOL/L (98-107); CREATININE FOR GFR 0.71 MG/DL (0.70-1.30); GLOMERULAR FILTRATION RATE > 60.0 (>60); GLUCOSE, FASTING 122 MG/DL (60-100); POTASSIUM SERUM 3.9 MMOL/L (3.5-5.1); SODIUM LEVEL 134 MMOL/L (136-145); TOTAL PROTEIN 6.5 G/DL (5.7-8.2)
[2022-09-24 15:02] LABS: ERYTHROCYTE SEDIMENTATION RATE 104 mm/hr (0-15)
[2022-09-24] MEDS ORDERED: SODIUM CHLORIDE 0.9% INJ 10 ML SYR IV PRN (15:10)
[2022-09-24] MEDS ORDERED: METOPROLOL SUCC (TopROL XL) 50MG **XL** TAB PO ONE (15:15)
[2022-09-24] MEDS ORDERED: cloNIDine 0.1MG TABLET PO ONE ×2 (15:20→16:25)
[2022-09-24] MEDS ORDERED: CLON0.3T PO (16:24)
[2022-09-24] MEDS ORDERED: NORV5TAB PO (16:24)
[2022-09-24] MEDS ORDERED: SELF1KIT MC (16:24)
[2022-09-24] MEDS ORDERED: amLODIPine 5 MG TAB PO ONE (16:25)
[2022-09-24 17:06] VITALS: BP 153/99
[2022-09-24 17:39] VITALS: BP 128/87
[2022-09-24] MEDS ORDERED: ENOXAPARIN 80MG/0.8ML SYRINGE (J1650 PER 10MG) SC SCH (21:00)
[2022-09-24] MEDS ORDERED: amLODIPine 5 MG TAB PO SCH (21:00)
[2022-09-24] MEDS ORDERED: cloNIDine 0.1MG TABLET PO SCH (23:00)
[2022-09-25] MEDS ORDERED: SODIUM CHLORIDE 0.9% INJ 10 ML SYR IV SCH (09:00)
[2022-09-27] MEDS ORDERED: PERCOCET PO (10:27)
== END 2022-09-24 17:53 | disposition home or self-care (01) | DRG 282 ==
LOC: M ED 08:55 → M ED INP 15:45 → ENRESERV 16:09 → M MSPAV 16:45
PROVIDERS: ADMIT Internal Medicine Nephrology; ATTEND General Practice
PROC: B246ZZZ Ultrasonography of Right and Left Heart (ICD-10-PCS; principal; 2022-09-22)
DX: K85.90 Acute pancreatitis without necrosis or infection, unspecified (principal); K26.5 Chronic or unspecified duodenal ulcer with perforation; J91.0 Malignant pleural effusion; I38 Endocarditis, valve unspecified; R18.8 Other ascites; I27.20 Pulmonary hypertension, unspecified; C34.91 Malignant neoplasm of unspecified part of right bronchus or lung; I16.0 Hypertensive urgency; I69.351 Hemiplegia and hemiparesis following cerebral infarction affecting right dominant side; D73.5 Infarction of spleen; K76.0 Fatty (change of) liver, not elsewhere classified; F17.210 Nicotine dependence, cigarettes, uncomplicated; K59.00 Constipation, unspecified; I10 Essential (primary) hypertension; I35.0 Nonrheumatic aortic (valve) stenosis; Z79.899 Other long term (current) drug therapy; K29.80 Duodenitis without bleeding; Z20.822 Contact with and (suspected) exposure to COVID-19; Z79.01 Long term (current) use of anticoagulants; Z91.030 Bee allergy status; K21.9 Gastro-esophageal reflux disease without esophagitis

== ENCOUNTER → 2022-10-13 | Outpatient (CLI) | payer BC, OTHER ==
[~2022-10-13] VITALS: Ht 182.9 cm; Wt 71.3 kg
[~2022-10-13] MED LIST changes: +AMOX875T2 PO; +BACI1CAP PO; +CLON0.3T PO; +DEXA1CON PO; +DOCU8.6T PO; +DULC10SU2 PR; +FLUC100T3 PO; +GLYC2TAB18 PO; +LOVE1INJ SC; +MORP1TAB20 PO; +NORV5TAB PO; +OXYC-1 PO; +OXYC10TA12 PO; +OXYC30TA PO; +PANT40TA29 PO; +PERC5TAB12 PO; +POLY17PO18 PO; +POTA1TAB14 PO; +SELF1KIT MC; +SENN-186 PO; +SUCR1TA PO
[2022-10-13 07:51] VITALS: BP 124/82
== END ==
LOC: M PAL 07:46
PROVIDERS: ATTEND Nurse Practitioner Adult Health
DX: C34.91 Malignant neoplasm of unspecified part of right bronchus or lung (principal); Z51.5 Encounter for palliative care; Z92.21 Personal history of antineoplastic chemotherapy; J91.0 Malignant pleural effusion; R10.9 Unspecified abdominal pain; Z91.030 Bee allergy status; Z79.891 Long term (current) use of opiate analgesic; Z79.899 Other long term (current) drug therapy; G89.3 Neoplasm related pain (acute) (chronic); R63.0 Anorexia; K59.00 Constipation, unspecified; F17.210 Nicotine dependence, cigarettes, uncomplicated

== ENCOUNTER → 2022-10-20 | Outpatient (CLI) | payer BC, OTHER ==
[~2022-10-20] VITALS: Ht 182.9 cm; Wt 71.1 kg
[2022-10-20 11:02] VITALS: BP 151/99
== END ==
LOC: M PAL 10:53
PROVIDERS: ATTEND Nurse Practitioner Adult Health
DX: C34.91 Malignant neoplasm of unspecified part of right bronchus or lung (principal); Z51.5 Encounter for palliative care; Z66 Do not resuscitate; Z92.21 Personal history of antineoplastic chemotherapy; J91.0 Malignant pleural effusion; F17.210 Nicotine dependence, cigarettes, uncomplicated; G89.3 Neoplasm related pain (acute) (chronic); K59.00 Constipation, unspecified; Z91.030 Bee allergy status; Z79.891 Long term (current) use of opiate analgesic; Z79.899 Other long term (current) drug therapy